=== PATIENT | male | born 1945 | race Caucasian/White ===

== ENCOUNTER → 2017-03-11 | Outpatient (CLI) | payer MEDICARE ==
[2017-03-11 14:14] LABS: CH 29.6; CHCM 32.5; HCT 31.8 % (39.0-53.0); HDW 2.89; HGB 10.5 gm/dL (13.0-17.5); MCH 30.2 pg (25.0-35.0); MCHC 33.1 g/dL (31.0-37.0); MCV 91.3 fL (80.0-100.0); Mean Platelet Volume 6.9; RBC 3.48 m/uL (4.30-5.90); WBC 6.3 k/uL (3.8-10.6)
[2017-03-11 14:15] LABS: Appearance,Urine Clear (Clear); Bilirubin,Urine Negative (Negative); Glucose,Urine (UA) Negative (Negative); Ketones,Urine Negative (Negative); Leukocyte Esterase,Urine Moderate (Negative); Mucus,Urine Rare /hpf; Nitrite,Urine Negative (Negative); Particle Count 2014; Protein,Urine 1+ (Negative); Specific Gravity,Urine 1.005 (1.001-1.035); Squamous Epithelial Cell,Urine <1 /hpf (0-4); UA Billing (MACRO vs. MICRO) MICRO; Urobilinogen,Urine <2.0 mg/dL (<2.0); WBC,Urine 4 /hpf (0-5)
[2017-03-11 14:28] LABS: Calcium 9.6 mg/dL (8.4-10.2); Magnesium 2.1 mg/dL (1.6-2.3); Phosphorous 4.7 mg/dL (2.5-4.5); Potassium 4.4 mmol/L (3.5-5.1); Uric Acid 7.4 mg/dL (3.5-8.5)
[2017-03-11 14:37] LABS: % Iron Saturation 32.9 % (20-50)
[2017-03-11 14:38] LABS: Creatinine,Urine Random 45.8 mg/dL
== END | disposition home or self-care (01) ==
LOC: LABWHC1 13:41
PROVIDERS: ATTEND Nurse Practitioner Family
DX: E79.0 Hyperuricemia without signs of inflammatory arthritis and tophaceous disease (principal); E55.9 Vitamin D deficiency, unspecified; E21.3 Hyperparathyroidism, unspecified; N18.4 Chronic kidney disease, stage 4 (severe); N39.0 Urinary tract infection, site not specified; D50.9 Iron deficiency anemia, unspecified; R80.9 Proteinuria, unspecified
CPT/HCPCS: 36415; 80048; 81001; 82040; 82306; 82570; 82728; 83540; 83550; 83735; 83970; 84100; 84156; 84550; 85027

== ENCOUNTER → 2017-07-08 | Outpatient (CLI) | payer MEDICARE ==
[2017-07-08 13:11] LABS: Anisocytosis Slight; Basophils # (A) 0.1 k/uL (0-0.2); Basophils % (A) 1 %; CH 30.1; CHCM 31.3; Eosinophils # (A) 0.3 k/uL (0-0.7); Eosinophils % (A) 4 %; HCT 33.9 % (39.0-53.0); HDW 2.76; HGB 10.7 gm/dL (13.0-17.5); Hypochromasia Slight; Luc # (Auto) 0.29; Luc % (Auto) 4; Lymphocytes # (A) 1.4 k/uL (1.0-4.8); Lymphocytes % (A) 20 %; MCH 30.6 pg (25.0-35.0); MCHC 31.7 g/dL (31.0-37.0); MCV 96.7 fL (80.0-100.0); Macrocytosis Slight; Monocytes # (A) 0.5 k/uL (0-1.0); Monocytes % (A) 8 %; Neutrophils # (A) 4.4 k/uL (1.3-7.7); Neutrophils % (A) 63 %; RBC 3.51 m/uL (4.30-5.90); RDW 17.2 % (11.5-15.5)
[2017-07-08 14:59] LABS: Calcium 9.4 mg/dL (8.4-10.2); Magnesium 2.1 mg/dL (1.6-2.3); Phosphorus 4.3 mg/dL (2.5-4.5); Potassium 5.1 mmol/L (3.5-5.1)
[2017-07-08 15:01] LABS: Appearance,Urine Clear (Clear); Bilirubin,Urine Negative (Negative); Glucose,Urine (UA) Negative (Negative); Ketones,Urine Negative (Negative); Leukocyte Esterase,Urine Negative (Negative); Nitrite,Urine Negative (Negative); PH, Urine 5.5 (5.0-8.0); Particle Count 800; Protein,Urine 1+ (Negative); Specific Gravity,Urine 1.005 (1.001-1.035); UA Billing (MACRO vs. MICRO) MICRO; Urobilinogen,Urine <2.0 mg/dL (<2.0)
[2017-07-08 19:49] LABS: Iron Saturation 17.07 (15.00-50.00)
== END | disposition home or self-care (01) ==
LOC: LABWHC1 12:09
PROVIDERS: ATTEND Nurse Practitioner Family
DX: N18.4 Chronic kidney disease, stage 4 (severe) (principal); E79.0 Hyperuricemia without signs of inflammatory arthritis and tophaceous disease; R80.9 Proteinuria, unspecified; D50.9 Iron deficiency anemia, unspecified; N39.0 Urinary tract infection, site not specified; E21.3 Hyperparathyroidism, unspecified; E55.9 Vitamin D deficiency, unspecified
CPT/HCPCS: 36415; 80048; 81001; 82040; 82306; 82570; 82728; 83540; 83550; 83735; 83970; 84100; 84156; 84550; 85025

== ENCOUNTER → 2017-11-19 | Outpatient (CLI) | payer MEDICARE ==
[2017-11-19 14:08] LABS: HCT 37.3 % (39.0-53.0); HGB 11.9 gm/dL (13.0-17.5); MCH 30.1 pg (25.0-35.0); Mean Platelet Volume 7.4; Platelet Count 350 k/uL (150-450); RBC 3.96 m/uL (4.30-5.90); WBC 6.4 k/uL (3.8-10.6)
[2017-11-19 14:24] LABS: Albumin 4.2 g/dL (3.5-5.0); Calcium 9.7 mg/dL (8.4-10.2); Magnesium 2.2 mg/dL (1.6-2.3); Phosphorus 4.7 mg/dL (2.5-4.5); Potassium 5.4 mmol/L (3.5-5.1); Uric Acid 7.4 mg/dL (3.5-8.5)
[2017-11-19 14:27] LABS: Appearance,Urine Clear (Clear); Bilirubin,Urine Negative (Negative); Blood,Urine Negative (Negative); Color,Urine Light Yellow; Glucose,Urine (UA) Negative (Negative); Hyaline Casts,Urine 1 /lpf (0-2); Ketones,Urine Negative (Negative); Leukocyte Esterase,Urine Moderate (Negative); Nitrite,Urine Negative (Negative); PH, Urine 5.5 (5.0-8.0); Protein,Urine 2+ (Negative); Specific Gravity,Urine 1.005 (1.001-1.035); Urobilinogen,Urine <2.0 mg/dL (<2.0); WBC,Urine 3 /hpf (0-5)
[2017-11-19 14:40] LABS: Creatinine,Urine Random 46.5 mg/dL
[2017-11-19 18:57] LABS: Parathyroid Hormone Intact 130.5 pg/mL (14.0-72.0)
[2017-11-19 19:47] LABS: Iron Saturation 12.94 (15.00-50.00)
[2017-11-19 19:54] LABS: Vitamin D 25 Hydroxy 28.9 ng/mL (30.0-100.0)
== END | disposition home or self-care (01) ==
LOC: LABWHC1 13:19
PROVIDERS: ATTEND Nurse Practitioner Family
DX: N39.0 Urinary tract infection, site not specified (principal); N25.81 Secondary hyperparathyroidism of renal origin; E55.9 Vitamin D deficiency, unspecified; M10.9 Gout, unspecified; D50.9 Iron deficiency anemia, unspecified; R80.9 Proteinuria, unspecified; N18.4 Chronic kidney disease, stage 4 (severe)
CPT/HCPCS: 36415; 80048; 81001; 82040; 82306; 82570; 82728; 83540; 83550; 83735; 83970; 84100; 84156; 84550; 85027

== ENCOUNTER → 2017-12-13 | Outpatient (CLI) | payer MEDICARE ==
[2017-12-13 11:15] LABS: HGB 10.8 gm/dL (13.0-17.5); MCH 29.6 pg (25.0-35.0); MCHC 32.7 g/dL (31.0-37.0); MCV 90.7 fL (80.0-100.0); Mean Platelet Volume 7.4; Platelet Count 332 k/uL (150-450); RBC 3.64 m/uL (4.30-5.90); RDW 15.2 % (11.5-15.5); WBC 8.6 k/uL (3.8-10.6)
[2017-12-13 11:31] LABS: Appearance,Urine Clear (Clear); Bilirubin,Urine Negative (Negative); Blood,Urine Negative (Negative); Color,Urine Light Yellow; Glucose,Urine (UA) Negative (Negative); Ketones,Urine Negative (Negative); Leukocyte Esterase,Urine Moderate (Negative); Protein,Urine 2+ (Negative); RBC,Urine <1 /hpf (0-5); Specific Gravity,Urine 1.006 (1.001-1.035); Squamous Epithelial Cell,Urine <1 /hpf (0-4); Urobilinogen,Urine <2.0 mg/dL (<2.0); WBC,Urine 3 /hpf (0-5)
[2017-12-13 11:33] LABS: Calcium 9.4 mg/dL (8.4-10.2); Phosphorus 4.4 mg/dL (2.5-4.5); Potassium 5.2 mmol/L (3.5-5.1); Uric Acid 7.1 mg/dL (3.5-8.5)
[2017-12-13 11:53] LABS: Creatinine,Urine Random 56.4 mg/dL
[2017-12-13 17:36] LABS: Parathyroid Hormone Intact 125.7 pg/mL (14.0-72.0)
[2017-12-13 19:06] LABS: Iron Saturation 28.35 (15.00-50.00)
== END | disposition home or self-care (01) ==
LOC: LABWHC1 10:23
PROVIDERS: ATTEND Nurse Practitioner Family
DX: N39.0 Urinary tract infection, site not specified (principal); N18.4 Chronic kidney disease, stage 4 (severe); E55.9 Vitamin D deficiency, unspecified; E61.1 Iron deficiency; R80.9 Proteinuria, unspecified; N25.81 Secondary hyperparathyroidism of renal origin; D50.9 Iron deficiency anemia, unspecified; M10.9 Gout, unspecified
CPT/HCPCS: 36415; 80048; 81001; 82040; 82570; 82728; 83540; 83550; 83735; 83970; 84100; 84156; 84550; 85027

== ENCOUNTER → 2018-03-11 | Outpatient (CLI) | payer MEDICARE ==
[2018-03-11 13:48] LABS: Anisocytosis Slight; HCT 31.6 % (39.0-53.0); HGB 10.2 gm/dL (13.0-17.5); MCH 29.8 pg (25.0-35.0); MCHC 32.2 g/dL (31.0-37.0); MCV 92.5 fL (80.0-100.0); Mean Platelet Volume 6.9; Platelet Count 329 k/uL (150-450); RBC 3.41 m/uL (4.30-5.90); RDW 17.8 % (11.5-15.5); WBC 6.8 k/uL (3.8-10.6)
[2018-03-11 13:50] LABS: Appearance,Urine Clear (Clear); Bilirubin,Urine Negative (Negative); Blood,Urine Negative (Negative); Color,Urine Light Yellow; Glucose,Urine (UA) Negative (Negative); Ketones,Urine Negative (Negative); Leukocyte Esterase,Urine Moderate (Negative); Nitrite,Urine Negative (Negative); PH, Urine 5.5 (5.0-8.0); Protein,Urine 1+ (Negative); RBC,Urine <1 /hpf (0-5); Specific Gravity,Urine 1.005 (1.001-1.035); Squamous Epithelial Cell,Urine <1 /hpf (0-4); Urobilinogen,Urine <2.0 mg/dL (<2.0); WBC,Urine 3 /hpf (0-5)
[2018-03-11 13:52] LABS: Albumin 4.5 g/dL (3.5-5.0); Calcium 9.5 mg/dL (8.4-10.2); Magnesium 2.2 mg/dL (1.6-2.3); Phosphorus 4.1 mg/dL (2.5-4.5); Potassium 4.6 mmol/L (3.5-5.1); Uric Acid 7.7 mg/dL (3.5-8.5)
[2018-03-11 14:05] LABS: Creatinine,Urine Random 27.1 mg/dL
[2018-03-11 21:30] LABS: Parathyroid Hormone Intact 132.8 pg/mL (14.0-72.0)
[2018-03-11 22:29] LABS: Iron Saturation 14.8 (15.00-50.00)
[2018-03-11 22:43] LABS: Vitamin D 25 Hydroxy 50.7 ng/mL (30.0-100.0)
== END | disposition home or self-care (01) ==
LOC: LABWHC1 12:52
PROVIDERS: ATTEND Nurse Practitioner Family
DX: N18.4 Chronic kidney disease, stage 4 (severe) (principal); D50.9 Iron deficiency anemia, unspecified; R80.9 Proteinuria, unspecified; E83.41 Hypermagnesemia; E21.3 Hyperparathyroidism, unspecified; E55.9 Vitamin D deficiency, unspecified; N39.0 Urinary tract infection, site not specified
CPT/HCPCS: 36415; 80048; 81001; 82040; 82306; 82570; 82728; 83540; 83550; 83735; 83970; 84100; 84156; 84550; 85027

== ENCOUNTER → 2018-06-10 | Outpatient (CLI) | payer MEDICARE ==
[2018-06-10 13:06] LABS: Amorphous Sediment,Urine Rare /hpf; Anisocytosis Slight; Appearance,Urine Clear (Clear); Bilirubin,Urine Negative (Negative); Blood,Urine Negative (Negative); Color,Urine Light Yellow; Glucose,Urine (UA) Negative (Negative); HCT 31.3 % (39.0-53.0); HGB 9.7 gm/dL (13.0-17.5); Ketones,Urine Negative (Negative); Leukocyte Esterase,Urine Large (Negative); MCH 28.7 pg (25.0-35.0); MCHC 30.8 g/dL (31.0-37.0); MCV 93.1 fL (80.0-100.0); Mean Platelet Volume 7.5; Nitrite,Urine Negative (Negative); Platelet Count 320 k/uL (150-450); Protein,Urine 1+ (Negative); RBC 3.37 m/uL (4.30-5.90); RDW 17.3 % (11.5-15.5); Specific Gravity,Urine 1.008 (1.001-1.035); Squamous Epithelial Cell,Urine <1 /hpf (0-4); Urobilinogen,Urine <2.0 mg/dL (<2.0); WBC 6.5 k/uL (3.8-10.6); WBC,Urine 7 /hpf (0-5)
[2018-06-10 13:19] LABS: Albumin 3.9 g/dL (3.5-5.0); Calcium 8.9 mg/dL (8.4-10.2); Magnesium 2.3 mg/dL (1.6-2.3); Phosphorus 4.9 mg/dL (2.5-4.5); Potassium 4.1 mmol/L (3.5-5.1); Uric Acid 6.9 mg/dL (3.5-8.5)
[2018-06-10 13:22] LABS: Creatinine,Urine Random 80.2 mg/dL
[2018-06-10 19:46] LABS: Parathyroid Hormone Intact 173.2 pg/mL (14.0-72.0)
[2018-06-10 21:10] LABS: Iron Saturation 16.6 (15.00-50.00)
== END | disposition home or self-care (01) ==
LOC: LABWHC1 12:14
PROVIDERS: ATTEND Nurse Practitioner Family
DX: N18.4 Chronic kidney disease, stage 4 (severe) (principal); N39.0 Urinary tract infection, site not specified; D50.9 Iron deficiency anemia, unspecified; E79.0 Hyperuricemia without signs of inflammatory arthritis and tophaceous disease; R80.9 Proteinuria, unspecified; E21.3 Hyperparathyroidism, unspecified; E55.9 Vitamin D deficiency, unspecified
CPT/HCPCS: 36415; 80048; 81001; 82040; 82570; 82728; 83540; 83550; 83735; 83970; 84100; 84156; 84550; 85027; 87086

== ENCOUNTER → 2018-09-11 | Outpatient (CLI) | payer MEDICARE ==
[2018-09-11 10:29] LABS: Anisocytosis Slight; HCT 26.5 % (39.0-53.0); HGB 8.2 gm/dL (13.0-17.5); Hypochromasia Moderate; MCH 28.3 pg (25.0-35.0); MCHC 30.8 g/dL (31.0-37.0); MCV 91.8 fL (80.0-100.0); Mean Platelet Volume 7.8; Platelet Count 346 k/uL (150-450); RBC 2.88 m/uL (4.30-5.90); WBC 6.7 k/uL (3.8-10.6)
[2018-09-11 10:36] LABS: Appearance,Urine Clear (Clear); Bilirubin,Urine Negative (Negative); Blood,Urine Negative (Negative); Color,Urine Light Yellow; Glucose,Urine (UA) Negative (Negative); Ketones,Urine Negative (Negative); Leukocyte Esterase,Urine Small (Negative); Nitrite,Urine Negative (Negative); Protein,Urine 2+ (Negative); RBC,Urine 1 /hpf (0-5); Specific Gravity,Urine 1.007 (1.001-1.035); Squamous Epithelial Cell,Urine <1 /hpf (0-4); Urobilinogen,Urine <2.0 mg/dL (<2.0); WBC,Urine 3 /hpf (0-5)
[2018-09-11 17:33] LABS: Parathyroid Hormone Intact 103.7 pg/mL (14.0-72.0)
[2018-09-11 18:55] LABS: Iron Saturation 10.99 (15.00-50.00)
[2018-09-11 19:03] LABS: Vitamin D 25 Hydroxy 44.9 ng/mL (30.0-100.0)
[2018-09-11 19:07] LABS: Albumin 4.2 g/dL (3.80-4.90); Anion Gap 9.6 mmol/L (4.00-12.00); Calcium 9.1 mg/dL (8.7-10.3); Carbon Dioxide 20.4 mmol/L (21.6-31.8); Magnesium 2.2 mg/dL (1.5-2.4); Phosphorus 4.5 mg/dL (2.4-5.1); Potassium 5.1 mmol/L (3.5-5.5); Uric Acid 6.5 mg/dL (3.7-8.7)
[2018-09-11 19:40] LABS: Total Protein,Urine Random 146.3 mg/dL (0.0-13.5)
== END | disposition home or self-care (01) ==
LOC: LABWHC1 09:18
PROVIDERS: ATTEND Nurse Practitioner Family
DX: N18.4 Chronic kidney disease, stage 4 (severe) (principal); D50.9 Iron deficiency anemia, unspecified; E79.0 Hyperuricemia without signs of inflammatory arthritis and tophaceous disease; R80.9 Proteinuria, unspecified; E21.3 Hyperparathyroidism, unspecified; E55.9 Vitamin D deficiency, unspecified; N39.0 Urinary tract infection, site not specified
CPT/HCPCS: 36415; 80048; 81001; 82040; 82306; 82570; 82728; 83540; 83550; 83735; 83970; 84100; 84156; 84550; 85027

== ENCOUNTER → 2018-11-13 | Outpatient (CLI) | payer MEDICARE ==
[2018-11-13 13:57] LABS: Anisocytosis Slight; HCT 36.1 % (39.0-53.0); HGB 10.9 gm/dL (13.0-17.5); Hypochromasia Slight; MCHC 30.3 g/dL (31.0-37.0); MCV 92.4 fL (80.0-100.0); Mean Platelet Volume 7.9; Platelet Count 349 k/uL (150-450); RDW 18.3 % (11.5-15.5); WBC 6.4 k/uL (3.8-10.6)
[2018-11-13 14:06] LABS: Appearance,Urine Clear (Clear); Bilirubin,Urine Negative (Negative); Blood,Urine Small (Negative); Color,Urine Light Yellow; Glucose,Urine (UA) Negative (Negative); Ketones,Urine Negative (Negative); Leukocyte Esterase,Urine Moderate (Negative); Mucus,Urine Rare /hpf; Nitrite,Urine Negative (Negative); PH, Urine 5.5 (5.0-8.0); Protein,Urine 2+ (Negative); RBC,Urine 8 /hpf (0-5); Specific Gravity,Urine 1.004 (1.001-1.035); Squamous Epithelial Cell,Urine 1 /hpf (0-4); Urobilinogen,Urine <2.0 mg/dL (<2.0); WBC,Urine 3 /hpf (0-5)
[2018-11-13 19:17] LABS: Iron Saturation 11.94 (15.00-50.00)
[2018-11-13 19:23] LABS: Albumin 4.2 g/dL (3.80-4.90); Albumin/Globulin Ratio 1.5 (1.60-3.17); Anion Gap 10.3 mmol/L (4.00-12.00); Carbon Dioxide 20.7 mmol/L (21.6-31.8); Globulin 2.8 g/dL (1.6-3.3); Magnesium 2.3 mg/dL (1.5-2.4); Phosphorus 3.8 mg/dL (2.4-5.1); Potassium 4.6 mmol/L (3.5-5.5); Total Bilirubin 0.2 mg/dL (0.3-1.2); Uric Acid 6.5 mg/dL (3.7-8.7)
[2018-11-13 20:19] LABS: Parathyroid Hormone Intact 142.7 pg/mL (14.0-72.0)
[2018-11-13 21:01] LABS: Creatinine,Urine Random 35.7 mg/dL
[2018-11-13 21:17] LABS: Total Protein,Urine Random 102.7 mg/dL (0.0-13.5)
== END | disposition home or self-care (01) ==
LOC: LABWHC1 13:18
PROVIDERS: ATTEND Internal Medicine
DX: N18.4 Chronic kidney disease, stage 4 (severe) (principal); D63.1 Anemia in chronic kidney disease; R80.9 Proteinuria, unspecified; E55.9 Vitamin D deficiency, unspecified; M10.9 Gout, unspecified
CPT/HCPCS: 36415; 80053; 81001; 82570; 82728; 83540; 83550; 83735; 83970; 84100; 84156; 84550; 85027

== ENCOUNTER → 2018-12-17 | Outpatient (CLI) | payer MEDICARE ==
[2018-12-17 12:30] LABS: Anisocytosis Slight; Basophils # (A) 0.1 k/uL (0-0.2); Basophils % (A) 1 %; Eosinophils # (A) 0.3 k/uL (0-0.7); Eosinophils % (A) 4 %; HCT 33.9 % (39.0-53.0); HGB 10.3 gm/dL (13.0-17.5); Hypochromasia Slight; Lymphocytes # (A) 1.1 k/uL (1.0-4.8); Lymphocytes % (A) 13 %; MCH 27.4 pg (25.0-35.0); MCHC 30.3 g/dL (31.0-37.0); MCV 90.4 fL (80.0-100.0); Mean Platelet Volume 7.3; Monocytes # (A) 0.7 k/uL (0-1.0); Monocytes % (A) 8 %; Neutrophils # (A) 5.9 k/uL (1.3-7.7); Neutrophils % (A) 72 %; Platelet Count 319 k/uL (150-450); RBC 3.75 m/uL (4.30-5.90); RDW 17.9 % (11.5-15.5); WBC 8.2 k/uL (3.8-10.6)
[2018-12-17 17:49] LABS: Iron Saturation 24.11 (15.00-50.00)
== END | disposition home or self-care (01) ==
LOC: LABWHC1 11:14
PROVIDERS: ATTEND Nurse Practitioner Family
DX: N18.4 Chronic kidney disease, stage 4 (severe) (principal)
CPT/HCPCS: 36415; 82728; 83540; 83550; 85025

== ENCOUNTER → 2019-01-15 | Outpatient (CLI) | payer MEDICARE ==
[2019-01-15 14:39] LABS: Anisocytosis Slight; HCT 28.4 % (39.0-53.0); HGB 8.9 gm/dL (13.0-17.5); MCH 28.3 pg (25.0-35.0); MCHC 31.5 g/dL (31.0-37.0); Mean Platelet Volume 6.8; Platelet Count 306 k/uL (150-450); RBC 3.16 m/uL (4.30-5.90); RDW 18.3 % (11.5-15.5); WBC 7.5 k/uL (3.8-10.6)
[2019-01-15 18:52] LABS: Parathyroid Hormone Intact 110.1 pg/mL (14.0-72.0)
[2019-01-15 20:52] LABS: African American GFR (CKD) 21.3 (60.0-200.0); Albumin 4.3 g/dL (3.80-4.90); Albumin/Globulin Ratio 1.48 (1.60-3.17); Anion Gap 10.3 mmol/L (4.00-12.00); BUN/Creat Ratio 19.06 Ratio (12.00-20.00); Calcium 9.4 mg/dL (8.7-10.3); Carbon Dioxide 22.7 mmol/L (21.6-31.8); Globulin 2.9 g/dL (1.6-3.3); Magnesium 2.3 mg/dL (1.5-2.4); Total Bilirubin 0.3 mg/dL (0.3-1.2); Total Protein 7.2 g/dL (6.2-8.2)
[2019-01-15 20:53] LABS: Phosphorus 3.8 mg/dL (2.4-5.1); Uric Acid 6.7 mg/dL (3.7-8.7)
== END | disposition home or self-care (01) ==
LOC: LABWHC1 13:13
PROVIDERS: ATTEND Internal Medicine
DX: M10.9 Gout, unspecified (principal); D63.1 Anemia in chronic kidney disease; N25.81 Secondary hyperparathyroidism of renal origin; E83.39 Other disorders of phosphorus metabolism; N18.4 Chronic kidney disease, stage 4 (severe)
CPT/HCPCS: 36415; 80053; 82728; 83540; 83550; 83735; 83970; 84100; 84550; 85027

== ENCOUNTER 2019-03-12 11:59 | Inpatient (IN) | payer MEDICARE ==
[2019-03-12] MEDS ORDERED: PANTOPRAZOLE 40 MG/10 ML VIAL IVP ONE (12:31)
--- NOTE | 2019-03-12 12:35 | ED ---
General Adult HPI - General Chief complaint: Recheck/Abnormal Lab/Rx Stated complaint: abn labs Time Seen by Provider: 03/12/19 12:10 Source: patient Mode of arrival: ambulatory Limitations: no limitations - History of Present Illness Initial comments: Dictation was produced using [employer] dictation software. please excuse any grammatical, word or spelling errors. Chief Complaint: 73-year-old male with multiple comorbidities presents with low hemoglobin. History of Present Illness: Patient 73-year-old male he has past medical history of hypertension, chronic kidney disease, atrial fibrillation. He does take Coumadin. He had his INR checked it is PCPs office today found to be 2.6. Patient has been feeling lightheaded over the last 2-3 days. He is seen to be sleeping more. Patient had his blood drawn today for surveillance. He is found have a hemoglobin of 6.7. He was sent here immediately per recommendation by PCP and curbstone setter for low transfusion. Patient states he's been having dark stools but not black. No pain complaints at this time. The ROS documented in this emergency department record has been reviewed and confirmed by me. Those systems with pertinent positive or negative responses have been documented in the HPI. All other systems are other negative and/or noncontributory. PHYSICAL EXAM: General Impression: Alert and oriented x3, not in acute distress HEENT: Normocephalic atraumatic, extra-ocular movements intact, pupils equal and reactive to light bilaterally, mucous membranes moist. Cardiovascular: Heart regular rate and rhythm, S1&S2 audible, no murmurs, rubs or gallops Chest: Lungs clear to auscultation bilaterally, no rhonchi, no wheeze, no rales Abdomen: Bowel sounds present, abdomen soft, non-tender, non-distended, no organomegaly Musculoskeletal: Pulses present and equal in all extremities, no peripheral edema Motor: no focal deficits noted Neurological: CN II-XII grossly intact, no focal motor or sensory deficits noted Skin: Intact with no visualized rashes Psych: Normal affect and mood Rectal exam: Shows black stool around the anus. ED course: 73-year-old male on Coumadin presents with low hemoglobin seen on outpatient labs. Patient does have stool on stool guaiac. Likely source is GI bleed. Vital signs upon arrival are within acceptable limits. Patient hemodynamically stable. Laboratory evaluation obtained. Hemoglobin 6.8. Rest of CBC unremarkable. Coag panel shows INR 2.2. Patient is on Coumadin. Chem panel demonstrates creatinine of 2.06. BUN 17. Stool occult blood is positive. Coumadin to be held at this time. Patient not actively bleeding at this time. Patient given Protonix. Patient will admitted. Transfusion ordered. GI and nephrology on consultation. - Related Data Home Medications Medication Instructions Recorded Confirmed Cholecalciferol [Vitamin D3 (25 5,000 unit PO HS 02/23/15 03/12/19 Mcg = 1000 Iu)] NIFEdipine [NIFEdipine ER] 120 mg PO DAILY 02/23/15 03/12/19 hydrALAZINE HCL [Apresoline] 100 mg PO TID 02/23/15 03/12/19 Carvedilol [Coreg] 6.25 mg PO AC-BID 09/05/15 03/12/19 Aspirin EC [Ecotrin Low Dose] 81 mg PO DAILY 05/31/16 03/12/19 Atorvastatin [Lipitor] 40 mg PO DAILY 05/31/16 03/12/19 Torsemide [Demadex] 10 mg PO DAILY 09/27/16 03/12/19 Allopurinol [Zyloprim] 100 mg PO DAILY 12/20/16 03/12/19 Calcitriol [Rocaltrol] 0.25 mcg PO DAILY 07/17/18 03/12/19 Sodium Bicarbonate Tab 650 mg PO BID 03/12/19 03/12/19 Warfarin Sodium [Coumadin] 2 mg PO SUTH 03/12/19 03/12/19 Warfarin Sodium [Coumadin] 4 mg PO MOTUWEFRSA 03/12/19 03/12/19 Allergies Allergy/AdvReac Type Severity Reaction Status Date / Time No Known Allergies Allergy Verified 03/12/19 12:08 Review of Systems ROS Statement: Those systems with pertinent positive or pertinent negative responses have been documented in the HPI. ROS Other: All systems not noted in ROS Statement are negative. Past Medical History Past Medical History: Blood Disorder, GERD/Reflux, Hypertension, Renal Disease, Vascular Disorder Additional Past Medical History / Comment(s): PVD. ANEMIA. History of Any Multi-Drug Resistant Organisms: None Reported Past Surgical History: Tonsillectomy Additional Past Surgical History / Comment(s): recent angiogram. ILIAC STENTS. Past Anesthesia/Blood Transfusion Reactions: No Reported Reaction Past Psychological History: Depression Smoking Status: Former smoker Past Alcohol Use History: Occasional Past Drug Use History: None Reported - Past Family History Mother Family Medical History: Cancer, Congestive Heart Failure (CHF) Father Family Medical History: Hypertension, Myocardial Infarction ([place]), Vascular Disorder General Exam Limitations: no limitations Course Vital Signs 03/12/19 03/12/19 03/12/19 12:05 12:53 13:00 Temperature 97.8 F Pulse Rate 74 Respiratory 18 Rate Blood Pressure 192/62 194/67 O2 Sat by Pulse 99 95 97 Oximetry Medical Decision Making - Lab Data Result diagrams: 03/12/19 12:51 03/12/19 12:51 Lab Results 03/12/19 03/12/19 03/12/19 Range/Units 12:51 12:51 12:51 WBC 6.8 (3.8-10.6) k/uL RBC 2.27 L (4.30-5.90) m/uL Hgb 6.8 L* (13.0-17.5) gm/dL Hct 21.8 L (39.0-53.0) % MCV 96.0 (80.0-100.0) fL MCH 30.2 (25.0-35.0) pg MCHC 31.4 (31.0-37.0) g/dL RDW 18.0 H (11.5-15.5) % Plt Count 406 (150-450) k/uL Neutrophils % 73 % Lymphocytes % 13 % Monocytes % 7 % Eosinophils % 3 % Basophils % 1 % Neutrophils # 5.0 (1.3-7.7) k/uL Lymphocytes # 0.9 L (1.0-4.8) k/uL Monocytes # 0.5 (0-1.0) k/uL Eosinophils # 0.2 (0-0.7) k/uL Basophils # 0.0 (0-0.2) k/uL Hypochromasia Slight Anisocytosis Slight Macrocytosis Slight PT 21.0 H (9.0-12.0) sec INR 2.2 H (<1.2) Sodium 140 (137-145) mmol/L Potassium 4.9 (3.5-5.1) mmol/L Chloride 106 (98-107) mmol/L Carbon Dioxide 21 L (22-30) mmol/L Anion Gap 13 mmol/L BUN 70 H (9-20) mg/dL Creatinine 3.06 H (0.66-1.25) mg/dL Est GFR (CKD-EPI)AfAm 22 (>60 ml/min/1.73 sqM) Est GFR (CKD-EPI)NonAf 19 (>60 ml/min/1.73 sqM) Glucose 112 H (74-99) mg/dL Calcium 9.6 (8.4-10.2) mg/dL Stool Occult Blood (Negative) 03/12/19 Range/Units 13:08 WBC (3.8-10.6) k/uL RBC (4.30-5.90) m/uL Hgb (13.0-17.5) gm/dL Hct (39.0-53.0) % MCV (80.0-100.0) fL MCH (25.0-35.0) pg MCHC (31.0-37.0) g/dL RDW (11.5-15.5) % Plt Count (150-450) k/uL Neutrophils % % Lymphocytes % % Monocytes % % Eosinophils % % Basophils % % Neutrophils # (1.3-7.7) k/uL Lymphocytes # (1.0-4.8) k/uL Monocytes # (0-1.0) k/uL Eosinophils # (0-0.7) k/uL Basophils # (0-0.2) k/uL Hypochromasia Anisocytosis Macrocytosis PT (9.0-12.0) sec INR (<1.2) Sodium (137-145) mmol/L Potassium (3.5-5.1) mmol/L Chloride (98-107) mmol/L Carbon Dioxide (22-30) mmol/L Anion Gap mmol/L BUN (9-20) mg/dL Creatinine (0.66-1.25) mg/dL Est GFR (CKD-EPI)AfAm (>60 ml/min/1.73 sqM) Est GFR (CKD-EPI)NonAf (>60 ml/min/1.73 sqM) Glucose (74-99) mg/dL Calcium (8.4-10.2) mg/dL Stool Occult Blood Positive (Negative) Disposition Clinical Impression: GI bleed Disposition: ADMITTED IP TO THIS [facility] Condition: Fair Referrals: Fide Faith MD [Primary Care Provider] - 1-2 days Decision Time: 14:04
[2019-03-12 13:24] LABS: INR 2.2 (<1.2)
[2019-03-12 13:25] LABS: Anisocytosis Slight; Basophils % (A) 1 %; Eosinophils # (A) 0.2 k/uL (0-0.7); Eosinophils % (A) 3 %; HCT 21.8 % (39.0-53.0); Hypochromasia Slight; Lymphocytes # (A) 0.9 k/uL (1.0-4.8); Lymphocytes % (A) 13 %; MCH 30.2 pg (25.0-35.0); MCHC 31.4 g/dL (31.0-37.0); Macrocytosis Slight; Mean Platelet Volume 7.4; Monocytes # (A) 0.5 k/uL (0-1.0); Monocytes % (A) 7 %; Neutrophils % (A) 73 %; Platelet Count 406 k/uL (150-450); RBC 2.27 m/uL (4.30-5.90); WBC 6.8 k/uL (3.8-10.6)
[2019-03-12 13:27] LABS: HGB 6.8 gm/dL (13.0-17.5)
[2019-03-12 13:38] LABS: Calcium 9.6 mg/dL (8.4-10.2); Potassium 4.9 mmol/L (3.5-5.1)
[2019-03-12] MEDS ORDERED: NALOXONE 0.4 MG/ML 1 ML VIAL IV PRN (14:04)
[2019-03-12] MEDS ORDERED: ONDANSETRON 4 MG/2 ML VIAL IVP PRN (14:04)
--- NOTE | 2019-03-12 14:45 | P.NPCON ---
History of Present Illness - Reason for Consult chronic renal failure - History of Present Illness Reason for consultation: Chronic kidney disease History of present illness: Patient is a 73-year-old male seen in renal consultation for chronic kidney disease. Patient has chronic kidney disease stage IV secondary to nephrosclerosis with baseline creatinine recently near 3. GFR is currently near baseline. Patient presented to the hospital today to get Aranesp but was noted to have a hemoglobin of 6.8 and was subsequently sent to the ER. Patient states he has noticed dark stools. However he denies any hematochezia. Denies hematemesis. No hematuria or dysuria. He admits to good urine output. Oral intake is good. No vomiting or diarrhea. He feels tired but denies any active chest pain or shortness of breath. He denies use of nonsteroidals. Hemodynamically stable. No active complaints at this time. Vital signs are stable. General: The patient appeared well nourished and normally developed. HEENT: Head exam is unremarkable. Neck is without jugular venous distension. LUNGS: Lungs are clear to auscultation and percussion. Breath sounds decreased. HEART: Rate and Rhythm are regular. First and second heart sounds normal. No murmurs, rubs or gallops. ABDOMEN: Abdominal exam reveals normal bowel sounds. Non-tender and non- distended. No evidence of peritonitis. EXTREMITITES: No clubbing, cyanosis, or edema. Past Medical History Past Medical History: Blood Disorder, GERD/Reflux, Hypertension, Renal Disease, Vascular Disorder Additional Past Medical History / Comment(s): PVD. ANEMIA. History of Any Multi-Drug Resistant Organisms: None Reported Past Surgical History: Tonsillectomy Additional Past Surgical History / Comment(s): recent angiogram. ILIAC STENTS. Past Anesthesia/Blood Transfusion Reactions: No Reported Reaction Past Psychological History: Depression Smoking Status: Former smoker Past Alcohol Use History: Occasional Past Drug Use History: None Reported - Past Family History Mother Family Medical History: Cancer, Congestive Heart Failure (CHF) Father Family Medical History: Hypertension, Myocardial Infarction ([place]), Vascular Disorder Medications and Allergies Home Medications Medication Instructions Recorded Confirmed Type Cholecalciferol [Vitamin D3 (25 5,000 unit PO HS 02/23/15 03/12/19 History Mcg = 1000 Iu)] NIFEdipine [NIFEdipine ER] 120 mg PO DAILY 02/23/15 03/12/19 History hydrALAZINE HCL [Apresoline] 100 mg PO TID 02/23/15 03/12/19 History Carvedilol [Coreg] 6.25 mg PO AC-BID 09/05/15 03/12/19 History Aspirin EC [Ecotrin Low Dose] 81 mg PO DAILY 05/31/16 03/12/19 History Atorvastatin [Lipitor] 40 mg PO DAILY 05/31/16 03/12/19 History Torsemide [Demadex] 10 mg PO DAILY 09/27/16 03/12/19 History Allopurinol [Zyloprim] 100 mg PO DAILY 12/20/16 03/12/19 History Calcitriol [Rocaltrol] 0.25 mcg PO DAILY 07/17/18 03/12/19 History Sodium Bicarbonate Tab 650 mg PO BID 03/12/19 03/12/19 History Warfarin Sodium [Coumadin] 2 mg PO SUTH 03/12/19 03/12/19 History Warfarin Sodium [Coumadin] 4 mg PO MOTUWEFRSA 03/12/19 03/12/19 History Allergies Allergy/AdvReac Type Severity Reaction Status Date / Time No Known Allergies Allergy Verified 03/12/19 12:08 Physical Exam Vitals: Vital Signs Temp Pulse Resp BP Pulse Ox 03/12/19 14:39 97.0 F L 80 16 177/78 95 03/12/19 14:09 75 190/65 95 03/12/19 14:00 204/72 03/12/19 13:30 188/85 91 L 03/12/19 13:00 194/67 97 03/12/19 12:53 95 03/12/19 12:05 97.8 F 74 18 192/62 99 Intake and Output 03/11/19 03/12/19 03/12/19 22:59 06:59 14:59 Other: Weight 90.718 kg Results - Lab Results Most recent lab results Calcium 9.6 mg/dL (8.4-10.2) 03/12/19 12:51 03/12/19 12:51 03/12/19 12:51 Assessment and Plan Plan: Assessment: 1. Chronic kidney disease stage IV secondary to nephrosclerosis with baseline creatinine near 3. GFR near baseline. 2. Anemia. There is component of chronic kidney disease. Rule out GI bleed. GI has been consulted. 3. Hypertension with chronic kidney disease. All antihypertensives have been resumed. 4. Mild metabolic acidosis secondary to chronic kidney disease. Plan: I will decrease the rate of normal saline to 50 mL an hour. Encouraged oral intake. Patient received Aranesp today. He is also scheduled to receive blood transfusion. Add oral sodium bicarbonate. Continue to monitor renal function and urine output. No urgent need for renal replacement therapy at this time. Patient is following with vascular surgery outpatient to get an AV graft in the near future. Thank you for the consultation. I will continue to follow the patient with you during his hospital stay.
--- NOTE | 2019-03-12 15:46 | P.HPIM ---
History of Present Illness H&P Date: 03/12/19 This is a 73-year-old male patient of Dr. Faith. Patient presented to the ER due to abnormal lab values. Patient reports that he has a known past medical history chronic kidney disease with known anemia in which he receives Aranesp per nephrology. During this visit patient was found to have a hemoglobin of 8.8 and was sent to the ER patient reports he has noticed dark stools. Patient is on Coumadin for known A. fib. Patient denies any bloody emesis. Patient also denies any nausea vomiting or diarrhea. Patient denies any abdominal pain. Patient states he does the colaguard but has never had a colonoscopy. denies feeling lightheaded or increased fatigue. Additional medical history includes GERD, hypertension, refill vascular disease and chronic kidney disease stage IV. Patient's INR 2.2. Coumadin on hold. Patient to receive 2 units PRBCs. GI nephrology services have been consulted. Patient's creatinine 3.06 this is slightly higher than baseline per patient. At this time patient is resting comfortably in bed. Patient denies any chest pain or shortness of breath. Madhavi ent denies any urinary burning or frequency. Review of Systems Please refer to HPI otherwise unremarkable Past Medical History Past Medical History: Atrial Fibrillation, Blood Disorder, GERD/Reflux, Hyperlipidemia, Hypertension, Pneumonia, Renal Disease, Vascular Disorder Additional Past Medical History / Comment(s): PAD, CKD stage III, chronic anemia with iron infusions, hyperproteinemia, sebaceous cysts. History of Any Multi-Drug Resistant Organisms: None Reported Past Surgical History: Tonsillectomy Additional Past Surgical History / Comment(s): Peripheral angiograms/ 2 stents R leg and 1 stent L leg, recent sebaceous cystectomy on back. Past Anesthesia/Blood Transfusion Reactions: No Reported Reaction Smoking Status: Former smoker - Past Family History Mother Family Medical History: Cancer, Congestive Heart Failure (CHF) Additional Family Medical History / Comment(s): Mother was a breast cancer survivor. She also had lung cancer. Father Family Medical History: Hypertension, Myocardial Infarction ([place]), Vascular Disorder Additional Family Medical History / Comment(s): Father 2 weeks after a [place] at the age of 81 yrs. He also had vascular disease. Medications and Allergies Home Medications Medication Instructions Recorded Confirmed Type Cholecalciferol [Vitamin D3 (25 5,000 unit PO HS 02/23/15 03/12/19 History Mcg = 1000 Iu)] NIFEdipine [NIFEdipine ER] 120 mg PO DAILY 02/23/15 03/12/19 History hydrALAZINE HCL [Apresoline] 100 mg PO TID 02/23/15 03/12/19 History Carvedilol [Coreg] 6.25 mg PO AC-BID 09/05/15 03/12/19 History Aspirin EC [Ecotrin Low Dose] 81 mg PO DAILY 05/31/16 03/12/19 History Atorvastatin [Lipitor] 40 mg PO DAILY 05/31/16 03/12/19 History Torsemide [Demadex] 10 mg PO DAILY 09/27/16 03/12/19 History Allopurinol [Zyloprim] 100 mg PO DAILY 12/20/16 03/12/19 History Calcitriol [Rocaltrol] 0.25 mcg PO DAILY 07/17/18 03/12/19 History Sodium Bicarbonate Tab 650 mg PO BID 03/12/19 03/12/19 History Warfarin Sodium [Coumadin] 2 mg PO SUTH 03/12/19 03/12/19 History Warfarin Sodium [Coumadin] 4 mg PO MOTUWEFRSA 03/12/19 03/12/19 History Allergies Allergy/AdvReac Type Severity Reaction Status Date / Time No Known Allergies Allergy Verified 03/12/19 12:08 Physical Exam Vitals: Vital Signs Temp Pulse Resp BP Pulse Ox 03/12/19 14:39 97.0 F L 80 16 177/78 95 03/12/19 14:09 75 190/65 95 03/12/19 14:00 204/72 03/12/19 13:30 188/85 91 L 03/12/19 13:00 194/67 97 03/12/19 12:53 95 03/12/19 12:05 97.8 F 74 18 192/62 99 Intake and Output 03/12/19 03/12/19 03/12/19 06:59 14:59 22:59 Other: Weight 90.718 kg Head normocephalic Neck supple Lungs clear to auscultation bilaterally no wheezing or crackles Heart regular rate and rhythm S1-S2, no rub or gallop Abdomen is soft nontender distended positive bowel sounds no hepatosplenomegaly Extremities no edema Neuro alert and orientated to 3 Results CBC & Chem 7: 03/12/19 12:51 03/12/19 12:51 Labs: Abnormal Lab Results - Last 24 Hours (Table) 03/12/19 03/12/19 03/12/19 Range/Units 12:51 12:51 12:51 RBC 2.27 L (4.30-5.90) m/uL Hgb 6.8 L* (13.0-17.5) gm/dL Hct 21.8 L (39.0-53.0) % RDW 18.0 H (11.5-15.5) % Lymphocytes # 0.9 L (1.0-4.8) k/uL PT 21.0 H (9.0-12.0) sec INR 2.2 H (<1.2) Carbon Dioxide 21 L (22-30) mmol/L BUN 70 H (9-20) mg/dL Creatinine 3.06 H (0.66-1.25) mg/dL Glucose 112 H (74-99) mg/dL Crossmatch 03/12/19 Range/Units 13:35 RBC (4.30-5.90) m/uL Hgb (13.0-17.5) gm/dL Hct (39.0-53.0) % RDW (11.5-15.5) % Lymphocytes # (1.0-4.8) k/uL PT (9.0-12.0) sec INR (<1.2) Carbon Dioxide (22-30) mmol/L BUN (9-20) mg/dL Creatinine (0.66-1.25) mg/dL Glucose (74-99) mg/dL Crossmatch See Detail Thrombosis Risk Factor Assmnt - Choose All That Apply Any of the Below Risk Factors Present?: Yes Each Factor Represents 1 point: Obesity (BMI >25) Other Risk Factors: Yes Each Risk Factor Represents 2 Points: Age 61-74 years Other congenital or acquired thrombophilia - If yes, enter type in comment: No Thrombosis Risk Factor Assessment Total Risk Factor Score: 3 Thrombosis Risk Factor Assessment Level: Moderate Risk Assessment and Plan Assessment: 1. Anemia due possible component of chronic kidney disease rule out GI bleed. GI services have been consulted. 1 unit of PRBCs has been ordered. Stool for occult blood ordered 2. Chronic kidney disease stage IV secondary to nephrosclerosis. Nephrology services are following. Creatinine baseline near 3 3. Chronic persistent Atrial fibrillation. Patient is maintained on Coumadin. Coumadin currently on hold due to possible GI bleed and anemia 4. Essential hypertension. Home meds resumed. Hydralazine when necessary has been added. Lasix 20 mg to be given after 1 unit PRBCs 5. History of GERD 6. History of hyperlipidemia 7. History of chronic iron deficiency anemia requiring iron infusions 8. History of anxiety 9. Ex-smoker DVT prophylaxis SCDs. GI prophylaxis Protonix Time with Patient: Greater than 30 (Greater than 60% of the total time spent in counseling and coordination of care. I performed an examination of the patient and discussed their management with the Nurse Practitioner. I have reviewed the Nurse Practitioner's notes and agree with the documented findings and plan of care)
[2019-03-12] MEDS ORDERED: FUROSEMIDE 10 MG/ML 2 ML VIAL IV ONE (16:00)
[2019-03-12] MEDS: CARVEDILOL 6.25 MG TAB PO SCH (16:59)
[2019-03-12] MEDS: hydrALAZINE HCL 50 MG TAB PO SCH ×2 (16:59→21:28)
[2019-03-12] MEDS: SODIUM CHLORIDE 0.9% 1,000 ML IV SCH (19:47)
[2019-03-12] MEDS: SODIUM BICARBONATE TAB 650 MG TAB PO SCH (21:32)
[2019-03-12] MEDS: hydrALAZINE HCL 20 MG/ML 1 ML VIAL IVP PRN (21:32)
[2019-03-12 21:33] LABS: Anisocytosis Slight; Hypochromasia Slight; MCH 29.5 pg (25.0-35.0); MCHC 30.9 g/dL (31.0-37.0); MCV 95.7 fL (80.0-100.0); Macrocytosis Slight; Mean Platelet Volume 6.7; Platelet Count 381 k/uL (150-450); RBC 2.72 m/uL (4.30-5.90); RDW 18.1 % (11.5-15.5); WBC 6.4 k/uL (3.8-10.6)
[2019-03-13] MEDS ORDERED: ISOSORBIDE MONONITRATE ER 30 MG TAB.ER.24H PO STA (00:38)
[2019-03-13] MEDS: hydrALAZINE HCL 20 MG/ML 1 ML VIAL IVP PRN (04:26)
[2019-03-13] MEDS: CARVEDILOL 6.25 MG TAB PO SCH ×2 (06:31→16:20)
[2019-03-13] MEDS: SODIUM CHLORIDE 0.9% 1,000 ML IV SCH (06:32)
[2019-03-13 06:50] LABS: Anisocytosis Slight; Basophils % (A) 1 %; Eosinophils # (A) 0.2 k/uL (0-0.7); Eosinophils % (A) 3 %; HCT 24.8 % (39.0-53.0); HGB 7.8 gm/dL (13.0-17.5); Hypochromasia Slight; Lymphocytes # (A) 0.8 k/uL (1.0-4.8); Lymphocytes % (A) 14 %; MCHC 31.6 g/dL (31.0-37.0); MCV 94.9 fL (80.0-100.0); Macrocytosis Slight; Mean Platelet Volume 7.2; Monocytes # (A) 0.5 k/uL (0-1.0); Monocytes % (A) 9 %; Neutrophils # (A) 4.1 k/uL (1.3-7.7); Neutrophils % (A) 71 %; Platelet Count 364 k/uL (150-450); RBC 2.61 m/uL (4.30-5.90); RDW 18.6 % (11.5-15.5); WBC 5.8 k/uL (3.8-10.6)
[2019-03-13 06:58] LABS: INR 2.4 (<1.2); Prothrombin Time 23.2 sec (9.0-12.0)
[2019-03-13 07:02] LABS: Calcium 9.2 mg/dL (8.4-10.2); Potassium 4.2 mmol/L (3.5-5.1)
--- NOTE | 2019-03-13 09:05 | P.PN ---
Subjective Patient is seen in follow-up for chronic kidney disease. Patient is chronic kidney disease stage IV secondary to nephrosclerosis with baseline creatinine in the range of 3-3.2 recently. Patient presented to the hospital due to anemia. He received a unit of blood yesterday. Hemoglobin 7.8 today. Urine output is good. No vomiting or diarrhea. No active bleeding. Vital signs are stable. General: The patient appeared well nourished and normally developed. HEENT: Head exam is unremarkable. Neck is without jugular venous distension. LUNGS: Lungs are clear to auscultation and percussion. Breath sounds decreased. HEART: Rate and Rhythm are regular. First and second heart sounds normal. No murmurs, rubs or gallops. ABDOMEN: Abdominal exam reveals normal bowel sounds. Non-tender and non- distended. No evidence of peritonitis. EXTREMITITES: No clubbing, cyanosis, or edema. Objective - Vital Signs Vital signs: Vital Signs Temp 98.2 F 03/13/19 08:00 Pulse 74 03/13/19 08:00 Resp 16 03/13/19 08:00 BP 204/91 03/13/19 08:00 Pulse Ox 99 03/13/19 08:00 Intake & Output 03/12/19 03/13/19 03/13/19 18:59 06:59 18:59 Intake Total 0 460 Output Total 1350 650 Balance 0 -890 -650 Weight 90.718 kg 86.5 kg Intake: IV 150 Sodium Chloride 0.9% 1, 150 000 ml @ 50 mls/hr IV . Q20H [facility] Rx#:[id number] Blood Product 0 310 Rc As-1 Unit 0 310 [id number] Output: Urine 1350 650 - Labs CBC & Chem 7: 03/13/19 06:21 03/13/19 06:21 Labs: Abnormal Lab Results - Last 24 Hours (Table) 03/12/19 03/12/19 03/12/19 Range/Units 12:51 12:51 12:51 RBC 2.27 L (4.30-5.90) m/uL Hgb 6.8 L* (13.0-17.5) gm/dL Hct 21.8 L (39.0-53.0) % MCHC (31.0-37.0) g/dL RDW 18.0 H (11.5-15.5) % Lymphocytes # 0.9 L (1.0-4.8) k/uL PT 21.0 H (9.0-12.0) sec INR 2.2 H (<1.2) Chloride (98-107) mmol/L Carbon Dioxide 21 L (22-30) mmol/L BUN 70 H (9-20) mg/dL Creatinine 3.06 H (0.66-1.25) mg/dL Glucose 112 H (74-99) mg/dL Crossmatch 03/12/19 03/12/19 03/13/19 Range/Units 13:35 21:14 06:21 RBC 2.72 L (4.30-5.90) m/uL Hgb 8.0 L (13.0-17.5) gm/dL Hct 26.0 L (39.0-53.0) % MCHC 30.9 L (31.0-37.0) g/dL RDW 18.1 H (11.5-15.5) % Lymphocytes # (1.0-4.8) k/uL PT (9.0-12.0) sec INR (<1.2) Chloride 110 H (98-107) mmol/L Carbon Dioxide (22-30) mmol/L BUN 58 H (9-20) mg/dL Creatinine 3.20 H (0.66-1.25) mg/dL Glucose (74-99) mg/dL Crossmatch See Detail 03/13/19 03/13/19 Range/Units 06:21 06:21 RBC 2.61 L (4.30-5.90) m/uL Hgb 7.8 L (13.0-17.5) gm/dL Hct 24.8 L (39.0-53.0) % MCHC (31.0-37.0) g/dL RDW 18.6 H (11.5-15.5) % Lymphocytes # 0.8 L (1.0-4.8) k/uL PT 23.2 H (9.0-12.0) sec INR 2.4 H (<1.2) Chloride (98-107) mmol/L Carbon Dioxide (22-30) mmol/L BUN (9-20) mg/dL Creatinine (0.66-1.25) mg/dL Glucose (74-99) mg/dL Crossmatch Assessment and Plan Plan: Assessment: 1. Chronic kidney disease stage IV secondary to nephrosclerosis with baseline creatinine near 3-3.2. GFR near baseline. 2. Anemia. There is component of chronic kidney disease. Rule out GI bleed. GI has been consulted. 3. Hypertension with chronic kidney disease. Blood pressures elevated. 4. Mild metabolic acidosis secondary to chronic kidney disease. Better. Maintained on oral sodium bicarbonate. Plan: Hep-Lock IV fluids. Encouraged oral intake. Patient received Aranesp March 12. Continue to monitor renal function and urine output. No urgent for renal replacement therapy at this time. Patient is following with vascular surgery outpatient to get an AV graft in the near future. Maintain current antihypertensives. Resume Demadex 10 mg daily. I will also add low-dose DONAVON inhibitor but will need to monitor renal function closely.
[2019-03-13] MEDS: hydrALAZINE HCL 50 MG TAB PO SCH ×3 (09:34→21:45)
[2019-03-13] MEDS: ISOSORBIDE MONONITRATE ER 30 MG TAB.ER.24H PO SCH ×2 (09:34→21:45)
[2019-03-13] MEDS: SODIUM BICARBONATE TAB 650 MG TAB PO SCH ×2 (09:34→21:45)
[2019-03-13] MEDS: PANTOPRAZOLE 40 MG/10 ML VIAL IV SCH (09:34)
[2019-03-13] MEDS: ATORVASTATIN 40 MG TAB PO SCH (09:34)
[2019-03-13] MEDS: TORSEMIDE 20 MG TAB PO SCH (10:17)
[2019-03-13] MEDS: LISINOPRIL 10 MG TAB PO SCH (10:17)
--- NOTE | 2019-03-13 11:50 | P.PN ---
Subjective Progress Note Date: 03/13/19 This is a 73-year-old male patient of Dr. Faith. Patient presented to the ER due to abnormal lab values. Patient reports that he has a known past medical history chronic kidney disease with known anemia in which he receives Aranesp per nephrology. During this visit patient was found to have a hemoglobin of 8.8 and was sent to the ER patient reports he has noticed dark stools. Patient is on Coumadin for known A. fib. Patient denies any bloody emesis. Patient also denies any nausea vomiting or diarrhea. Patient denies any abdominal pain. Patient states he does the colaguard but has never had a colonoscopy. denies feeling lightheaded or increased fatigue. Additional medical history includes GERD, hypertension, refill vascular disease and chronic kidney disease stage IV. Patient's INR 2.2. Coumadin on hold. Patient to receive 2 units PRBCs. GI nephrology services have been consulted. Patient's creatinine 3.06 this is slightly higher than baseline per patient. At this time patient is resting comfortably in bed. Patient denies any chest pain or shortness of breath. Patient denies any urinary burning or frequency. On 03/13/2019 patient's alert and oriented 3. Patient's at bedside. Patient received 1 unit of PRBCs. Stool for occult blood positive. Hemoglobin elevated at 7.8. patient's blood pressure remains high. Patient reports that he has struggled with blood pressure control in the past. Nephrology has added patient's home dose of Demadex and low dose of DONAVON inhibitor to 8 and blood pressure control. Awaiting GI input. At this time patient denies chest pain or shortness of breath. Patient denies nausea vomiting or diarrhea. Patient denies any urinary burning or frequency. Objective - Vital Signs Vital signs: Vital Signs Temp 98.2 F 03/13/19 08:00 Pulse 74 03/13/19 08:00 Resp 16 03/13/19 08:00 BP 204/91 03/13/19 08:00 Pulse Ox 99 03/13/19 08:00 Intake & Output 03/12/19 03/13/19 03/13/19 18:59 06:59 18:59 Intake Total 0 460 Output Total 1350 650 Balance 0 -890 -650 Weight 90.718 kg 86.5 kg Intake: IV 150 Sodium Chloride 0.9% 1, 150 000 ml @ 50 mls/hr IV . Q20H [facility] Rx#:[id number] Blood Product 0 310 Rc As-1 Unit 0 310 [id number] Output: Urine 1350 650 - Exam Head normocephalic Neck supple Lungs clear to auscultation bilaterally no wheezing or crackles Heart regular rate and rhythm S1-S2, no rub or gallop Abdomen is soft nontender nondistended positive bowel sounds no hepatosplenomegaly Extremities no edema Neuro alert and orientated to 3 - Labs CBC & Chem 7: 03/13/19 06:21 03/13/19 06:21 Labs: Abnormal Lab Results - Last 24 Hours (Table) 03/12/19 03/12/19 03/12/19 Range/Units 12:51 12:51 12:51 RBC 2.27 L (4.30-5.90) m/uL Hgb 6.8 L* (13.0-17.5) gm/dL Hct 21.8 L (39.0-53.0) % MCHC (31.0-37.0) g/dL RDW 18.0 H (11.5-15.5) % Lymphocytes # 0.9 L (1.0-4.8) k/uL PT 21.0 H (9.0-12.0) sec INR 2.2 H (<1.2) Chloride (98-107) mmol/L Carbon Dioxide 21 L (22-30) mmol/L BUN 70 H (9-20) mg/dL Creatinine 3.06 H (0.66-1.25) mg/dL Glucose 112 H (74-99) mg/dL Crossmatch 03/12/19 03/12/19 03/13/19 Range/Units 13:35 21:14 06:21 RBC 2.72 L (4.30-5.90) m/uL Hgb 8.0 L (13.0-17.5) gm/dL Hct 26.0 L (39.0-53.0) % MCHC 30.9 L (31.0-37.0) g/dL RDW 18.1 H (11.5-15.5) % Lymphocytes # (1.0-4.8) k/uL PT (9.0-12.0) sec INR (<1.2) Chloride 110 H (98-107) mmol/L Carbon Dioxide (22-30) mmol/L BUN 58 H (9-20) mg/dL Creatinine 3.20 H (0.66-1.25) mg/dL Glucose (74-99) mg/dL Crossmatch See Detail 03/13/19 03/13/19 Range/Units 06:21 06:21 RBC 2.61 L (4.30-5.90) m/uL Hgb 7.8 L (13.0-17.5) gm/dL Hct 24.8 L (39.0-53.0) % MCHC (31.0-37.0) g/dL RDW 18.6 H (11.5-15.5) % Lymphocytes # 0.8 L (1.0-4.8) k/uL PT 23.2 H (9.0-12.0) sec INR 2.4 H (<1.2) Chloride (98-107) mmol/L Carbon Dioxide (22-30) mmol/L BUN (9-20) mg/dL Creatinine (0.66-1.25) mg/dL Glucose (74-99) mg/dL Crossmatch Assessment and Plan Assessment: 1. Anemia due possible component of chronic kidney disease rule out GI bleed. GI services have been consulted. 1 unit of PRBCs has been ordered. Stool for occult blood positive 2. Chronic kidney disease stage IV secondary to nephrosclerosis. Nephrology services are following. Creatinine baseline near 3 3. Chronic persistent Atrial fibrillation. Patient is maintained on Coumadin. Coumadin currently on hold due to possible GI bleed and anemia 4. Essential hypertension. Home meds resumed. Hydralazine when necessary has been added. Lasix 20 mg to be given after 1 unit PRBCs. Patient's home dose of Reordered per nephrology services. Lisinopril 10 mg daily added per nephrology 5. History of GERD 6. History of hyperlipidemia 7. History of chronic iron deficiency anemia requiring iron infusions 8. History of anxiety 9. Ex-smoker DVT prophylaxis SCDs. GI prophylaxis Protonix I performed an examination of the patient and discussed their management with the Nurse Practitioner. I have reviewed the Nurse Practitioner's notes and agree with the documented findings and plan of care
--- NOTE | 2019-03-13 13:30 | P.CONS ---
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 Patient denies overt bleeding such as hematemesis many keys or melena. No history GI bleeds. Patient had COLOGARD testing 2 years ago to his memory was normal. No history of EGD colonoscopy. Denies hematuria or epistaxis. No abdominal pain and weight loss fever or chills. Admission hemoglobin 6.8. MCV 96. Platelet 406. Mild hypochromia. Received 2 unit of blood current hemoglobin 7.8. Previous iron indices reported normal iron levels as well as TIBC and saturation. Ferritin elevated 200-1200 range. Admission INR 2.2 presently 2.4. BUN 70. Creatinine 3.0. Presently BUN is 58. Creatinine 3.2. FOBT positive. Review of Systems Constitutional: Denies fever, chills, sweats, weight gain, or loss. HEENT: Negative for migraines, blurred vision or loss, earaches, drainage, tinnitus, oral mucosal lesions, dysphagia, or odynophagia. Cardiac: Negative for chest pain, arrhythmias, or palpitation. Respiratory: Negative for shortness of breath, hemoptysis, cough, or sputum production. Gastrointestinal: See HPI for pertinent findings. Genitourinary: Negative for hematuria, urgency, frequency, polyuria, dysuria, or penile discharge. Musculoskeletal: Negative for muscle aches, swelling, arthritis, and arthralgias. Neurologic: Negative for stroke or TIA. Endocrine: Negative for thyroid problems. Skin: Negative for rash or itching. Psychiatric: Negative history for depression and anxiety Past Medical History Past Medical History: Atrial Fibrillation, Blood Disorder, GERD/Reflux, Hyperlipidemia, Hypertension, Pneumonia, Renal Disease, Vascular Disorder Additional Past Medical History / Comment(s): PAD, CKD stage III, chronic anemia with iron infusions, hyperproteinemia, sebaceous cysts. History of Any Multi-Drug Resistant Organisms: None Reported Past Surgical History: Tonsillectomy Additional Past Surgical History / Comment(s): Peripheral angiograms/ 2 stents R leg and 1 stent L leg, recent sebaceous cystectomy on back. Past Anesthesia/Blood Transfusion Reactions: No Reported Reaction Smoking Status: Former smoker - Past Family History Mother Family Medical History: Cancer, Congestive Heart Failure (CHF) Additional Family Medical History / Comment(s): Mother was a breast cancer survivor. She also had lung cancer. Father Family Medical History: Hypertension, Myocardial Infarction (IN), Vascular Di sorder Additional Family Medical History / Comment(s): Father 2 weeks after a IN at the age of 81 yrs. He also had vascular disease. Medications and Allergies Home Medications Medication Instructions Recorded Confirmed Type Cholecalciferol [Vitamin D3 (25 5,000 unit PO HS 02/23/15 03/12/19 History Mcg = 1000 Iu)] NIFEdipine [NIFEdipine ER] 120 mg PO DAILY 02/23/15 03/12/19 History hydrALAZINE HCL [Apresoline] 100 mg PO TID 02/23/15 03/12/19 History Carvedilol [Coreg] 6.25 mg PO AC-BID 09/05/15 03/12/19 History Aspirin EC [Ecotrin Low Dose] 81 mg PO DAILY 05/31/16 03/12/19 History Atorvastatin [Lipitor] 40 mg PO DAILY 05/31/16 03/12/19 History Torsemide [Demadex] 10 mg PO DAILY 09/27/16 03/12/19 History Allopurinol [Zyloprim] 100 mg PO DAILY 12/20/16 03/12/19 History Calcitriol [Rocaltrol] 0.25 mcg PO DAILY 07/17/18 03/12/19 History Sodium Bicarbonate Tab 650 mg PO BID 03/12/19 03/12/19 History Warfarin Sodium [Coumadin] 2 mg PO SUTH 03/12/19 03/12/19 History Warfarin Sodium [Coumadin] 4 mg PO [id number] 03/12/19 03/12/19 History Allergies Allergy/AdvReac Type Severity Reaction Status Date / Time No Known Allergies Allergy Verified 03/12/19 12:08 Physical Exam Vitals: Vital Signs Temp Pulse Pulse Resp BP BP BP 03/13/19 12:00 98.2 F 70 16 176/77 03/13/19 08:00 98.2 F 74 16 224/91 204/91 03/13/19 06:35 183/82 03/13/19 04:00 98.9 F 78 18 200/95 03/13/19 00:00 98.9 F 80 17 230/98 03/12/19 21:30 209/126 03/12/19 20:00 96.7 F L 74 18 215/91 03/12/19 18:00 98.1 F 76 18 206/82 03/12/19 17:10 97.7 F 82 18 205/84 03/12/19 16:05 186/60 03/12/19 16:00 97.6 F 82 18 211/85 03/12/19 14:39 97.0 F L 80 16 177/78 03/12/19 14:09 75 190/65 03/12/19 14:00 204/72 03/12/19 13:30 188/85 Pulse Ox 03/13/19 12:00 98 03/13/19 08:00 99 03/13/19 06:35 03/13/19 04:00 95 03/13/19 00:00 96 03/12/19 21:30 03/12/19 20:00 95 03/12/19 18:00 03/12/19 17:10 96 03/12/19 16:05 03/12/19 16:00 95 03/12/19 14:39 95 03/12/19 14:09 95 03/12/19 14:00 03/12/19 13:30 91 L Intake and Output 03/12/19 03/13/19 03/13/19 22:59 06:59 14:59 Intake Total 460 Output Total 700 650 650 Balance -240 -650 -650 Intake: IV 150 Sodium Chloride 0.9% 1, 150 000 ml @ 50 mls/hr IV . Q20H [facility] Rx#:[id number] Blood Product 310 Rc As-1 Unit 310 [id number] Output: Urine 700 650 650 Other: Weight 86.5 kg General appearance: The patient is alert, oriented, in no acute distress. HET: Head is normocephalic and atraumatic. Pupils are equal and reactive. Oropharynx is clear without lesions. Neck: Supple without lymphadenopathy. Trachea midline. Heart: S1 S2. Regular rate and rhythm. Lungs: No crackles or wheezes are heard. Abdomen: Soft, nontender, nondistended with bowel sounds. No peritoneal signs. No palpable organomegaly or masses. Extremities: Normal skin color and turgor. No cyanosis, rash, ulceration, clubbing, or edema. Radial and pedal pulses are 2/4 bilaterally. Neurological: No focal deficits. Strength and sensation are grossly intact. Results CBC & Chem 7: 03/13/19 06:21 03/13/19 06:21 Labs: Abnormal Lab Results - Last 24 Hours (Table) 03/12/19 03/12/19 03/12/19 Range/Units 12:51 12:51 12:51 RBC 2.27 L (4.30-5.90) m/uL Hgb 6.8 L* (13.0-17.5) gm/dL Hct 21.8 L (39.0-53.0) % MCHC (31.0-37.0) g/dL RDW 18.0 H (11.5-15.5) % Lymphocytes # 0.9 L (1.0-4.8) k/uL PT 21.0 H (9.0-12.0) sec INR 2.2 H (<1.2) Chloride (98-107) mmol/L Carbon Dioxide 21 L (22-30) mmol/L BUN 70 H (9-20) mg/dL Creatinine 3.06 H (0.66-1.25) mg/dL Glucose 112 H (74-99) mg/dL Crossmatch 03/12/19 03/12/19 03/13/19 Range/Units 13:35 21:14 06:21 RBC 2.72 L (4.30-5.90) m/uL Hgb 8.0 L (13.0-17.5) gm/dL Hct 26.0 L (39.0-53.0) % MCHC 30.9 L (31.0-37.0) g/dL RDW 18.1 H (11.5-15.5) % Lymphocytes # (1.0-4.8) k/uL PT (9.0-12.0) sec INR (<1.2) Chloride 110 H (98-107) mmol/L Carbon Dioxide (22-30) mmol/L BUN 58 H (9-20) mg/dL Creatinine 3.20 H (0.66-1.25) mg/dL Glucose (74-99) mg/dL Crossmatch See Detail 03/13/19 03/13/19 Range/Units 06:21 06:21 RBC 2.61 L (4.30-5.90) m/uL Hgb 7.8 L (13.0-17.5) gm/dL Hct 24.8 L (39.0-53.0) % MCHC (31.0-37.0) g/dL RDW 18.6 H (11.5-15.5) % Lymphocytes # 0.8 L (1.0-4.8) k/uL PT 23.2 H (9.0-12.0) sec INR 2.4 H (<1.2) Chloride (98-107) mmol/L Carbon Dioxide (22-30) mmol/L BUN (9-20) mg/dL Creatinine (0.66-1.25) mg/dL Glucose (74-99) mg/dL Crossmatch Assessment and Plan (1) Normocytic hypochromic anemia Narrative/Plan: 73-year-old male admitted with asymptomatic normocytic mild hypochromic anemia component of acute blood loss anemia as well as anemia of chronic disease with underlying stage IV chronic kidney disease, atrial fibrillation maintained on warfarin, with positive FOBT. An occult GI bleed cannot be excluded. Current Visit: Yes Status: Acute Code(s): D50.9 - IRON DEFICIENCY ANEMIA, UNSPECIFIED SNOMED Code(s): 47913303 (2) Guaiac positive stools Current Visit: Yes Status: Acute Code(s): R19.5 - OTHER FECAL ABNORMALITIES SNOMED Code(s): 38622703 (3) Atrial fibrillation Current Visit: Yes Status: Acute Code(s): I48.91 - UNSPECIFIED ATRIAL FIBRILLATION SNOMED Code(s): 66253997 (4) Warfarin-induced coagulopathy Current Visit: Yes Status: Acute Code(s): D68.32 - HEMORRHAGIC DISORD D/T EXTRINSIC CIRCULATING ANTICOAGULANTS; T45.515A - ADVERSE EFFECT OF ANTICOAGULANTS, INITIAL ENCOUNTER SNOMED Code(s): 60776696 Plan: 1. EGD colonoscopy possible small bowel capsule endoscopy recommended for evaluation of anemia and positive guaiac stools. Patient is agreeable we'll proceed once INR is less than 1.6. Hold Coumadin. Vitamin K will be given. Repeat PT/INR in a.m. if improved tentative EGD colonoscopy Saturday. Renal diet today. CBC monitoring. The automotive sales professional has discussed the risks, benefits and alternative therapies for the above-mentioned procedure and for both sedation/analgesia as well as necessary blood product administration, if indicated, as they pertain to this patient. The patient has indicated understanding and acceptance of the risks and procedures discussed. Thank you for this kind referral and the opportunity to participate in the care of your patient. This consultation was discussed with Dr. Jose. The impression and plan of care have been directed as dictated.
[2019-03-13] MEDS ORDERED: PHYTONADIONE ORAL 5 MG/5 ML ORAL.SYRG PO STA (15:30)
[2019-03-14] MEDS: CARVEDILOL 6.25 MG TAB PO SCH ×2 (06:00→17:55)
[2019-03-14 06:49] LABS: Anisocytosis Slight; Basophils % (A) 1 %; Eosinophils # (A) 0.2 k/uL (0-0.7); Eosinophils % (A) 3 %; HCT 22.9 % (39.0-53.0); HGB 7.2 gm/dL (13.0-17.5); Hypochromasia Moderate; Lymphocytes # (A) 1.1 k/uL (1.0-4.8); Lymphocytes % (A) 16 %; MCH 30.4 pg (25.0-35.0); MCHC 31.3 g/dL (31.0-37.0); MCV 96.9 fL (80.0-100.0); Macrocytosis Slight; Mean Platelet Volume 7.1; Monocytes # (A) 0.7 k/uL (0-1.0); Monocytes % (A) 10 %; Neutrophils # (A) 4.5 k/uL (1.3-7.7); Neutrophils % (A) 68 %; Platelet Count 352 k/uL (150-450); RBC 2.37 m/uL (4.30-5.90); RDW 18.2 % (11.5-15.5); WBC 6.6 k/uL (3.8-10.6)
[2019-03-14 06:53] LABS: INR 1.6 (<1.2); Prothrombin Time 15.6 sec (9.0-12.0)
[2019-03-14 07:03] LABS: Calcium 8.4 mg/dL (8.4-10.2); Magnesium 2.2 mg/dL (1.6-2.3)
[2019-03-14] MEDS: LISINOPRIL 10 MG TAB PO SCH (08:31)
[2019-03-14] MEDS: PANTOPRAZOLE 40 MG/10 ML VIAL IV SCH (08:31)
[2019-03-14] MEDS: TORSEMIDE 20 MG TAB PO SCH (08:31)
[2019-03-14] MEDS: ISOSORBIDE MONONITRATE ER 30 MG TAB.ER.24H PO SCH ×2 (08:31→20:55)
[2019-03-14] MEDS: SODIUM BICARBONATE TAB 650 MG TAB PO SCH ×2 (08:31→20:55)
[2019-03-14] MEDS: hydrALAZINE HCL 50 MG TAB PO SCH ×3 (08:32→20:56)
[2019-03-14] MEDS: ATORVASTATIN 40 MG TAB PO SCH (08:32)
--- NOTE | 2019-03-14 10:03 | P.PN ---
Subjective Patient is seen in follow-up for chronic kidney disease. Patient is chronic kidney disease stage IV secondary to nephrosclerosis with baseline creatinine in the range of 3-3.2 recently. Patient presented to the hospital due to anemia. He received a unit of blood this admission. Hemoglobin 7.2 today. Urine output is good. No vomiting or diarrhea. No active bleeding. Creatinine today is up to 3.65. Patient was started on torsemide as well as lisinopril on March 13. Blood pressure is better controlled although labile. Vital signs are stable. General: The patient appeared well nourished and normally developed. HEENT: Head exam is unremarkable. Neck is without jugular venous distension. LUNGS: Lungs are clear to auscultation and percussion. Breath sounds decreased. HEART: Rate and Rhythm are regular. First and second heart sounds normal. No murmurs, rubs or gallops. ABDOMEN: Abdominal exam reveals normal bowel sounds. Non-tender and non- distended. No evidence of peritonitis. EXTREMITITES: No clubbing, cyanosis, or edema. Objective - Vital Signs Vital signs: Vital Signs Temp 98.8 F 03/14/19 04:00 Pulse 62 03/14/19 04:00 Resp 18 03/14/19 04:00 BP 179/72 03/14/19 04:00 Pulse Ox 97 03/14/19 04:00 Intake & Output 03/13/19 03/14/19 03/14/19 18:59 06:59 18:59 Intake Total 230 200 240 Output Total 1500 300 Balance -1270 -100 240 Weight 86.7 kg Intake: Oral 230 200 240 Output: Urine 1500 300 Other: # Voids 2 # Bowel Movements 1 0 - Labs CBC & Chem 7: 03/14/19 06:23 03/14/19 06:23 Labs: Abnormal Lab Results - Last 24 Hours (Table) 03/12/19 03/14/19 03/14/19 Range/Units 13:35 06:23 06:23 RBC 2.37 L (4.30-5.90) m/uL Hgb 7.2 L (13.0-17.5) gm/dL Hct 22.9 L (39.0-53.0) % RDW 18.2 H (11.5-15.5) % PT 15.6 H (9.0-12.0) sec INR 1.6 H (<1.2) Chloride (98-107) mmol/L Carbon Dioxide (22-30) mmol/L BUN (9-20) mg/dL Creatinine (0.66-1.25) mg/dL Crossmatch See Detail 03/14/19 Range/Units 06:23 RBC (4.30-5.90) m/uL Hgb (13.0-17.5) gm/dL Hct (39.0-53.0) % RDW (11.5-15.5) % PT (9.0-12.0) sec INR (<1.2) Chloride 109 H (98-107) mmol/L Carbon Dioxide 20 L (22-30) mmol/L BUN 68 H (9-20) mg/dL Creatinine 3.65 H (0.66-1.25) mg/dL Crossmatch Assessment and Plan Plan: Assessment: 1. Chronic kidney disease stage IV secondary to nephrosclerosis with baseline creatinine near 3-3.2. 2. Anemia. There is component of chronic kidney disease. Rule out GI bleed. GI following. Patient will be having EGD and colonoscopy this admission. 3. Hypertension with chronic kidney disease. Blood pressure better controlled but labile. 4. Metabolic acidosis secondary to chronic kidney disease maintained on oral sodium bicarbonate. 5. Acute kidney injury secondary to ATN secondary to acute blood loss anemia as well as addition of lisinopril and torsemide. Creatinine 3.65 today. Plan: Remains off IV fluids. Encouraged oral intake. Patient received Aranesp March 12. Continue to monitor renal function and urine output. No urgent for renal replacement therapy at this time. Patient is following with vascular surgery outpatient to get an AV graft in the near future. Maintain current antihypertensives. Check renal ultrasound with duplex.
--- NOTE | 2019-03-14 12:43 | P.PN ---
Subjective Progress Note Date: 03/14/19 Principal diagnosis: Normocytic hypochromic anemia, positive stool for occult blood Patient seen lying in bed reporting that he has tolerated his diet. No nausea or vomiting reported. No hematochezia, melena or signs or symptoms of GI bleeding reported. Objective - Vital Signs Vital signs: Vital Signs Temp 98.1 F 03/14/19 08:00 Pulse 62 03/14/19 08:00 Resp 18 03/14/19 08:00 BP 165/68 03/14/19 08:00 Pulse Ox 96 03/14/19 08:00 Intake & Output 03/13/19 03/14/19 03/14/19 18:59 06:59 18:59 Intake Total 230 200 240 Output Total 1500 300 Balance -1270 -100 240 Weight 86.7 kg Intake: Oral 230 200 240 Output: Urine 1500 300 Other: # Voids 2 1 # Bowel Movements 1 0 - Exam On physical examination, patient appears comfortable in no apparent distress. HEAD: Normocephalic, atraumatic. EYES: No scleral icterus. No conjunctival injection. MOUTH: No lesions, tongue midline. NECK: Trachea midline, no gross abnormalities. CHEST: Decreased air entry bilaterally. HEART: Irregularly irregular. ABDOMEN: Soft, obese. Bowel sounds are positive. No organomegaly. No guarding or rigidity. EXTREMITIES: No pedal edema. SKIN: No rashes, no jaundice. NEUROLOGIC: Alert and oriented x3. No focal deficits. - Labs CBC & Chem 7: 03/14/19 06:23 03/14/19 06:23 Labs: Abnormal Lab Results - Last 24 Hours (Table) 03/12/19 03/14/19 03/14/19 Range/Units 13:35 06:23 06:23 RBC 2.37 L (4.30-5.90) m/uL Hgb 7.2 L (13.0-17.5) gm/dL Hct 22.9 L (39.0-53.0) % RDW 18.2 H (11.5-15.5) % PT 15.6 H (9.0-12.0) sec INR 1.6 H (<1.2) Chloride (98-107) mmol/L Carbon Dioxide (22-30) mmol/L BUN (9-20) mg/dL Creatinine (0.66-1.25) mg/dL Crossmatch See Detail 03/14/19 Range/Units 06:23 RBC (4.30-5.90) m/uL Hgb (13.0-17.5) gm/dL Hct (39.0-53.0) % RDW (11.5-15.5) % PT (9.0-12.0) sec INR (<1.2) Chloride 109 H (98-107) mmol/L Carbon Dioxide 20 L (22-30) mmol/L BUN 68 H (9-20) mg/dL Creatinine 3.65 H (0.66-1.25) mg/dL Crossmatch Assessment and Plan (1) Normocytic hypochromic anemia Narrative/Plan: 73-year-old male admitted with asymptomatic normocytic hypochromic anemia. The patient reports a long-standing history of anemia of chronic disease secondary to chronic kidney disease but states hemoglobin has been lower than normal. He also has a known history of atrial fibrillation and is maintained on warfarin. On presentation to the hospital stool testing was positive for occult blood. He denies any signs or symptoms of GI bleeding with no hematochezia, melena, or hematemesis noted. The patient states he is had no prior evaluation with EGD or colonoscopy. Current Visit: Yes Status: Acute Code(s): D50.9 - IRON DEFICIENCY ANEMIA, UNSPECIFIED SNOMED Code(s): 24338685 (2) GI bleed Current Visit: Yes Status: Acute Code(s): K92.2 - GASTROINTESTINAL HEMORRHAGE, UNSPECIFIED SNOMED Code(s): 94954208 (3) Guaiac positive stools Current Visit: Yes Status: Acute Code(s): R19.5 - OTHER FECAL ABNORMALITIES SNOMED Code(s): 62946824 (4) Warfarin-induced coagulopathy Current Visit: Yes Status: Acute Code(s): D68.32 - HEMORRHAGIC DISORD D/T EXTRINSIC CIRCULATING ANTICOAGULANTS; T45.515A - ADVERSE EFFECT OF ANTICOAGULANTS, INITIAL ENCOUNTER SNOMED Code(s): 33936927 Plan: Supportive care Okay for diet, clear liquids tomorrow Continue to monitor hemoglobin and hematocrit and transfuse as needed Continue to monitor for signs or symptoms of GI bleeding Continue to hold Coumadin therapy Continue to monitor CBC, CMP Tentative plan for EGD and colonoscopy on 03/16/2019 Plan for bowel prep tomorrow in anticipation of endoscopy on Saturday Thank you for allowing us to participate in the care of this patient we will continue to follow
--- NOTE | 2019-03-14 15:08 | P.PN ---
Subjective Progress Note Date: 03/14/19 This is a 73-year-old male patient of Dr. Faith. Patient presented to the ER due to abnormal lab values. Patient reports that he has a known past medical history chronic kidney disease with known anemia in which he receives Aranesp per nephrology. During this visit patient was found to have a hemoglobin of 8.8 and was sent to the ER patient reports he has noticed dark stools. Patient is on Coumadin for known A. fib. Patient denies any bloody emesis. Patient also denies any nausea vomiting or diarrhea. Patient denies any abdominal pain. Patient states he does the colaguard but has never had a colonoscopy. denies feeling lightheaded or increased fatigue. Additional medical history includes GERD, hypertension, refill vascular disease and chronic kidney disease stage IV. Patient's INR 2.2. Coumadin on hold. Patient to receive 2 units PRBCs. GI nephrology services have been consulted. Patient's creatinine 3.06 this is slightly higher than baseline per patient. At this time patient is resting comfortably in bed. Patient denies any chest pain or shortness of breath. Patient denies any urinary burning or frequency. On 03/13/2019 patient's alert and oriented 3. Patient's at bedside. Patient received 1 unit of PRBCs. Stool for occult blood positive. Hemoglobin elevated at 7.8. patient's blood pressure remains high. Patient reports that he has struggled with blood pressure control in the past. Nephrology has added patient's home dose of Demadex and low dose of DONAVON inhibitor to 8 and blood pressure control. Awaiting GI input. At this time patient denies chest pain or shortness of breath. Patient denies nausea vomiting or diarrhea. Patient denies any urinary burning or frequency. On 03/14/2019 patient was seen and examined on the medical floor and oriented 3 in no apparent distress hemoglobin is down to 7.2 patient states he had a dark bowel movement yesterday, otherwise no evidence of acute bleeding. Patient denies any fever or chills no headache or dizziness no chest pain no shortness of breath no cough no nausea or vomiting no abdominal pain no diarrhea and no urinary symptoms. Objective - Vital Signs Vital signs: Vital Signs Temp 96.3 F L 03/14/19 12:00 Pulse 56 L 03/14/19 12:00 Resp 18 03/14/19 12:00 BP 139/63 03/14/19 12:00 Pulse Ox 97 03/14/19 12:00 Intake & Output 03/13/19 03/14/19 03/14/19 18:59 06:59 18:59 Intake Total 230 200 600 Output Total 1500 300 Balance -1270 -100 600 Weight 86.7 kg Intake: Oral 230 200 600 Output: Urine 1500 300 Other: # Voids 2 1 # Bowel Movements 1 0 - Exam In general patient is alert and oriented 3 in no apparent distress HEENT head normocephalic and atraumatic Neck is supple no JVD no goiter no lymphadenopathy Chest exam reveals a few scattered rhonchi bilaterally no wheezing Cardiac exam reveals irregular heart sounds no gallops no murmurs Abdomen is soft nontender no organomegaly no palpable masses was normal bowel sounds Extremity exam reveals no edema no cyanosis or clubbing Neurological examination reveals no gross focal deficit - Labs CBC & Chem 7: 03/14/19 06:23 03/14/19 06:23 Labs: Abnormal Lab Results - Last 24 Hours (Table) 03/12/19 03/14/19 03/14/19 Range/Units 13:35 06:23 06:23 RBC 2.37 L (4.30-5.90) m/uL Hgb 7.2 L (13.0-17.5) gm/dL Hct 22.9 L (39.0-53.0) % RDW 18.2 H (11.5-15.5) % PT 15.6 H (9.0-12.0) sec INR 1.6 H (<1.2) Chloride (98-107) mmol/L Carbon Dioxide (22-30) mmol/L BUN (9-20) mg/dL Creatinine (0.66-1.25) mg/dL Crossmatch See Detail 03/14/19 Range/Units 06:23 RBC (4.30-5.90) m/uL Hgb (13.0-17.5) gm/dL Hct (39.0-53.0) % RDW (11.5-15.5) % PT (9.0-12.0) sec INR (<1.2) Chloride 109 H (98-107) mmol/L Carbon Dioxide 20 L (22-30) mmol/L BUN 68 H (9-20) mg/dL Creatinine 3.65 H (0.66-1.25) mg/dL Crossmatch Assessment and Plan Plan: 1. Anemia due possible component of chronic kidney disease rule out GI bleed. GI services have been consulted. 1 unit of PRBCs has been ordered. Stool for occult blood positive 2. Chronic kidney disease stage IV secondary to nephrosclerosis. Nephrology services are following. Creatinine baseline near 3 3. Chronic persistent Atrial fibrillation. Patient is maintained on Coumadin. Coumadin currently on hold due to possible GI bleed and anemia 4. Essential hypertension. Home meds resumed. Hydralazine when necessary has been added. Lasix 20 mg to be given after 1 unit PRBCs. Patient's home dose of Reordered per nephrology services. Lisinopril 10 mg daily added per nephrology 5. History of GERD 6. History of hyperlipidemia 7. History of chronic iron deficiency anemia requiring iron infusions 8. History of anxiety 9. Ex-smoker DVT prophylaxis SCDs. GI prophylaxis Protonix Gastroenterology consultation reviewed plans are for EGD and colonoscopy on Saturday will monitor blood counts closely and transfuse red blood cells if needed
[2019-03-15] MEDS: CARVEDILOL 6.25 MG TAB PO SCH ×2 (06:22→18:14)
[2019-03-15 06:55] LABS: Anisocytosis Slight; Basophils # (A) 0.1 k/uL (0-0.2); Basophils % (A) 1 %; Eosinophils # (A) 0.2 k/uL (0-0.7); Eosinophils % (A) 4 %; HCT 23.1 % (39.0-53.0); HGB 7.3 gm/dL (13.0-17.5); Hypochromasia Moderate; Lymphocytes % (A) 18 %; MCH 30.4 pg (25.0-35.0); MCHC 31.7 g/dL (31.0-37.0); MCV 95.8 fL (80.0-100.0); Macrocytosis Slight; Mean Platelet Volume 7.5; Monocytes # (A) 0.7 k/uL (0-1.0); Monocytes % (A) 12 %; Neutrophils # (A) 3.6 k/uL (1.3-7.7); Neutrophils % (A) 63 %; Platelet Count 332 k/uL (150-450); RBC 2.41 m/uL (4.30-5.90); RDW 17.8 % (11.5-15.5); WBC 5.8 k/uL (3.8-10.6)
[2019-03-15 07:07] LABS: INR 1.1 (<1.2); Prothrombin Time 11.6 sec (9.0-12.0)
[2019-03-15 07:10] LABS: Magnesium 2.1 mg/dL (1.6-2.3); Potassium 4.1 mmol/L (3.5-5.1)
--- NOTE | 2019-03-15 09:28 | US ---
EXAMINATION TYPE: US renal artery duplex complete DATE OF EXAM: 03/15/2019 COMPARISON: arteriogram CLINICAL HISTORY: cuate, htn. prior smoker x 50 years; PVD/ stents US exam is technically limited due to overlying bowel gas MEASUREMENTS: RENAL SIZE: Rt Kidney: 10.2 x 5.7 x 4.9cm Lt Kidney: 10.4 x 6.6 x 5.4cm RESISTANCE INDEX Right: 1.0 mid (abnormal as greater than 0.8) Left: 0.98 lower pole (abnormal as greater than 0.8) RA/AO RATIOe (< 3.5 ) Right: 3.3 Left: 2.6 RA VELOCITY ( < 180 cm/s) Right: 186.7cm/s proximally Left: 146.6 cm/s distally Ectatic wall appearance and intimal wall thickening noted throughout abdominal aorta. Right kidney: inferior pole simple appearing cyst = 3.4 x 3.0 x 2.6cm. Left kidney: inferior cortical cyst = 0.7 x 0.7 x 0.5cm. IMPRESSION: 1. ABNORMALLY ELEVATED RESISTIVE INDEX. I COULD NOT EXCLUDE SOME DEGREE OF RENAL ARTERY STENOSIS. 2. SIMPLE APPEARING CYSTS, BOTH KIDNEYS.
[2019-03-15] MEDS: TORSEMIDE 20 MG TAB PO SCH (10:12)
[2019-03-15] MEDS: hydrALAZINE HCL 50 MG TAB PO SCH ×3 (10:12→22:56)
[2019-03-15] MEDS: SODIUM BICARBONATE TAB 650 MG TAB PO SCH ×3 (10:12→22:56)
[2019-03-15] MEDS: ISOSORBIDE MONONITRATE ER 30 MG TAB.ER.24H PO SCH ×2 (10:12→22:56)
[2019-03-15] MEDS: ATORVASTATIN 40 MG TAB PO SCH (10:12)
[2019-03-15] MEDS: PANTOPRAZOLE 40 MG/10 ML VIAL IV SCH (10:13)
[2019-03-15] MEDS: LISINOPRIL 10 MG TAB PO SCH (10:13)
--- NOTE | 2019-03-15 10:53 | P.PN ---
Subjective Patient is seen in follow-up for chronic kidney disease. Patient is chronic kidney disease stage IV secondary to nephrosclerosis with baseline creatinine in the range of 3-3.2 recently. Patient presented to the hospital due to anemia. He received a unit of blood this admission. Hemoglobin 7.3 today. Urine output is good. No vomiting or diarrhea. No active bleeding. Creatinine today is up to 3.7. Patient was started on torsemide as well as lisinopril on March 13. Blood pressure is better controlled although labile. Vital signs are stable. General: The patient appeared well nourished and normally developed. HEENT: Head exam is unremarkable. Neck is without jugular venous distension. LUNGS: Lungs are clear to auscultation and percussion. Breath sounds decreased. HEART: Rate and Rhythm are regular. First and second heart sounds normal. No murmurs, rubs or gallops. ABDOMEN: Abdominal exam reveals normal bowel sounds. Non-tender and non- distended. No evidence of peritonitis. EXTREMITITES: No clubbing, cyanosis, or edema. Objective - Vital Signs Vital signs: Vital Signs Temp 98.6 F 03/15/19 04:00 Pulse 64 03/15/19 04:00 Resp 18 03/15/19 04:00 BP 150/77 03/15/19 04:00 Pulse Ox 97 03/15/19 04:00 Intake & Output 03/14/19 03/15/19 03/15/19 18:59 06:59 18:59 Intake Total 960 360 Balance 960 360 Weight 87.4 kg Intake: Oral 960 360 Other: # Voids 1 1 - Labs CBC & Chem 7: 03/15/19 06:36 03/15/19 06:36 Labs: Abnormal Lab Results - Last 24 Hours (Table) 03/15/19 03/15/19 Range/Units 06:36 06:36 RBC 2.41 L (4.30-5.90) m/uL Hgb 7.3 L (13.0-17.5) gm/dL Hct 23.1 L (39.0-53.0) % RDW 17.8 H (11.5-15.5) % Chloride 109 H (98-107) mmol/L Carbon Dioxide 18 L (22-30) mmol/L BUN 69 H (9-20) mg/dL Creatinine 3.70 H (0.66-1.25) mg/dL Calcium 8.0 L (8.4-10.2) mg/dL Assessment and Plan Plan: Assessment: 1. Chronic kidney disease stage IV secondary to nephrosclerosis with baseline creatinine near 3-3.2. 2. Anemia. There is component of chronic kidney disease. Rule out GI bleed. GI following. Patient will be having EGD and colonoscopy tomorrow. 3. Hypertension with chronic kidney disease. Blood pressure better controlled but labile. Renal duplex ultrasound revealed normal sized kidneys with high resistive indices. Renal artery stenosis could not be ruled out. At this time, it'll be best to control his blood pressure. 4. Metabolic acidosis secondary to chronic kidney disease maintained on oral sodium bicarbonate. 5. Acute kidney injury secondary to ATN secondary to acute blood loss anemia as well as addition of lisinopril and torsemide. Creatinine 3.7 today. Plan: Remains off IV fluids. Encouraged oral intake. Patient received Aranesp March 12. Continue to monitor renal function and urine output. No urgent for renal replacement therapy at this time. Patient is following with vascular surgery outpatient to get an AV graft in the near future. Maintain current antihypertensives - if GFR further declines, will need to discontinue lisinopril and potentially torsemide.
--- NOTE | 2019-03-15 12:01 | P.PN ---
Subjective Progress Note Date: 03/15/19 This is a 73-year-old male patient of Dr. Faith. Patient presented to the ER due to abnormal lab values. Patient reports that he has a known past medical history chronic kidney disease with known anemia in which he receives Aranesp per nephrology. During this visit patient was found to have a hemoglobin of 8.8 and was sent to the ER patient reports he has noticed dark stools. Patient is on Coumadin for known A. fib. Patient denies any bloody emesis. Patient also denies any nausea vomiting or diarrhea. Patient denies any abdominal pain. Patient states he does the colaguard but has never had a colonoscopy. denies feeling lightheaded or increased fatigue. Additional medical history includes GERD, hypertension, refill vascular disease and chronic kidney disease stage IV. Patient's INR 2.2. Coumadin on hold. Patient to receive 2 units PRBCs. GI nephrology services have been consulted. Patient's creatinine 3.06 this is slightly higher than baseline per patient. At this time patient is resting comfortably in bed. Patient denies any chest pain or shortness of breath. Patient denies any urinary burning or frequency. On 03/13/2019 patient's alert and oriented 3. Patient's at bedside. Patient received 1 unit of PRBCs. Stool for occult blood positive. Hemoglobin elevated at 7.8. patient's blood pressure remains high. Patient reports that he has struggled with blood pressure control in the past. Nephrology has added patient's home dose of Demadex and low dose of DONAVON inhibitor to 8 and blood pressure control. Awaiting GI input. At this time patient denies chest pain or shortness of breath. Patient denies nausea vomiting or diarrhea. Patient denies any urinary burning or frequency. On 03/14/2019 patient was seen and examined on the medical floor and oriented 3 in no apparent distress hemoglobin is down to 7.2 patient states he had a dark bowel movement yesterday, otherwise no evidence of acute bleeding. Patient denies any fever or chills no headache or dizziness no chest pain no shortness of breath no cough no nausea or vomiting no abdominal pain no diarrhea and no urinary symptoms. On 03/15/2019 patient is alert and oriented 3 in no distress he denies any complaints at this time hemoglobin is down to 7.3 BUN is up at 69 and creatinine is up at 3.7. Clinically patient is stable there is no fever or chills no headache or dizziness no chest pain no shortness of breath no cough no nausea or vomiting no abdominal pain no diarrhea and no urinary symptoms Objective - Vital Signs Vital signs: Vital Signs Temp 98.6 F 03/15/19 04:00 Pulse 64 03/15/19 04:00 Resp 18 03/15/19 04:00 BP 150/77 03/15/19 04:00 Pulse Ox 97 03/15/19 04:00 Intake & Output 03/14/19 03/15/19 03/15/19 18:59 06:59 18:59 Intake Total 960 360 Balance 960 360 Weight 87.4 kg Intake: Oral 960 360 Other: # Voids 1 1 - Exam In general patient is alert and oriented 3 in no apparent distress HEENT head normocephalic and atraumatic Neck is supple no JVD no goiter no lymphadenopathy Chest exam reveals a few scattered rhonchi bilaterally no wheezing Cardiac exam reveals irregular heart sounds no gallops no murmurs Abdomen is soft nontender no organomegaly no palpable masses was normal bowel sounds Extremity exam reveals no edema no cyanosis or clubbing Neurological examination reveals no gross focal deficit - Labs CBC & Chem 7: 03/15/19 06:36 03/15/19 06:36 Labs: Abnormal Lab Results - Last 24 Hours (Table) 03/15/19 03/15/19 Range/Units 06:36 06:36 RBC 2.41 L (4.30-5.90) m/uL Hgb 7.3 L (13.0-17.5) gm/dL Hct 23.1 L (39.0-53.0) % RDW 17.8 H (11.5-15.5) % Chloride 109 H (98-107) mmol/L Carbon Dioxide 18 L (22-30) mmol/L BUN 69 H (9-20) mg/dL Creatinine 3.70 H (0.66-1.25) mg/dL Calcium 8.0 L (8.4-10.2) mg/dL Assessment and Plan Plan: 1. Anemia due possible component of chronic kidney disease rule out GI bleed. GI services have been consulted. 1 unit of PRBCs has been ordered. Stool for occult blood positive 2. Chronic kidney disease stage IV secondary to nephrosclerosis. Nephrology services are following. Creatinine baseline near 3 3. Chronic persistent Atrial fibrillation. Patient is maintained on Coumadin. Coumadin currently on hold due to possible GI bleed and anemia 4. Essential hypertension. Home meds resumed. Hydralazine when necessary has been added. Lasix 20 mg to be given after 1 unit PRBCs. Patient's home dose of Reordered per nephrology services. Lisinopril 10 mg daily added per nephrology 5. History of GERD 6. History of hyperlipidemia 7. History of chronic iron deficiency anemia requiring iron infusions 8. History of anxiety 9. Ex-smoker DVT prophylaxis SCDs. GI prophylaxis Protonix Gastroenterology consultation reviewed plans are for EGD and colonoscopy on Saturday will monitor blood counts closely and transfuse red blood cells if needed
[2019-03-15] MEDS ORDERED: PEG 3350-NA SULF,BICARB,CL/KCL 4,000 ML BOTTLE PO ONE (16:00)
[2019-03-15] MEDS ORDERED: BISACODYL 5 MG TABLET.DR PO ONE (17:00)
--- NOTE | 2019-03-15 17:54 | P.PN ---
Subjective Progress Note Date: 03/15/19 Principal diagnosis: Normocytic hypochromic anemia, positive stool for occult blood Patient seen lying in bed, denying any abdominal pain, nausea, vomiting or signs or symptoms of GI bleed. Objective - Vital Signs Vital signs: Vital Signs Temp 97.7 F 03/15/19 16:00 Pulse 62 03/15/19 16:00 Resp 18 03/15/19 16:00 BP 132/60 03/15/19 16:00 Pulse Ox 96 03/15/19 16:00 Intake & Output 03/14/19 03/15/19 03/15/19 18:59 06:59 18:59 Intake Total 960 720 Balance 960 720 Weight 87.4 kg Intake: Oral 960 720 Other: # Voids 1 1 1 - Exam On physical examination, patient appears comfortable in no apparent distress. HEAD: Normocephalic, atraumatic. EYES: No scleral icterus. No conjunctival injection. MOUTH: No lesions, tongue midline. NECK: Trachea midline, no gross abnormalities. CHEST: Decreased air entry bilaterally. HEART: Irregularly irregular. ABDOMEN: Soft, obese. Bowel sounds are positive. No organomegaly. No guarding or rigidity. EXTREMITIES: No pedal edema. SKIN: No rashes, no jaundice. NEUROLOGIC: Alert and oriented x3. No focal deficits. - Labs CBC & Chem 7: 03/15/19 06:36 03/15/19 06:36 Labs: Abnormal Lab Results - Last 24 Hours (Table) 03/15/19 03/15/19 Range/Units 06:36 06:36 RBC 2.41 L (4.30-5.90) m/uL Hgb 7.3 L (13.0-17.5) gm/dL Hct 23.1 L (39.0-53.0) % RDW 17.8 H (11.5-15.5) % Chloride 109 H (98-107) mmol/L Carbon Dioxide 18 L (22-30) mmol/L BUN 69 H (9-20) mg/dL Creatinine 3.70 H (0.66-1.25) mg/dL Calcium 8.0 L (8.4-10.2) mg/dL Assessment and Plan (1) Normocytic hypochromic anemia Narrative/Plan: 73-year-old male admitted with asymptomatic normocytic hypochromic anemia. The patient reports a long-standing history of anemia of chronic disease secondary to chronic kidney disease but states hemoglobin has been lower than normal. He also has a known history of atrial fibrillation and is maintained on warfarin. On presentation to the hospital stool testing was positive for occult blood. He denies any signs or symptoms of GI bleeding with no hematochezia, melena, or hematemesis noted. The patient states he is had no prior evaluation with EGD or colonoscopy. Current Visit: Yes Status: Acute Code(s): D50.9 - IRON DEFICIENCY ANEMIA, UNSPECIFIED SNOMED Code(s): 99901640 (2) GI bleed Current Visit: Yes Status: Acute Code(s): K92.2 - GASTROINTESTINAL HEMORRHAGE, UNSPECIFIED SNOMED Code(s): 80905360 (3) Guaiac positive stools Current Visit: Yes Status: Acute Code(s): R19.5 - OTHER FECAL ABNORMALITIES SNOMED Code(s): 22066937 (4) Warfarin-induced coagulopathy Current Visit: Yes Status: Acute Code(s): D68.32 - HEMORRHAGIC DISORD D/T EXTRINSIC CIRCULATING ANTICOAGULANTS; T45.515A - ADVERSE EFFECT OF ANTICOAGULANTS, INITIAL ENCOUNTER SNOMED Code(s): 08759112 Plan: Supportive care Cclear liquids Continue to monitor hemoglobin and hematocrit and transfuse as needed Continue to monitor for signs or symptoms of GI bleeding Continue to hold Coumadin therapy Continue to monitor CBC, CMP Plan for EGD and colonoscopy on 03/16/2019 with possible capsule endoscopy if no source of bleed is found Bowel prep ordered Thank you for allowing us to participate in the care of this patient we will continue to follow
[2019-03-16] MEDS: CARVEDILOL 6.25 MG TAB PO SCH ×2 (06:31→17:36)
[2019-03-16 07:19] LABS: Anisocytosis Slight; Basophils % (A) 1 %; Eosinophils # (A) 0.2 k/uL (0-0.7); Eosinophils % (A) 4 %; HCT 24.6 % (39.0-53.0); Hypochromasia Slight; Lymphocytes % (A) 19 %; MCH 30.7 pg (25.0-35.0); MCHC 32.4 g/dL (31.0-37.0); Mean Platelet Volume 7.5; Monocytes # (A) 0.6 k/uL (0-1.0); Monocytes % (A) 12 %; Neutrophils # (A) 3.2 k/uL (1.3-7.7); Neutrophils % (A) 61 %; Platelet Count 372 k/uL (150-450); RBC 2.59 m/uL (4.30-5.90); RDW 17.6 % (11.5-15.5); WBC 5.3 k/uL (3.8-10.6)
[2019-03-16 07:36] LABS: Albumin 3.4 g/dL (3.5-5.0); Calcium 8.1 mg/dL (8.4-10.2); Magnesium 2.2 mg/dL (1.6-2.3); Potassium 4.1 mmol/L (3.5-5.1); Total Bilirubin 0.5 mg/dL (0.2-1.3)
[2019-03-16] MEDS: ISOSORBIDE MONONITRATE ER 30 MG TAB.ER.24H PO SCH ×2 (08:01→20:20)
[2019-03-16] MEDS: TORSEMIDE 20 MG TAB PO SCH (08:01)
[2019-03-16] MEDS: ATORVASTATIN 40 MG TAB PO SCH (08:01)
[2019-03-16] MEDS: LISINOPRIL 10 MG TAB PO SCH (08:02)
[2019-03-16] MEDS: hydrALAZINE HCL 50 MG TAB PO SCH ×3 (08:02→20:20)
[2019-03-16] MEDS: SODIUM BICARBONATE TAB 650 MG TAB PO SCH ×3 (08:02→20:20)
[2019-03-16] MEDS: PANTOPRAZOLE 40 MG/10 ML VIAL IV SCH (08:02)
--- NOTE | 2019-03-16 10:28 | P.PN ---
Subjective Progress Note Date: 03/16/19 This is a 73-year-old male patient of Dr. Faith. Patient presented to the ER due to abnormal lab values. Patient reports that he has a known past medical history chronic kidney disease with known anemia in which he receives Aranesp per nephrology. During this visit patient was found to have a hemoglobin of 8.8 and was sent to the ER patient reports he has noticed dark stools. Patient is on Coumadin for known A. fib. Patient denies any bloody emesis. Patient also denies any nausea vomiting or diarrhea. Patient denies any abdominal pain. Patient states he does the colaguard but has never had a colonoscopy. denies feeling lightheaded or increased fatigue. Additional medical history includes GERD, hypertension, refill vascular disease and chronic kidney disease stage IV. Patient's INR 2.2. Coumadin on hold. Patient to receive 2 units PRBCs. GI nephrology services have been consulted. Patient's creatinine 3.06 this is slightly higher than baseline per patient. At this time patient is resting comfortably in bed. Patient denies any chest pain or shortness of breath. Patient denies any urinary burning or frequency. On 03/13/2019 patient's alert and oriented 3. Patient's at bedside. Patient received 1 unit of PRBCs. Stool for occult blood positive. Hemoglobin elevated at 7.8. patient's blood pressure remains high. Patient reports that he has struggled with blood pressure control in the past. Nephrology has added patient's home dose of Demadex and low dose of DONAVON inhibitor to 8 and blood pressure control. Awaiting GI input. At this time patient denies chest pain or shortness of breath. Patient denies nausea vomiting or diarrhea. Patient denies any urinary burning or frequency. On 03/14/2019 patient was seen and examined on the medical floor and oriented 3 in no apparent distress hemoglobin is down to 7.2 patient states he had a dark bowel movement yesterday, otherwise no evidence of acute bleeding. Patient denies any fever or chills no headache or dizziness no chest pain no shortness of breath no cough no nausea or vomiting no abdominal pain no diarrhea and no urinary symptoms. On 03/15/2019 patient is alert and oriented 3 in no distress he denies any complaints at this time hemoglobin is down to 7.3 BUN is up at 69 and creatinine is up at 3.7. Clinically patient is stable there is no fever or chills no headache or dizziness no chest pain no shortness of breath no cough no nausea or vomiting no abdominal pain no diarrhea and no urinary symptoms on 03/16/2019 patient is alert and oriented 3. Patient to undergo EGD and colo noscopy today with GI services possible capsule study. Hemoglobin stable at 8.0. Creatinine 3.74 bun 60. Blood pressure has improved. At this time patient remains asymptomatic. Patient denies nausea vomiting or diarrhea. Patient denies any urinary burning or frequency. Patient denies chest pain or shortness breath Objective - Vital Signs Vital signs: Vital Signs Temp 98 F 03/16/19 04:00 Pulse 89 03/16/19 04:00 Resp 16 03/16/19 04:00 BP 152/77 03/16/19 04:00 Pulse Ox 97 03/16/19 04:00 Intake & Output 03/15/19 03/16/19 03/16/19 18:59 06:59 18:59 Intake Total 720 2940 Output Total 200 Balance 720 2740 Weight 84.2 kg Intake: Oral 720 2940 Output: Urine 200 Other: # Voids 1 2 # Bowel Movements 4 - Exam Head normocephalic Neck supple Lungs clear to auscultation bilaterally no wheezing or crackles Heart regular rate and rhythm S1-S2, no rub or gallop Abdomen is soft nontender nondistended positive bowel sounds no hepatosplenomegaly Extremities no edema Neuro alert and orientated to 3 - Labs CBC & Chem 7: 03/16/19 06:12 03/16/19 06:12 Labs: Abnormal Lab Results - Last 24 Hours (Table) 03/16/19 03/16/19 Range/Units 06:12 06:12 RBC 2.59 L (4.30-5.90) m/uL Hgb 8.0 L (13.0-17.5) gm/dL Hct 24.6 L (39.0-53.0) % RDW 17.6 H (11.5-15.5) % Carbon Dioxide 20 L (22-30) mmol/L BUN 60 H (9-20) mg/dL Creatinine 3.74 H (0.66-1.25) mg/dL Glucose 62 L (74-99) mg/dL Calcium 8.1 L (8.4-10.2) mg/dL Total Protein 6.0 L (6.3-8.2) g/dL Albumin 3.4 L (3.5-5.0) g/dL Assessment and Plan Assessment: 1. Anemia due possible component of chronic kidney disease rule out GI bleed. GI services have been consulted. 1 unit of PRBCs has been ordered. Stool for occult blood positive. Patient to undergo EGD and colonoscopy today 2. Chronic kidney disease stage IV secondary to nephrosclerosis. Nephrology services are following. Creatinine baseline near 3 3. Chronic persistent Atrial fibrillation. Patient is maintained on Coumadin. Coumadin currently on hold due to possible GI bleed and anemia 4. Essential hypertension. Home meds resumed. Hydralazine when necessary has been added. Lasix 20 mg to be given after 1 unit PRBCs. Patient's home dose of Reordered per nephrology services. Lisinopril 10 mg daily added per nephrology 5. History of GERD 6. History of hyperlipidemia 7. History of chronic iron deficiency anemia requiring iron infusions 8. History of anxiety 9. Ex-smoker DVT prophylaxis SCDs. GI prophylaxis Protonix I performed an examination of the patient and discussed their management with the Nurse Practitioner. I have reviewed the Nurse Practitioner's notes and agree with the documented findings and plan of care
[2019-03-16] MEDS ORDERED: MIDAZOLAM 2 MG/2 ML VIAL ONE (12:28)
[2019-03-16] MEDS ORDERED: PROPOFOL 10 MG/ML 20 ML VIAL IV ONE (12:28)
[2019-03-16] MEDS ORDERED: SODIUM CHLORIDE 0.9% 500 ML 500 ML IV ONE ×2 (12:30)
--- NOTE | 2019-03-16 13:38 | P.PCN ---
Date of Procedure: 03/16/19 Description of Procedure: Brief history: 73-year-old male with a history of peripheral vascular disease, atrial fibrillation maintained warfarin, chronic anemia maintained on IV iron Aranesp, chronic kidney disease stage IV secondary to nephrosclerosis baseline creatinine near 3 admitted with abnormal CBC. Patient denies overt bleeding such as hematemesis many keys or melena. No history GI bleeds. Patient had COLOGARD testing 2 years ago to his memory was normal. No history of EGD colonoscopy. Denies hematuria or epistaxis. No abdominal pain and weight loss fever or chills. Admission hemoglobin 6.8. MCV 96. Platelet 406. Mild hypochromia. Received 2 unit of blood current hemoglobin 7.8. Previous iron indices reported normal iron levels as well as TIBC and saturation. Ferritin elevated 200-1200 range. Admission INR 2.2 presently 2.4. BUN 70. Creatinine 3.0. Presently BUN is 58. Creatinine 3.2. FOBT positive. Procedure performed: Esophagogastroduodenoscopy Colonoscopy Estimated blood loss: Minimal. Preoperative diagnosis: Anemia, stool testing positive for occult blood, no prior colonoscopies Anesthesia: [facility] [place] Procedure: After informed consent was obtained from the patient was brought into the endoscopy unit and IV sedation was administered by anesthesia under continuous monitoring. Initially upper endoscopy was done. The Olympus GF 190 video endoscope was inserted inserted into the mouth and esophagus intubated without any difficulty and was gradually advanced into the stomach and duodenum and carefully examined. The bulb and second part of the duodenum appeared normal except for some mild erythema in the duodenal bulb, with biopsies taken. The scope was then withdrawn into the stomach adequately insufflated with air and upon careful examination the antrum and body, cardia and fundus appeared norm al, Except for some mild scattered erythema in the antrum and body suggestive of mild gastritis with biopsies taken. The scope was then withdrawn into the esophagus. The GE junction was located at 38 cm to the incisors. It appeared regular with no erythema erosions or ulcerations. Rest of the esophagus appeared normal. Patient tolerated the procedure well. At this time the patient continued to remain sedation. Initial digital rectal examination was normal. Olympus CF 190 video colonoscope was then inserted into the rectum and gradually advanced to the cecum without any difficulty. Careful examination was performed as the scope was gradually being withdrawn. The prep was excellent. The cecum, ascending colon, transverse colon, descending colon, sigmoid colon and rectum appeared normal. Cold snare polypectomy of a 8 mm sessile cecal polyp. Cold forcep polypectomy of 2 diminutive ascending colon polyp measuring 2 and 3 mm. Cold snare polypectomy of a 7 mm distal ascending colon polyp. Cold forcep polypectomy of 2 diminutive transverse colon polyps measuring 3 and 4 mm. Cold forcep polypectomy of a diminutive sessile 3 mm descending colon polyp. Mild internal hemorrhoids. Retroflexion was performed in the rectum and no lesions were noted. Patient tolerated the procedure well. Impression: 1. Mild gastritis antrum and body, biopsied. Mild duodenitis biopsied. 2. Polypectomy of 7 diminutive polyps in the cecum, ascending colon, transverse colon and descending colon using a combination of cold forceps and cold snare polypectomy (please see notes for details). Mild internal hemorrhoids. Recommendations: Findings of this examination were discussed with the patient as well as His . Await pathology from polypectomies. Anticipate repeat colonoscopy in 3 years for high risk screening. We'll plan to proceed with video capsule endoscopy. Further recommendations pending findings of that exam.
[2019-03-16] MEDS ORDERED: SIMETHICONE 40 MG/0.6 ML DROPS 2,000 MG/30 ML BOTTLE PO ONE ×2 (14:10→14:43)
--- NOTE | 2019-03-16 16:01 | PN ---
PROGRESS NOTE Patient is seen for followup for chronic kidney disease. His renal function is slightly more impaired than admission. However, creatinine is now staying stable at 3.7 mg/dL. The patient does have chronic kidney disease stage 4. He is scheduled for colonoscopy and EGD today. The patient was admitted with anemia. His stool for occult blood was positive. Hemoglobin was 6.8 on in initial admission currently at 8.0 g/dL. Blood pressure has not been significantly low. The patient is maintained on DONAVON inhibitors. PHYSICAL EXAMINATION: This morning, blood pressure was 132/61, heart rate 68 per minute. He is afebrile. Examination of the heart S1, S2. Examination of the lungs, bilateral breath sounds are heard. Abdomen is soft, nontender. Examination lower extremities shows nonsignificant edema. 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 LABS: Show sodium 140, potassium 4.1, BUN 60, serum creatinine 3.74, hemoglobin 8.0 g/dL. ASSESSMENT: 1. Chronic kidney disease and NKF stage IV secondary to nephrosclerosis with baseline creatinine about 3.2-3 mg/dL. 2. Acute kidney injury secondary to severe anemia. Renal function currently stable. He is maintained on DONAVON inhibitors. Blood pressure had been running high. It is now much better controlled. However, if he continues to be lower with systolic less than 120. I will decrease the dose of lisinopril. 3. Anemia with positive stool for occult blood. Scheduled for endoscopy for EGD and colonoscopy today. 4. Metabolic acidosis. Maintained on oral sodium bicarb. 5. Hypertension currently well controlled. There is consideration for possible renal artery stenosis. Currently, blood pressure is very well controlled with DONAVON inhibitors, which I will continue for now. PLAN: Continue with lisinopril. Repeat labs in a.m. If systolic blood pressures remain below 120, decrease lisinopril to 5 mg daily. The patient will need to follow up as outpatient for CKD. MMODL / IJN: [id number] /
[2019-03-17] MEDS: CARVEDILOL 6.25 MG TAB PO SCH ×2 (06:13→17:51)
[2019-03-17 08:07] LABS: Anisocytosis Slight; Basophils % (A) 1 %; Eosinophils # (A) 0.2 k/uL (0-0.7); Eosinophils % (A) 2 %; HCT 24.5 % (39.0-53.0); HGB 7.5 gm/dL (13.0-17.5); Hypochromasia Moderate; Lymphocytes # (A) 0.9 k/uL (1.0-4.8); Lymphocytes % (A) 12 %; MCH 29.8 pg (25.0-35.0); MCHC 30.7 g/dL (31.0-37.0); MCV 97.1 fL (80.0-100.0); Macrocytosis Slight; Mean Platelet Volume 6.7; Monocytes # (A) 0.6 k/uL (0-1.0); Monocytes % (A) 9 %; Neutrophils # (A) 5.3 k/uL (1.3-7.7); Neutrophils % (A) 74 %; Platelet Count 384 k/uL (150-450); RBC 2.53 m/uL (4.30-5.90); RDW 17.2 % (11.5-15.5); WBC 7.2 k/uL (3.8-10.6)
[2019-03-17 08:13] LABS: INR 1.1 (<1.2); Prothrombin Time 11.9 sec (9.0-12.0)
[2019-03-17] MEDS: TORSEMIDE 20 MG TAB PO SCH (08:16)
[2019-03-17] MEDS: LISINOPRIL 10 MG TAB PO SCH (08:17)
[2019-03-17] MEDS: hydrALAZINE HCL 50 MG TAB PO SCH ×3 (08:17→19:58)
[2019-03-17] MEDS: ISOSORBIDE MONONITRATE ER 30 MG TAB.ER.24H PO SCH ×2 (08:17→19:58)
[2019-03-17] MEDS: PANTOPRAZOLE 40 MG/10 ML VIAL IV SCH (08:17)
[2019-03-17] MEDS: SODIUM BICARBONATE TAB 650 MG TAB PO SCH ×3 (08:17→19:58)
[2019-03-17] MEDS: ATORVASTATIN 40 MG TAB PO SCH (08:17)
[2019-03-17 08:30] LABS: Albumin 3.6 g/dL (3.5-5.0); Calcium 8.3 mg/dL (8.4-10.2); Potassium 4.2 mmol/L (3.5-5.1); Total Bilirubin 0.5 mg/dL (0.2-1.3); Total Protein 6.4 g/dL (6.3-8.2)
--- NOTE | 2019-03-17 13:03 | P.PN ---
Subjective Progress Note Date: 03/17/19 Principal diagnosis: Anemia Status post EGD colonoscopy for evaluation of anemia and positive guaiac mild gastritis duodenitis polypectomy 7 mild internal hemorrhoids. Presently without abdominal pain. No active bleeding. Swallow capsule endoscopy completed results are pending. Hemoglobin 7.5. Objective - Vital Signs Vital signs: Vital Signs Temp 97.7 F 03/17/19 08:00 Pulse 70 03/17/19 08:00 Resp 18 03/17/19 08:00 BP 142/64 03/17/19 08:00 Pulse Ox 95 03/17/19 08:00 Intake & Output 03/16/19 03/17/19 03/17/19 18:59 06:59 18:59 Intake Total 500 240 Output Total 250 Balance 500 -250 240 Weight 86.8 kg Intake: IV 500 Oral 240 Output: Urine 250 Other: # Voids 1 1 # Bowel Movements 1 - Exam General appearance: The patient is alert, oriented, in no acute distress. HET: Head is normocephalic and atraumatic. Pupils are equal and reactive. Oropharynx is clear without lesions. Neck: Supple without lymphadenopathy. Trachea midline. Heart: S1 S2. Regular rate and rhythm. Lungs: No crackles or wheezes are heard. Abdomen: Soft, nontender, nondistended with bowel sounds. No peritoneal signs. No palpable organomegaly or masses. Extremities: Normal skin color and turgor. No cyanosis, rash, ulceration, clubbing, or edema. Radial and pedal pulses are 2/4 bilaterally. Neurological: No focal deficits. Strength and sensation are grossly intact. - Labs CBC & Chem 7: 03/17/19 07:11 03/17/19 07:11 Labs: Abnormal Lab Results - Last 24 Hours (Table) 03/12/19 03/17/19 03/17/19 Range/Units 13:35 07:11 07:11 RBC 2.53 L (4.30-5.90) m/uL Hgb 7.5 L (13.0-17.5) gm/dL Hct 24.5 L (39.0-53.0) % MCHC 30.7 L (31.0-37.0) g/dL RDW 17.2 H (11.5-15.5) % Lymphocytes # 0.9 L (1.0-4.8) k/uL Carbon Dioxide 19 L (22-30) mmol/L BUN 64 H (9-20) mg/dL Creatinine 3.94 H (0.66-1.25) mg/dL Calcium 8.3 L (8.4-10.2) mg/dL Crossmatch See Detail Assessment and Plan (1) Normocytic hypochromic anemia Current Visit: Yes Status: Acute Code(s): D50.9 - IRON DEFICIENCY ANEMIA, UNSPECIFIED SNOMED Code(s): 56696159 (2) Guaiac positive stools Current Visit: Yes Status: Acute Code(s): R19.5 - OTHER FECAL ABNORMALITIES SNOMED Code(s): 79847485 (3) Atrial fibrillation Current Visit: Yes Status: Acute Code(s): I48.91 - UNSPECIFIED ATRIAL FIBRILLATION SNOMED Code(s): 25688499 (4) Warfarin-induced coagulopathy Current Visit: Yes Status: Acute Code(s): D68.32 - HEMORRHAGIC DISORD D/T EXTRINSIC CIRCULATING ANTICOAGULANTS; T45.515A - ADVERSE EFFECT OF ANTICOAGULANTS, INITIAL ENCOUNTER SNOMED Code(s): 86469623 Plan: 1. Status post EGD colonoscopy no evidence of active bleeding or bleeding s ources. Small bowel capsule endoscopy completed results are pending presently without active GI bleeding. Suspect anemia of chronic disease. From a GI standpoint okay to resume anticoagulation outpatient CBC monitoring. Discharge per medicine. Patient advised to call the office after discharge to follow-up with capsule results. Assessment and plan a care discussed with Dr. Santos
--- NOTE | 2019-03-17 13:14 | P.PN ---
Subjective Progress Note Date: 03/17/19 This is a 73-year-old male patient of Dr. Faith. Patient presented to the ER due to abnormal lab values. Patient reports that he has a known past medical history chronic kidney disease with known anemia in which he receives Aranesp per nephrology. During this visit patient was found to have a hemoglobin of 8.8 and was sent to the ER patient reports he has noticed dark stools. Patient is on Coumadin for known A. fib. Patient denies any bloody emesis. Patient also denies any nausea vomiting or diarrhea. Patient denies any abdominal pain. Patient states he does the colaguard but has never had a colonoscopy. denies feeling lightheaded or increased fatigue. Additional medical history includes GERD, hypertension, refill vascular disease and chronic kidney disease stage IV. Patient's INR 2.2. Coumadin on hold. Patient to receive 2 units PRBCs. GI nephrology services have been consulted. Patient's creatinine 3.06 this is slightly higher than baseline per patient. At this time patient is resting comfortably in bed. Patient denies any chest pain or shortness of breath. Patient denies any urinary burning or frequency. On 03/13/2019 patient's alert and oriented 3. Patient's at bedside. Patient received 1 unit of PRBCs. Stool for occult blood positive. Hemoglobin elevated at 7.8. patient's blood pressure remains high. Patient reports that he has struggled with blood pressure control in the past. Nephrology has added patient's home dose of Demadex and low dose of DONAVON inhibitor to 8 and blood pressure control. Awaiting GI input. At this time patient denies chest pain or shortness of breath. Patient denies nausea vomiting or diarrhea. Patient denies any urinary burning or frequency. On 03/14/2019 patient was seen and examined on the medical floor and oriented 3 in no apparent distress hemoglobin is down to 7.2 patient states he had a dark bowel movement yesterday, otherwise no evidence of acute bleeding. Patient denies any fever or chills no headache or dizziness no chest pain no shortness of breath no cough no nausea or vomiting no abdominal pain no diarrhea and no urinary symptoms. On 03/15/2019 patient is alert and oriented 3 in no distress he denies any complaints at this time hemoglobin is down to 7.3 BUN is up at 69 and creatinine is up at 3.7. Clinically patient is stable there is no fever or chills no headache or dizziness no chest pain no shortness of breath no cough no nausea or vomiting no abdominal pain no diarrhea and no urinary symptoms on 03/16/2019 patient is alert and oriented 3. Patient to undergo EGD and colo noscopy today with GI services possible capsule study. Hemoglobin stable at 8.0. Creatinine 3.74 bun 60. Blood pressure has improved. At this time patient remains asymptomatic. Patient denies nausea vomiting or diarrhea. Patient denies any urinary burning or frequency. Patient denies chest pain or shortness breath On 03/17/2019 patient's alert and oriented 3. Patient is status post EGD on SP and capsule study. Discussed case with GI services okay to resume anticoagulation. Patient to receive 10 mg Coumadin tonight. Patient's creatinine increasing to 3.94. Normal saline at 50. This time patient remains asymptomatic. Patient denies nausea vomiting or diarrhea. Patient denies any urinary burning or frequency Objective - Vital Signs Vital signs: Vital Signs Temp 97.5 F L 03/17/19 12:00 Pulse 72 03/17/19 12:00 Resp 18 03/17/19 12:00 BP 157/76 03/17/19 12:00 Pulse Ox 95 03/17/19 12:00 Intake & Output 03/16/19 03/17/19 03/17/19 18:59 06:59 18:59 Intake Total 500 240 Output Total 250 Balance 500 -250 240 Weight 86.8 kg Intake: IV 500 Oral 240 Output: Urine 250 Other: # Voids 1 1 1 # Bowel Movements 1 - Exam Head normocephalic Neck supple Lungs clear to auscultation bilaterally no wheezing or crackles Heart regular rate and rhythm S1-S2, no rub or gallop Abdomen is soft nontender nondistended positive bowel sounds no hepatosplenomegaly Extremities no edema Neuro alert and orientated to 3 - Labs CBC & Chem 7: 03/17/19 07:11 03/17/19 07:11 Labs: Abnormal Lab Results - Last 24 Hours (Table) 03/12/19 03/17/19 03/17/19 Range/Units 13:35 07:11 07:11 RBC 2.53 L (4.30-5.90) m/uL Hgb 7.5 L (13.0-17.5) gm/dL Hct 24.5 L (39.0-53.0) % MCHC 30.7 L (31.0-37.0) g/dL RDW 17.2 H (11.5-15.5) % Lymphocytes # 0.9 L (1.0-4.8) k/uL Carbon Dioxide 19 L (22-30) mmol/L BUN 64 H (9-20) mg/dL Creatinine 3.94 H (0.66-1.25) mg/dL Calcium 8.3 L (8.4-10.2) mg/dL Crossmatch See Detail Assessment and Plan Assessment: 1. Anemia due possible component of chronic kidney disease rule out GI bleed. GI services have been consulted. 1 unit of PRBCs has been ordered. Stool for occult blood positive. Status post EGD and colonoscopy showing mild gastritis duodenitis polyp 7 and mild internal hemorrhoids. Awaiting capsule study results. Discussed case with GI services okay to resume Coumadin today. 2. Chronic kidney disease stage IV secondary to nephrosclerosis. Nephrology services are following. Creatinine increasing to 3.94. Normal saline at 50 ordered. 3. Chronic persistent Atrial fibrillation. Patient is maintained on Coumadin. Okay to resume anticoagulation per GI services. Coumadin 10 mg added for tonight we'll continue to monitor PT/INR daily 4. Essential hypertension. Home meds resumed. Hydralazine when necessary has been added. Lasix 20 mg to be given after 1 unit PRBCs. Patient's home dose of Reordered per nephrology services. Lisinopril 10 mg daily added per nephrology 5. History of GERD 6. History of hyperlipidemia 7. History of chronic iron deficiency anemia requiring iron infusions 8. History of anxiety 9. Ex-smoker DVT prophylaxis SCDs. GI prophylaxis Protonix I performed an examination of the patient and discussed their management with the Nurse Practitioner. I have reviewed the Nurse Practitioner's notes and agree with the documented findings and plan of care
--- NOTE | 2019-03-17 14:08 | PN ---
PROGRESS NOTE Patient is seen for followup for chronic kidney disease and mild acute kidney injury. He did have a colonoscopy and EGD yesterday, which did not show any area of active bleeding. Patient did have polyps, which were biopsied. He is currently comfortable and is asking to go home. PHYSICAL EXAMINATION: Blood pressure is 142/64, heart rate 70 per minute. He is afebrile. Examination of the heart, S1, S2. Examination of the lungs, bilateral breath sounds are heard. Abdomen is soft, nontender. Examination of the lower extremities shows edema, trace left lower extremity, 1+ right lower extremity. There is varicose veins noted in the right lower extremity as well. 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 LABS: Shows sodium 140, potassium 4.2, BUN 64, serum creatinine 3.9, hemoglobin 7.5 g/dL. ASSESSMENT: 1. Acute kidney injury associated with severe anemia on admission. Renal function is fairly stable. However, serum creatinine has edged up slightly, since patient has been maintained on lisinopril. The dose will be decreased to 5 mg per day. I will continue with the diuretics as patient does have edema. He is advised to continue to avoid use of any nephrotoxic medications. He should follow up in the office for his scheduled appointment in about 2 weeks' time. 2. Anemia with no active bleeding noted, status post EGD, colonoscopy, results of which are currently pending. Patient also had capsule endoscopy, the results of which are pending. No active bleeding noted. He will be maintained on Aranesp as outpatient. 3. Metabolic acidosis secondary to renal failure, currently on sodium bicarb. 4. Hypertension with the possibility of underlying renal artery stenosis, maintained on DONAVON inhibitors, which we will continue for now unless the renal function continues to decline progressively. 5. Chronic kidney disease stage IV secondary to nephrosclerosis. PLAN: Decrease lisinopril to 5 mg daily. Okay to discharge patient. Follow up as outpatient. Continue with Aranesp as outpatient for anemia of chronic disease and follow up with Dr. Peralta. If he needs to have an , we will plan for the procedure around the time when patient needs to start dialysis. MMODL / IJN: [id number] /
[2019-03-17] MEDS: SODIUM CHLORIDE 0.9% 1,000 ML IV SCH (14:52)
[2019-03-17] MEDS ORDERED: WARFARIN 10 MG TAB PO ONE (18:00)
[2019-03-17 20:35] LABS: Glucose,Whole Blood 131 mg/dL (75-99)
[2019-03-18 03:56] VITALS: RESP 16
[2019-03-18] MEDS: CARVEDILOL 6.25 MG TAB PO SCH (06:29)
[2019-03-18 06:30] LABS: Anisocytosis Slight; Basophils % (A) 0 %; Eosinophils # (A) 0.2 k/uL (0-0.7); Eosinophils % (A) 2 %; HCT 24.3 % (39.0-53.0); HGB 7.6 gm/dL (13.0-17.5); Hypochromasia Slight; Lymphocytes % (A) 14 %; MCH 29.8 pg (25.0-35.0); MCHC 31.1 g/dL (31.0-37.0); Mean Platelet Volume 7.2; Monocytes # (A) 0.7 k/uL (0-1.0); Monocytes % (A) 10 %; Neutrophils # (A) 4.8 k/uL (1.3-7.7); Neutrophils % (A) 69 %; Platelet Count 369 k/uL (150-450); RBC 2.54 m/uL (4.30-5.90); WBC 6.9 k/uL (3.8-10.6)
[2019-03-18 06:44] LABS: INR 1.3 (<1.2); Prothrombin Time 13.7 sec (9.0-12.0)
[2019-03-18 06:59] LABS: Albumin 3.5 g/dL (3.5-5.0); Calcium 8.3 mg/dL (8.4-10.2); Potassium 3.8 mmol/L (3.5-5.1); Total Bilirubin 0.4 mg/dL (0.2-1.3); Total Protein 6.4 g/dL (6.3-8.2)
[2019-03-18] MEDS ORDERED: LISINOPRIL 5 MG TAB PO SCH (09:00)
[2019-03-18] MEDS: PANTOPRAZOLE 40 MG/10 ML VIAL IV SCH (09:19)
[2019-03-18] MEDS: hydrALAZINE HCL 50 MG TAB PO SCH (09:20)
[2019-03-18] MEDS: ATORVASTATIN 40 MG TAB PO SCH (09:21)
[2019-03-18] MEDS: TORSEMIDE 20 MG TAB PO SCH (09:21)
[2019-03-18] MEDS: SODIUM BICARBONATE TAB 650 MG TAB PO SCH (09:21)
[2019-03-18] MEDS: ISOSORBIDE MONONITRATE ER 30 MG TAB.ER.24H PO SCH (09:21)
[2019-03-18] MEDS: SODIUM CHLORIDE 0.9% 1,000 ML IV SCH (11:13)
--- NOTE | 2019-03-18 11:51 | P.DS ---
Providers Date of admission: 03/12/19 14:04 Expected date of discharge: 03/18/19 Attending physician: Marisel Coyne Consults: 03/12/19 12:41 Consult Physician Routine Consulting Provider: Leonel Aragon Consult Reason/Comments: anemia, ckd Do you want consulting provider notified?: Yes Primary care physician: Fide Faith [facility] Course: Discharge Diagnosis 1. Anemia due possible component of chronic kidney disease rule out GI bleed. GI services have been consulted. 1 unit of PRBCs has been ordered. Stool for occult blood positive. Status post EGD and colonoscopy showing mild gastritis duodenitis polyp 7 and mild internal hemorrhoids. Awaiting capsule study results. Discussed case with GI services okay to resume Coumadin today. Okay for discharge from GI standpoint. Capsule study results pending. Hemoglobin improving 7.6 2. Chronic kidney disease stage IV secondary to nephrosclerosis. Nephrology services are following. Creatinine increasing to 3.94. Normal saline at 50 ordered. Creatinine is improving at 3.67 and bun 59. Patient has been cleared for discharge from nephrology standpoint 3. Chronic persistent Atrial fibrillation. Patient is maintained on Coumadin. Okay to resume anticoagulation per GI services. Coumadin 10 mg added for tonight we'll continue to monitor PT/INR daily. Patient INR 1.3. We'll give Coumadin 7.5 prior to discharge. Patient to resume home Coumadin dose. Repeat PT/INR ordered for 2 days. Patient to follow-up with her PCP for further management 4. Essential hypertension. Home meds resumed. Hydralazine when necessary has been added. Lasix 20 mg to be given after 1 unit PRBCs. Patient's home dose of Reordered per nephrology services. Lisinopril 10 mg daily added per nephrology 5. History of GERD 6. History of hyperlipidemia 7. History of chronic iron deficiency anemia requiring iron infusions 8. History of anxiety 9. Ex-smoker Hospital course This is a 73-year-old male patient of Dr. Faith. Patient presented to the ER due to abnormal lab values. Patient reports that he has a known past medical history chronic kidney disease with known anemia in which he receives Aranesp per nephrology. During this visit patient was found to have a hemoglobin of 8.8 and was sent to the ER patient reports he has noticed dark stools. Patient is on Coumadin for known A. fib. Patient denies any bloody emesis. Patient also denies any nausea vomiting or diarrhea. Patient denies any abdominal pain. Patient states he does the colaguard but has never had a colonoscopy. denies feeling lightheaded or increased fatigue. Additional medical history includes GERD, hypertension, refill vascular disease and chronic kidney disease stage IV. Patient's INR 2.2. Coumadin on hold. Patient to receive 2 units PRBCs. GI nephrology services have been consulted. Patient's creatinine 3.06 this is slightly higher than baseline per patient. At this time patient is resting comfortably in bed. Patient denies any chest pain or shortness of breath. Patient denies any urinary burning or frequency. On 03/13/2019 patient's alert and oriented 3. Patient's at bedside. Patient received 1 unit of PRBCs. Stool for occult blood positive. Hemoglobin elevated at 7.8. patient's blood pressure remains high. Patient reports that he has struggled with blood pressure control in the past. Nephrology has added patient's home dose of Demadex and low dose of DONAVON inhibitor to 8 and blood pressure control. Awaiting GI input. At this time patient denies chest pain or shortness of breath. Patient denies nausea vomiting or diarrhea. Patient denies any urinary burning or frequency. On 03/14/2019 patient was seen and examined on the medical floor and oriented 3 in no apparent distress hemoglobin is down to 7.2 patient states he had a dark bowel movement yesterday, otherwise no evidence of acute bleeding. Patient denies any fever or chills no headache or dizziness no chest pain no shortness of breath no cough no nausea or vomiting no abdominal pain no diarrhea and no urinary symptoms. On 03/15/2019 patient is alert and oriented 3 in no distress he denies any complaints at this time hemoglobin is down to 7.3 BUN is up at 69 and creatinine is up at 3.7. Clinically patient is stable there is no fever or chills no headache or dizziness no chest pain no shortness of breath no cough no nausea or vomiting no abdominal pain no diarrhea and no urinary symptoms on 03/16/2019 patient is alert and oriented 3. Patient to undergo EGD and colonoscopy today with GI services possible capsule study. Hemoglobin stable at 8.0. Creatinine 3.74 bun 60. Blood pressure has improved. At this time patient remains asymptomatic. Patient denies nausea vomiting or diarrhea. Patient denies any urinary burning or frequency. Patient denies chest pain or shortness breath On 03/17/2019 patient's alert and oriented 3. Patient is status post EGD on SP and capsule study. Discussed case with GI services okay to resume anticoagulation. Patient to receive 10 mg Coumadin tonight. Patient's creatinine increasing to 3.94. Normal saline at 50. This time patient remains asymptomatic. Patient denies nausea vomiting or diarrhea. Patient denies any urinary burning or frequency On 03/18/2019 patient's alert and oriented 3. Patient is very anxious to get home. creatinine has improved. Patient will follow-up outpatient with nephrology services for further management. Hemoglobin 7.6. Blood pressure has improved. Patient's PT/INR 1.3 after 10 mg Coumadin yesterday. Patient received 7.5 prior to discharge resume home Coumadin dose. Repeat CBC, CMP and PT/INR ordered for 2 days. Patient to follow-up with PCP in consulting providers for further management of care. At this time patient denies nausea vomiting or diarrhea. Patient denies any chest pain or shortness breath. Patient denies any urinary burning or frequency I performed an examination of the patient and discussed their management with the Nurse Practitioner. I have reviewed the Nurse Practitioner's notes and agree with the documented findings and plan of care Patient Condition at Discharge: Stable Plan - Discharge Summary Discharge Rx Participant: No New Discharge Prescriptions: New Carvedilol [Coreg*] 12.5 mg PO AC-BID 30 Days #60 tab Isosorbide Mononitrate ER [Imdur] 30 mg PO BID 30 Days #60 tab.er.24h Lisinopril [Zestril] 5 mg PO DAILY 30 Days #30 tab Continue hydrALAZINE HCL [Apresoline] 100 mg PO TID Cholecalciferol [Vitamin D3 (25 Mcg = 1000 Iu)] 5,000 unit PO HS NIFEdipine [NIFEdipine ER] 120 mg PO DAILY Carvedilol [Coreg] 6.25 mg PO AC-BID Aspirin EC [Ecotrin Low Dose] 81 mg PO DAILY Atorvastatin [Lipitor] 40 mg PO DAILY Torsemide [Demadex] 10 mg PO DAILY Allopurinol [Zyloprim] 100 mg PO DAILY Calcitriol [Rocaltrol] 0.25 mcg PO DAILY Warfarin Sodium [Coumadin] 2 mg PO SUTH Sodium Bicarbonate Tab 650 mg PO BID Warfarin Sodium [Coumadin] 4 mg PO MOTUWEFRSA Discharge Medication List Cholecalciferol [Vitamin D3 (25 Mcg = 1000 Iu)] 5,000 unit PO HS 02/23/15 [History] NIFEdipine [NIFEdipine ER] 120 mg PO DAILY 02/23/15 [History] hydrALAZINE HCL [Apresoline] 100 mg PO TID 02/23/15 [History] Carvedilol [Coreg] 6.25 mg PO AC-BID 09/05/15 [History] Aspirin EC [Ecotrin Low Dose] 81 mg PO DAILY 05/31/16 [History] Atorvastatin [Lipitor] 40 mg PO DAILY 05/31/16 [History] Torsemide [Demadex] 10 mg PO DAILY 09/27/16 [History] Allopurinol [Zyloprim] 100 mg PO DAILY 12/20/16 [History] Calcitriol [Rocaltrol] 0.25 mcg PO DAILY 07/17/18 [History] Sodium Bicarbonate Tab 650 mg PO BID 03/12/19 [History] Warfarin Sodium [Coumadin] 2 mg PO SUTH 03/12/19 [History] Warfarin Sodium [Coumadin] 4 mg PO MOTUWEFRSA 03/12/19 [History] Carvedilol [Coreg*] 12.5 mg PO AC-BID 30 Days #60 tab 03/18/19 [Rx] Isosorbide Mononitrate ER [Imdur] 30 mg PO BID 30 Days #60 tab.er.24h 03/18/19 [Rx] Lisinopril [Zestril] 5 mg PO DAILY 30 Days #30 tab 03/18/19 [Rx] Follow up Appointment(s)/Referral(s): Fide Faith MD [Primary Care Provider] - 1-2 days Leonel Aragon DO [STAFF PHYSICIAN] - 1 Week Reno Santos MD [STAFF PHYSICIAN] - 1 Week Ambulatory/Diagnostic Orders: Complete Blood Count w/diff [LAB.AMB] Time Frame: 2 Days, Location: None Selected Comprehensive Metabolic Panel [LAB.AMB] Time Frame: 2 Days, Location: None Selected Prothrombin Time INR [LAB.AMB] Time Frame: 2 Days, Location: None Selected Patient Instructions/Handouts: Chronic Kidney Disease (DC), Iron Rich Diet (DC) Activity/Diet/Wound Care/Special Instructions: Patient instructed to notify GI office after discharge to inquire about capsule results. . Discharge Disposition: HOME SELF-CARE
[2019-03-18 14:44] VITALS: BP 162/75; PULSE 68; TEMP 98
[2019-03-18] MEDS ORDERED: CARVEDILOL 12.5 MG TAB PO SCH (17:30)
[2019-03-18] MEDS ORDERED: WARFARIN 7.5 MG TAB PO ONE (18:00)
[2019-03-18] MEDS ORDERED: SODIUM BICARBONATE TAB 650 MG TAB PO SCH (21:00)
== END 2019-03-18 13:02 | disposition home or self-care (01) | DRG 682 ==
LOC: EC 11:59 → 3SCARD 14:04
PROVIDERS: ADMIT Internal Medicine; ATTEND Internal Medicine
PROC: 30233N1 Transfusion of Nonautologous Red Blood Cells into Peripheral Vein, Percutaneous Approach (ICD-10-PCS; 2019-03-12)
PROC: 0DBL8ZX Excision of Transverse Colon, Via Natural or Artificial Opening Endoscopic, Diagnostic (ICD-10-PCS; 2019-03-16)
PROC: 0DBM8ZX Excision of Descending Colon, Via Natural or Artificial Opening Endoscopic, Diagnostic (ICD-10-PCS; 2019-03-16)
PROC: 0DBH8ZX Excision of Cecum, Via Natural or Artificial Opening Endoscopic, Diagnostic (ICD-10-PCS; 2019-03-16)
PROC: 0DJ07ZZ Inspection of Upper Intestinal Tract, Via Natural or Artificial Opening (ICD-10-PCS; 2019-03-16)
PROC: 0DB98ZX Excision of Duodenum, Via Natural or Artificial Opening Endoscopic, Diagnostic (ICD-10-PCS; principal; 2019-03-16 07:30)
PROC: 0DB78ZX Excision of Stomach, Pylorus, Via Natural or Artificial Opening Endoscopic, Diagnostic (ICD-10-PCS; 2019-03-16 07:30)
PROC: 0DBK8ZX Excision of Ascending Colon, Via Natural or Artificial Opening Endoscopic, Diagnostic (ICD-10-PCS; 2019-03-16 07:30)
DX: I12.9 Hypertensive chronic kidney disease with stage 1 through stage 4 chronic kidney disease, or unspecified chronic kidney disease (principal); N17.0 Acute kidney failure with tubular necrosis; N18.4 Chronic kidney disease, stage 4 (severe); D68.32 Hemorrhagic disorder due to extrinsic circulating anticoagulants; E87.2 Acidosis; I48.1 Persistent atrial fibrillation; I48.2 Chronic atrial fibrillation; I70.1 Atherosclerosis of renal artery; D63.1 Anemia in chronic kidney disease; D50.0 Iron deficiency anemia secondary to blood loss (chronic); D50.9 Iron deficiency anemia, unspecified; K29.70 Gastritis, unspecified, without bleeding; T45.515A Adverse effect of anticoagulants, initial encounter; K29.80 Duodenitis without bleeding; D12.0 Benign neoplasm of cecum; D12.2 Benign neoplasm of ascending colon; D12.3 Benign neoplasm of transverse colon; D12.4 Benign neoplasm of descending colon; K21.9 Gastro-esophageal reflux disease without esophagitis; I83.91 Asymptomatic varicose veins of right lower extremity; E78.5 Hyperlipidemia, unspecified; T46.4X5A Adverse effect of angiotensin-converting-enzyme inhibitors, initial encounter; T50.1X5A Adverse effect of loop [high-ceiling] diuretics, initial encounter; K64.8 Other hemorrhoids; R19.5 Other fecal abnormalities; Z79.82 Long term (current) use of aspirin; Z79.01 Long term (current) use of anticoagulants; Z79.899 Other long term (current) drug therapy; Z98.890 Other specified postprocedural states; Z95.828 Presence of other vascular implants and grafts; Z87.891 Personal history of nicotine dependence; Z87.01 Personal history of pneumonia (recurrent); Z86.59 Personal history of other mental and behavioral disorders; Z82.49 Family history of ischemic heart disease and other diseases of the circulatory system; Z80.1 Family history of malignant neoplasm of trachea, bronchus and lung; Z80.3 Family history of malignant neoplasm of breast
CPT/HCPCS: 36415; 43239; 45380; 45385; 80048; 80053; 82272; 83735; 85025; 85027; 85610; 86850; 86900; 86901; 86920; 88305; 91110; 93975; 96374; 99285

== ENCOUNTER → 2019-05-18 | Outpatient (CLI) | payer MEDICARE ==
[2019-05-18 11:01] LABS: Anisocytosis Slight; HCT 33.7 % (39.0-53.0); HGB 10.6 gm/dL (13.0-17.5); Hypochromasia Moderate; MCH 29.7 pg (25.0-35.0); MCHC 31.3 g/dL (31.0-37.0); MCV 94.9 fL (80.0-100.0); Mean Platelet Volume 7.9; Platelet Count 371 k/uL (150-450); RBC 3.56 m/uL (4.30-5.90); RDW 17.4 % (11.5-15.5); WBC 6.6 k/uL (3.8-10.6)
[2019-05-18 12:59] LABS: Appearance,Urine Clear (Clear); Bacteria,Urine Rare /hpf; Bilirubin,Urine Negative (Negative); Blood,Urine Trace (Negative); Color,Urine Light Yellow; Glucose,Urine (UA) Negative (Negative); Ketones,Urine Negative (Negative); Leukocyte Esterase,Urine Trace (Negative); Mucus,Urine Rare /hpf; Nitrite,Urine Negative (Negative); PH, Urine 5.5 (5.0-8.0); Protein,Urine 1+ (Negative); RBC,Urine 3 /hpf (0-5); Specific Gravity,Urine 1.013 (1.001-1.035); Urobilinogen,Urine <2.0 mg/dL (<2.0); WBC,Urine 2 /hpf (0-5)
[2019-05-18 17:23] LABS: African American GFR (CKD) 21.9 (60.0-200.0); Albumin 4.3 g/dL (3.80-4.90); Albumin/Globulin Ratio 1.59 (1.60-3.17); Anion Gap 9.5 mmol/L (4.00-12.00); BUN/Creat Ratio 26.45 Ratio (12.00-20.00); Calcium 9.6 mg/dL (8.7-10.3); Carbon Dioxide 21.5 mmol/L (21.6-31.8); Globulin 2.7 g/dL (1.6-3.3); Non-African American GFR(CKD) 18.9 (60.0-200.0); Phosphorus 3.8 mg/dL (2.4-5.1); Potassium 5.2 mmol/L (3.5-5.5); Total Bilirubin 0.2 mg/dL (0.3-1.2); Uric Acid 7.3 mg/dL (3.7-8.7)
[2019-05-18 18:15] LABS: Ferritin 279.7 ng/mL (22.0-322.0)
[2019-05-18 19:01] LABS: Iron Saturation 12.88 (15.00-50.00)
== END | disposition home or self-care (01) ==
LOC: LABWHC1 09:44
PROVIDERS: ATTEND Nurse Practitioner Family
DX: N18.4 Chronic kidney disease, stage 4 (severe) (principal); D63.1 Anemia in chronic kidney disease; N39.0 Urinary tract infection, site not specified; N25.81 Secondary hyperparathyroidism of renal origin; E55.9 Vitamin D deficiency, unspecified; M10.9 Gout, unspecified
CPT/HCPCS: 36415; 80053; 81001; 82728; 83540; 83550; 83735; 83970; 84100; 84550; 85027

== ENCOUNTER → 2019-07-28 | Outpatient (CLI) | payer MEDICARE ==
[2019-07-28 10:36] LABS: Anisocytosis Slight; HCT 31.3 % (39.0-53.0); HGB 9.6 gm/dL (13.0-17.5); Hypochromasia Marked; MCH 28.9 pg (25.0-35.0); MCHC 30.8 g/dL (31.0-37.0); Mean Platelet Volume 6.2; Platelet Count 396 k/uL (150-450); RBC 3.33 m/uL (4.30-5.90); WBC 7.2 k/uL (3.8-10.6)
[2019-07-28 11:08] LABS: Appearance,Urine Clear (Clear); Bilirubin,Urine Negative (Negative); Blood,Urine Negative (Negative); Color,Urine Light Yellow; Glucose,Urine (UA) Negative (Negative); Ketones,Urine Negative (Negative); Leukocyte Esterase,Urine Large (Negative); Nitrite,Urine Negative (Negative); PH, Urine 5.5 (5.0-8.0); Protein,Urine 1+ (Negative); Specific Gravity,Urine 1.009 (1.001-1.035); Urobilinogen,Urine <2.0 mg/dL (<2.0); WBC,Urine 10 /hpf (0-5)
[2019-07-28 12:27] LABS: ALT 17 U/L (21-72); AST 27 U/L (17-59); African American GFR (CKD) 22 (>60 ml/min/1.73 sqM); Albumin 3.7 g/dL (3.5-5.0); Albumin/Globulin Ratio 1.1; Alkaline Phosphatase 76 U/L (38-126); Anion Gap 10 mmol/L; Blood Urea Nitrogen 61 mg/dL (9-20); Calcium 9.3 mg/dL (8.4-10.2); Carbon Dioxide 19 mmol/L (22-30); Chloride 112 mmol/L (98-107); Globulin 3.4 g/dL; Glucose 110 mg/dL (74-99); Magnesium 2.2 mg/dL (1.6-2.3); Phosphorus 4.2 mg/dL (2.5-4.5); Potassium 5.9 mmol/L (3.5-5.1); Sodium 141 mmol/L (137-145); Total Bilirubin 0.3 mg/dL (0.2-1.3); Total Protein 7.1 g/dL (6.3-8.2); Uric Acid 6.1 mg/dL (3.5-8.5)
[2019-07-28 19:16] LABS: Ferritin 121.6 ng/mL (22.0-322.0)
[2019-07-28 19:39] LABS: % Iron Saturation 9.54 (15.00-50.00); Iron 25 ug/dL (65-175); Total Iron Binding Capacity 262 ug/dL (228-460)
== END ==
LOC: LABWHC1 09:55
PROVIDERS: ATTEND Nurse Practitioner Family
DX: N39.0 Urinary tract infection, site not specified (principal); N18.4 Chronic kidney disease, stage 4 (severe); D63.1 Anemia in chronic kidney disease; N25.81 Secondary hyperparathyroidism of renal origin; E55.9 Vitamin D deficiency, unspecified; M10.9 Gout, unspecified
CPT/HCPCS: 36415; 80053; 81001; 82728; 83540; 83550; 83735; 83970; 84100; 84550; 85027; 87086

== ENCOUNTER → 2019-11-30 | Outpatient (CLI) | payer MEDICARE ==
[2019-11-30 13:16] LABS: Anisocytosis Slight; HGB 10.5 gm/dL (13.0-17.5); MCH 28.5 pg (25.0-35.0); MCHC 31.7 g/dL (31.0-37.0); Mean Platelet Volume 7.5; Platelet Count 287 k/uL (150-450); RBC 3.66 m/uL (4.30-5.90); RDW 17.7 % (11.5-15.5); WBC 8.4 k/uL (3.8-10.6)
[2019-11-30 13:20] LABS: Appearance,Urine Clear (Clear); Bacteria,Urine Rare /hpf; Bilirubin,Urine Negative (Negative); Blood,Urine Trace (Negative); Color,Urine Light Yellow; Glucose,Urine (UA) Negative (Negative); Ketones,Urine Negative (Negative); Leukocyte Esterase,Urine Moderate (Negative); Nitrite,Urine Negative (Negative); PH, Urine 5.5 (5.0-8.0); Protein,Urine 2+ (Negative); RBC,Urine 4 /hpf (0-5); Urobilinogen,Urine <2.0 mg/dL (<2.0); WBC,Urine 9 /hpf (0-5)
[2019-11-30 18:43] LABS: % Iron Saturation 37.5 (15.00-50.00); African American GFR (CKD) 20.3 (60.0-200.0); Albumin 4.2 g/dL (3.80-4.90); Albumin/Globulin Ratio 1.62 (1.60-3.17); Anion Gap 7.6 mmol/L (4.00-12.00); BUN/Creat Ratio 16.97 Ratio (12.00-20.00); Calcium 8.8 mg/dL (8.7-10.3); Carbon Dioxide 21.4 mmol/L (21.6-31.8); Globulin 2.6 g/dL (1.6-3.3); Magnesium 2.2 mg/dL (1.5-2.4); Non-African American GFR(CKD) 17.6 (60.0-200.0); Phosphorus 3.4 mg/dL (2.4-5.1); Potassium 5.3 mmol/L (3.5-5.5); Total Bilirubin 0.3 mg/dL (0.3-1.2); Total Protein 6.8 g/dL (6.2-8.2); Uric Acid 6.2 mg/dL (3.7-8.7)
[2019-11-30 20:54] LABS: Hemoglobin A1C 6.1 % (4.0-6.0)
== END | disposition home or self-care (01) ==
LOC: LABWHC1 11:50
PROVIDERS: ATTEND Internal Medicine
DX: I12.9 Hypertensive chronic kidney disease with stage 1 through stage 4 chronic kidney disease, or unspecified chronic kidney disease (principal); E78.00 Pure hypercholesterolemia, unspecified; N18.3 Chronic kidney disease, stage 3 (moderate); D63.1 Anemia in chronic kidney disease; N39.0 Urinary tract infection, site not specified; R80.9 Proteinuria, unspecified; N25.81 Secondary hyperparathyroidism of renal origin; E55.9 Vitamin D deficiency, unspecified; M10.9 Gout, unspecified; N18.4 Chronic kidney disease, stage 4 (severe); Z12.5 Encounter for screening for malignant neoplasm of prostate; R73.01 Impaired fasting glucose; R97.20 Elevated prostate specific antigen [PSA]
CPT/HCPCS: 36415; 80053; 81001; 82043; 82306; 82570; 83036; 83540; 83550; 83735; 83970; 84100; 84153; 84550; 85027

== ENCOUNTER → 2019-12-01 | Outpatient (CLI) | payer MEDICARE ==
[2019-12-01 18:55] LABS: Chol/HDL Ratio 4.02; LDL Cholesterol,Calculated 100.2 mg/dL (0.0-131.0); VLDL Calculation 23.8 mg/dL (5.00-40.00)
== END | disposition home or self-care (01) ==
LOC: LABWHC1 11:54
PROVIDERS: ATTEND Family Medicine
DX: Z12.5 Encounter for screening for malignant neoplasm of prostate (principal); I12.9 Hypertensive chronic kidney disease with stage 1 through stage 4 chronic kidney disease, or unspecified chronic kidney disease; N18.3 Chronic kidney disease, stage 3 (moderate); E78.00 Pure hypercholesterolemia, unspecified
CPT/HCPCS: 36415; 80061

== ENCOUNTER → 2020-03-01 | Outpatient (CLI) | payer MEDICARE ==
[2020-03-01 11:58] LABS: Anisocytosis Slight; Basophils # (A) 0.1 k/uL (0-0.2); Basophils % (A) 1 %; Eosinophils # (A) 0.3 k/uL (0-0.7); Eosinophils % (A) 4 %; HCT 28.4 % (39.0-53.0); HGB 8.9 gm/dL (13.0-17.5); Hypochromasia Slight; Lymphocytes # (A) 0.7 k/uL (1.0-4.8); Lymphocytes % (A) 10 %; MCH 29.3 pg (25.0-35.0); MCHC 31.2 g/dL (31.0-37.0); MCV 93.9 fL (80.0-100.0); Mean Platelet Volume 7.7; Monocytes # (A) 0.5 k/uL (0-1.0); Monocytes % (A) 8 %; Neutrophils # (A) 4.9 k/uL (1.3-7.7); Neutrophils % (A) 75 %; Platelet Count 342 k/uL (150-450); RBC 3.03 m/uL (4.30-5.90); RDW 17.7 % (11.5-15.5); WBC 6.6 k/uL (3.8-10.6)
[2020-03-01 11:59] LABS: Amorphous Sediment,Urine Rare /hpf; Appearance,Urine Clear (Clear); Bacteria,Urine Rare /hpf; Bilirubin,Urine Negative (Negative); Blood,Urine Negative (Negative); Color,Urine Yellow; Glucose,Urine (UA) Negative (Negative); Ketones,Urine Negative (Negative); Leukocyte Esterase,Urine Moderate (Negative); Mucus,Urine Rare /hpf; Nitrite,Urine Negative (Negative); PH, Urine 5.5 (5.0-8.0); Protein,Urine 3+ (Negative); RBC,Urine 3 /hpf (0-5); Specific Gravity,Urine 1.012 (1.001-1.035); Squamous Epithelial Cell,Urine 1 /hpf (0-4); Urobilinogen,Urine <2.0 mg/dL (<2.0); WBC,Urine 11 /hpf (0-5)
[2020-03-01 15:28] LABS: Urine Creatinine 104.6 mg/dL
[2020-03-01 16:37] LABS: % Iron Saturation 11.93 (15.00-50.00); African American GFR (CKD) 18.3 (60.0-200.0); Albumin 3.9 g/dL (3.80-4.90); Albumin/Globulin Ratio 1.34 (1.60-3.17); Anion Gap 11.8 mmol/L (4.00-12.00); BUN/Creat Ratio 19.72 Ratio (12.00-20.00); Calcium 9.8 mg/dL (8.7-10.3); Carbon Dioxide 20.2 mmol/L (21.6-31.8); Globulin 2.9 g/dL (1.6-3.3); Magnesium 2.2 mg/dL (1.5-2.4); Non-African American GFR(CKD) 15.8 (60.0-200.0); Potassium 5.7 mmol/L (3.5-5.5); Total Bilirubin 0.2 mg/dL (0.3-1.2); Total Protein 6.8 g/dL (6.2-8.2); Uric Acid 6.7 mg/dL (3.7-8.7)
== END | disposition home or self-care (01) ==
LOC: LABWHC1 10:40
PROVIDERS: ATTEND Internal Medicine
DX: N39.0 Urinary tract infection, site not specified (principal); N18.4 Chronic kidney disease, stage 4 (severe); D63.1 Anemia in chronic kidney disease; R80.9 Proteinuria, unspecified; N25.81 Secondary hyperparathyroidism of renal origin; M10.9 Gout, unspecified
CPT/HCPCS: 36415; 80053; 81001; 82043; 82570; 82728; 83540; 83550; 83735; 83970; 84100; 84550; 85025; 87086

== ENCOUNTER → 2020-05-03 | Outpatient (CLI) | payer MEDICARE ==
[2020-05-03 12:36] LABS: Anisocytosis Slight; HCT 26.6 % (39.0-53.0); HGB 8.4 gm/dL (13.0-17.5); Hypochromasia Slight; MCH 30.3 pg (25.0-35.0); MCHC 31.6 g/dL (31.0-37.0); MCV 95.8 fL (80.0-100.0); Macrocytosis Slight; Mean Platelet Volume 8.1; Platelet Count 330 k/uL (150-450); RBC 2.78 m/uL (4.30-5.90); RDW 17.9 % (11.5-15.5); WBC 7.5 k/uL (3.8-10.6)
[2020-05-03 13:17] LABS: Appearance,Urine Clear (Clear); Bacteria,Urine Rare /hpf; Bilirubin,Urine Negative (Negative); Blood,Urine Negative (Negative); Color,Urine Yellow; Glucose,Urine (UA) Negative (Negative); Ketones,Urine Negative (Negative); Leukocyte Esterase,Urine Large (Negative); Mucus,Urine Rare /hpf; Nitrite,Urine Negative (Negative); Protein,Urine 2+ (Negative); Specific Gravity,Urine 1.011 (1.001-1.035); Squamous Epithelial Cell,Urine <1 /hpf (0-4); Urobilinogen,Urine <2.0 mg/dL (<2.0); WBC,Urine 16 /hpf (0-5)
[2020-05-03 21:27] LABS: Urine Creatinine 102.5 mg/dL
[2020-05-03 22:25] LABS: % Iron Saturation 11.86 (15.00-50.00); African American GFR (CKD) 15.5 (60.0-200.0); Albumin 3.9 g/dL (3.80-4.90); Albumin/Globulin Ratio 1.39 (1.60-3.17); Anion Gap 10.3 mmol/L (4.00-12.00); BUN/Creat Ratio 16.1 Ratio (12.00-20.00); Calcium 9.9 mg/dL (8.7-10.3); Carbon Dioxide 22.7 mmol/L (21.6-31.8); Globulin 2.8 g/dL (1.6-3.3); Magnesium 2.1 mg/dL (1.5-2.4); Non-African American GFR(CKD) 13.4 (60.0-200.0); Phosphorus 3.9 mg/dL (2.4-5.1); Potassium 4.5 mmol/L (3.5-5.5); Total Bilirubin 0.2 mg/dL (0.3-1.2); Total Protein 6.7 g/dL (6.2-8.2)
[2020-05-03 23:13] LABS: Ferritin 602.1 ng/mL (22.0-322.0); Uric Acid 6.5 mg/dL (3.7-8.7)
== END | disposition home or self-care (01) ==
LOC: LABWHC1 11:39
PROVIDERS: ATTEND Nurse Practitioner Family
DX: N18.4 Chronic kidney disease, stage 4 (severe) (principal); D63.1 Anemia in chronic kidney disease; N39.0 Urinary tract infection, site not specified; R80.9 Proteinuria, unspecified; N25.81 Secondary hyperparathyroidism of renal origin; E55.9 Vitamin D deficiency, unspecified; M10.9 Gout, unspecified
CPT/HCPCS: 36415; 80053; 81001; 82043; 82570; 82728; 83540; 83550; 83735; 83970; 84100; 84550; 85027; 87086

== ENCOUNTER → 2020-05-09 | Outpatient (CLI) | payer MEDICARE ==
[2020-05-09 20:25] LABS: Albumin/Globulin Ratio 1.33 (1.60-3.17); Anion Gap 11.2 mmol/L (4.00-12.00); BUN/Creat Ratio 14.75 Ratio (12.00-20.00); Calcium 10.7 mg/dL (8.7-10.3); Carbon Dioxide 22.8 mmol/L (21.6-31.8); Non-African American GFR(CKD) 13.8 (60.0-200.0); Total Bilirubin 0.3 mg/dL (0.2-1.2)
== END | disposition home or self-care (01) ==
LOC: LABWHC1 13:28
PROVIDERS: ATTEND Nurse Practitioner Family
DX: N18.4 Chronic kidney disease, stage 4 (severe) (principal)
CPT/HCPCS: 36415; 80053

== ENCOUNTER → 2020-06-06 | Outpatient (CLI) | payer MEDICARE ==
[2020-06-06 14:16] LABS: Anisocytosis Slight; Basophils # (A) 0.1 k/uL (0-0.2); Basophils % (A) 1 %; Eosinophils # (A) 0.3 k/uL (0-0.7); Eosinophils % (A) 4 %; HCT 28.2 % (39.0-53.0); HGB 8.5 gm/dL (13.0-17.5); Hypochromasia Marked; Lymphocytes # (A) 0.8 k/uL (1.0-4.8); Lymphocytes % (A) 11 %; MCHC 30.2 g/dL (31.0-37.0); MCV 96.3 fL (80.0-100.0); Macrocytosis Slight; Mean Platelet Volume 7.2; Monocytes # (A) 0.6 k/uL (0-1.0); Monocytes % (A) 8 %; Neutrophils % (A) 73 %; Platelet Count 349 k/uL (150-450); RBC 2.93 m/uL (4.30-5.90); RDW 18.4 % (11.5-15.5); WBC 6.9 k/uL (3.8-10.6)
[2020-06-06 14:30] LABS: ALT 19 U/L (4-49); AST 24 U/L (17-59); African American GFR (CKD) 20 (>60 ml/min/1.73 sqM); Albumin 3.7 g/dL (3.5-5.0); Albumin/Globulin Ratio 1.2; Alkaline Phosphatase 94 U/L (38-126); Anion Gap 7 mmol/L; Blood Urea Nitrogen 50 mg/dL (9-20); Calcium 9.3 mg/dL (8.4-10.2); Carbon Dioxide 20 mmol/L (22-30); Chloride 113 mmol/L (98-107); Globulin 3.1 g/dL; Glucose 95 mg/dL (74-99); Magnesium 2.3 mg/dL (1.6-2.3); Non-African American GFR(CKD) 17 (>60 ml/min/1.73 sqM); Phosphorus 4.6 mg/dL (2.5-4.5); Potassium 5.2 mmol/L (3.5-5.1); Sodium 140 mmol/L (137-145); Total Bilirubin 0.4 mg/dL (0.2-1.3); Total Protein 6.8 g/dL (6.3-8.2)
[2020-06-06 20:21] LABS: % Iron Saturation 12.15 (15.00-50.00); Ferritin 361.4 ng/mL (22.0-322.0); Iron 30 ug/dL (65-175); Total Iron Binding Capacity 247 ug/dL (228-460)
== END | disposition home or self-care (01) ==
LOC: LABWHC1 12:40
PROVIDERS: ATTEND Nurse Practitioner Family
DX: N18.4 Chronic kidney disease, stage 4 (severe) (principal); D63.1 Anemia in chronic kidney disease; N39.0 Urinary tract infection, site not specified; N25.81 Secondary hyperparathyroidism of renal origin; E55.9 Vitamin D deficiency, unspecified; M10.9 Gout, unspecified
CPT/HCPCS: 36415; 80053; 82728; 83540; 83550; 83735; 83970; 84100; 84550; 85025

== ENCOUNTER → 2020-08-08 | Outpatient (CLI) | payer MEDICARE ==
[2020-08-08 15:11] LABS: Anisocytosis Slight; HCT 29.8 % (39.0-53.0); HGB 8.5 gm/dL (13.0-17.5); Hypochromasia Marked; MCHC 28.7 g/dL (31.0-37.0); MCV 97.8 fL (80.0-100.0); Macrocytosis Slight; Mean Platelet Volume 7.4; Platelet Count 329 k/uL (150-450); RBC 3.04 m/uL (4.30-5.90); WBC 5.5 k/uL (3.8-10.6)
[2020-08-08 16:15] LABS: Amorphous Sediment,Urine Rare /hpf; Appearance,Urine Cloudy (Clear); Bacteria,Urine Rare /hpf; Bilirubin,Urine Negative (Negative); Blood,Urine Negative (Negative); Color,Urine Light Yellow; Glucose,Urine (UA) Negative (Negative); Hyaline Casts,Urine 4 /lpf (0-2); Ketones,Urine Negative (Negative); Leukocyte Esterase,Urine Small (Negative); Mucus,Urine Rare /hpf; Nitrite,Urine Negative (Negative); PH, Urine 5.5 (5.0-8.0); Protein,Urine 2+ (Negative); RBC,Urine 3 /hpf (0-5); Specific Gravity,Urine 1.013 (1.001-1.035); Squamous Epithelial Cell,Urine 1 /hpf (0-4); Urobilinogen,Urine <2.0 mg/dL (<2.0); WBC,Urine 12 /hpf (0-5)
[2020-08-08 19:58] LABS: Ferritin 255.5 ng/mL (22.0-322.0)
[2020-08-08 20:06] LABS: % Iron Saturation 6.98 (15.00-50.00); African American GFR (CKD) 18.2 (60.0-200.0); Albumin 3.9 g/dL (3.80-4.90); Albumin/Globulin Ratio 1.34 (1.60-3.17); Anion Gap 9.8 mmol/L (4.00-12.00); BUN/Creat Ratio 17.78 Ratio (12.00-20.00); Calcium 9.2 mg/dL (8.7-10.3); Carbon Dioxide 21.2 mmol/L (21.6-31.8); Globulin 2.9 g/dL (1.6-3.3); Magnesium 2.3 mg/dL (1.5-2.4); Non-African American GFR(CKD) 15.7 (60.0-200.0); Phosphorus 5.3 mg/dL (2.4-5.1); Potassium 5.4 mmol/L (3.5-5.5); Total Bilirubin 0.2 mg/dL (0.2-1.2); Total Protein 6.8 g/dL (6.2-8.2); Uric Acid 6.4 mg/dL (3.7-8.7)
[2020-08-09 05:19] LABS: Urine Creatinine 108.8 mg/dL
== END | disposition home or self-care (01) ==
LOC: LABWHC1 12:51
PROVIDERS: ATTEND Internal Medicine
DX: D64.9 Anemia, unspecified (principal); N18.4 Chronic kidney disease, stage 4 (severe); E87.5 Hyperkalemia; N39.0 Urinary tract infection, site not specified; N25.81 Secondary hyperparathyroidism of renal origin; E55.9 Vitamin D deficiency, unspecified; M10.9 Gout, unspecified
CPT/HCPCS: 36415; 80053; 81001; 82043; 82570; 82728; 83540; 83550; 83735; 83970; 84100; 84550; 85027

== ENCOUNTER → 2020-08-24 | Outpatient (CLI) | payer MEDICARE ==
[~2020-08-24] MED LIST: SODIUM CHLORIDE 0.9% 500 ML 500 ML in EMPTY BAG 1 BAG IV PRN
[2020-08-24 07:56] VITALS: RESP 16
[2020-08-24 07:57] LABS: Anisocytosis Slight; Basophils # (A) 0.1 k/uL (0-0.2); Basophils % (A) 1 %; Eosinophils # (A) 0.3 k/uL (0-0.7); Eosinophils % (A) 4 %; HCT 23.4 % (39.0-53.0); HGB 7.3 gm/dL (13.0-17.5); Hypochromasia Marked; Lymphocytes # (A) 0.6 k/uL (1.0-4.8); Lymphocytes % (A) 11 %; MCH 29.1 pg (25.0-35.0); MCHC 31.3 g/dL (31.0-37.0); Mean Platelet Volume 7.3; Monocytes # (A) 0.5 k/uL (0-1.0); Monocytes % (A) 8 %; Neutrophils # (A) 4.5 k/uL (1.3-7.7); Neutrophils % (A) 74 %; Platelet Count 329 k/uL (150-450); RBC 2.51 m/uL (4.30-5.90); RDW 18.4 % (11.5-15.5); WBC 6.1 k/uL (3.8-10.6)
[2020-08-24 11:19] VITALS: BP 156/60; PULSE 84; TEMP 97.6
== END | disposition home or self-care (01) ==
LOC: PROCWHC3 07:18
PROVIDERS: ATTEND Family Medicine
DX: R42 Dizziness and giddiness (principal); D64.9 Anemia, unspecified; R79.9 Abnormal finding of blood chemistry, unspecified
CPT/HCPCS: 86900; 86901; 85025; 86850; 86920; 36430; 36415; P9016

== ENCOUNTER 2020-08-30 12:17 | Inpatient (IN) | payer MEDICARE ==
[2020-08-30] MEDS ORDERED: PANTOPRAZOLE 40 MG/10 ML VIAL IVP STA ×2 (12:46→14:07)
--- NOTE | 2020-08-30 12:52 | ED ---
Recheck HPI - General Chief Complaint: Recheck/Abnormal Lab/Rx Stated Complaint: Recheck Labs Time Seen by Provider: 08/30/20 12:40 Source: patient Mode of arrival: wheelchair Limitations: no limitations - History of Present Illness Initial Comments: 75-year-old male presenting today for chief complaint of low hemoglobin. Patient states the past 2 weeks has been struggling with low hemoglobins. He states he does have end-stage renal disease he states he currently is not undergoing dialysis but is heading that way. Patient states that is why they b bryaneve he is having the anemia. Patient states that he does take Coumadin for his atrial fibrillation. He states his last INR was 2.5 but he does need his INR checked this week. Patient denies any black stools he states there are's - Related Data Home Medications Medication Instructions Recorded Confirmed Aspirin EC [Ecotrin Low Dose] 81 mg PO DAILY 05/31/16 08/30/20 Atorvastatin [Lipitor] 40 mg PO DAILY 05/31/16 08/30/20 allopurinoL [Zyloprim] 100 mg PO DAILY 12/20/16 08/30/20 Warfarin [Coumadin] 2 mg PO SUTUTHSA 05/26/19 08/30/20 hydrALAZINE HCL [Apresoline] 50 mg PO TID 08/25/19 08/30/20 Sodium Bicarbonate Tab 650 mg PO DAILY 03/15/20 08/30/20 Torsemide [Demadex] 5 mg PO Q48H 06/14/20 08/30/20 Sevelamer Carbonate 800 mg PO DAILY 08/16/20 08/30/20 NIFEdipine [Procardia XL] 90 mg PO DAILY 08/30/20 08/30/20 Warfarin [Coumadin] 3 mg PO MOWEFR 08/30/20 08/30/20 Previous Rx's Medication Instructions Recorded Isosorbide Mononitrate ER [Imdur] 30 mg PO BID 30 Days #60 tab.er.24h 03/18/19 carvediloL [Coreg*] 12.5 mg PO AC-BID 30 Days #60 tab 03/18/19 Allergies Allergy/AdvReac Type Severity Reaction Status Date / Time No Known Allergies Allergy Verified 08/30/20 13:37 Review of Systems ROS Statement: Those systems with pertinent positive or pertinent negative responses have been documented in the HPI. ROS Other: All systems not noted in ROS Statement are negative. Past Medical History Past Medical History: Blood Disorder, GERD/Reflux, Hypertension, Renal Disease, Vascular Disorder Additional Past Medical History / Comment(s): PVD. ANEMIA. History of Any Multi-Drug Resistant Organisms: None Reported Past Surgical History: Tonsillectomy Additional Past Surgical History / Comment(s): recent angiogram. ILIAC STENTS. Past Anesthesia/Blood Transfusion Reactions: No Reported Reaction Past Psychological History: Depression Smoking Status: Former smoker Past Alcohol Use History: Occasional Past Drug Use History: None Reported - Past Family History Mother Family Medical History: Cancer, Congestive Heart Failure (CHF) Additional Family Medical History / Comment(s): Mother was a breast cancer survivor. She also had lung cancer. Father Family Medical History: Hypertension, Myocardial Infarction ([place]), Vascular Disorder Additional Family Medical History / Comment(s): Father 2 weeks after a [place] at the age of 81 yrs. He also had vascular disease. General Exam - General Exam Comments Initial Comments: General: The patient is awake and alert, in no distress Eye: Pupils are equal, round and reactive to light, extra-ocular movements are intact. No nystagmus. There is normal conjunctiva bilaterally. No signs of icterus. Ears, nose, mouth and throat: There are moist mucous membranes and no oral lesions. Neck: The neck is supple, there is no tenderness or JVD. Cardiovascular: There is a regular rate and rhythm. No murmur, rub or gallop is appreciated. Respiratory: Lungs are clear to auscultation, respirations are non-labored, breath sounds are equal. No wheezes, stridor, rales, or rhonchi. Gastrointestinal: [Soft, non-distended, non-tender abdomen without masses or organomegaly noted. There is no rebound or guarding present. : brown stool on digits, no black tarry stool, no bright red blood Musculoskeletal: Normal ROM, no tenderness. Strength 5/5. Sensation intact. Radial pulses equal bilaterally 2+. Neurological: A&O x 3. CN II-XII intact grossly, There are no obvious motor or sensory deficits. Coordination appears grossly intact. Speech is normal. Skin: Skin is warm and dry and no rashes or lesions are noted. Psychiatric: Cooperative, appropriate mood & affect, normal judgment. Limitations: no limitations Course Vital Signs 08/30/20 08/30/20 12:32 12:48 Temperature 97.0 F L Pulse Rate 66 Respiratory 18 29 H Rate Blood Pressure 172/75 O2 Sat by Pulse 94 L Oximetry Medical Decision Making - Medical Decision Making 75yo male presenting for low hgb. Patient is supratherapeutic INR there is no clinica; evidence of GI bleed there is no dark tarry stools or bright red blood however patient does have occult positive. Patient is given Protonix he will be given 2.[address] Kilgore and be admitted for GI, hematology consultation. Transfusion and trending of CBC. - Lab Data Result diagrams: 08/30/20 12:45 08/30/20 12:45 Lab Results 08/30/20 08/30/20 08/30/20 Range/Units 12:45 12:45 12:45 WBC 6.5 (3.8-10.6) k/uL RBC 2.14 L (4.30-5.90) m/uL Hgb 6.2 L* (13.0-17.5) gm/dL Hct 19.3 L* (39.0-53.0) % MCV 90.3 (80.0-100.0) fL MCH 29.0 (25.0-35.0) pg MCHC 32.2 (31.0-37.0) g/dL RDW 18.6 H (11.5-15.5) % Plt Count 326 (150-450) k/uL MPV 7.5 Neutrophils % 78 % Lymphocytes % 10 % Monocytes % 6 % Eosinophils % 3 % Basophils % 1 % Neutrophils # 5.1 (1.3-7.7) k/uL Lymphocytes # 0.6 L (1.0-4.8) k/uL Monocytes # 0.4 (0-1.0) k/uL Eosinophils # 0.2 (0-0.7) k/uL Basophils # 0.1 (0-0.2) k/uL Hypochromasia Moderate Anisocytosis Slight PT 58.4 H (9.0-12.0) sec INR 5.8 H* (<1.2) APTT 45.0 H (22.0-30.0) sec Sodium 140 (137-145) mmol/L Potassium 5.4 H (3.5-5.1) mmol/L Chloride 113 H (98-107) mmol/L Carbon Dioxide 17 L (22-30) mmol/L Anion Gap 10 mmol/L BUN 89 H (9-20) mg/dL Creatinine 3.67 H (0.66-1.25) mg/dL Est GFR (CKD-EPI)AfAm 18 (>60 ml/min/1.73 sqM) Est GFR (CKD-EPI)NonAf 15 (>60 ml/min/1.73 sqM) Glucose 114 H (74-99) mg/dL Calcium 9.2 (8.4-10.2) mg/dL Total Bilirubin 0.4 (0.2-1.3) mg/dL AST 21 (17-59) U/L ALT 15 (4-49) U/L Alkaline Phosphatase 75 (38-126) U/L Total Protein 6.7 (6.3-8.2) g/dL Albumin 3.5 (3.5-5.0) g/dL Stool Occult Blood (Negative) Coronavirus (PCR) (Not Detectd) 08/30/20 08/30/20 Range/Units 12:45 12:49 WBC (3.8-10.6) k/uL RBC (4.30-5.90) m/uL Hgb (13.0-17.5) gm/dL Hct (39.0-53.0) % MCV (80.0-100.0) fL MCH (25.0-35.0) pg MCHC (31.0-37.0) g/dL RDW (11.5-15.5) % Plt Count (150-450) k/uL MPV Neutrophils % % Lymphocytes % % Monocytes % % Eosinophils % % Basophils % % Neutrophils # (1.3-7.7) k/uL Lymphocytes # (1.0-4.8) k/uL Monocytes # (0-1.0) k/uL Eosinophils # (0-0.7) k/uL Basophils # (0-0.2) k/uL Hypochromasia Anisocytosis PT (9.0-12.0) sec INR (<1.2) APTT (22.0-30.0) sec Sodium (137-145) mmol/L Potassium (3.5-5.1) mmol/L Chloride (98-107) mmol/L Carbon Dioxide (22-30) mmol/L Anion Gap mmol/L BUN (9-20) mg/dL Creatinine (0.66-1.25) mg/dL Est GFR (CKD-EPI)AfAm (>60 ml/min/1.73 sqM) Est GFR (CKD-EPI)NonAf (>60 ml/min/1.73 sqM) Glucose (74-99) mg/dL Calcium (8.4-10.2) mg/dL Total Bilirubin (0.2-1.3) mg/dL AST (17-59) U/L ALT (4-49) U/L Alkaline Phosphatase (38-126) U/L Total Protein (6.3-8.2) g/dL Albumin (3.5-5.0) g/dL Stool Occult Blood Positive (Negative) Coronavirus (PCR) Not Detected (Not Detectd) Disposition Clinical Impression: Anemia, Chronic kidney disease, Supratherapeutic INR, Low hemoglobin Disposition: ADMITTED IP TO THIS [facility] Condition: Serious Is patient prescribed a controlled substance at d/c from ED?: No Referrals: Fide Faith MD [Primary Care Provider] - 1-2 days Time of Disposition: 14:29 Decision to Admit Reason: Admit from EC Decision Date: 08/30/20 Decision Time: 14:29
[2020-08-30 14:01] LABS: Anisocytosis Slight; Basophils # (A) 0.1 k/uL (0-0.2); Basophils % (A) 1 %; Eosinophils # (A) 0.2 k/uL (0-0.7); Eosinophils % (A) 3 %; HCT 19.3 % (39.0-53.0); HGB 6.2 gm/dL (13.0-17.5); Hypochromasia Moderate; Lymphocytes # (A) 0.6 k/uL (1.0-4.8); Lymphocytes % (A) 10 %; MCHC 32.2 g/dL (31.0-37.0); MCV 90.3 fL (80.0-100.0); Mean Platelet Volume 7.5; Monocytes # (A) 0.4 k/uL (0-1.0); Monocytes % (A) 6 %; Neutrophils # (A) 5.1 k/uL (1.3-7.7); Neutrophils % (A) 78 %; Platelet Count 326 k/uL (150-450); RBC 2.14 m/uL (4.30-5.90); RDW 18.6 % (11.5-15.5); WBC 6.5 k/uL (3.8-10.6)
[2020-08-30 14:11] LABS: Albumin 3.5 g/dL (3.5-5.0); Calcium 9.2 mg/dL (8.4-10.2); Potassium 5.4 mmol/L (3.5-5.1); Total Bilirubin 0.4 mg/dL (0.2-1.3); Total Protein 6.7 g/dL (6.3-8.2)
[2020-08-30 14:16] LABS: Prothrombin Time 58.4 sec (9.0-12.0)
[2020-08-30 14:21] LABS: INR 5.8 (<1.2)
[2020-08-30] MEDS ORDERED: NALOXONE 0.4 MG/ML 1 ML VIAL IV PRN (14:24)
[2020-08-30] MEDS ORDERED: PHYTONADIONE 2.5 MG in SODIUM CHLORIDE 0.9% 50 ML IVPB STA (14:26)
[2020-08-30] MEDS ORDERED: SODIUM CHLORIDE 0.9% 1,000 ML IV SCH (14:30)
[2020-08-30] MEDS: ISOSORBIDE MONONITRATE ER 30 MG TAB.ER.24H PO SCH (18:54)
[2020-08-30] MEDS: hydrALAZINE HCL 50 MG TAB PO SCH ×2 (18:54→21:33)
[2020-08-30] MEDS: carvediloL 12.5 MG TAB PO SCH (18:54)
[2020-08-30] MEDS: allopurinoL 100 MG TAB PO SCH (18:54)
[2020-08-30] MEDS ORDERED: BUMETANIDE 0.25 MG/ML 4 ML VIAL IVP STA (19:37)
--- NOTE | 2020-08-30 19:37 | P.HPIM ---
History of Present Illness H&P Date: 08/30/20 Chief Complaint: anemia Mainor Fierro is a 75-year-old patient of Dr. Faith who presented to [facility] emergency room with a chief complaint of anemia, he was evaluated in the emergency room, his vital examination on presentation revealed a temperature of 97.0 pulse 66 respiration 18 blood pressure 172/75 pulse ox 94% on room air , he had significant anemia with hemoglobin down to 6.2 he has a known history of chronic kidney disease stage IV, he also has a known history of atrial fibrillation maintained on Coumadin, his INR was elevated on presentation at 5.8, patient was given vitamin K in the emergency room . stools Hemoccult was positive, kidney function revealed a BUN of 89 and creatinine of 3.67 . 1 unit of red blood cell transfusion was ordered, patient was admitted to telemetry floor for further evaluation. On arrival to the floor patient was having significant elevation in his blood pressure, he was complaining of shortness of breath, he was also complaining of bilateral lower extremity edema, he denies having any significant gastrointestinal bleeding. Past Medical History Past Medical History: Blood Disorder, GERD/Reflux, Hypertension, Renal Disease, Vascular Disorder Additional Past Medical History / Comment(s): PVD. ANEMIA. History of Any Multi-Drug Resistant Organisms: None Reported Past Surgical History: Tonsillectomy Additional Past Surgical History / Comment(s): recent angiogram. ILIAC STENTS. Past Anesthesia/Blood Transfusion Reactions: No Reported Reaction Past Psychological History: Depression Smoking Status: Former smoker Past Alcohol Use History: Occasional Past Drug Use History: None Reported - Past Family History Mother Family Medical History: Cancer, Congestive Heart Failure (CHF) Additional Family Medical History / Comment(s): Mother was a breast cancer survivor. She also had lung cancer. Father Family Medical History: Hypertension, Myocardial Infarction ([place]), Vascular Disorder Additional Family Medical History / Comment(s): Father 2 weeks after a [place] at the age of 81 yrs. He also had vascular disease. Medications and Allergies Home Medications Medication Instructions Recorded Confirmed Type Aspirin EC [Ecotrin Low Dose] 81 mg PO DAILY 05/31/16 08/30/20 History Atorvastatin [Lipitor] 40 mg PO DAILY 05/31/16 08/30/20 History allopurinoL [Zyloprim] 100 mg PO DAILY 12/20/16 08/30/20 History Isosorbide Mononitrate ER [Imdur] 30 mg PO BID 30 Days #60 tab.er.24h 03/18/19 08/30/20 Rx carvediloL [Coreg*] 12.5 mg PO AC-BID 30 Days #60 tab 03/18/19 08/30/20 Rx Warfarin [Coumadin] 2 mg PO SUTUTHSA 05/26/19 08/30/20 History hydrALAZINE HCL [Apresoline] 50 mg PO TID 08/25/19 08/30/20 History Sodium Bicarbonate Tab 650 mg PO DAILY 03/15/20 08/30/20 History Torsemide [Demadex] 5 mg PO Q48H 06/14/20 08/30/20 History Sevelamer Carbonate 800 mg PO DAILY 08/16/20 08/30/20 History NIFEdipine [Procardia XL] 90 mg PO DAILY 08/30/20 08/30/20 History Warfarin [Coumadin] 3 mg PO MOWEFR 08/30/20 08/30/20 History Allergies Allergy/AdvReac Type Severity Reaction Status Date / Time No Known Allergies Allergy Verified 08/30/20 13:37 Physical Exam Vitals: Vital Signs Temp Pulse Pulse Resp BP BP Pulse Ox 08/30/20 16:53 97.8 F 71 20 178/80 94 L 08/30/20 16:23 68 18 195/81 96 08/30/20 16:13 97.4 F L 68 22 197/87 94 L 08/30/20 16:00 97.4 F L 68 22 197/89 94 L 08/30/20 15:30 172/68 08/30/20 15:15 66 18 184/68 95 08/30/20 15:00 65 18 178/67 97 08/30/20 14:45 65 18 180/83 96 08/30/20 14:30 69 18 181/72 95 08/30/20 14:15 70 18 174/71 95 08/30/20 14:04 68 18 174/71 96 08/30/20 12:48 29 H 08/30/20 12:32 97.0 F L 66 18 172/75 94 L Intake and Output 08/30/20 08/30/20 08/30/20 06:59 14:59 22:59 Intake Total 0 Balance 0 Intake: Blood Product 0 Rc As-1 Unit 0 [id number] Other: Weight 94.801 kg 94.801 kg In general patient is alert and oriented 3 in no apparent distress HEENT head normocephalic and atraumatic Neck is supple no JVD no goiter no lymphadenopathy Chest exam reveals a few scattered crackles bilaterally no wheezing Cardiac exam reveals regular heart sounds no gallops no murmurs Abdomen is soft nontender no organomegaly was normal bowel sounds Extremity exam reveals 2+ edema no cyanosis or clubbing Neurological examination reveals no gross focal deficits Results CBC & Chem 7: 08/30/20 12:45 08/30/20 12:45 Labs: Abnormal Lab Results - Last 24 Hours (Table) 08/30/20 08/30/20 08/30/20 Range/Units 12:45 12:45 12:45 RBC 2.14 L (4.30-5.90) m/uL Hgb 6.2 L* (13.0-17.5) gm/dL Hct 19.3 L* (39.0-53.0) % RDW 18.6 H (11.5-15.5) % Lymphocytes # 0.6 L (1.0-4.8) k/uL PT 58.4 H (9.0-12.0) sec INR 5.8 H* (<1.2) APTT 45.0 H (22.0-30.0) sec Potassium 5.4 H (3.5-5.1) mmol/L Chloride 113 H (98-107) mmol/L Carbon Dioxide 17 L (22-30) mmol/L BUN 89 H (9-20) mg/dL Creatinine 3.67 H (0.66-1.25) mg/dL Glucose 114 H (74-99) mg/dL Crossmatch 08/30/20 Range/Units 14:36 RBC (4.30-5.90) m/uL Hgb (13.0-17.5) gm/dL Hct (39.0-53.0) % RDW (11.5-15.5) % Lymphocytes # (1.0-4.8) k/uL PT (9.0-12.0) sec INR (<1.2) APTT (22.0-30.0) sec Potassium (3.5-5.1) mmol/L Chloride (98-107) mmol/L Carbon Dioxide (22-30) mmol/L BUN (9-20) mg/dL Creatinine (0.66-1.25) mg/dL Glucose (74-99) mg/dL Crossmatch See Detail Thrombosis Risk Factor Assmnt - Choose All That Apply Each Risk Factor Represents 2 Points: Age 61-74 years Thrombosis Risk Factor Assessment Total Risk Factor Score: 2 Thrombosis Risk Factor Assessment Level: Low Risk Assessment and Plan Plan: 1. Severe anemia, hemoglobin 6.0, 1 unit of red blood cell transfusion was ordered, gastroenterology consultation was requested for evaluation of anemia 2. Heme positive stools possible gastrointestinal bleeding will monitor closely 3. Coagulopathy INR is elevated patient received vitamin K in the emergency room will recheck INR closely 4. Underlying history of atrial fibrillation maintained on Coumadin 5. Underlying history of chronic kidney disease stage IV possibly contributing to anemia, Will consult nephrology for possible Procrit injections 6. Underlying history of hypertension there is evidence of hypertensive emergen cy on presentation home medications were reordered, will add IV Demadex and IV hydralazine when necessary Will follow during this admission for medical management Please see orders Consultation for gastroenterology and nephrology requested
--- NOTE | 2020-08-30 19:41 | XR ---
EXAMINATION TYPE: XR chest 1V portable DATE OF EXAM: 08/30/2020 COMPARISON: 02/14/2015 HISTORY: Short of breath TECHNIQUE: FINDINGS: Heart is enlarged. There is some infiltrate and atelectasis at the lung bases. There is mil d pulmonary congestion. There are chest leads. IMPRESSION: Cardiomegaly with some evidence for mild heart failure that is a change compared to old e xam. There is probably small right pleural effusion..
[2020-08-30 20:11] LABS: Anisocytosis Slight; Basophils % (A) 1 %; Eosinophils # (A) 0.2 k/uL (0-0.7); Eosinophils % (A) 3 %; HCT 22.3 % (39.0-53.0); Hypochromasia Moderate; Lymphocytes # (A) 0.7 k/uL (1.0-4.8); Lymphocytes % (A) 11 %; MCH 27.9 pg (25.0-35.0); MCHC 30.9 g/dL (31.0-37.0); MCV 90.3 fL (80.0-100.0); Mean Platelet Volume 7.1; Monocytes # (A) 0.5 k/uL (0-1.0); Monocytes % (A) 8 %; Neutrophils # (A) 4.9 k/uL (1.3-7.7); Neutrophils % (A) 76 %; Platelet Count 314 k/uL (150-450); Poikilocytosis Slight; RBC 2.47 m/uL (4.30-5.90); RDW 18.4 % (11.5-15.5); WBC 6.4 k/uL (3.8-10.6)
[2020-08-30 20:13] LABS: HGB 6.9 gm/dL (13.0-17.5)
[2020-08-30] MEDS: hydrALAZINE HCL 20 MG/ML 1 ML VIAL IVP PRN (23:08)
[2020-08-31] MEDS: carvediloL 12.5 MG TAB PO SCH ×2 (07:03→16:48)
[2020-08-31] MEDS: SEVELAMER 800 MG TAB PO SCH (07:03)
[2020-08-31] MEDS: hydrALAZINE HCL 50 MG TAB PO SCH ×3 (08:37→21:46)
[2020-08-31] MEDS: ATORVASTATIN 40 MG TAB PO SCH (08:37)
[2020-08-31] MEDS: NIFEdipine XL 90 MG TAB.ER.24 PO SCH (08:37)
[2020-08-31] MEDS: allopurinoL 100 MG TAB PO SCH (08:37)
[2020-08-31] MEDS: SODIUM BICARBONATE TAB 650 MG TAB PO SCH (08:37)
[2020-08-31] MEDS: ISOSORBIDE MONONITRATE ER 30 MG TAB.ER.24H PO SCH ×2 (08:37→21:46)
[2020-08-31 09:29] LABS: Anisocytosis Slight; Basophils % (A) 1 %; Eosinophils # (A) 0.2 k/uL (0-0.7); Eosinophils % (A) 3 %; HCT 20.6 % (39.0-53.0); Hypochromasia Moderate; Lymphocytes # (A) 0.6 k/uL (1.0-4.8); Lymphocytes % (A) 10 %; MCH 28.3 pg (25.0-35.0); MCHC 31.3 g/dL (31.0-37.0); MCV 90.6 fL (80.0-100.0); Mean Platelet Volume 7.4; Monocytes # (A) 0.3 k/uL (0-1.0); Monocytes % (A) 6 %; Neutrophils # (A) 4.3 k/uL (1.3-7.7); Neutrophils % (A) 79 %; Platelet Count 288 k/uL (150-450); Poikilocytosis Slight; RBC 2.27 m/uL (4.30-5.90); RDW 18.4 % (11.5-15.5); WBC 5.5 k/uL (3.8-10.6)
[2020-08-31 09:38] LABS: HGB 6.4 gm/dL (13.0-17.5)
[2020-08-31 09:45] LABS: INR 1.6 (<1.2)
[2020-08-31 09:46] LABS: Albumin 3.2 g/dL (3.5-5.0); Calcium 9.1 mg/dL (8.4-10.2); Potassium 4.7 mmol/L (3.5-5.1); Prothrombin Time 16.1 sec (9.0-12.0); Total Bilirubin 0.3 mg/dL (0.2-1.3); Total Protein 6.1 g/dL (6.3-8.2)
--- NOTE | 2020-08-31 14:36 | P.NPCON ---
History of Present Illness - Reason for Consult acute renal failure, chronic renal failure - History of Present Illness Reason for consultation: Acute kidney injury on chronic kidney disease History of present illness: Patient is a 75-year-old male seen in renal consultation for acute kidney injury on chronic kidney disease. Patient has chronic kidney disease stage IV with baseline creatinine in the range of 3-3.5. Creatinine was 3.67 on admission and is 4.05 today. Patient presented to the hospital due to low hemoglobin. He is also on Coumadin for A. fib and his INR was noted to be elevated at 5.8. He did receive vitamin K and INR this morning is down to 1.6. Hemoglobin was 6.4 this morning and is currently receiving second unit of blood transfusion. Patient states that his stool is dark but not black. He denies any red blood in the stool. No hematuria or hemoptysis. No signs of active bleeding. He does get Epogen very week. He denies any chest pain or shortness of breath right now. Has been voiding. Blood pressure stable this morning. No fever or chills. No cough. No dizziness or syncopal episodes. He is currently having lunch. Vital signs are stable. General: The patient appeared well nourished and normally developed. HEENT: Head exam is unremarkable. Neck is without jugular venous distension. LUNGS: Breath sounds decreased. HEART: Rate and Rhythm are regular. ABDOMEN: Soft, nontender. EXTREMITITES: Trace edema. Past Medical History Past Medical History: Blood Disorder, GERD/Reflux, Hypertension, Renal Disease, Vascular Disorder Additional Past Medical History / Comment(s): PVD. ANEMIA. History of Any Multi-Drug Resistant Organisms: None Reported Past Surgical History: Tonsillectomy Additional Past Surgical History / Comment(s): recent angiogram. ILIAC STENTS. Past Anesthesia/Blood Transfusion Reactions: No Reported Reaction Past Psychological History: Depression Smoking Status: Former smoker Past Alcohol Use History: Occasional Past Drug Use History: None Reported - Past Family History Mother Family Medical History: Cancer, Congestive Heart Failure (CHF) Additional Family Medical History / Comment(s): Mother was a breast cancer survivor. She also had lung cancer. Father Family Medical History: Hypertension, Myocardial Infarction ([place]), Vascular Disorder Additional Family Medical History / Comment(s): Father 2 weeks after a NC at the age of 81 yrs. He also had vascular disease. Medications and Allergies Home Medications Medication Instructions Recorded Confirmed Type Aspirin EC [Ecotrin Low Dose] 81 mg PO DAILY 05/31/16 08/30/20 History Atorvastatin [Lipitor] 40 mg PO DAILY 05/31/16 08/30/20 History allopurinoL [Zyloprim] 100 mg PO DAILY 12/20/16 08/30/20 History Isosorbide Mononitrate ER [Imdur] 30 mg PO BID 30 Days #60 tab.er.24h 03/18/19 08/30/20 Rx carvediloL [Coreg*] 12.5 mg PO AC-BID 30 Days #60 tab 03/18/19 08/30/20 Rx Warfarin [Coumadin] 2 mg PO SUTUTHSA 05/26/19 08/30/20 History hydrALAZINE HCL [Apresoline] 50 mg PO TID 08/25/19 08/30/20 History Sodium Bicarbonate Tab 650 mg PO DAILY 03/15/20 08/30/20 History Torsemide [Demadex] 5 mg PO Q48H 06/14/20 08/30/20 History Sevelamer Carbonate 800 mg PO DAILY 08/16/20 08/30/20 History NIFEdipine [Procardia XL] 90 mg PO DAILY 08/30/20 08/30/20 History Warfarin [Coumadin] 3 mg PO MOWEFR 08/30/20 08/30/20 History Allergies Allergy/AdvReac Type Severity Reaction Status Date / Time No Known Allergies Allergy Verified 08/30/20 13:37 Physical Exam Vitals: Vital Signs Temp Pulse Pulse Resp BP BP Pulse Ox 08/31/20 13:17 97.7 F 87 16 149/72 08/31/20 13:10 97 08/31/20 13:07 97.8 F 88 16 161/70 94 L 08/31/20 12:00 98.7 F 77 16 168/66 94 L 08/31/20 08:36 97.6 F 84 20 139/64 97 08/31/20 08:11 95 08/31/20 04:00 98.6 F 99 20 144/66 95 08/31/20 00:00 97.7 F 64 18 195/84 94 L 08/30/20 20:00 97.5 F L 66 18 198/87 96 08/30/20 18:50 97.5 F L 72 18 233/98 94 L 08/30/20 16:53 97.8 F 71 20 178/80 94 L 08/30/20 16:23 68 18 195/81 96 08/30/20 16:13 97.4 F L 68 22 197/87 94 L 08/30/20 16:00 97.4 F L 68 22 197/89 94 L 08/30/20 15:30 172/68 08/30/20 15:15 66 18 184/68 95 08/30/20 15:00 65 18 178/67 97 08/30/20 14:45 65 18 180/83 96 08/30/20 14:30 69 18 181/72 95 Intake and Output 08/30/20 08/31/20 08/31/20 22:59 06:59 14:59 Intake Total 310 330 Balance 310 330 Intake: IV 30 Invasive Line 2 10 Invasive Line 3 20 Oral 300 Blood Product 310 0 Rc As-1 Unit 310 [id number] Rc Pheresis As-3 Unit 0 [id number] Other: # Voids 2 Weight 94.801 kg 94 kg Results - Lab Results Most recent lab results Calcium 9.1 mg/dL (8.4-10.2) 08/31/20 08:35 08/31/20 08:35 08/31/20 08:35 Assessment and Plan Plan: Assessment: 1. Acute kidney injury secondary to ATN secondary to acute blood loss anemia. Creatinine 4.05 today. 2. 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 3. Acute blood loss anemia status post blood transfusion. 4. Coagulopathy status post vitamin K. 5. Hypertension with chronic kidney disease. Stable. 6. Metabolic acidosis secondary to chronic kidney disease. Better. Maintained on oral bicarbonate. 7. Chronic kidney disease mineral bone disease maintained on Renvela. Plan: Currently receiving blood transfusion. Add Aranesp. Avoid nephrotoxins. No urgent need for renal replacement therapy at this time. Patient will follow-up with vascular surgery outpatient for AV graft placement which will be ready to be used in about 2 weeks after surgery. Avoid nephrotoxins. Continue to monitor renal function and urine output. Thank you for the consultation. I will continue to follow the patient with you during his hospital stay.
--- NOTE | 2020-08-31 16:17 | P.CONS ---
History of Present Illness - Reason for Consult Consult date: 08/31/20 Anemia Requesting physician: Marisel Coyne - Chief Complaint Anemia - History of Present Illness 75-year-old male with multiple medical comorbidities including chronic kidney disease, anemia, and atrial fibrillation on Coumadin therapy who presented to the hospital due to worsening anemia found in the outpatient setting. The patient has been seen in the past with extensive endoscopic evaluation for his anemia. He underwent evaluation in March 2019 with EGD showing gastritis and duodenitis, colonoscopy significant for polypectomy and hemorrhoids and video capsule endoscopy with no evidence of bleeding or pathology to explain anemia with incomplete passage through the small bowel. He reports that he has been following with the nephrology service with plans for initiation of hemodialysis in the future. He does receive epo injections in the outpatient setting and has required transfusions in the past. He continues to deny any signs or symptoms of GI bleeding with no hematemesis, coffee-ground emesis, hematochezia or melena. No abdominal pain reported. Stool testing was positive for blood. Hemoglobin has remained stable during his admission at 6.2, then 6.9, then 6.4. INR was elevated on presentation. Review of Systems REVIEW OF SYSTEMS: CONSTITUTIONAL: Denies any fevers, chills, weight change or fatigue. CARDIOVASCULAR: Denies any chest pain, palpitations high or low blood pressures RESPIRATORY: Denies any shortness of breath, hemoptysis or cough. GENITOURINARY: No dysuria or hematuria, known chronic kidney disease with plans for hemodialysis in the future. MUSCULOSKELETAL: No weakness reported. SKIN: Denies any new rashes or lesions, jaundice or pallor. PSYCHIATRIC: Denies any depression or anxiety. NEUROLOGY: Denies headache, denies any new focal deficits. EARS/NOSE/THROAT: No recent hearing change, congestion, nasal discharge or sore throat. EYES: No pain in eyes, discharge or change in vision. GASTROINTESTINAL: As per HPI. Past Medical History Past Medical History: Blood Disorder, GERD/Reflux, Hypertension, Renal Disease, Vascular Disorder Additional Past Medical History / Comment(s): PVD. ANEMIA. History of Any Multi-Drug Resistant Organisms: None Reported Past Surgical History: Tonsillectomy Additional Past Surgical History / Comment(s): recent angiogram. ILIAC STENTS. Past Anesthesia/Blood Transfusion Reactions: No Reported Reaction Past Psychological History: Depression Smoking Status: Former smoker Past Alcohol Use History: Occasional Past Drug Use History: None Reported - Past Family History Mother Family Medical History: Cancer, Congestive Heart Failure (CHF) Additional Family Medical History / Comment(s): Mother was a breast cancer survivor. She also had lung cancer. Father Family Medical History: Hypertension, Myocardial Infarction ([place]), Vascular Disorder Additional Family Medical History / Comment(s): Father 2 weeks after a [place] at the age of 81 yrs. He also had vascular disease. Medications and Allergies Home Medications Medication Instructions Recorded Confirmed Type Aspirin EC [Ecotrin Low Dose] 81 mg PO DAILY 05/31/16 08/30/20 History Atorvastatin [Lipitor] 40 mg PO DAILY 05/31/16 08/30/20 History allopurinoL [Zyloprim] 100 mg PO DAILY 12/20/16 08/30/20 History Isosorbide Mononitrate ER [Imdur] 30 mg PO BID 30 Days #60 tab.er.24h 03/18/19 08/30/20 Rx carvediloL [Coreg*] 12.5 mg PO AC-BID 30 Days #60 tab 03/18/19 08/30/20 Rx Warfarin [Coumadin] 2 mg PO SUTUTHSA 05/26/19 08/30/20 History hydrALAZINE HCL [Apresoline] 50 mg PO TID 08/25/19 08/30/20 History Sodium Bicarbonate Tab 650 mg PO DAILY 03/15/20 08/30/20 History Torsemide [Demadex] 5 mg PO Q48H 06/14/20 08/30/20 History Sevelamer Carbonate 800 mg PO DAILY 08/16/20 08/30/20 History NIFEdipine [Procardia XL] 90 mg PO DAILY 08/30/20 08/30/20 History Warfarin [Coumadin] 3 mg PO MOWEFR 08/30/20 08/30/20 History Allergies Allergy/AdvReac Type Severity Reaction Status Date / Time No Known Allergies Allergy Verified 08/30/20 13:37 Physical Exam Vitals: Vital Signs Temp Pulse Pulse Resp BP BP Pulse Ox 08/31/20 08:36 97.6 F 84 20 139/64 97 08/31/20 08:11 95 08/31/20 04:00 98.6 F 99 20 144/66 95 08/31/20 00:00 97.7 F 64 18 195/84 94 L 08/30/20 20:00 97.5 F L 66 18 198/87 96 08/30/20 18:50 97.5 F L 72 18 233/98 94 L 08/30/20 16:53 97.8 F 71 20 178/80 94 L 08/30/20 16:23 68 18 195/81 96 08/30/20 16:13 97.4 F L 68 22 197/87 94 L 08/30/20 16:00 97.4 F L 68 22 197/89 94 L 08/30/20 15:30 172/68 08/30/20 15:15 66 18 184/68 95 08/30/20 15:00 65 18 178/67 97 08/30/20 14:45 65 18 180/83 96 08/30/20 14:30 69 18 181/72 95 08/30/20 14:15 70 18 174/71 95 08/30/20 14:04 68 18 174/71 96 08/30/20 12:48 29 H 08/30/20 12:32 97.0 F L 66 18 172/75 94 L Intake and Output 08/30/20 08/31/20 08/31/20 22:59 06:59 14:59 Intake Total 310 300 Balance 310 300 Intake: Oral 300 Blood Product 310 Rc As-1 Unit 310 [id number] Other: # Voids 2 Weight 94.801 kg 94 kg On physical examination, patient appears comfortable in no apparent distress. HEAD: Normocephalic, atraumatic. EYES: No scleral icterus. No conjunctival injection. MOUTH: No lesions, tongue midline. NECK: Trachea midline, no gross abnormalities. CHEST: Clear to auscultation with no wheezing or rhonchi appreciated. HEART: Irregularly irregular. ABDOMEN: Soft, obese. Bowel sounds are positive. No organomegaly. No guarding or rigidity. EXTREMITIES: No pedal edema. SKIN: No rashes, no jaundice. NEUROLOGIC: Alert and oriented x3. No focal deficits. Results CBC & Chem 7: 08/31/20 08:35 08/31/20 08:35 Labs: Abnormal Lab Results - Last 24 Hours (Table) 08/30/20 08/30/20 08/30/20 Range/Units 12:45 12:45 12:45 RBC 2.14 L (4.30-5.90) m/uL Hgb 6.2 L* (13.0-17.5) gm/dL Hct 19.3 L* (39.0-53.0) % MCHC (31.0-37.0) g/dL RDW 18.6 H (11.5-15.5) % Lymphocytes # 0.6 L (1.0-4.8) k/uL PT 58.4 H (9.0-12.0) sec INR 5.8 H* (<1.2) APTT 45.0 H (22.0-30.0) sec Potassium 5.4 H (3.5-5.1) mmol/L Chloride 113 H (98-107) mmol/L Carbon Dioxide 17 L (22-30) mmol/L BUN 89 H (9-20) mg/dL Creatinine 3.67 H (0.66-1.25) mg/dL Glucose 114 H (74-99) mg/dL Total Protein (6.3-8.2) g/dL Albumin (3.5-5.0) g/dL Crossmatch 08/30/20 08/30/20 08/31/20 Range/Units 14:36 19:50 08:35 RBC 2.47 L 2.27 L (4.30-5.90) m/uL Hgb 6.9 L* 6.4 L* (13.0-17.5) gm/dL Hct 22.3 L 20.6 L (39.0-53.0) % MCHC 30.9 L (31.0-37.0) g/dL RDW 18.4 H 18.4 H (11.5-15.5) % Lymphocytes # 0.7 L 0.6 L (1.0-4.8) k/uL PT (9.0-12.0) sec INR (<1.2) APTT (22.0-30.0) sec Potassium (3.5-5.1) mmol/L Chloride (98-107) mmol/L Carbon Dioxide (22-30) mmol/L BUN (9-20) mg/dL Creatinine (0.66-1.25) mg/dL Glucose (74-99) mg/dL Total Protein (6.3-8.2) g/dL Albumin (3.5-5.0) g/dL Crossmatch See Detail 08/31/20 08/31/20 Range/Units 08:35 08:35 RBC (4.30-5.90) m/uL Hgb (13.0-17.5) gm/dL Hct (39.0-53.0) % MCHC (31.0-37.0) g/dL RDW (11.5-15.5) % Lymphocytes # (1.0-4.8) k/uL PT 16.1 H (9.0-12.0) sec INR 1.6 H (<1.2) APTT (22.0-30.0) sec Potassium (3.5-5.1) mmol/L Chloride 112 H (98-107) mmol/L Carbon Dioxide 21 L (22-30) mmol/L BUN 82 H (9-20) mg/dL Creatinine 4.05 H (0.66-1.25) mg/dL Glucose 158 H (74-99) mg/dL Total Protein 6.1 L (6.3-8.2) g/dL Albumin 3.2 L (3.5-5.0) g/dL Crossmatch Chest x-ray: report reviewed Assessment and Plan (1) Normocytic hypochromic anemia Narrative/Plan: 75-year-old male with multiple medical comorbidities including chronic kidney disease, atrial fibrillation on Coumadin therapy and a known history of anemia who presented to the hospital for evaluation of anemia. Prior evaluation in March 2019 with EGD showing gastritis and duodenitis, colonoscopy significant for polypectomy and hemorrhoids and video capsule endoscopy all which were negative for any evidence of bleeding or pathology to explain anemia. Stool testing was positive for occult blood but the patient denies any signs or symptoms of GI bleeding. Suspect anemia secondary to chronic disease and underlying chronic kidney disease. Current Visit: No Status: Acute Code(s): D50.9 - IRON DEFICIENCY ANEMIA, UNSPECIFIED SNOMED Code(s): 80404880 (2) Supratherapeutic INR Current Visit: Yes Status: Acute Code(s): R79.1 - ABNORMAL COAGULATION PROFILE SNOMED Code(s): 243757580 (3) Guaiac positive stools Current Visit: No Status: Acute Code(s): R19.5 - OTHER FECAL ABNORMALITIES SNOMED Code(s): 61550318 Plan: Supportive care Okay for diet as tolerated Continue to monitor hemoglobin and hematocrit and transfuse as needed No plans for endoscopic evaluation at this time, previous workup with EGD, colonoscopy and video capsule negative for bleeding in 03/2019 Appreciate recommendations from the nephrology service Thank you for allowing us to participate in the care of the patient
--- NOTE | 2020-08-31 16:30 | P.PN ---
Subjective Progress Note Date: 08/31/20 Mainor Fierro is a 75-year-old patient of Dr. Faith who presented to [facility] emergency room with a chief complaint of anemia, he was evaluated in the emergency room, his vital examination on presentation revealed a temperature of 97.0 pulse 66 respiration 18 blood pressure 172/75 pulse ox 94% on room air , he had significant anemia with hemoglobin down to 6.2 he has a known history of chronic kidney disease stage IV, he also has a known history of atrial fibrillation maintained on Coumadin, his INR was elevated on presentation at 5.8, patient was given vitamin K in the emergency room . stools Hemoccult was positive, kidney function revealed a BUN of 89 and creatinine of 3.67 . 1 unit of red blood cell transfusion was ordered, patient was admitted to telemetry floor for further evaluation. On arrival to the floor patient was having significant elevation in his blood pressure, he was complaining of shortness of breath, he was also complaining of bilateral lower extremity edema, he denies having any significant gastrointestinal bleeding. On 08/31/2020 patient was seen and examined on the medical floor he is alert and oriented 3 in no apparent distress there is no fever or chills no headache or dizziness no chest pain no shortness of breath no cough no nausea or vomiting no abdominal pain no diarrhea no burning with urination no frequency or urgency and no hematuria, hemoglobin is down again to 6.4 patient will receive 1 more unit of red blood cell transfusion INR is down to 1.6 awaiting recommendation from gastroenterology Objective - Vital Signs Vital signs: Vital Signs Temp 97.8 F 08/31/20 13:47 Pulse 89 08/31/20 13:47 Resp 16 08/31/20 13:47 BP 148/72 08/31/20 13:47 Pulse Ox 96 08/31/20 13:47 Intake & Output 08/30/20 08/31/20 08/31/20 18:59 06:59 18:59 Intake Total 310 640 Balance 310 640 Weight 94.801 kg 94 kg Intake: IV 30 Invasive Line 2 10 Invasive Line 3 20 Oral 300 Blood Product 310 310 Rc As-1 Unit 310 [id number] Rc Pheresis As-3 Unit 310 [id number] Other: # Voids 2 - Exam In general patient is alert and oriented 3 in no apparent distress HEENT head normocephalic and atraumatic Neck is supple no JVD no goiter no lymphadenopathy Chest exam reveals a few scattered crackles bilaterally no wheezing Cardiac exam reveals regular heart sounds no gallops no murmurs Abdomen is soft nontender no organomegaly was normal bowel sounds Extremity exam reveals 2+ edema no cyanosis or clubbing Neurological examination reveals no gross focal deficits - Labs CBC & Chem 7: 08/31/20 08:35 08/31/20 08:35 Labs: Abnormal Lab Results - Last 24 Hours (Table) 08/30/20 08/30/20 08/31/20 Range/Units 14:36 19:50 08:35 RBC 2.47 L 2.27 L (4.30-5.90) m/uL Hgb 6.9 L* 6.4 L* (13.0-17.5) gm/dL Hct 22.3 L 20.6 L (39.0-53.0) % MCHC 30.9 L (31.0-37.0) g/dL RDW 18.4 H 18.4 H (11.5-15.5) % Lymphocytes # 0.7 L 0.6 L (1.0-4.8) k/uL PT (9.0-12.0) sec INR (<1.2) Chloride (98-107) mmol/L Carbon Dioxide (22-30) mmol/L BUN (9-20) mg/dL Creatinine (0.66-1.25) mg/dL Glucose (74-99) mg/dL Total Protein (6.3-8.2) g/dL Albumin (3.5-5.0) g/dL Crossmatch See Detail 08/31/20 08/31/20 Range/Units 08:35 08:35 RBC (4.30-5.90) m/uL Hgb (13.0-17.5) gm/dL Hct (39.0-53.0) % MCHC (31.0-37.0) g/dL RDW (11.5-15.5) % Lymphocytes # (1.0-4.8) k/uL PT 16.1 H (9.0-12.0) sec INR 1.6 H (<1.2) Chloride 112 H (98-107) mmol/L Carbon Dioxide 21 L (22-30) mmol/L BUN 82 H (9-20) mg/dL Creatinine 4.05 H (0.66-1.25) mg/dL Glucose 158 H (74-99) mg/dL Total Protein 6.1 L (6.3-8.2) g/dL Albumin 3.2 L (3.5-5.0) g/dL Crossmatch Assessment and Plan Plan: 1. Severe anemia, hemoglobin 6.0, 1 unit of red blood cell transfusion was ordered, gastroenterology consultation was requested for evaluation of anemia 2. Heme positive stools possible gastrointestinal bleeding will monitor closely 3. Coagulopathy INR is elevated patient received vitamin K in the emergency room will recheck INR closely 4. Underlying history of atrial fibrillation maintained on Coumadin 5. Underlying history of chronic kidney disease stage IV possibly contributing to anemia, Will consult nephrology for possible Procrit injections 6. Underlying history of hypertension there is evidence of hypertensive emergency on presentation home medications were reordered, will add IV Demadex and IV hydralazine when necessary Will follow during this admission for medical management Please see orders Consultation for gastroenterology and nephrology requested
[2020-08-31 17:45] LABS: Anisocytosis Slight; HCT 23.8 % (39.0-53.0); Hypochromasia Moderate; MCHC 33.4 g/dL (31.0-37.0); MCV 89.8 fL (80.0-100.0); Mean Platelet Volume 7.7; Platelet Count 303 k/uL (150-450); Poikilocytosis Slight; RBC 2.65 m/uL (4.30-5.90); WBC 5.9 k/uL (3.8-10.6)
[2020-08-31 18:06] LABS: HGB 7.9 gm/dL (13.0-17.5)
--- NOTE | 2020-08-31 20:05 | P.CONS ---
History of Present Illness - Reason for Consult Consult date: 08/31/20 Anemia, multifactorial - History of Present Illness The patient is a 75-year-old white male with multiple medical problems. These include chronic kidney disease with progression, as well as a long-standing history of anemia. The patient was previously evaluated by our service, Dr. Childers, in 2016. This was due to elevated light chains and elevated ratio. Hemoglobin was low at that time, in the 9-10 range. Workup for other causes of anemia was negative, and the light chain and normally was not felt to be signif icant. He was therefore determined to have anemia of chronic kidney disease. Further hematology follow-up was not recommended as he was already following up with nephrology for iron as well as GUS supplementation. He has been on the same chronically. He states that he receives Aranesp. He also receives IV iron with Feraheme as needed. The patient was admitted this time with drop in hemoglobin down to 5.8. Stool for occult blood was positive. The patient is on chronic anticoagulation with Coumadin. On presentation his INR was 5.8. This was reversed and the patient received 2 units of PRBC. Consult was placed a further evaluation and recommendations Patient's labs were reviewed and going back to 2016. He has had gradual worsening of anemia with prior history of intermittent drops. In February 2019 hemoglobin had dropped into the 6 range at which time the patient had an EGD and colonoscopy which did not reveal any significant findings. This year hemoglobin has been in the 7-8 range. Of note is the dysfunction has been worsening during this time and dialysis is being considered. The patient himself has not noted any obvious bleeding. Review of Systems Constitutional: Reports fatigue Eyes: denies blurred vision, denies pain Ears: deny: decreased hearing, ear discharge, earache, tinnitus Ears, nose, mouth and throat: Denies headache, Denies sore throat Cardiovascular: Reports claudication (Known peripheral vascular disease, es pecially in lower extremities), Reports decreased exercise tolerance, Reports dyspnea on exertion Respiratory: Denies cough Gastrointestinal: Reports constipation Genitourinary: Reports as per HPI Musculoskeletal: Reports muscle weakness Integumentary: Reports unusual bruising Neurological: Reports weakness Psychiatric: Denies anxiety, Denies depression Endocrine: Reports fatigue Past Medical History Past Medical History: Blood Disorder, GERD/Reflux, Hypertension, Renal Disease, Vascular Disorder Additional Past Medical History / Comment(s): PVD. ANEMIA. History of Any Multi-Drug Resistant Organisms: None Reported Past Surgical History: Tonsillectomy Additional Past Surgical History / Comment(s): recent angiogram. ILIAC STENTS. Past Anesthesia/Blood Transfusion Reactions: No Reported Reaction Past Psychological History: Depression Smoking Status: Former smoker Past Alcohol Use History: Occasional Past Drug Use History: None Reported - Past Family History Mother Family Medical History: Cancer, Congestive Heart Failure (CHF) Additional Family Medical History / Comment(s): Mother was a breast cancer survivor. She also had lung cancer. Father Family Medical History: Hypertension, Myocardial Infarction (AL), Vascular Disorder Additional Family Medical History / Comment(s): Father 2 weeks after a AL at the age of 81 yrs. He also had vascular disease. Medications and Allergies Home Medications Medication Instructions Recorded Confirmed Type Aspirin EC [Ecotrin Low Dose] 81 mg PO DAILY 05/31/16 08/30/20 History Atorvastatin [Lipitor] 40 mg PO DAILY 05/31/16 08/30/20 History allopurinoL [Zyloprim] 100 mg PO DAILY 12/20/16 08/30/20 History Isosorbide Mononitrate ER [Imdur] 30 mg PO BID 30 Days #60 tab.er.24h 03/18/19 08/30/20 Rx carvediloL [Coreg*] 12.5 mg PO AC-BID 30 Days #60 tab 03/18/19 08/30/20 Rx Warfarin [Coumadin] 2 mg PO SUTUTHSA 05/26/19 08/30/20 History hydrALAZINE HCL [Apresoline] 50 mg PO TID 08/25/19 08/30/20 History Sodium Bicarbonate Tab 650 mg PO DAILY 03/15/20 08/30/20 History Torsemide [Demadex] 5 mg PO Q48H 06/14/20 08/30/20 History Sevelamer Carbonate 800 mg PO DAILY 08/16/20 08/30/20 History NIFEdipine [Procardia XL] 90 mg PO DAILY 08/30/20 08/30/20 History Warfarin [Coumadin] 3 mg PO MOWEFR 08/30/20 08/30/20 History Allergies Allergy/AdvReac Type Severity Reaction Status Date / Time No Known Allergies Allergy Verified 08/30/20 13:37 Physical Exam Vitals: Vital Signs Temp Pulse Pulse Resp BP BP Pulse Ox 08/31/20 15:30 98.1 F 72 16 140/71 94 L 08/31/20 15:00 98.1 F 72 16 140/71 94 L 08/31/20 13:47 97.8 F 89 16 148/72 96 08/31/20 13:17 97.7 F 87 16 149/72 08/31/20 13:10 97 08/31/20 13:07 97.8 F 88 16 161/70 94 L 08/31/20 12:00 98.7 F 77 16 168/66 94 L 08/31/20 08:36 97.6 F 84 20 139/64 97 08/31/20 08:11 95 08/31/20 04:00 98.6 F 99 20 144/66 95 08/31/20 00:00 97.7 F 64 18 195/84 94 L 08/30/20 20:00 97.5 F L 66 18 198/87 96 Intake and Output 08/31/20 08/31/20 08/31/20 06:59 14:59 22:59 Intake Total 630 930 Output Total 1000 Balance 630 -70 Intake: IV 30 20 Invasive Line 2 10 Invasive Line 3 20 20 Oral 600 600 Blood Product 0 310 Rc Pheresis As-3 Unit 0 310 [id number] Output: Urine 1000 Other: # Voids 2 # Bowel Movements 0 Weight 94 kg - Constitutional General appearance: no acute distress - EENT Eyes: EOMI, PERRLA ENT: hearing grossly normal, normal oropharynx - Neck Neck: no lymphadenopathy Thyroid: bilateral: normal size - Respiratory Respiratory: bilateral: CTA - Cardiovascular Rhythm: regular Heart sounds: normal: S1, S2 - Gastrointestinal General gastrointestinal: normal bowel sounds, soft - Integumentary Scattered bruising on upper extremities, most prominent right upper arm at site of IV - Neurologic Neurologic: CNII-XII intact - Musculoskeletal Musculoskeletal: generalized weakness, strength equal bilaterally - Psychiatric Psychiatric: A&O x's 3, appropriate affect Results CBC & Chem 7: 08/31/20 17:17 08/31/20 08:35 Labs: Abnormal Lab Results - Last 24 Hours (Table) 08/30/20 08/30/20 08/31/20 Range/Units 14:36 19:50 08:35 RBC 2.47 L 2.27 L (4.30-5.90) m/uL Hgb 6.9 L* 6.4 L* (13.0-17.5) gm/dL Hct 22.3 L 20.6 L (39.0-53.0) % MCHC 30.9 L (31.0-37.0) g/dL RDW 18.4 H 18.4 H (11.5-15.5) % Lymphocytes # 0.7 L 0.6 L (1.0-4.8) k/uL PT (9.0-12.0) sec INR (<1.2) Chloride (98-107) mmol/L Carbon Dioxide (22-30) mmol/L BUN (9-20) mg/dL Creatinine (0.66-1.25) mg/dL Glucose (74-99) mg/dL Total Protein (6.3-8.2) g/dL Albumin (3.5-5.0) g/dL Crossmatch See Detail 08/31/20 08/31/20 08/31/20 Range/Units 08:35 08:35 17:17 RBC 2.65 L (4.30-5.90) m/uL Hgb 7.9 L D (13.0-17.5) gm/dL Hct 23.8 L (39.0-53.0) % MCHC (31.0-37.0) g/dL RDW 18.0 H (11.5-15.5) % Lymphocytes # (1.0-4.8) k/uL PT 16.1 H (9.0-12.0) sec INR 1.6 H (<1.2) Chloride 112 H (98-107) mmol/L Carbon Dioxide 21 L (22-30) mmol/L BUN 82 H (9-20) mg/dL Creatinine 4.05 H (0.66-1.25) mg/dL Glucose 158 H (74-99) mg/dL Total Protein 6.1 L (6.3-8.2) g/dL Albumin 3.2 L (3.5-5.0) g/dL Crossmatch Comments: EGD and colonoscopy operative report reviewed. Pathology report reviewed Chest x-ray: report reviewed Assessment and Plan (1) Anemia Narrative/Plan: The patient's anemia is multifactorial. The major component is anemia of chronic kidney disease. Hemoglobin at baseline has been slowly worsening this year, in concordance with worsening of renal function. As noted, the patient is being planned for hemodialysis. - He is being appropriately treated for the same with GUS per nephrology. Continue same. Increase in dose can be considered. Once hemodialysis is started, response to GUS can improve - The patient also, likely, as a component of iron deficiency anemia due to chronic blood loss from the GI tract. Previously upper and lower endoscopy was negative. However microscopic blood loss from small bowel AVMs is more common in patients with advanced chronic kidney disease. There may also be chronic gastritis and enteritis, as well as decreased iron absorption. This can be exacerbated by ongoing anticoagulation, as in this patient's case. His current presentation was in association with supratherapeutic INR, which likely cause the acute drop in blood counts. This is supported by the drop in patients ferritin 2-55 this admission, which was still be in the normal range, it is less than the level of 600+ 4 months ago. - The patient is on treatment for this aspect also with intermittent IV iron. Continue same as needed. As GI workup in 2019 was negative, and that is reasonable etiologic explanation for the patient's current drop, repeat GI workup at this time is not required in my opinion. - I will check labs to rule out other causes of anemia, including to check for any progression of his prior borderline light chain anomaly. - Continue to monitor and transfuse as needed to keep hemoglobin greater than 7 Current Visit: Yes Status: Acute Code(s): D64.9 - ANEMIA, UNSPECIFIED SNOMED Code(s): 460465040 (2) Supratherapeutic INR Narrative/Plan: That has been reversed with INR 1.7. Anticoagulation can be resumed once hemoglobin is noted to be stable over 24- 48 hrs. Recommend close monitoring and tight control of INR as an outpatient Current Visit: Yes Status: Acute Code(s): R79.1 - ABNORMAL COAGULATION PROFILE SNOMED Code(s): 826717394 (3) Monoclonal gammopathies Narrative/Plan: The patient had light chain elevation with elevated K/L ratio. However this was felt to be overall nonspecific in a patient with known chronic kidney disease. Studies will be repeated to check for progression, as noted above. Current Visit: Yes Status: Acute Code(s): D47.2 - MONOCLONAL GAMMOPATHY SNOMED Code(s): 794371122 Plan: Defer to the admitting service and other consultants for management of his multiple other medical problems
[2020-09-01] MEDS: SEVELAMER 800 MG TAB PO SCH (06:49)
[2020-09-01] MEDS: carvediloL 12.5 MG TAB PO SCH ×2 (06:49→16:49)
[2020-09-01 08:35] LABS: Anisocytosis Slight; Basophils % (A) 1 %; Eosinophils # (A) 0.2 k/uL (0-0.7); Eosinophils % (A) 4 %; HCT 23.4 % (39.0-53.0); HGB 7.2 gm/dL (13.0-17.5); Hypochromasia Moderate; Lymphocytes # (A) 0.8 k/uL (1.0-4.8); Lymphocytes % (A) 14 %; MCH 28.1 pg (25.0-35.0); MCHC 30.9 g/dL (31.0-37.0); MCV 90.8 fL (80.0-100.0); Mean Platelet Volume 8.8; Monocytes # (A) 0.3 k/uL (0-1.0); Monocytes % (A) 6 %; Neutrophils # (A) 4.3 k/uL (1.3-7.7); Neutrophils % (A) 75 %; Platelet Count 270 k/uL (150-450); Poikilocytosis Slight; RBC 2.58 m/uL (4.30-5.90); RDW 18.3 % (11.5-15.5); WBC 5.8 k/uL (3.8-10.6)
[2020-09-01 08:54] LABS: INR 1.4 (<1.2); Prothrombin Time 13.6 sec (9.0-12.0)
[2020-09-01] MEDS ORDERED: FUROSEMIDE 10 MG TAB PO SCH (09:00)
[2020-09-01] MEDS: SODIUM BICARBONATE TAB 650 MG TAB PO SCH (09:03)
[2020-09-01] MEDS: hydrALAZINE HCL 50 MG TAB PO SCH ×3 (09:03→20:46)
[2020-09-01] MEDS: ATORVASTATIN 40 MG TAB PO SCH (09:04)
[2020-09-01] MEDS: NIFEdipine XL 90 MG TAB.ER.24 PO SCH (09:04)
[2020-09-01] MEDS: allopurinoL 100 MG TAB PO SCH (09:04)
[2020-09-01] MEDS: ISOSORBIDE MONONITRATE ER 30 MG TAB.ER.24H PO SCH ×2 (09:04→20:46)
[2020-09-01 09:19] LABS: Albumin 3.3 g/dL (3.5-5.0); Calcium 8.9 mg/dL (8.4-10.2); Potassium 4.6 mmol/L (3.5-5.1); Total Bilirubin 0.4 mg/dL (0.2-1.3); Total Protein 6.2 g/dL (6.3-8.2)
--- NOTE | 2020-09-01 11:50 | P.PN ---
Subjective Progress Note Date: 09/01/20 Acute kidney injury. Low hemoglobin. No obvious bleeding. Objective - Vital Signs Vital signs: Vital Signs Temp 97.9 F 09/01/20 07:55 Pulse 64 09/01/20 07:55 Resp 18 09/01/20 07:55 BP 173/74 09/01/20 07:55 Pulse Ox 94 L 09/01/20 07:55 Intake & Output 08/31/20 09/01/20 09/01/20 18:59 06:59 18:59 Intake Total 960 640 320 Output Total 800 660 Balance 160 -20 320 Weight 93 kg Intake: IV 50 40 20 Invasive Line 2 10 Invasive Line 3 40 40 20 Oral 600 600 300 Blood Product 310 Rc Pheresis As-3 Unit 310 [id number] Output: Urine 800 660 Other: # Voids 2 # Bowel Movements 0 - Exam No acute distress S1-S2 heard Diminished breath sounds Edema - Labs CBC & Chem 7: 09/01/20 08:10 09/01/20 08:10 Labs: Abnormal Lab Results - Last 24 Hours (Table) 08/30/20 08/31/20 09/01/20 Range/Units 14:36 17:17 08:10 RBC 2.65 L 2.58 L (4.30-5.90) m/uL Hgb 7.9 L D 7.2 L (13.0-17.5) gm/dL Hct 23.8 L 23.4 L (39.0-53.0) % MCHC 30.9 L (31.0-37.0) g/dL RDW 18.0 H 18.3 H (11.5-15.5) % Lymphocytes # 0.8 L (1.0-4.8) k/uL PT (9.0-12.0) sec INR (<1.2) Chloride (98-107) mmol/L Carbon Dioxide (22-30) mmol/L BUN (9-20) mg/dL Creatinine (0.66-1.25) mg/dL Glucose (74-99) mg/dL Total Protein (6.3-8.2) g/dL Albumin (3.5-5.0) g/dL Crossmatch See Detail 09/01/20 09/01/20 Range/Units 08:10 08:10 RBC (4.30-5.90) m/uL Hgb (13.0-17.5) gm/dL Hct (39.0-53.0) % MCHC (31.0-37.0) g/dL RDW (11.5-15.5) % Lymphocytes # (1.0-4.8) k/uL PT 13.6 H (9.0-12.0) sec INR 1.4 H (<1.2) Chloride 112 H (98-107) mmol/L Carbon Dioxide 19 L (22-30) mmol/L BUN 79 H (9-20) mg/dL Creatinine 4.03 H (0.66-1.25) mg/dL Glucose 156 H (74-99) mg/dL Total Protein 6.2 L (6.3-8.2) g/dL Albumin 3.3 L (3.5-5.0) g/dL Crossmatch Assessment and Plan Assessment: #1 acute kidney injury secondary to ischemic ATN from low hemoglobin. 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 #3 history of GI bleed #4 coagulopathy from warfarin status post vitamin K #5 anemia multifactorial #6 metabolic acidosis secondary to chronic kidney disease #7 hypertension with chronic kidney disease Plan: #1 renal function stable. #2 check iron profile, on GUS get status post PRBC #3 avoid nephrotoxic agents and hypotensive episodes. No acute indication for BENEFITS ASSISTANT at this time.
--- NOTE | 2020-09-01 12:10 | P.PN ---
Subjective Progress Note Date: 09/01/20 Mainor Fierro is a 75-year-old patient of Dr. Faith who presented to [facility] emergency room with a chief complaint of anemia, he was evaluated in the emergency room, his vital examination on presentation revealed a temperature of 97.0 pulse 66 respiration 18 blood pressure 172/75 pulse ox 94% on room air , he had significant anemia with hemoglobin down to 6.2 he has a known history of chronic kidney disease stage IV, he also has a known history of atrial fibrillation maintained on Coumadin, his INR was elevated on presentation at 5.8, patient was given vitamin K in the emergency room . stools Hemoccult was positive, kidney function revealed a BUN of 89 and creatinine of 3.67 . 1 unit of red blood cell transfusion was ordered, patient was admitted to telemetry floor for further evaluation. On arrival to the floor patient was having significant elevation in his blood pressure, he was complaining of shortness of breath, he was also complaining of bilateral lower extremity edema, he denies having any significant gastrointestinal bleeding. On 08/31/2020 patient was seen and examined on the medical floor he is alert and oriented 3 in no apparent distress there is no fever or chills no headache or dizziness no chest pain no shortness of breath no cough no nausea or vomiting no abdominal pain no diarrhea no burning with urination no frequency or urgency and no hematuria, hemoglobin is down again to 6.4 patient will receive 1 more unit of red blood cell transfusion INR is down to 1.6 awaiting recommendation from gastroenterology On 09/01/2020 patient was seen and examined on the medical floor, input from gastroenterology and nephrology reviewed, patient is alert and oriented 3 in no apparent distress he is complaining of constipation otherwise he denies any complaints there is no fever or chills no headache or dizziness no chest pain no shortness of breath no cough no nausea or vomiting no abdominal pain no diarrhea no blood in the stools no burning with urination no frequency or urgency and no hematuria hemoglobin is still low at 7.2 INR 1.4 BUN is 79 and creatinine 4.03 Objective - Vital Signs Vital signs: Vital Signs Temp 97.9 F 09/01/20 07:55 Pulse 64 09/01/20 07:55 Resp 18 09/01/20 07:55 BP 173/74 09/01/20 07:55 Pulse Ox 94 L 09/01/20 07:55 Intake & Output 08/31/20 09/01/20 09/01/20 18:59 06:59 18:59 Intake Total 960 640 320 Output Total 800 660 Balance 160 -20 320 Weight 93 kg Intake: IV 50 40 20 Invasive Line 2 10 Invasive Line 3 40 40 20 Oral 600 600 300 Blood Product 310 Rc Pheresis As-3 Unit 310 [id number] Output: Urine 800 660 Other: # Voids 2 # Bowel Movements 0 - Exam In general patient is alert and oriented 3 in no apparent distress HEENT head normocephalic and atraumatic Neck is supple no JVD no goiter no lymphadenopathy Chest exam reveals a few scattered crackles bilaterally no wheezing Cardiac exam reveals regular heart sounds no gallops no murmurs Abdomen is soft nontender no organomegaly was normal bowel sounds Extremity exam reveals 2+ edema no cyanosis or clubbing Neurological examination reveals no gross focal deficits - Labs CBC & Chem 7: 09/01/20 08:10 09/01/20 08:10 Labs: Abnormal Lab Results - Last 24 Hours (Table) 08/30/20 08/31/20 09/01/20 Range/Units 14:36 17:17 08:10 RBC 2.65 L 2.58 L (4.30-5.90) m/uL Hgb 7.9 L D 7.2 L (13.0-17.5) gm/dL Hct 23.8 L 23.4 L (39.0-53.0) % MCHC 30.9 L (31.0-37.0) g/dL RDW 18.0 H 18.3 H (11.5-15.5) % Lymphocytes # 0.8 L (1.0-4.8) k/uL PT (9.0-12.0) sec INR (<1.2) Chloride (98-107) mmol/L Carbon Dioxide (22-30) mmol/L BUN (9-20) mg/dL Creatinine (0.66-1.25) mg/dL Glucose (74-99) mg/dL Total Protein (6.3-8.2) g/dL Albumin (3.5-5.0) g/dL Crossmatch See Detail 09/01/20 09/01/20 Range/Units 08:10 08:10 RBC (4.30-5.90) m/uL Hgb (13.0-17.5) gm/dL Hct (39.0-53.0) % MCHC (31.0-37.0) g/dL RDW (11.5-15.5) % Lymphocytes # (1.0-4.8) k/uL PT 13.6 H (9.0-12.0) sec INR 1.4 H (<1.2) Chloride 112 H (98-107) mmol/L Carbon Dioxide 19 L (22-30) mmol/L BUN 79 H (9-20) mg/dL Creatinine 4.03 H (0.66-1.25) mg/dL Glucose 156 H (74-99) mg/dL Total Protein 6.2 L (6.3-8.2) g/dL Albumin 3.3 L (3.5-5.0) g/dL Crossmatch Assessment and Plan Plan: 1. Severe anemia, hemoglobin 6.0, 1 unit of red blood cell transfusion was ordered, gastroenterology consultation was requested for evaluation of anemia 2. Heme positive stools possible gastrointestinal bleeding will monitor closely 3. Coagulopathy INR is elevated patient received vitamin K in the emergency room will recheck INR closely 4. Underlying history of atrial fibrillation maintained on Coumadin 5. Underlying history of chronic kidney disease stage IV possibly contributing to anemia, Will consult nephrology for possible Procrit injections 6. Underlying history of hypertension there is evidence of hypertensive emergency on presentation home medications were reordered, will add IV Demadex and IV hydralazine when necessary Will follow during this admission for medical management Please see orders Consultation for gastroenterology and nephrology requested
[2020-09-02] MEDS: hydrALAZINE HCL 20 MG/ML 1 ML VIAL IVP PRN ×2 (03:43→19:55)
[2020-09-02] MEDS: SEVELAMER 800 MG TAB PO SCH (06:34)
[2020-09-02] MEDS: carvediloL 12.5 MG TAB PO SCH ×2 (06:34→18:12)
[2020-09-02] MEDS: SODIUM BICARBONATE TAB 650 MG TAB PO SCH (10:00)
[2020-09-02] MEDS: NIFEdipine XL 90 MG TAB.ER.24 PO SCH (10:00)
[2020-09-02] MEDS: allopurinoL 100 MG TAB PO SCH (10:00)
[2020-09-02] MEDS: ATORVASTATIN 40 MG TAB PO SCH (10:00)
[2020-09-02] MEDS: ISOSORBIDE MONONITRATE ER 30 MG TAB.ER.24H PO SCH ×2 (10:00→19:55)
[2020-09-02] MEDS: hydrALAZINE HCL 50 MG TAB PO SCH ×3 (10:00→22:31)
[2020-09-02 10:04] LABS: Anisocytosis Slight; Basophils % (A) 0 %; Eosinophils # (A) 0.2 k/uL (0-0.7); Eosinophils % (A) 3 %; HCT 22.9 % (39.0-53.0); HGB 7.3 gm/dL (13.0-17.5); Hypochromasia Moderate; Lymphocytes # (A) 0.7 k/uL (1.0-4.8); Lymphocytes % (A) 12 %; MCH 29.1 pg (25.0-35.0); MCHC 32.1 g/dL (31.0-37.0); MCV 90.6 fL (80.0-100.0); Mean Platelet Volume 8.1; Monocytes # (A) 0.6 k/uL (0-1.0); Monocytes % (A) 11 %; Neutrophils # (A) 4.5 k/uL (1.3-7.7); Neutrophils % (A) 73 %; Platelet Count 281 k/uL (150-450); Poikilocytosis Slight; RBC 2.52 m/uL (4.30-5.90); RDW 18.2 % (11.5-15.5); WBC 6.1 k/uL (3.8-10.6)
[2020-09-02 10:17] LABS: Albumin 3.3 g/dL (3.5-5.0); Calcium 8.7 mg/dL (8.4-10.2); Potassium 4.8 mmol/L (3.5-5.1); Total Bilirubin 0.4 mg/dL (0.2-1.3); Total Protein 6.2 g/dL (6.3-8.2)
--- NOTE | 2020-09-02 15:34 | CDI ---
Documentation Clarification Form Date: 09/02/2020 03:15:17 PM From: Brittney Jewell RN, CCDS Admit Date: 08/30/2020 02:25:00 PM Patient Name: Mainor Fierro Visit Number: [id number] Discharge Date: ATTENTION: The Clinical Documentation Specialists (CDI) and [facility] Coding Staff appreciate your assistance in clarifying documentation. Please respond to the clarification below the line at the bottom and electronically sign. The CDI & [facility] Coding staff will review the response and follow-up if needed. Please note: Queries are made part of the Legal Health Record. If you have any questions, please contact the author of this message via ITS. Dr. Marisel Coyne Atrial Fibrillation is documented in the past medical with ongoing treatment with Coumadin. Please render your opinion for the type of atrial fibrillation if known. History/Risk Factors: Hypertension, Chronic kidney disease, Atrial Fibrillation, Hypertension, Anemia Clinical Indicators: 75-year-old male who present to ED on 08/30 with chief complaint of low hemoglobin. Patient states that he does take Coumadin for his atrial fibrillation. He denies any black stools. Fecal occult blood on admission is positive. 08/30 Vital signs on admission: 197/89 68 16 94 % RA 08/30 labs: HGB 6.2, HCT 19.3, PT 58.4, PTT 4.5, INR 5.8 Treatment: Monitor CBC, PT/INR Daily Hold Coumadin In your professional opinion, can you please clarify the type of Atrial Fibrillation, if known? Chronic/Permanent Paroxysmal Persistent Other, please specify Unable to determine (Last Revision: January 2018) chronic persistent atrial fibrillation MTDD
--- NOTE | 2020-09-02 16:38 | P.PN ---
Subjective Progress Note Date: 09/02/20 Acute kidney injury. Low hemoglobin. No obvious bleeding. Objective - Vital Signs Vital signs: Vital Signs Temp 97.9 F 09/02/20 08:00 Pulse 65 09/02/20 08:00 Resp 18 09/02/20 08:00 BP 167/76 09/02/20 08:00 Pulse Ox 94 L 09/02/20 08:00 Intake & Output 09/01/20 09/02/20 09/02/20 18:59 06:59 18:59 Intake Total 766 450 480 Output Total 600 Balance 166 450 480 Weight 93.3 kg Intake: IV 30 Invasive Line 3 30 Oral 736 450 480 Output: Urine 600 Other: Voiding Method Toilet # Voids 2 2 # Bowel Movements 0 - Exam No acute distress S1-S2 heard Diminished breath sounds Edema - Labs CBC & Chem 7: 09/02/20 09:31 09/02/20 09:31 Labs: Abnormal Lab Results - Last 24 Hours (Table) 09/01/20 09/02/20 09/02/20 Range/Units 08:10 09:31 09:31 RBC 2.52 L (4.30-5.90) m/uL Hgb 7.3 L (13.0-17.5) gm/dL Hct 22.9 L (39.0-53.0) % RDW 18.2 H (11.5-15.5) % Lymphocytes # 0.7 L (1.0-4.8) k/uL Chloride 109 H (98-107) mmol/L BUN 77 H (9-20) mg/dL Creatinine 4.04 H (0.66-1.25) mg/dL Glucose 110 H (74-99) mg/dL Total Protein 6.2 L (6.3-8.2) g/dL Albumin 3.3 L (3.5-5.0) g/dL Free [place] LC, Quant 28.60 H (0.33-1.94) mg/dL Free [place] LC, Quant 9.31 H (0.57-2.63) mg/dL Assessment and Plan Assessment: #1 acute kidney injury secondary to ischemic ATN from low hemoglobin. 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 #3 history of GI bleed #4 coagulopathy from warfarin status post vitamin K #5 anemia multifactorial #6 metabolic acidosis secondary to chronic kidney disease #7 hypertension with chronic kidney disease Plan: #1 renal function stable. #2 change Lasix to by mouth torsemide. #3 avoid nephrotoxic agents and hypotensive episodes. No acute indication for ASSISTANCE SPECIALIST at this time.
[2020-09-02] MEDS: TORSEMIDE 20 MG TAB PO SCH (18:20)
--- NOTE | 2020-09-03 00:53 | P.PN ---
Subjective Progress Note Date: 09/02/20 Principal diagnosis: Renal Failure Objective - Vital Signs Vital signs: Vital Signs Temp 97.9 F 09/02/20 08:00 Pulse 65 09/02/20 08:00 Resp 18 09/02/20 08:00 BP 167/76 09/02/20 08:00 Pulse Ox 94 L 09/02/20 08:00 Intake & Output 09/01/20 09/02/20 09/02/20 18:59 06:59 18:59 Intake Total 766 450 240 Output Total 600 Balance 166 450 240 Weight 93.3 kg Intake: IV 30 Invasive Line 3 30 Oral 736 450 240 Output: Urine 600 Other: Voiding Method Toilet # Voids 2 0 # Bowel Movements 0 - Exam - Constitutional General appearance: no acute distress - EENT Eyes: EOMI, PERRLA ENT: hearing grossly normal, normal oropharynx - Neck Neck: no lymphadenopathy Thyroid: bilateral: normal size - Respiratory Respiratory: bilateral: CTA - Cardiovascular Rhythm: regular Heart sounds: normal: S1, S2 - Gastrointestinal General gastrointestinal: normal bowel sounds, soft - Integumentary Scattered bruising on upper extremities, most prominent right upper arm at site of IV - Neurologic Neurologic: CNII-XII intact - Musculoskeletal Musculoskeletal: generalized weakness, strength equal bilaterally - Psychiatric Psychiatric: A&O x's 3, appropriate affect - Labs CBC & Chem 7: 09/02/20 09:31 09/02/20 09:31 Labs: Abnormal Lab Results - Last 24 Hours (Table) 09/01/20 09/02/20 09/02/20 Range/Units 08:10 09:31 09:31 RBC 2.52 L (4.30-5.90) m/uL Hgb 7.3 L (13.0-17.5) gm/dL Hct 22.9 L (39.0-53.0) % RDW 18.2 H (11.5-15.5) % Lymphocytes # 0.7 L (1.0-4.8) k/uL Chloride 109 H (98-107) mmol/L BUN 77 H (9-20) mg/dL Creatinine 4.04 H (0.66-1.25) mg/dL Glucose 110 H (74-99) mg/dL Total Protein 6.2 L (6.3-8.2) g/dL Albumin 3.3 L (3.5-5.0) g/dL Free [place] LC, Quant 28.60 H (0.33-1.94) mg/dL Free [place] LC, Quant 9.31 H (0.57-2.63) mg/dL Assessment and Plan Plan: Comments: EGD and colonoscopy operative report reviewed. 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 If persists or worsens could consider repeat evaluation although at this time could continue monitoring and supportive care increase. - Daily CBC monitoring - B12 500, check mma Monoclonal Gammopathies: - Note light chain elevation, will attempt 24 hour urine evaluation although overall non-specific with known chronic kidney disease and decreased overall urine output. - Plan to repeat and assess for progression of this within 3 months. Supratherapeutic INR - Anticoagulation can be resumed once hemoglobin is noted to be stable over 24- 48 hrs. - Recommend close monitoring and tight control of INR as an outpatient
[2020-09-03 08:39] LABS: Anisocytosis Slight; Basophils % (A) 1 %; Eosinophils # (A) 0.2 k/uL (0-0.7); Eosinophils % (A) 4 %; HCT 23.7 % (39.0-53.0); HGB 7.3 gm/dL (13.0-17.5); Hypochromasia Moderate; Lymphocytes # (A) 0.7 k/uL (1.0-4.8); Lymphocytes % (A) 12 %; MCH 28.4 pg (25.0-35.0); MCHC 30.7 g/dL (31.0-37.0); MCV 92.3 fL (80.0-100.0); Mean Platelet Volume 7.6; Monocytes # (A) 0.5 k/uL (0-1.0); Monocytes % (A) 8 %; Neutrophils # (A) 4.4 k/uL (1.3-7.7); Neutrophils % (A) 74 %; Platelet Count 328 k/uL (150-450); Poikilocytosis Slight; RBC 2.56 m/uL (4.30-5.90); RDW 18.5 % (11.5-15.5); WBC 5.9 k/uL (3.8-10.6)
[2020-09-03 08:42] LABS: Albumin 3.2 g/dL (3.5-5.0); Calcium 8.6 mg/dL (8.4-10.2); Magnesium 2.3 mg/dL (1.6-2.3); Phosphorus 4.7 mg/dL (2.5-4.5); Potassium 5.2 mmol/L (3.5-5.1); Total Bilirubin 0.4 mg/dL (0.2-1.3); Total Protein 6.1 g/dL (6.3-8.2)
[2020-09-03] MEDS: carvediloL 12.5 MG TAB PO SCH ×2 (09:01→17:35)
[2020-09-03] MEDS: TORSEMIDE 20 MG TAB PO SCH (09:01)
[2020-09-03] MEDS: hydrALAZINE HCL 50 MG TAB PO SCH ×3 (09:01→20:35)
[2020-09-03] MEDS: ATORVASTATIN 40 MG TAB PO SCH (09:01)
[2020-09-03] MEDS: ISOSORBIDE MONONITRATE ER 30 MG TAB.ER.24H PO SCH ×2 (09:13→20:35)
[2020-09-03] MEDS: NIFEdipine XL 90 MG TAB.ER.24 PO SCH (09:13)
[2020-09-03] MEDS: SODIUM BICARBONATE TAB 650 MG TAB PO SCH (09:13)
[2020-09-03] MEDS: SEVELAMER 800 MG TAB PO SCH (09:13)
[2020-09-03] MEDS: allopurinoL 100 MG TAB PO SCH (09:13)
--- NOTE | 2020-09-03 15:25 | P.PN ---
Subjective Progress Note Date: 09/02/20 Mainor Fierro is a 75-year-old patient of Dr. Faith who presented to [facility] emergency room with a chief complaint of anemia, he was evaluated in the emergency room, his vital examination on presentation revealed a temperature of 97.0 pulse 66 respiration 18 blood pressure 172/75 pulse ox 94% on room air , he had significant anemia with hemoglobin down to 6.2 he has a known history of chronic kidney disease stage IV, he also has a known history of atrial fibrillation maintained on Coumadin, his INR was elevated on presentation at 5.8, patient was given vitamin K in the emergency room . stools Hemoccult was positive, kidney function revealed a BUN of 89 and creatinine of 3.67 . 1 unit of red blood cell transfusion was ordered, patient was admitted to telemetry floor for further evaluation. On arrival to the floor patient was having significant elevation in his blood pressure, he was complaining of shortness of breath, he was also complaining of bilateral lower extremity edema, he denies having any significant gastrointestinal bleeding. On 08/31/2020 patient was seen and examined on the medical floor he is alert and oriented 3 in no apparent distress there is no fever or chills no headache or dizziness no chest pain no shortness of breath no cough no nausea or vomiting no abdominal pain no diarrhea no burning with urination no frequency or urgency and no hematuria, hemoglobin is down again to 6.4 patient will receive 1 more unit of red blood cell transfusion INR is down to 1.6 awaiting recommendation from gastroenterology On 09/01/2020 patient was seen and examined on the medical floor, input from gastroenterology and nephrology reviewed, patient is alert and oriented 3 in no apparent distress he is complaining of constipation otherwise he denies any complaints there is no fever or chills no headache or dizziness no chest pain no shortness of breath no cough no nausea or vomiting no abdominal pain no diarrhea no blood in the stools no burning with urination no frequency or urgency and no hematuria hemoglobin is still low at 7.2 INR 1.4 BUN is 79 and creatinine 4.03 On 09/02/2020 patient was seen and examined on the medical floor he is alert and oriented 3 in no apparent distress he is complaining of generalized weakness otherwise he denies any complaints there is no fever or chills no headache or dizziness no chest pain no shortness of breath no cough no nausea or vomiting no abdominal pain no diarrhea and no urinary symptoms. Objective - Vital Signs Vital signs: Vital Signs Temp 97.9 F 09/02/20 08:00 Pulse 65 09/02/20 08:00 Resp 18 09/02/20 08:00 BP 167/76 09/02/20 08:00 Pulse Ox 94 L 09/02/20 08:00 Intake & Output 09/01/20 09/02/20 09/02/20 18:59 06:59 18:59 Intake Total 766 450 240 Output Total 600 Balance 166 450 240 Weight 93.3 kg Intake: IV 30 Invasive Line 3 30 Oral 736 450 240 Output: Urine 600 Other: Voiding Method Toilet # Voids 2 0 # Bowel Movements 0 - Exam In general patient is alert and oriented 3 in no apparent distress HEENT head normocephalic and atraumatic Neck is supple no JVD no goiter no lymphadenopathy Chest exam reveals a few scattered crackles bilaterally no wheezing Cardiac exam reveals regular heart sounds no gallops no murmurs Abdomen is soft nontender no organomegaly was normal bowel sounds Extremity exam reveals 2+ edema no cyanosis or clubbing Neurological examination reveals no gross focal deficits - Labs CBC & Chem 7: 09/03/20 07:23 09/03/20 07:23 Labs: Abnormal Lab Results - Last 24 Hours (Table) 09/01/20 09/02/20 09/02/20 Range/Units 08:10 09:31 09:31 RBC 2.52 L (4.30-5.90) m/uL Hgb 7.3 L (13.0-17.5) gm/dL Hct 22.9 L (39.0-53.0) % RDW 18.2 H (11.5-15.5) % Lymphocytes # 0.7 L (1.0-4.8) k/uL Chloride 109 H (98-107) mmol/L BUN 77 H (9-20) mg/dL Creatinine 4.04 H (0.66-1.25) mg/dL Glucose 110 H (74-99) mg/dL Total Protein 6.2 L (6.3-8.2) g/dL Albumin 3.3 L (3.5-5.0) g/dL Free [place] LC, Quant 28.60 H (0.33-1.94) mg/dL Free Lambda LC, Quant 9.31 H (0.57-2.63) mg/dL Assessment and Plan Plan: 1. Severe anemia, hemoglobin 6.0, 1 unit of red blood cell transfusion was ordered, gastroenterology consultation was requested for evaluation of anemia 2. Heme positive stools possible gastrointestinal bleeding will monitor closely 3. Coagulopathy INR is elevated patient received vitamin K in the emergency room will recheck INR closely 4. Underlying history of atrial fibrillation maintained on Coumadin 5. Underlying history of chronic kidney disease stage IV possibly contributing to anemia, Will consult nephrology for possible Procrit injections 6. Underlying history of hypertension there is evidence of hypertensive emergency on presentation home medications were reordered, will add IV Demadex and IV hydralazine when necessary Will follow during this admission for medical management Please see orders Consultation for gastroenterology and nephrology requested
--- NOTE | 2020-09-03 16:08 | P.PN ---
Subjective Progress Note Date: 09/03/20 Acute kidney injury. Low hemoglobin. No obvious bleeding. Objective - Vital Signs Vital signs: Vital Signs Temp 97.8 F 09/03/20 15:14 Pulse 64 09/03/20 15:14 Resp 16 09/03/20 15:14 BP 150/67 09/03/20 15:14 Pulse Ox 92 L 09/03/20 15:14 Intake & Output 09/02/20 09/03/20 09/03/20 18:59 06:59 18:59 Intake Total 720 450 236 Output Total 600 Balance 720 450 -364 Weight 95.5 kg Intake: Oral 720 450 236 Output: Urine 600 Other: Voiding Method Toilet Toilet # Voids 0 1 # Bowel Movements 0 1 - Exam No acute distress S1-S2 heard Diminished breath sounds Edema - Labs CBC & Chem 7: 09/03/20 07:23 09/03/20 07:23 Labs: Abnormal Lab Results - Last 24 Hours (Table) 09/03/20 09/03/20 Range/Units 07:23 07:23 RBC 2.56 L (4.30-5.90) m/uL Hgb 7.3 L (13.0-17.5) gm/dL Hct 23.7 L (39.0-53.0) % MCHC 30.7 L (31.0-37.0) g/dL RDW 18.5 H (11.5-15.5) % Lymphocytes # 0.7 L (1.0-4.8) k/uL Potassium 5.2 H (3.5-5.1) mmol/L Chloride 111 H (98-107) mmol/L Carbon Dioxide 21 L (22-30) mmol/L BUN 77 H (9-20) mg/dL Creatinine 4.20 H (0.66-1.25) mg/dL Phosphorus 4.7 H (2.5-4.5) mg/dL Total Protein 6.1 L (6.3-8.2) g/dL Albumin 3.2 L (3.5-5.0) g/dL Assessment and Plan Assessment: #1 acute kidney injury secondary to ischemic ATN from low hemoglobin. 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 #3 history of GI bleed #4 coagulopathy from warfarin status post vitamin K #5 anemia multifactorial #6 metabolic acidosis secondary to chronic kidney disease #7 hypertension with chronic kidney disease Plan: #1 renal function stable. #2 continue torsemide 20 mg by mouth daily #3 avoid nephrotoxic agents and hypotensive episodes. 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 #4 stable from nephrology for discharge to be followed up in the office in 1-2 weeks.
[2020-09-04] MEDS: carvediloL 12.5 MG TAB PO SCH ×2 (07:16→16:52)
[2020-09-04] MEDS: ISOSORBIDE MONONITRATE ER 30 MG TAB.ER.24H PO SCH ×2 (07:17→20:17)
[2020-09-04] MEDS: SEVELAMER 800 MG TAB PO SCH (07:17)
[2020-09-04] MEDS: TORSEMIDE 20 MG TAB PO SCH (07:17)
[2020-09-04] MEDS: allopurinoL 100 MG TAB PO SCH (07:17)
[2020-09-04] MEDS: ATORVASTATIN 40 MG TAB PO SCH (07:17)
[2020-09-04] MEDS: SODIUM BICARBONATE TAB 650 MG TAB PO SCH (07:18)
[2020-09-04] MEDS: NIFEdipine XL 90 MG TAB.ER.24 PO SCH (07:18)
[2020-09-04] MEDS: hydrALAZINE HCL 50 MG TAB PO SCH ×3 (07:18→20:17)
[2020-09-04 09:37] LABS: Anisocytosis Slight; Basophils % (A) 1 %; Eosinophils # (A) 0.2 k/uL (0-0.7); Eosinophils % (A) 4 %; HCT 22.4 % (39.0-53.0); Hypochromasia Moderate; Lymphocytes # (A) 0.7 k/uL (1.0-4.8); Lymphocytes % (A) 11 %; MCH 27.8 pg (25.0-35.0); MCHC 30.5 g/dL (31.0-37.0); MCV 91.1 fL (80.0-100.0); Mean Platelet Volume 8.6; Monocytes # (A) 0.5 k/uL (0-1.0); Monocytes % (A) 7 %; Neutrophils # (A) 4.8 k/uL (1.3-7.7); Neutrophils % (A) 76 %; Platelet Count 313 k/uL (150-450); Poikilocytosis Slight; RBC 2.45 m/uL (4.30-5.90); RDW 18.6 % (11.5-15.5); WBC 6.4 k/uL (3.8-10.6)
[2020-09-04 09:40] LABS: HGB 6.8 gm/dL (13.0-17.5)
--- NOTE | 2020-09-04 10:38 | P.PN ---
Subjective Progress Note Date: 09/04/20 Mainor Fierro is a 75-year-old patient of Dr. Faith who presented to [facility] emergency room with a chief complaint of anemia, he was evaluated in the emergency room, his vital examination on presentation revealed a temperature of 97.0 pulse 66 respiration 18 blood pressure 172/75 pulse ox 94% on room air , he had significant anemia with hemoglobin down to 6.2 he has a known history of chronic kidney disease stage IV, he also has a known history of atrial fibrillation maintained on Coumadin, his INR was elevated on presentation at 5.8, patient was given vitamin K in the emergency room . stools Hemoccult was positive, kidney function revealed a BUN of 89 and creatinine of 3.67 . 1 unit of red blood cell transfusion was ordered, patient was admitted to telemetry floor for further evaluation. On arrival to the floor patient was having significant elevation in his blood pressure, he was complaining of shortness of breath, he was also complaining of bilateral lower extremity edema, he denies having any significant gastrointestinal bleeding. On 08/31/2020 patient was seen and examined on the medical floor he is alert and oriented 3 in no apparent distress there is no fever or chills no headache or dizziness no chest pain no shortness of breath no cough no nausea or vomiting no abdominal pain no diarrhea no burning with urination no frequency or urgency and no hematuria, hemoglobin is down again to 6.4 patient will receive 1 more unit of red blood cell transfusion INR is down to 1.6 awaiting recommendation from gastroenterology On 09/01/2020 patient was seen and examined on the medical floor, input from gastroenterology and nephrology reviewed, patient is alert and oriented 3 in no apparent distress he is complaining of constipation otherwise he denies any complaints there is no fever or chills no headache or dizziness no chest pain no shortness of breath no cough no nausea or vomiting no abdominal pain no diarrhea no blood in the stools no burning with urination no frequency or urgency and no hematuria hemoglobin is still low at 7.2 INR 1.4 BUN is 79 and creatinine 4.03 On 09/02/2020 patient was seen and examined on the medical floor he is alert and oriented 3 in no apparent distress he is complaining of generalized weakness otherwise he denies any complaints there is no fever or chills no headache or dizziness no chest pain no shortness of breath no cough no nausea or vomiting no abdominal pain no diarrhea and no urinary symptoms. On 09/04/2020 and oriented 3. Hemoglobin coming back at 6.8 this AM. Will transfuse 1 unit of PRBCs and reconsult oncology, GI and nephrology services to reevaluate patient. Patient denies any acute complaints. Patient denies any signs of bleeding. Patient denies nausea vomiting or diarrhea. Patient denies chest pain or shortness breath. Objective - Vital Signs Vital signs: Vital Signs Temp 98.2 F 09/04/20 08:00 Pulse 67 09/04/20 08:00 Resp 16 09/04/20 08:00 BP 163/61 09/04/20 08:00 Pulse Ox 92 L 09/04/20 08:00 Intake & Output 09/03/20 09/04/20 09/04/20 18:59 06:59 18:59 Intake Total 236 236 Output Total 600 Balance -364 236 Weight 96.5 kg Intake: Oral 236 236 Output: Urine 600 Other: Voiding Method Toilet Toilet # Voids 1 2 # Bowel Movements 1 - Exam In general patient is alert and oriented 3 in no apparent distress HEENT head normocephalic and atraumatic Neck is supple no JVD no goiter no lymphadenopathy Chest exam reveals a few scattered crackles bilaterally no wheezing Cardiac exam reveals regular heart sounds no gallops no murmurs Abdomen is soft nontender no organomegaly was normal bowel sounds Extremity exam reveals 2+ edema no cyanosis or clubbing Neurological examination reveals no gross focal deficits - Labs CBC & Chem 7: 09/04/20 08:59 09/03/20 07:23 Labs: Abnormal Lab Results - Last 24 Hours (Table) 09/04/20 Range/Units 08:59 RBC 2.45 L (4.30-5.90) m/uL Hgb 6.8 L* (13.0-17.5) gm/dL Hct 22.4 L (39.0-53.0) % MCHC 30.5 L (31.0-37.0) g/dL RDW 18.6 H (11.5-15.5) % Lymphocytes # 0.7 L (1.0-4.8) k/uL Assessment and Plan Plan: 1. Severe anemia, 09/04/2020 hemoglobin 6.8. 1 unit of PRBCs has been ordered for total of 3 units this admission 2. Heme positive stools possible gastrointestinal bleeding will monitor closely 3. Coagulopathy INR is elevated patient received vitamin K in the emergency room will recheck INR closely 4. Underlying history of atrial fibrillation maintained on Coumadin 5. Underlying history of chronic kidney disease stage IV possibly contributing to anemia, Will consult nephrology for possible Procrit injections 6. Underlying history of hypertension there is evidence of hypertensive emergency on presentation home medications were reordered, will add IV Demadex and IV hydralazine when necessary Coumadin currently on hold due to anemia GI, oncology and nephrology services have been reconsulted Repeat labs ordered transfuse 1 unit of PRBCs
[2020-09-04 12:58] LABS: African American GFR (CKD) 15.5 (60.0-200.0); Albumin 3.4 g/dL (3.80-4.90); Albumin/Globulin Ratio 1.55 (1.60-3.17); Anion Gap 10.7 mmol/L (4.00-12.00); BUN/Creat Ratio 20.49 Ratio (12.00-20.00); Calcium 8.4 mg/dL (8.7-10.3); Carbon Dioxide 22.3 mmol/L (21.6-31.8); Globulin 2.2 g/dL (1.6-3.3); Non-African American GFR(CKD) 13.4 (60.0-200.0); Potassium 4.6 mmol/L (3.5-5.5); Total Bilirubin 0.2 mg/dL (0.2-1.2); Total Protein 5.6 g/dL (6.2-8.2)
--- NOTE | 2020-09-04 16:10 | P.PN ---
Subjective Progress Note Date: 09/04/20 Acute kidney injury. Hemoglobin dropped status post 1 unit of PRBC today Objective - Vital Signs Vital signs: Vital Signs Temp 97.7 F 09/04/20 15:06 Pulse 61 09/04/20 15:06 Resp 18 09/04/20 15:06 BP 162/78 09/04/20 15:06 Pulse Ox 97 09/04/20 15:06 Intake & Output 09/03/20 09/04/20 09/04/20 18:59 06:59 18:59 Intake Total 236 236 510 Output Total 600 Balance -364 236 510 Weight 96.5 kg Intake: Oral 236 236 200 Blood Product 310 Rc Pheresis 2 As3 Unit 310 [id number] Output: Urine 600 Other: Voiding Method Toilet Toilet Toilet # Voids 1 2 # Bowel Movements 1 - Exam No acute distress S1-S2 heard Diminished breath sounds Edema - Labs CBC & Chem 7: 09/04/20 08:59 09/04/20 08:59 Labs: Abnormal Lab Results - Last 24 Hours (Table) 09/04/20 09/04/20 09/04/20 Range/Units 08:59 08:59 10:20 RBC 2.45 L (4.30-5.90) m/uL Hgb 6.8 L* (13.0-17.5) gm/dL Hct 22.4 L (39.0-53.0) % MCHC 30.5 L (31.0-37.0) g/dL RDW 18.6 H (11.5-15.5) % Lymphocytes # 0.7 L (1.0-4.8) k/uL BUN 84.0 H (9.0-27.0) mg/dL Creatinine 4.1 H (0.6-1.5) mg/dL Est GFR (CKD-EPI)AfAm 15.5 L (60.0-200.0) Est GFR (CKD-EPI)NonAf 13.4 L (60.0-200.0) BUN/Creatinine Ratio 20.49 H (12.00-20.00) Ratio Glucose 149 H (70-110) mg/dL Calcium 8.4 L (8.7-10.3) mg/dL Total Protein 5.6 L (6.2-8.2) g/dL Albumin 3.40 L (3.80-4.90) g/dL Albumin/Globulin Ratio 1.55 L (1.60-3.17) g/dL Crossmatch See Detail Assessment and Plan Assessment: #1 acute kidney injury secondary to ischemic ATN from low hemoglobin. 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 #3 history of GI bleed #4 coagulopathy from warfarin status post vitamin K #5 anemia multifactorial #6 metabolic acidosis secondary to chronic kidney disease #7 hypertension with chronic kidney disease Plan: #1 renal function stable. #2 continue torsemide 20 mg by mouth daily #3 avoid nephrotoxic agents and hypotensive episodes. No acute indication for SUPER[employer]OR [employer]SE [employer]ING at this time. #4 stable from nephrology for discharge to be followed up in the office in 1-2 weeks.
--- NOTE | 2020-09-04 23:17 | P.PN ---
Subjective Progress Note Date: 09/04/20 Principal diagnosis: Renal Failure no acute complaints. Hemoglobin 6.8 - Transfusion today one unit PRBC Continue on hydrea Objective - Vital Signs Vital signs: Vital Signs Temp 98.0 F 09/04/20 19:20 Pulse 65 09/04/20 19:20 Resp 14 09/04/20 19:20 BP 147/63 09/04/20 19:20 Pulse Ox 94 L 09/04/20 19:20 Intake & Output 09/04/20 09/04/20 09/05/20 06:59 18:59 06:59 Intake Total 236 510 Balance 236 510 Weight 96.5 kg Intake: Oral 236 200 Blood Product 310 Rc Pheresis 2 As3 Unit 310 [id number] Other: Voiding Method Toilet Toilet # Voids 2 - Exam - Constitutional General appearance: no acute distress - EENT Eyes: EOMI, PERRLA ENT: hearing grossly normal, normal oropharynx - Neck Neck: no lymphadenopathy Thyroid: bilateral: normal size - Respiratory Respiratory: bilateral: CTA - Cardiovascular Rhythm: regular Heart sounds: normal: S1, S2 - Gastrointestinal General gastrointestinal: normal bowel sounds, soft - Integumentary Scattered bruising on upper extremities, most prominent right upper arm at site of IV - Neurologic Neurologic: CNII-XII intact - Musculoskeletal Musculoskeletal: generalized weakness, strength equal bilaterally - Psychiatric Psychiatric: A&O x's 3, appropriate affect - Labs CBC & Chem 7: 09/04/20 08:59 09/04/20 08:59 Labs: Abnormal Lab Results - Last 24 Hours (Table) 09/04/20 09/04/20 09/04/20 Range/Units 08:59 08:59 10:20 RBC 2.45 L (4.30-5.90) m/uL Hgb 6.8 L* (13.0-17.5) gm/dL Hct 22.4 L (39.0-53.0) % MCHC 30.5 L (31.0-37.0) g/dL RDW 18.6 H (11.5-15.5) % Lymphocytes # 0.7 L (1.0-4.8) k/uL BUN 84.0 H (9.0-27.0) mg/dL Creatinine 4.1 H (0.6-1.5) mg/dL Est GFR (CKD-EPI)AfAm 15.5 L (60.0-200.0) Est GFR (CKD-EPI)NonAf 13.4 L (60.0-200.0) BUN/Creatinine Ratio 20.49 H (12.00-20.00) Ratio Glucose 149 H (70-110) mg/dL Calcium 8.4 L (8.7-10.3) mg/dL Total Protein 5.6 L (6.2-8.2) g/dL Albumin 3.40 L (3.80-4.90) g/dL Albumin/Globulin Ratio 1.55 L (1.60-3.17) g/dL Crossmatch See Detail Assessment and Plan Plan: Comments: EGD and colonoscopy operative report reviewed. 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 If persists or worsens could consider repeat evaluation although at this time could continue monitoring and supportive care increase. - Daily CBC monitoring - B12 500, check mma Monoclonal Gammopathies: - Note light chain elevation, will attempt 24 hour urine evaluation although overall non-specific with known chronic kidney disease and decreased overall urine output. - Plan to repeat and assess for progression of this within 3 months. Supratherapeutic INR - Anticoagulation can be resumed once hemoglobin is noted to be stable over 24- 48 hrs. - Recommend close monitoring and tight control of INR as an outpatient Transfuse one unit PRBC today
[2020-09-05] MEDS: carvediloL 12.5 MG TAB PO SCH ×2 (08:11→16:28)
[2020-09-05] MEDS: SEVELAMER 800 MG TAB PO SCH (08:11)
[2020-09-05] MEDS: ATORVASTATIN 40 MG TAB PO SCH (08:11)
[2020-09-05] MEDS: hydrALAZINE HCL 50 MG TAB PO SCH ×3 (08:11→21:52)
[2020-09-05] MEDS: ISOSORBIDE MONONITRATE ER 30 MG TAB.ER.24H PO SCH ×2 (08:11→20:55)
[2020-09-05] MEDS: NIFEdipine XL 90 MG TAB.ER.24 PO SCH (08:12)
[2020-09-05] MEDS: TORSEMIDE 20 MG TAB PO SCH (08:12)
[2020-09-05] MEDS: allopurinoL 100 MG TAB PO SCH (08:12)
[2020-09-05] MEDS: SODIUM BICARBONATE TAB 650 MG TAB PO SCH (08:12)
[2020-09-05 08:32] LABS: Anisocytosis Slight; Basophils # (A) 0.1 k/uL (0-0.2); Basophils % (A) 1 %; Eosinophils # (A) 0.2 k/uL (0-0.7); Eosinophils % (A) 3 %; HCT 26.4 % (39.0-53.0); Hypochromasia Moderate; Lymphocytes # (A) 0.6 k/uL (1.0-4.8); Lymphocytes % (A) 8 %; MCH 28.9 pg (25.0-35.0); MCHC 31.3 g/dL (31.0-37.0); MCV 92.2 fL (80.0-100.0); Mean Platelet Volume 7.3; Monocytes # (A) 0.6 k/uL (0-1.0); Monocytes % (A) 8 %; Platelet Count 329 k/uL (150-450); Poikilocytosis Slight; RBC 2.86 m/uL (4.30-5.90); WBC 7.6 k/uL (3.8-10.6)
[2020-09-05 08:43] LABS: HGB 8.3 gm/dL (13.0-17.5)
[2020-09-05 11:09] LABS: African American GFR (CKD) 14.7 (60.0-200.0); Albumin 3.5 g/dL (3.80-4.90); Albumin/Globulin Ratio 1.59 (1.60-3.17); Anion Gap 7.3 mmol/L (4.00-12.00); BUN/Creat Ratio 19.3 Ratio (12.00-20.00); Calcium 8.4 mg/dL (8.7-10.3); Carbon Dioxide 22.7 mmol/L (21.6-31.8); Globulin 2.2 g/dL (1.6-3.3); Non-African American GFR(CKD) 12.7 (60.0-200.0); Potassium 4.8 mmol/L (3.5-5.5); Total Bilirubin 0.3 mg/dL (0.3-1.2); Total Protein 5.7 g/dL (6.2-8.2)
--- NOTE | 2020-09-05 11:18 | P.PN ---
Subjective Patient seen in follow-up for acute kidney injury on chronic kidney disease. Patient has chronic kidney disease stage IV/5. Hemoglobin 8.3 this morning. He did receive blood transfusions this admission. States he had black colored bowel movement this morning. No chest pain or shortness breath. Has been voiding. Hemodynamically stable. Vital signs are stable. General: The patient appeared well nourished and normally developed. HEENT: Head exam is unremarkable. Neck is without jugular venous distension. LUNGS: Breath sounds decreased. HEART: Rate and Rhythm are regular. ABDOMEN: Soft, nontender. EXTREMITITES: No edema. Objective - Vital Signs Vital signs: Vital Signs Temp 98.1 F 09/05/20 07:44 Pulse 71 09/05/20 07:44 Resp 18 09/05/20 07:44 BP 158/60 09/05/20 07:44 Pulse Ox 96 09/05/20 07:44 Intake & Output 09/04/20 09/05/20 09/05/20 18:59 06:59 18:59 Intake Total 510 Balance 510 Intake: Oral 200 Blood Product 310 Rc Pheresis 2 As3 Unit 310 [id number] Other: Voiding Method Toilet # Voids 1 # Bowel Movements 1 - Labs CBC & Chem 7: 09/05/20 06:53 09/05/20 06:53 Labs: Abnormal Lab Results - Last 24 Hours (Table) 09/04/20 09/04/20 09/05/20 Range/Units 08:59 10:20 06:53 RBC 2.86 L (4.30-5.90) m/uL Hgb 8.3 L D (13.0-17.5) gm/dL Hct 26.4 L (39.0-53.0) % RDW 18.0 H (11.5-15.5) % Lymphocytes # 0.6 L (1.0-4.8) k/uL BUN 84.0 H (9.0-27.0) mg/dL Creatinine 4.1 H (0.6-1.5) mg/dL Est GFR (CKD-EPI)AfAm 15.5 L (60.0-200.0) Est GFR (CKD-EPI)NonAf 13.4 L (60.0-200.0) BUN/Creatinine Ratio 20.49 H (12.00-20.00) Ratio Glucose 149 H (70-110) mg/dL Calcium 8.4 L (8.7-10.3) mg/dL Total Protein 5.6 L (6.2-8.2) g/dL Albumin 3.40 L (3.80-4.90) g/dL Albumin/Globulin Ratio 1.55 L (1.60-3.17) g/dL Crossmatch See Detail 09/05/20 Range/Units 06:53 RBC (4.30-5.90) m/uL Hgb (13.0-17.5) gm/dL Hct (39.0-53.0) % RDW (11.5-15.5) % Lymphocytes # (1.0-4.8) k/uL BUN 83.0 H (9.0-27.0) mg/dL Creatinine 4.3 H (0.6-1.5) mg/dL Est GFR (CKD-EPI)AfAm 14.7 L (60.0-200.0) Est GFR (CKD-EPI)NonAf 12.7 L (60.0-200.0) BUN/Creatinine Ratio (12.00-20.00) Ratio Glucose (70-110) mg/dL Calcium 8.4 L (8.7-10.3) mg/dL Total Protein 5.7 L (6.2-8.2) g/dL Albumin 3.50 L (3.80-4.90) g/dL Albumin/Globulin Ratio 1.59 L (1.60-3.17) g/dL Crossmatch Assessment and Plan Plan: Assessment: 1. Acute kidney injury secondary to ATN secondary to acute blood loss anemia. Creatinine 4.3 today. 2. 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 3. Acute blood loss anemia status post blood transfusion. Maintained on A ranesp. 4. Coagulopathy status post vitamin K. 5. Hypertension with chronic kidney disease. Stable. 6. Metabolic acidosis secondary to chronic kidney disease. Maintained on oral bicarbonate. 7. Chronic kidney disease mineral bone disease maintained on Renvela. Plan: Monitor hemoglobin closely. GI reconsulted. Hold Demadex tomorrow. Avoid nephrotoxins. No urgent need for renal replacement therapy at this time. Patient will follow-up with vascular surgery outpatient for AV graft placement w hich will be ready to be used in about 2 weeks after surgery. Avoid nephrotoxins. Continue to monitor renal function and urine output.
[2020-09-05 13:00] LABS: Albumin 3.08 g/dL (3.80-4.90); Gamma Globulin 1.06 g/dL (0.70-1.50)
--- NOTE | 2020-09-05 15:48 | P.PN ---
Subjective Progress Note Date: 09/05/20 Principal diagnosis: Anemia, GI bleed A 75-year-old male with multiple medical comorbidities including chronic kidney disease, anemia, and atrial fibrillation on Coumadin therapy who had presented to the hospital due to worsening anemia found in the outpatient setting. At the time of admission the patient denied any rectal bleeding, melena, hematemesis, abdominal pain, nausea, or vomiting. The patient has been followed by hematology and nephrology. Type of admission the patient's INR was elevated and patient was treated with vitamin K. Hemoglobin at admission was 6.2. He denies seeing any bright red bleeding per rectum. He had an extensive endoscopic evaluation for anemia in the past, he underwent an EGD and colonoscopy in March 2019 which revealed gastritis and duodenitis, the colonoscopy was significant for polypectomy and hemorrhoids, this was followed by a video capsule endoscopy which showed no evidence of active bleeding or pathology to explain the anemia. Today the patient reports having a large dark tarry loose bowel movement. He still continues to deny any abdominal pain, nausea, or vomiting. He is status post 3 units of PRBC. Today's hemoglobin is stable at 8.3. Objective - Vital Signs Vital signs: Vital Signs Temp 98.4 F 09/05/20 14:00 Pulse 60 09/05/20 14:00 Resp 17 09/05/20 14:00 BP 136/71 09/05/20 14:00 Pulse Ox 97 09/05/20 14:00 Intake & Output 09/04/20 09/05/20 09/05/20 18:59 06:59 18:59 Intake Total 510 Balance 510 Intake: Oral 200 Blood Product 310 Rc Pheresis 2 As3 Unit 310 [id number] Other: Voiding Method Toilet # Voids 1 # Bowel Movements 1 - Exam General appearance: The patient is alert, oriented, in no acute distress. HET: Head is normocephalic and atraumatic. Conjunctiva pink. Sclera anicteric. Neck: Supple without lymphadenopathy. Abdomen: Soft, nontender, nondistended with bowel sounds. No guarding or rigidity. Extremities: Normal skin color and turgor. No pedal edema Neurological: No focal deficits. Alert and oriented 3. - Labs CBC & Chem 7: 09/05/20 06:53 09/05/20 06:53 Labs: Abnormal Lab Results - Last 24 Hours (Table) 09/01/20 09/01/20 09/04/20 Range/Units 08:10 08:10 13:00 RBC (4.30-5.90) m/uL Hgb (13.0-17.5) gm/dL Hct (39.0-53.0) % RDW (11.5-15.5) % Lymphocytes # (1.0-4.8) k/uL BUN (9.0-27.0) mg/dL Creatinine (0.6-1.5) mg/dL Est GFR (CKD-EPI)AfAm (60.0-200.0) Est GFR (CKD-EPI)NonAf (60.0-200.0) Calcium (8.7-10.3) mg/dL Total Protein (6.2-8.2) g/dL Albumin (3.80-4.90) g/dL Albumin (PEP) 3.08 L (3.80-4.90) g/dL Albumin/Globulin Ratio (1.60-3.17) g/dL Akyvl-6-Ssuaitezw 0.61 H (0.10-0.40) g/dL RBC Folate 1,530 H (280 - 791) ng/mL U Free [place] Ch 15.000 H (0.140-2.420) mg/dL 09/05/20 09/05/20 Range/Units 06:53 06:53 RBC 2.86 L (4.30-5.90) m/uL Hgb 8.3 L D (13.0-17.5) gm/dL Hct 26.4 L (39.0-53.0) % RDW 18.0 H (11.5-15.5) % Lymphocytes # 0.6 L (1.0-4.8) k/uL BUN 83.0 H (9.0-27.0) mg/dL Creatinine 4.3 H (0.6-1.5) mg/dL Est GFR (CKD-EPI)AfAm 14.7 L (60.0-200.0) Est GFR (CKD-EPI)NonAf 12.7 L (60.0-200.0) Calcium 8.4 L (8.7-10.3) mg/dL Total Protein 5.7 L (6.2-8.2) g/dL Albumin 3.50 L (3.80-4.90) g/dL Albumin (PEP) (3.80-4.90) g/dL Albumin/Globulin Ratio 1.59 L (1.60-3.17) g/dL Pydmd-5-Hpfolqrat (0.10-0.40) g/dL RBC Folate (280 - 791) ng/mL U Free [place] Ch (0.140-2.420) mg/dL Assessment and Plan (1) Normocytic hypochromic anemia Narrative/Plan: This is a [age]-year-old male with multiple medical comorbidities including chronic kidney disease, atrial fibrillation on Coumadin therapy and a known history of anemia who presented to the hospital for evaluation of anemia. Prior evaluation March 2019 with EGD showing gastritis and duodenitis, colonoscopy significant for polypectomy and hemorrhoids followed by video capsule endoscopy which were negative for any evidence of bleeding or pathology to explain anemia. Stool testing was positive for occult blood but the patient initially denied any signs or symptoms of GI bleeding. Anemia likely secondary to chronic disease and underlying chronic kidney disease. Current Visit: No Status: Acute Code(s): D50.9 - IRON DEFICIENCY ANEMIA, UNSPECIFIED SNOMED Code(s): 26689689 (2) GI bleed Narrative/Plan: Patient with new onset of symptoms including a large loose black tarry bowel movement this morning. Patient will be nothing by mouth after midnight and agreeable to an upper endoscopy tomorrow. Current Visit: No Status: Acute Code(s): K92.2 - GASTROINTESTINAL HEMORRHA GE, UNSPECIFIED SNOMED Code(s): 23834938 (3) Supratherapeutic INR Current Visit: Yes Status: Acute Code(s): R79.1 - ABNORMAL COAGULATION PROFILE SNOMED Code(s): 634102415 Plan: Supportive care Continue hold Coumadin Diet as tolerated, nothing by mouth after midnight Patient scheduled for EGD tomorrow Continue to monitor hemoglobin and hematocrit transfuse as needed Continue to follow recommendations from hematology and nephrology We will continue to follow closely . Dr. Suad Merritt I agree with the dictator's note, documented as a scribe by Carlitos Fontana.
[2020-09-05 18:08] LABS: Anisocytosis Slight; Basophils # (A) 0.1 k/uL (0-0.2); Basophils % (A) 1 %; Eosinophils # (A) 0.2 k/uL (0-0.7); Eosinophils % (A) 3 %; HCT 25.4 % (39.0-53.0); HGB 8.3 gm/dL (13.0-17.5); Hypochromasia Moderate; Lymphocytes # (A) 0.6 k/uL (1.0-4.8); Lymphocytes % (A) 10 %; MCH 29.7 pg (25.0-35.0); MCHC 32.5 g/dL (31.0-37.0); MCV 91.2 fL (80.0-100.0); Mean Platelet Volume 7.4; Monocytes # (A) 0.4 k/uL (0-1.0); Monocytes % (A) 8 %; Neutrophils # (A) 4.4 k/uL (1.3-7.7); Neutrophils % (A) 76 %; Platelet Count 317 k/uL (150-450); Poikilocytosis Slight; RBC 2.78 m/uL (4.30-5.90); RDW 17.8 % (11.5-15.5); WBC 5.8 k/uL (3.8-10.6)
--- NOTE | 2020-09-05 19:43 | P.PN ---
Subjective Progress Note Date: 09/05/20 Mainor Fierro is a 75-year-old patient of Dr. Faith who presented to [facility] emergency room with a chief complaint of anemia, he was evaluated in the emergency room, his vital examination on presentation revealed a temperature of 97.0 pulse 66 respiration 18 blood pressure 172/75 pulse ox 94% on room air , he had significant anemia with hemoglobin down to 6.2 he has a known history of chronic kidney disease stage IV, he also has a known history of atrial fibrillation maintained on Coumadin, his INR was elevated on presentation at 5.8, patient was given vitamin K in the emergency room . stools Hemoccult was positive, kidney function revealed a BUN of 89 and creatinine of 3.67 . 1 unit of red blood cell transfusion was ordered, patient was admitted to telemetry floor for further evaluation. On arrival to the floor patient was having significant elevation in his blood pressure, he was complaining of shortness of breath, he was also complaining of bilateral lower extremity edema, he denies having any significant gastrointestinal bleeding. On 08/31/2020 patient was seen and examined on the medical floor he is alert and oriented 3 in no apparent distress there is no fever or chills no headache or dizziness no chest pain no shortness of breath no cough no nausea or vomiting no abdominal pain no diarrhea no burning with urination no frequency or urgency and no hematuria, hemoglobin is down again to 6.4 patient will receive 1 more unit of red blood cell transfusion INR is down to 1.6 awaiting recommendation from gastroenterology On 09/01/2020 patient was seen and examined on the medical floor, input from gastroenterology and nephrology reviewed, patient is alert and oriented 3 in no apparent distress he is complaining of constipation otherwise he denies any complaints there is no fever or chills no headache or dizziness no chest pain no shortness of breath no cough no nausea or vomiting no abdominal pain no diarrhea no blood in the stools no burning with urination no frequency or urgency and no hematuria hemoglobin is still low at 7.2 INR 1.4 BUN is 79 and creatinine 4.03 On 09/02/2020 patient was seen and examined on the medical floor he is alert and oriented 3 in no apparent distress he is complaining of generalized weakness otherwise he denies any complaints there is no fever or chills no headache or dizziness no chest pain no shortness of breath no cough no nausea or vomiting no abdominal pain no diarrhea and no urinary symptoms. On 09/04/2020 and oriented 3. Hemoglobin coming back at 6.8 this AM. Will transfuse 1 unit of PRBCs and reconsult oncology, GI and nephrology services to reevaluate patient. Patient denies any acute complaints. Patient denies any signs of bleeding. Patient denies nausea vomiting or diarrhea. Patient denies chest pain or shortness breath. On 09/05/2020 and oriented 3. Hemoglobin is 8.2 GI and nephrology services to reevaluate patient. Patient denies any acute complaints. Patient denies any signs of bleeding. Patient denies nausea vomiting or diarrhea. Patient denies chest pain or shortness breath. patient evaluated by GI he is scheduled for EGD in am tomorrow Objective - Vital Signs Vital signs: Vital Signs Temp 98.4 F 09/05/20 14:00 Pulse 60 09/05/20 14:00 Resp 17 09/05/20 14:00 BP 136/71 09/05/20 14:00 Pulse Ox 97 09/05/20 14:00 Intake & Output 09/04/20 09/05/20 09/05/20 18:59 06:59 18:59 Intake Total 510 Balance 510 Intake: Oral 200 Blood Product 310 Rc Pheresis 2 As3 Unit 310 [id number] Other: Voiding Method Toilet # Voids 1 # Bowel Movements 1 - Exam In general patient is alert and oriented 3 in no apparent distress HEENT head normocephalic and atraumatic Neck is supple no JVD no goiter no lymphadenopathy Chest exam reveals a few scattered crackles bilaterally no wheezing Cardiac exam reveals regular heart sounds no gallops no murmurs Abdomen is soft nontender no organomegaly was normal bowel sounds Extremity exam reveals 2+ edema no cyanosis or clubbing Neurological examination reveals no gross focal deficits - Labs CBC & Chem 7: 09/05/20 17:34 09/05/20 06:53 Labs: Abnormal Lab Results - Last 24 Hours (Table) 09/01/20 09/01/20 09/04/20 Range/Units 08:10 08:10 13:00 RBC (4.30-5.90) m/uL Hgb (13.0-17.5) gm/dL Hct (39.0-53.0) % RDW (11.5-15.5) % Lymphocytes # (1.0-4.8) k/uL BUN (9.0-27.0) mg/dL Creatinine (0.6-1.5) mg/dL Est GFR (CKD-EPI)AfAm (60.0-200.0) Est GFR (CKD-EPI)NonAf (60.0-200.0) Calcium (8.7-10.3) mg/dL Total Protein (6.2-8.2) g/dL Albumin (3.80-4.90) g/dL Albumin (PEP) 3.08 L (3.80-4.90) g/dL Albumin/Globulin Ratio (1.60-3.17) g/dL Lerfg-0-Vceffjegh 0.61 H (0.10-0.40) g/dL RBC Folate 1,530 H (280 - 791) ng/mL U Free [place] Ch 15.000 H (0.140-2.420) mg/dL 09/05/20 09/05/20 Range/Units 06:53 06:53 RBC 2.86 L (4.30-5.90) m/uL Hgb 8.3 L D (13.0-17.5) gm/dL Hct 26.4 L (39.0-53.0) % RDW 18.0 H (11.5-15.5) % Lymphocytes # 0.6 L (1.0-4.8) k/uL BUN 83.0 H (9.0-27.0) mg/dL Creatinine 4.3 H (0.6-1.5) mg/dL Est GFR (CKD-EPI)AfAm 14.7 L (60.0-200.0) Est GFR (CKD-EPI)NonAf 12.7 L (60.0-200.0) Calcium 8.4 L (8.7-10.3) mg/dL Total Protein 5.7 L (6.2-8.2) g/dL Albumin 3.50 L (3.80-4.90) g/dL Albumin (PEP) (3.80-4.90) g/dL Albumin/Globulin Ratio 1.59 L (1.60-3.17) g/dL Bkjuz-5-Ozzqueuyu (0.10-0.40) g/dL RBC Folate (280 - 791) ng/mL U [place] Ch (0.140-2.420) mg/dL Assessment and Plan Plan: 1. Severe anemia, 09/04/2020 hemoglobin 6.8. 1 unit of PRBCs has been ordered for total of 3 units this admission 2. Heme positive stools possible gastrointestinal bleeding will monitor closely 3. Coagulopathy INR is elevated patient received vitamin K in the emergency room will recheck INR closely 4. Underlying history of atrial fibrillation maintained on Coumadin 5. Underlying history of chronic kidney disease stage IV possibly contributing to anemia, Will consult nephrology for possible Procrit injections 6. Underlying history of hypertension there is evidence of hypertensive emergency on presentation home medications were reordered, will add IV Demadex and IV hydralazine when necessary Coumadin currently on hold due to anemia GI, oncology and nephrology services have been reconsulted Repeat labs ordered transfuse 1 unit of PRBCs
[2020-09-06 06:32] LABS: Anisocytosis Slight; Basophils # (A) 0.1 k/uL (0-0.2); Basophils % (A) 1 %; Eosinophils # (A) 0.2 k/uL (0-0.7); Eosinophils % (A) 4 %; HCT 25.6 % (39.0-53.0); HGB 8.3 gm/dL (13.0-17.5); Hypochromasia Moderate; Lymphocytes # (A) 0.7 k/uL (1.0-4.8); Lymphocytes % (A) 12 %; MCH 29.8 pg (25.0-35.0); MCHC 32.3 g/dL (31.0-37.0); MCV 92.3 fL (80.0-100.0); Mean Platelet Volume 7.8; Monocytes # (A) 0.5 k/uL (0-1.0); Monocytes % (A) 9 %; Neutrophils % (A) 72 %; Platelet Count 299 k/uL (150-450); RBC 2.77 m/uL (4.30-5.90); RDW 17.6 % (11.5-15.5); WBC 5.5 k/uL (3.8-10.6)
[2020-09-06 07:37] LABS: Methylmalonic Acid 0.55 umol/L (<0.40)
[2020-09-06] MEDS: ATORVASTATIN 40 MG TAB PO SCH (08:23)
[2020-09-06] MEDS: NIFEdipine XL 90 MG TAB.ER.24 PO SCH (08:23)
[2020-09-06] MEDS: allopurinoL 100 MG TAB PO SCH (08:23)
[2020-09-06] MEDS: hydrALAZINE HCL 50 MG TAB PO SCH ×3 (08:23→21:11)
[2020-09-06] MEDS: SODIUM BICARBONATE TAB 650 MG TAB PO SCH (08:23)
[2020-09-06] MEDS: ISOSORBIDE MONONITRATE ER 30 MG TAB.ER.24H PO SCH ×2 (08:23→21:11)
[2020-09-06] MEDS: SEVELAMER 800 MG TAB PO SCH (08:23)
[2020-09-06] MEDS: carvediloL 12.5 MG TAB PO SCH ×2 (08:26→16:32)
[2020-09-06 10:09] LABS: African American GFR (CKD) 13.5 (60.0-200.0); Albumin 3.6 g/dL (3.80-4.90); Albumin/Globulin Ratio 1.57 (1.60-3.17); Anion Gap 8.9 mmol/L (4.00-12.00); BUN/Creat Ratio 19.35 Ratio (12.00-20.00); Calcium 8.4 mg/dL (8.7-10.3); Carbon Dioxide 23.1 mmol/L (21.6-31.8); Globulin 2.3 g/dL (1.6-3.3); Non-African American GFR(CKD) 11.7 (60.0-200.0); Potassium 4.8 mmol/L (3.5-5.5); Total Bilirubin 0.3 mg/dL (0.3-1.2); Total Protein 5.9 g/dL (6.2-8.2)
--- NOTE | 2020-09-06 10:45 | P.PN ---
Subjective Patient seen in follow-up for acute kidney injury on chronic kidney disease. Patient has chronic kidney disease stage IV/5. Hemoglobin stable. He did receive blood transfusions this admission. Scheduled for EGD today. No melena since yesterday. No chest pain or shortness breath. Has been voiding. Hemodynamically stable. Vital signs are stable. General: The patient appeared well nourished and normally developed. HEENT: Head exam is unremarkable. Neck is without jugular venous distension. LUNGS: Breath sounds decreased. HEART: Rate and Rhythm are regular. ABDOMEN: Soft, nontender. EXTREMITITES: No edema. Objective - Vital Signs Vital signs: Vital Signs Temp 98.1 F 09/06/20 07:03 Pulse 60 09/06/20 07:03 Resp 17 09/06/20 07:03 BP 157/68 09/06/20 07:03 Pulse Ox 97 09/06/20 01:49 Intake & Output 09/05/20 09/06/20 09/06/20 18:59 06:59 18:59 Weight 91 kg Other: Voiding Method Toilet # Voids 3 3 # Bowel Movements 1 1 - Labs CBC & Chem 7: 09/06/20 06:13 09/06/20 06:13 Labs: Abnormal Lab Results - Last 24 Hours (Table) 09/01/20 09/01/20 09/04/20 Range/Units 08:10 08:10 13:00 RBC (4.30-5.90) m/uL Hgb (13.0-17.5) gm/dL Hct (39.0-53.0) % RDW (11.5-15.5) % Lymphocytes # (1.0-4.8) k/uL Chloride (96-109) mmol/L BUN (9.0-27.0) mg/dL Creatinine (0.6-1.5) mg/dL Est GFR (CKD-EPI)AfAm (60.0-200.0) Est GFR (CKD-EPI)NonAf (60.0-200.0) Calcium (8.7-10.3) mg/dL Total Protein (6.2-8.2) g/dL Albumin (3.80-4.90) g/dL Albumin (PEP) 3.08 L (3.80-4.90) g/dL Albumin/Globulin Ratio (1.60-3.17) g/dL Lkzyg-0-Hhpcagpul 0.61 H (0.10-0.40) g/dL Methylmalonic Acid 0.55 H (<0.40) umol/L RBC Folate 1,530 H (280 - 791) ng/mL U Free [place] Light Ch 15.000 H (0.140-2.420) mg/dL 09/05/20 09/05/20 09/06/20 Range/Units 06:53 17:34 06:13 RBC 2.78 L 2.77 L (4.30-5.90) m/uL Hgb 8.3 L 8.3 L (13.0-17.5) gm/dL Hct 25.4 L 25.6 L (39.0-53.0) % RDW 17.8 H 17.6 H (11.5-15.5) % Lymphocytes # 0.6 L 0.7 L (1.0-4.8) k/uL Chloride (96-109) mmol/L BUN 83.0 H (9.0-27.0) mg/dL Creatinine 4.3 H (0.6-1.5) mg/dL Est GFR (CKD-EPI)AfAm 14.7 L (60.0-200.0) Est GFR (CKD-EPI)NonAf 12.7 L (60.0-200.0) Calcium 8.4 L (8.7-10.3) mg/dL Total Protein 5.7 L (6.2-8.2) g/dL Albumin 3.50 L (3.80-4.90) g/dL Albumin (PEP) (3.80-4.90) g/dL Albumin/Globulin Ratio 1.59 L (1.60-3.17) g/dL Jccvn-7-Nbdspesev (0.10-0.40) g/dL Methylmalonic Acid (<0.40) umol/L RBC Folate (280 - 791) ng/mL U Free [place] Light Ch (0.140-2.420) mg/dL 09/06/20 Range/Units 06:13 RBC (4.30-5.90) m/uL Hgb (13.0-17.5) gm/dL Hct (39.0-53.0) % RDW (11.5-15.5) % Lymphocytes # (1.0-4.8) k/uL Chloride 110 H (96-109) mmol/L BUN 89.0 H (9.0-27.0) mg/dL Creatinine 4.6 H (0.6-1.5) mg/dL Est GFR (CKD-EPI)AfAm 13.5 L (60.0-200.0) Est GFR (CKD-EPI)NonAf 11.7 L (60.0-200.0) Calcium 8.4 L (8.7-10.3) mg/dL Total Protein 5.9 L (6.2-8.2) g/dL Albumin 3.60 L (3.80-4.90) g/dL Albumin (PEP) (3.80-4.90) g/dL Albumin/Globulin Ratio 1.57 L (1.60-3.17) g/dL Oqygx-6-Oqwixhnsw (0.10-0.40) g/dL Methylmalonic Acid (<0.40) umol/L RBC Folate (280 - 791) ng/mL U Free [place] Ch (0.140-2.420) mg/dL Assessment and Plan Plan: Assessment: 1. Acute kidney injury secondary to ATN secondary to acute blood loss anemia. Creatinine 4.6 today. 2. 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 3. Acute blood loss anemia status post blood transfusion. Maintained on Aranesp. Scheduled for EGD today. 4. Coagulopathy status post vitamin K. 5. Hypertension with chronic kidney disease. Stable. 6. Metabolic acidosis secondary to chronic kidney disease. Maintained on oral bicarbonate. 7. Chronic kidney disease mineral bone disease maintained on Renvela. Plan: Hold Demadex today. Avoid nephrotoxins. No urgent need for renal replacement therapy at this time. Patient will follow-up with vascular surgery outpatient for AV graft placement which will be ready to be used in about 2 weeks after surgery. Avoid nephrotoxins. Continue to monitor renal function and urine output.
[2020-09-06] MEDS ORDERED: DARBEPOETIN ALFA 60 MCG/0.3 ML SYRINGE SQ SCH (12:00)
[2020-09-06 14:03] VITALS: BMI 31.4
[2020-09-06] MEDS ORDERED: LIDOCAINE 1% INJ 10MG/ML (20 ML MDV) ONE (14:36)
[2020-09-06] MEDS ORDERED: PROPOFOL 10 MG/ML 20 ML VIAL IV ONE (14:36)
[2020-09-06] MEDS ORDERED: SODIUM CHLORIDE 0.9% 500 ML 500 ML IV ONE (14:48)
--- NOTE | 2020-09-06 15:00 | P.PCN ---
Date of Procedure: 09/06/20 Procedure(s) Performed: BRIEF HISTORY: Patient is a 75-year-old, pleasant, white male scheduled for an upper endoscopy as a part of evaluation of black tarry stools and anemia.. PROCEDURE PERFORMED: Esophagogastroduodenoscopy with cautery and Endo Clip placement PREOPERATIVE DIAGNOSIS: Melena and anemia. IV sedation per anesthesia. PROCEDURE: After informed consent was obtained, the patient was brought into the endoscopy unit. IV sedation was administered by Anesthesia under continuous monitoring. Initially the Olympus GIF-140 video endoscope was inserted into the mouth. Esophagus intubated without any difficulty. It was gradually advanced into the stomach and duodenum and carefully examined. The bulb and the second part of the duodenum had moderate to severe duodenitis but no active bleeding.. The scope at this time was withdrawn to the stomach, adequately insufflated with air, and upon careful examination, mucosa of the antrum appeared normal., In the body the stomach there were multiple scattered angiectasia noted with oozing status post cautery with gold probe and one of them was actively oozing and Endo Clip was placed with good hemostasis. The cardia and the fundus appeared normal. The scope was then withdrawn into the esophagus. The GE junction was located at 39 cm from the incisors. The esophagus appeared normal. There were no erosions or ulcerations seen and the patient tolerated the procedure well. IMPRESSION: 1. 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 2. Moderate to severe duodenitis RECOMMENDATIONS: The findings of this examination were discussed with the patient . Diet will be advanced as tolerated. Continue Protonix 40 mg twice daily. Monitor CBC on a daily basis.
[2020-09-06] MEDS ORDERED: FUROSEMIDE 10 MG/ML 2 ML VIAL IV STA (17:40)
--- NOTE | 2020-09-06 18:02 | P.PN ---
Subjective Progress Note Date: 09/06/20 Mainor Fierro is a 75-year-old patient of Dr. Faith who presented to [facility] emergency room with a chief complaint of anemia, he was evaluated in the emergency room, his vital examination on presentation revealed a temperature of 97.0 pulse 66 respiration 18 blood pressure 172/75 pulse ox 94% on room air , he had significant anemia with hemoglobin down to 6.2 he has a known history of chronic kidney disease stage IV, he also has a known history of atrial fibrillation maintained on Coumadin, his INR was elevated on presentation at 5.8, patient was given vitamin K in the emergency room . stools Hemoccult was positive, kidney function revealed a BUN of 89 and creatinine of 3.67 . 1 unit of red blood cell transfusion was ordered, patient was admitted to telemetry floor for further evaluation. On arrival to the floor patient was having significant elevation in his blood pressure, he was complaining of shortness of breath, he was also complaining of bilateral lower extremity edema, he denies having any significant gastrointestinal bleeding. On 08/31/2020 patient was seen and examined on the medical floor he is alert and oriented 3 in no apparent distress there is no fever or chills no headache or dizziness no chest pain no shortness of breath no cough no nausea or vomiting no abdominal pain no diarrhea no burning with urination no frequency or urgency and no hematuria, hemoglobin is down again to 6.4 patient will receive 1 more unit of red blood cell transfusion INR is down to 1.6 awaiting recommendation from gastroenterology On 09/01/2020 patient was seen and examined on the medical floor, input from gastroenterology and nephrology reviewed, patient is alert and oriented 3 in no apparent distress he is complaining of constipation otherwise he denies any complaints there is no fever or chills no headache or dizziness no chest pain no shortness of breath no cough no nausea or vomiting no abdominal pain no diarrhea no blood in the stools no burning with urination no frequency or urgency and no hematuria hemoglobin is still low at 7.2 INR 1.4 BUN is 79 and creatinine 4.03 On 09/02/2020 patient was seen and examined on the medical floor he is alert and oriented 3 in no apparent distress he is complaining of generalized weakness otherwise he denies any complaints there is no fever or chills no headache or dizziness no chest pain no shortness of breath no cough no nausea or vomiting no abdominal pain no diarrhea and no urinary symptoms. On 09/04/2020 and oriented 3. Hemoglobin coming back at 6.8 this AM. Will transfuse 1 unit of PRBCs and reconsult oncology, GI and nephrology services to reevaluate patient. Patient denies any acute complaints. Patient denies any signs of bleeding. Patient denies nausea vomiting or diarrhea. Patient denies chest pain or shortness breath. On 09/05/2020 and oriented 3. Hemoglobin is 8.2 GI and nephrology services to reevaluate patient. Patient denies any acute complaints. Patient denies any signs of bleeding. Patient denies nausea vomiting or diarrhea. Patient denies chest pain or shortness breath. patient evaluated by GI he is scheduled for EGD in am tomorrow On 09/06/2020 patient was seen and examined on the medical floor he is alert and oriented 3 in no apparent distress he is scheduled for EGD today hemoglobin is stable at 8.3 there is no fever or chills no headache or dizziness no chest pain no shortness of breath no cough no nausea or vomiting no abdominal pain no di arrhea no burning with urination no frequency or urgency and no hematuria Objective - Vital Signs Vital signs: Vital Signs Temp 97.5 F L 09/06/20 15:18 Pulse 65 09/06/20 16:50 Resp 16 09/06/20 15:18 BP 155/61 09/06/20 16:50 Pulse Ox 96 09/06/20 15:18 Intake & Output 09/05/20 09/06/20 09/06/20 18:59 06:59 18:59 Intake Total 150 Balance 150 Weight 91 kg 91 kg Intake: IV 150 Other: Voiding Method Toilet # Voids 3 3 # Bowel Movements 1 1 - Exam In general patient is alert and oriented 3 in no apparent distress HEENT head normocephalic and atraumatic Neck is supple no JVD no goiter no lymphadenopathy Chest exam reveals a few scattered crackles bilaterally no wheezing Cardiac exam reveals regular heart sounds no gallops no murmurs Abdomen is soft nontender no organomegaly was normal bowel sounds Extremity exam reveals 2+ edema no cyanosis or clubbing Neurological examination reveals no gross focal deficits - Labs CBC & Chem 7: 09/06/20 06:13 09/06/20 06:13 Labs: Abnormal Lab Results - Last 24 Hours (Table) 09/01/20 09/05/20 09/06/20 Range/Units 08:10 17:34 06:13 RBC 2.78 L 2.77 L (4.30-5.90) m/uL Hgb 8.3 L 8.3 L (13.0-17.5) gm/dL Hct 25.4 L 25.6 L (39.0-53.0) % RDW 17.8 H 17.6 H (11.5-15.5) % Lymphocytes # 0.6 L 0.7 L (1.0-4.8) k/uL Chloride (96-109) mmol/L BUN (9.0-27.0) mg/dL Creatinine (0.6-1.5) mg/dL Est GFR (CKD-EPI)AfAm (60.0-200.0) Est GFR (CKD-EPI)NonAf (60.0-200.0) Calcium (8.7-10.3) mg/dL Total Protein (6.2-8.2) g/dL Albumin (3.80-4.90) g/dL Albumin/Globulin Ratio (1.60-3.17) g/dL Methylmalonic Acid 0.55 H (<0.40) umol/L 09/06/20 Range/Units 06:13 RBC (4.30-5.90) m/uL Hgb (13.0-17.5) gm/dL Hct (39.0-53.0) % RDW (11.5-15.5) % Lymphocytes # (1.0-4.8) k/uL Chloride 110 H (96-109) mmol/L BUN 89.0 H (9.0-27.0) mg/dL Creatinine 4.6 H (0.6-1.5) mg/dL Est GFR (CKD-EPI)AfAm 13.5 L (60.0-200.0) Est GFR (CKD-EPI)NonAf 11.7 L (60.0-200.0) Calcium 8.4 L (8.7-10.3) mg/dL Total Protein 5.9 L (6.2-8.2) g/dL Albumin 3.60 L (3.80-4.90) g/dL Albumin/Globulin Ratio 1.57 L (1.60-3.17) g/dL Methylmalonic Acid (<0.40) umol/L Assessment and Plan Plan: 1. Severe anemia, 09/04/2020 hemoglobin 6.8. 1 unit of PRBCs has been ordered for total of 3 units this admission 2. Heme positive stools possible gastrointestinal bleeding will monitor closely 3. Coagulopathy INR is elevated patient received vitamin K in the emergency room will recheck INR closely 4. Underlying history of atrial fibrillation maintained on Coumadin 5. Underlying history of chronic kidney disease stage IV possibly contributing to anemia, Will consult nephrology for possible Procrit injections 6. Underlying history of hypertension there is evidence of hypertensive emergency on presentation home medications were reordered, will add IV Demadex and IV hydralazine when necessary Coumadin currently on hold due to anemia GI, oncology and nephrology services have been reconsulted Repeat labs ordered transfuse 1 unit of PRBCs
--- NOTE | 2020-09-06 18:34 | XR ---
EXAMINATION TYPE: XR chest 2V DATE OF EXAM: 09/06/2020 COMPARISON: 08/30/2020 HISTORY: Hypoxemia TECHNIQUE: FINDINGS: Heart is enlarged. There is mild pulmonary interstitial edema.. There is mild pulmonary con gestion. There is slight blunting of the costophrenic angles. IMPRESSION: There is evidence for mild congestive heart failure with small pleural effusions. No mclean ge.
[2020-09-07] MEDS ORDERED: FUROSEMIDE 10 MG/ML 2 ML VIAL IV ONE (01:00)
[2020-09-07 07:36] LABS: Anisocytosis Slight; Basophils # (A) 0.1 k/uL (0-0.2); Basophils % (A) 1 %; Eosinophils # (A) 0.2 k/uL (0-0.7); Eosinophils % (A) 4 %; HCT 24.7 % (39.0-53.0); HGB 7.9 gm/dL (13.0-17.5); Hypochromasia Moderate; Lymphocytes # (A) 0.6 k/uL (1.0-4.8); Lymphocytes % (A) 10 %; MCH 29.6 pg (25.0-35.0); MCHC 31.9 g/dL (31.0-37.0); MCV 92.9 fL (80.0-100.0); Mean Platelet Volume 7.5; Monocytes # (A) 0.5 k/uL (0-1.0); Monocytes % (A) 10 %; Neutrophils # (A) 4.1 k/uL (1.3-7.7); Neutrophils % (A) 73 %; Platelet Count 292 k/uL (150-450); RBC 2.66 m/uL (4.30-5.90); RDW 17.5 % (11.5-15.5); WBC 5.6 k/uL (3.8-10.6)
[2020-09-07] MEDS: carvediloL 12.5 MG TAB PO SCH ×2 (07:54→17:42)
[2020-09-07] MEDS: SEVELAMER 800 MG TAB PO SCH (07:54)
[2020-09-07] MEDS: allopurinoL 100 MG TAB PO SCH (07:54)
[2020-09-07] MEDS: ATORVASTATIN 40 MG TAB PO SCH (07:54)
[2020-09-07] MEDS: ISOSORBIDE MONONITRATE ER 30 MG TAB.ER.24H PO SCH ×2 (07:55→20:57)
[2020-09-07] MEDS: SODIUM BICARBONATE TAB 650 MG TAB PO SCH (07:55)
[2020-09-07] MEDS: NIFEdipine XL 90 MG TAB.ER.24 PO SCH (07:55)
[2020-09-07] MEDS: hydrALAZINE HCL 50 MG TAB PO SCH ×3 (07:55→21:01)
[2020-09-07 11:08] LABS: African American GFR (CKD) 14.7 (60.0-200.0); Albumin 3.5 g/dL (3.80-4.90); Albumin/Globulin Ratio 1.52 (1.60-3.17); Anion Gap 10.8 mmol/L (4.00-12.00); BUN/Creat Ratio 20.47 Ratio (12.00-20.00); Calcium 8.6 mg/dL (8.7-10.3); Carbon Dioxide 23.2 mmol/L (21.6-31.8); Globulin 2.3 g/dL (1.6-3.3); Magnesium 2.3 mg/dL (1.5-2.4); Non-African American GFR(CKD) 12.7 (60.0-200.0); Total Bilirubin 0.2 mg/dL (0.2-1.2); Total Protein 5.8 g/dL (6.2-8.2)
--- NOTE | 2020-09-07 12:04 | P.PN ---
Subjective Patient seen in follow-up for acute kidney injury on chronic kidney disease. Patient has chronic kidney disease stage IV/5. Hemoglobin 7.9 this morning. He did receive blood transfusions this admission. No bowel movement since yesterday. No chest pain or shortness of breath. Vital signs are stable. General: The patient appeared well nourished and normally developed. HEENT: Head exam is unremarkable. Neck is without jugular venous distension. LUNGS: Breath sounds decreased. HEART: Rate and Rhythm are regular. ABDOMEN: Soft, nontender. EXTREMITITES: No edema. Objective - Vital Signs Vital signs: Vital Signs Temp 98.2 F 09/07/20 07:47 Pulse 60 09/07/20 07:47 Resp 18 09/07/20 07:47 BP 145/64 09/07/20 07:47 Pulse Ox 97 09/07/20 07:47 Intake & Output 09/06/20 09/07/20 09/07/20 18:59 06:59 18:59 Intake Total 150 360 200 Output Total 825 Balance 150 -465 200 Weight 91 kg 89.5 kg Intake: IV 150 Oral 360 200 Output: Urine 825 Other: Voiding Method Toilet Toilet # Voids 1 - Labs CBC & Chem 7: 09/07/20 06:44 09/07/20 06:44 Labs: Abnormal Lab Results - Last 24 Hours (Table) 09/07/20 09/07/20 Range/Units 06:44 06:44 RBC 2.66 L (4.30-5.90) m/uL Hgb 7.9 L (13.0-17.5) gm/dL Hct 24.7 L (39.0-53.0) % RDW 17.5 H (11.5-15.5) % Lymphocytes # 0.6 L (1.0-4.8) k/uL BUN 88.0 H (9.0-27.0) mg/dL Creatinine 4.3 H (0.6-1.5) mg/dL Est GFR (CKD-EPI)AfAm 14.7 L (60.0-200.0) Est GFR (CKD-EPI)NonAf 12.7 L (60.0-200.0) BUN/Creatinine Ratio 20.47 H (12.00-20.00) Ratio Calcium 8.6 L (8.7-10.3) mg/dL Total Protein 5.8 L (6.2-8.2) g/dL Albumin 3.50 L (3.80-4.90) g/dL Albumin/Globulin Ratio 1.52 L (1.60-3.17) g/dL Assessment and Plan Plan: Assessment: 1. Acute kidney injury secondary to ATN secondary to acute blood loss anemia. Creatinine 4.3 today. 2. 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 3. Acute blood loss anemia status post blood transfusion. Maintained on Aranesp. Status post EGD on September 06 which revealed multiple scattered angiectasia is with oozing status post cautery and Endo Clip placement. Also no shan to have moderate to severe duodenitis. 4. Coagulopathy status post vitamin K. 5. Hypertension with chronic kidney disease. Stable. 6. Metabolic acidosis secondary to chronic kidney disease. Maintained on oral bicarbonate. 7. Chronic kidney disease mineral bone disease maintained on Renvela. Plan: Resume Demadex. Avoid nephrotoxins. No urgent need for renal replacement therapy at this time. Patient will follow-up with vascular surgery outpatient for AV graft placement which will be ready to be used in about 2 weeks after surgery. Avoid nephrotoxins. Continue to monitor renal function and urine output.
[2020-09-07] MEDS: SODIUM FERRIC GLUCONAT-SUCROSE 125 MG in SODIUM CHLORIDE 0.9% 100 ML IVPB SCH (12:22)
--- NOTE | 2020-09-07 14:50 | P.PN ---
Subjective Progress Note Date: 09/07/20 Principal diagnosis: Anemia, GI bleed A 75-year-old male with multiple medical comorbidities including chronic kidney disease, anemia, and atrial fibrillation on Coumadin therapy who had presented to the hospital due to worsening anemia found in the outpatient setting. At the time of admission the patient denied any rectal bleeding, melena, hematemesis, abdominal pain, nausea, or vomiting. The patient has been followed by hematology and nephrology. Type of admission the patient's INR was elevated and patient was treated with vitamin K. Hemoglobin at admission was 6.2. He is status post 3 units of packed red blood cell transfusion. Yesterday he underwent an upper endoscopy failed multiple scattered angiomas ectasia in the gastric body with oozing status post cautery and Endo Clip placement. He also had moderate to severe duodenitis. Today he reports he has not had a bowel movement, and no rectal bleeding. He is tolerating his regular diet. He denies abdominal pain, nausea, or vomiting. Objective - Vital Signs Vital signs: Vital Signs Temp 98.1 F 09/07/20 14:31 Pulse 53 L 09/07/20 14:31 Resp 16 09/07/20 14:31 BP 129/82 09/07/20 14:31 Pulse Ox 98 09/07/20 14:31 Intake & Output 09/06/20 09/07/20 09/07/20 18:59 06:59 18:59 Intake Total 150 360 200 Output Total 825 Balance 150 -465 200 Weight 91 kg 89.5 kg Intake: IV 150 Oral 360 200 Output: Urine 825 Other: Voiding Method Toilet Toilet # Voids 1 - Exam General appearance: The patient is alert, oriented, in no acute distress. HET: Head is normocephalic and atraumatic. Conjunctiva pink. Sclera anicteric. Neck: Supple without lymphadenopathy. Abdomen: Soft, nontender, nondistended with bowel sounds. No guarding or rigidity. Extremities: Normal skin color and turgor. No pedal edema Neurological: No focal deficits. Alert and oriented 3. - Labs CBC & Chem 7: 09/07/20 06:44 09/07/20 06:44 Labs: Abnormal Lab Results - Last 24 Hours (Table) 09/07/20 09/07/20 Range/Units 06:44 06:44 RBC 2.66 L (4.30-5.90) m/uL Hgb 7.9 L (13.0-17.5) gm/dL Hct 24.7 L (39.0-53.0) % RDW 17.5 H (11.5-15.5) % Lymphocytes # 0.6 L (1.0-4.8) k/uL BUN 88.0 H (9.0-27.0) mg/dL Creatinine 4.3 H (0.6-1.5) mg/dL Est GFR (CKD-EPI)AfAm 14.7 L (60.0-200.0) Est GFR (CKD-EPI)NonAf 12.7 L (60.0-200.0) BUN/Creatinine Ratio 20.47 H (12.00-20.00) Ratio Calcium 8.6 L (8.7-10.3) mg/dL Total Protein 5.8 L (6.2-8.2) g/dL Albumin 3.50 L (3.80-4.90) g/dL Albumin/Globulin Ratio 1.52 L (1.60-3.17) g/dL Assessment and Plan (1) Normocytic hypochromic anemia Narrative/Plan: This is a [age]-year-old male with multiple medical comorbidities including chronic kidney disease, atrial fibrillation on Coumadin therapy and a known history of anemia who presented to the hospital for evaluation of anemia. Prior evaluation March 2019 with EGD showing gastritis and duodenitis, colonoscopy significant for polypectomy and hemorrhoids followed by video capsule endoscopy which were negative for any evidence of bleeding or pathology to explain anemia. Stool testing was positive for occult blood but the patient initially denied any signs or symptoms of GI bleeding. Anemia likely secondary to chronic disease and underlying chronic kidney disease. Current Visit: No Status: Acute Code(s): D50.9 - IRON DEFICIENCY ANEMIA, UNSPECIFIED SNOMED Code(s): 28695172 (2) GI bleed Narrative/Plan: Patient with new onset of symptoms including a large loose black tarry bowel movement this morning. Patient underwent upper endoscopy which revealed m ultiple scattered and she'll ectasia in the gastric body with oozing status post cautery and Endo Clip placement. There was moderate to severe duodenitis. Current Visit: No Status: Acute Code(s): K92.2 - GASTROINTESTINAL HEMORRHAGE, UNSPECIFIED SNOMED Code(s): 90254767 (3) Supratherapeutic INR Current Visit: Yes Status: Acute Code(s): R79.1 - ABNORMAL COAGULATION PROFILE SNOMED Code(s): 705927302 Plan: Supportive care Continue to hold Coumadin Continue Protonix 40 mg twice daily Diet as tolerated Patient is status post EGD Continue to monitor hemoglobin and hematocrit transfuse as needed Continue to follow recommendations from hematology and nephrology We will continue to follow closely . Dr. Suad Merritt I agree with the dictator's note, documented as a scribe by Carlitos Fontana.
--- NOTE | 2020-09-07 17:55 | P.PN ---
Subjective Progress Note Date: 09/07/20 Principal diagnosis: Renal Failure Status Post EGD with evidence of AVMs and GI blood loss, Parental Iron Ordered. Objective - Vital Signs Vital signs: Vital Signs Temp 98.2 F 09/07/20 07:47 Pulse 60 09/07/20 07:47 Resp 18 09/07/20 07:47 BP 145/64 09/07/20 07:47 Pulse Ox 97 09/07/20 07:47 Intake & Output 09/06/20 09/07/20 09/07/20 18:59 06:59 18:59 Intake Total 150 360 200 Output Total 825 Balance 150 -465 200 Weight 91 kg 89.5 kg Intake: IV 150 Oral 360 200 Output: Urine 825 Other: Voiding Method Toilet Toilet # Voids 1 - Exam - Constitutional General appearance: no acute distress - EENT Eyes: EOMI, PERRLA ENT: hearing grossly normal, normal oropharynx - Neck Neck: no lymphadenopathy Thyroid: bilateral: normal size - Respiratory Respiratory: bilateral: CTA - Cardiovascular Rhythm: regular Heart sounds: normal: S1, S2 - Gastrointestinal General gastrointestinal: normal bowel sounds, soft - Integumentary Scattered bruising on upper extremities, most prominent right upper arm at site of IV - Neurologic Neurologic: CNII-XII intact - Musculoskeletal Musculoskeletal: generalized weakness, strength equal bilaterally - Psychiatric Psychiatric: A&O x's 3, appropriate affect - Labs CBC & Chem 7: 09/07/20 06:44 09/07/20 06:44 Labs: Abnormal Lab Results - Last 24 Hours (Table) 09/07/20 09/07/20 Range/Units 06:44 06:44 RBC 2.66 L (4.30-5.90) m/uL Hgb 7.9 L (13.0-17.5) gm/dL Hct 24.7 L (39.0-53.0) % RDW 17.5 H (11.5-15.5) % Lymphocytes # 0.6 L (1.0-4.8) k/uL BUN 88.0 H (9.0-27.0) mg/dL Creatinine 4.3 H (0.6-1.5) mg/dL Est GFR (CKD-EPI)AfAm 14.7 L (60.0-200.0) Est GFR (CKD-EPI)NonAf 12.7 L (60.0-200.0) BUN/Creatinine Ratio 20.47 H (12.00-20.00) Ratio Calcium 8.6 L (8.7-10.3) mg/dL Total Protein 5.8 L (6.2-8.2) g/dL Albumin 3.50 L (3.80-4.90) g/dL Albumin/Globulin Ratio 1.52 L (1.60-3.17) g/dL Assessment and Plan Plan: Comments: EGD and colonoscopy operative report reviewed. 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 Discussed plan with patient and will re-initiate Iron while inpatient He will continue to follow-up for selene ivy after discharge
--- NOTE | 2020-09-07 18:44 | P.PN ---
Subjective Progress Note Date: 09/07/20 Mainor Fierro is a 75-year-old patient of Dr. Faith who presented to [facility] emergency room with a chief complaint of anemia, he was evaluated in the emergency room, his vital examination on presentation revealed a temperature of 97.0 pulse 66 respiration 18 blood pressure 172/75 pulse ox 94% on room air , he had significant anemia with hemoglobin down to 6.2 he has a known history of chronic kidney disease stage IV, he also has a known history of atrial fibrillation maintained on Coumadin, his INR was elevated on presentation at 5.8, patient was given vitamin K in the emergency room . stools Hemoccult was positive, kidney function revealed a BUN of 89 and creatinine of 3.67 . 1 unit of red blood cell transfusion was ordered, patient was admitted to telemetry floor for further evaluation. On arrival to the floor patient was having significant elevation in his blood pressure, he was complaining of shortness of breath, he was also complaining of bilateral lower extremity edema, he denies having any significant gastrointestinal bleeding. On 08/31/2020 patient was seen and examined on the medical floor he is alert and oriented 3 in no apparent distress there is no fever or chills no headache or dizziness no chest pain no shortness of breath no cough no nausea or vomiting no abdominal pain no diarrhea no burning with urination no frequency or urgency and no hematuria, hemoglobin is down again to 6.4 patient will receive 1 more unit of red blood cell transfusion INR is down to 1.6 awaiting recommendation from gastroenterology On 09/01/2020 patient was seen and examined on the medical floor, input from gastroenterology and nephrology reviewed, patient is alert and oriented 3 in no apparent distress he is complaining of constipation otherwise he denies any complaints there is no fever or chills no headache or dizziness no chest pain no shortness of breath no cough no nausea or vomiting no abdominal pain no diarrhea no blood in the stools no burning with urination no frequency or urgency and no hematuria hemoglobin is still low at 7.2 INR 1.4 BUN is 79 and creatinine 4.03 On 09/02/2020 patient was seen and examined on the medical floor he is alert and oriented 3 in no apparent distress he is complaining of generalized weakness otherwise he denies any complaints there is no fever or chills no headache or dizziness no chest pain no shortness of breath no cough no nausea or vomiting no abdominal pain no diarrhea and no urinary symptoms. On 09/04/2020 and oriented 3. Hemoglobin coming back at 6.8 this AM. Will transfuse 1 unit of PRBCs and reconsult oncology, GI and nephrology services to reevaluate patient. Patient denies any acute complaints. Patient denies any signs of bleeding. Patient denies nausea vomiting or diarrhea. Patient denies chest pain or shortness breath. On 09/05/2020 and oriented 3. Hemoglobin is 8.2 GI and nephrology services to reevaluate patient. Patient denies any acute complaints. Patient denies any signs of bleeding. Patient denies nausea vomiting or diarrhea. Patient denies chest pain or shortness breath. patient evaluated by GI he is scheduled for EGD in am tomorrow On 09/06/2020 patient was seen and examined on the medical floor he is alert and oriented 3 in no apparent distress he is scheduled for EGD today hemoglobin is stable at 8.3 there is no fever or chills no headache or dizziness no chest pain no shortness of breath no cough no nausea or vomiting no abdominal pain no di arrhea no burning with urination no frequency or urgency and no hematuria On 09/07/2020 patient was seen and examined on the medical floor he is alert and oriented 3 in no apparent distress hemoglobin is down to 7.9 today patient is complaining of generalized weakness otherwise he denies any complaints there is no fever or chills no headache or dizziness no chest pain no shortness of breath no cough no nausea or vomiting no abdominal pain no diarrhea and no urinary symptoms Objective - Vital Signs Vital signs: Vital Signs Temp 97.7 F 09/07/20 16:11 Pulse 58 L 09/07/20 17:26 Resp 18 09/07/20 16:11 BP 140/65 09/07/20 17:26 Pulse Ox 97 09/07/20 16:11 Intake & Output 09/06/20 09/07/20 09/07/20 18:59 06:59 18:59 Intake Total 150 360 200 Output Total 825 Balance 150 -465 200 Weight 91 kg 89.5 kg Intake: IV 150 Oral 360 200 Output: Urine 825 Other: Voiding Method Toilet Toilet # Voids 1 1 - Exam In general patient is alert and oriented 3 in no apparent distress HEENT head normocephalic and atraumatic Neck is supple no JVD no goiter no lymphadenopathy Chest exam reveals a few scattered crackles bilaterally no wheezing Cardiac exam reveals regular heart sounds no gallops no murmurs Abdomen is soft nontender no organomegaly was normal bowel sounds Extremity exam reveals 2+ edema no cyanosis or clubbing Neurological examination reveals no gross focal deficits - Labs CBC & Chem 7: 09/07/20 06:44 09/07/20 06:44 Labs: Abnormal Lab Results - Last 24 Hours (Table) 09/07/20 09/07/20 Range/Units 06:44 06:44 RBC 2.66 L (4.30-5.90) m/uL Hgb 7.9 L (13.0-17.5) gm/dL Hct 24.7 L (39.0-53.0) % RDW 17.5 H (11.5-15.5) % Lymphocytes # 0.6 L (1.0-4.8) k/uL BUN 88.0 H (9.0-27.0) mg/dL Creatinine 4.3 H (0.6-1.5) mg/dL Est GFR (CKD-EPI)AfAm 14.7 L (60.0-200.0) Est GFR (CKD-EPI)NonAf 12.7 L (60.0-200.0) BUN/Creatinine Ratio 20.47 H (12.00-20.00) Ratio Calcium 8.6 L (8.7-10.3) mg/dL Total Protein 5.8 L (6.2-8.2) g/dL Albumin 3.50 L (3.80-4.90) g/dL Albumin/Globulin Ratio 1.52 L (1.60-3.17) g/dL Assessment and Plan Plan: 1. Severe anemia, 09/04/2020 hemoglobin 6.8. 1 unit of PRBCs has been ordered for total of 3 units this admission 2. Heme positive stools possible gastrointestinal bleeding will monitor closely 3. Coagulopathy INR is elevated patient received vitamin K in the emergency room will recheck INR closely 4. Underlying history of atrial fibrillation maintained on Coumadin 5. Underlying history of chronic kidney disease stage IV possibly contributing to anemia, Will consult nephrology for possible Procrit injections 6. Underlying history of hypertension there is evidence of hypertensive emergency on presentation home medications were reordered, will add IV Demadex and IV hydralazine when necessary Coumadin currently on hold due to anemia GI, oncology and nephrology services have been reconsulted Repeat labs ordered transfuse 1 unit of PRBCs
[2020-09-08] MEDS: SEVELAMER 800 MG TAB PO SCH (07:33)
[2020-09-08] MEDS: carvediloL 12.5 MG TAB PO SCH ×2 (07:33→16:40)
[2020-09-08] MEDS: ATORVASTATIN 40 MG TAB PO SCH (07:33)
[2020-09-08] MEDS: allopurinoL 100 MG TAB PO SCH (07:33)
[2020-09-08] MEDS: NIFEdipine XL 90 MG TAB.ER.24 PO SCH (07:34)
[2020-09-08] MEDS: ISOSORBIDE MONONITRATE ER 30 MG TAB.ER.24H PO SCH ×2 (07:34→21:30)
[2020-09-08] MEDS: SODIUM BICARBONATE TAB 650 MG TAB PO SCH (07:34)
[2020-09-08] MEDS: hydrALAZINE HCL 50 MG TAB PO SCH ×3 (07:34→21:31)
[2020-09-08] MEDS: SODIUM FERRIC GLUCONAT-SUCROSE 125 MG in SODIUM CHLORIDE 0.9% 100 ML IVPB SCH (08:54)
[2020-09-08 09:56] LABS: % Iron Saturation 40.25 (15.00-50.00); African American GFR (CKD) 13.9 (60.0-200.0); Albumin 3.4 g/dL (3.80-4.90); Albumin/Globulin Ratio 1.55 (1.60-3.17); Anion Gap 10.9 mmol/L (4.00-12.00); BUN/Creat Ratio 20.89 Ratio (12.00-20.00); Calcium 8.3 mg/dL (8.7-10.3); Carbon Dioxide 21.1 mmol/L (21.6-31.8); Globulin 2.2 g/dL (1.6-3.3); Potassium 4.9 mmol/L (3.5-5.5); Total Bilirubin 0.2 mg/dL (0.3-1.2); Total Protein 5.6 g/dL (6.2-8.2)
[2020-09-08] MEDS ORDERED: TORSEMIDE 20 MG TAB PO SCH (12:00)
--- NOTE | 2020-09-08 15:13 | P.PN ---
Subjective Patient seen in follow-up for acute kidney injury on chronic kidney disease. Patient has chronic kidney disease stage IV/5. Hemoglobin 7.9 as of yesterday. He did receive blood transfusions this admission. Denies melena or hematochezia. Vital signs are stable. General: The patient appeared well nourished and normally developed. HEENT: Head exam is unremarkable. Neck is without jugular venous distension. LUNGS: Breath sounds decreased. HEART: Rate and Rhythm are regular. ABDOMEN: Soft, nontender. EXTREMITITES: No edema. Objective - Vital Signs Vital signs: Vital Signs Temp 97.9 F 09/08/20 11:48 Pulse 84 09/08/20 11:48 Resp 17 09/08/20 11:48 BP 144/55 09/08/20 11:48 Pulse Ox 97 09/08/20 11:48 Intake & Output 09/07/20 09/08/20 09/08/20 18:59 06:59 18:59 Intake Total 200 Balance 200 Weight 89.5 kg 91 kg Intake: Oral 200 Other: Voiding Method Toilet Toilet # Voids 1 0 # Bowel Movements 1 - Labs CBC & Chem 7: 09/07/20 06:44 09/08/20 06:04 Labs: Abnormal Lab Results - Last 24 Hours (Table) 09/08/20 Range/Units 06:04 Carbon Dioxide 21.1 L (21.6-31.8) mmol/L BUN 94.0 H (9.0-27.0) mg/dL Creatinine 4.5 H (0.6-1.5) mg/dL Est GFR (CKD-EPI)AfAm 13.9 L (60.0-200.0) Est GFR (CKD-EPI)NonAf 12.0 L (60.0-200.0) BUN/Creatinine Ratio 20.89 H (12.00-20.00) Ratio Calcium 8.3 L (8.7-10.3) mg/dL Total Bilirubin 0.2 L (0.3-1.2) mg/dL Total Protein 5.6 L (6.2-8.2) g/dL Albumin 3.40 L (3.80-4.90) g/dL Albumin/Globulin Ratio 1.55 L (1.60-3.17) g/dL Assessment and Plan Plan: Assessment: 1. Acute kidney injury secondary to ATN secondary to acute blood loss anemia. Creatinine 4.5 today. 2. 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 3. Acute blood loss anemia status post blood transfusion. Maintained on Aranesp. Status post EGD on September 06 which revealed multiple scattered angiectasia is with oozing status post cautery and Endo Clip placement. Also noted to have moderate to severe duodenitis. 4. Coagulopathy status post vitamin K. 5. Hypertension with chronic kidney disease. Stable. 6. Metabolic acidosis secondary to chronic kidney disease. Maintained on oral bicarbonate. 7. Chronic kidney disease mineral bone disease maintained on Renvela. Plan: Avoid nephrotoxins. No urgent need for renal replacement therapy at this time. Patient will follow-up with vascular surgery outpatient for AV graft placement which will be ready to be used in about 2 weeks after surgery. Continue to monitor renal function and urine output. Anticipate discharge soon. Follow up outpatient in 1-2 weeks
--- NOTE | 2020-09-08 15:55 | P.PN ---
Subjective Progress Note Date: 09/08/20 Principal diagnosis: Anemia, GI bleed A 75-year-old male with multiple medical comorbidities including chronic kidney disease, anemia, and atrial fibrillation on Coumadin therapy who had presented to the hospital due to worsening anemia found in the outpatient setting. At the time of admission the patient denied any rectal bleeding, melena, hematemesis, abdominal pain, nausea, or vomiting. The patient has been followed by hematology and nephrology. Type of admission the patient's INR was elevated and patient was treated with vitamin K. Hemoglobin at admission was 6.2. He is status post 3 units of packed red blood cell transfusion. He underwent an upper endoscopy with things that included multiple scattered angiectasia in the gastric body with oozing status post cautery and Endo Clip placement. He also had moderate to severe duodenitis. Today he reports he a normal brown bowel movement with no signs of blood or rectal bleeding. He is tolerating his regular diet. He denies abdominal pain, nausea, or vomiting. Objective - Vital Signs Vital signs: Vital Signs Temp 97.9 F 09/08/20 07:52 Pulse 97 09/08/20 08:15 Resp 18 09/08/20 08:15 BP 147/58 09/08/20 07:52 Pulse Ox 95 09/08/20 02:50 Intake & Output 09/07/20 09/08/20 09/08/20 18:59 06:59 18:59 Intake Total 200 Balance 200 Weight 89.5 kg 91 kg Intake: Oral 200 Other: Voiding Method Toilet Toilet # Voids 1 0 - Exam General appearance: The patient is alert, oriented, in no acute distress. HET: Head is normocephalic and atraumatic. Conjunctiva pink. Sclera anicteric. Neck: Supple without lymphadenopathy. Abdomen: Soft, nontender, nondistended with bowel sounds. No guarding or rigidity. Extremities: Normal skin color and turgor. No pedal edema Neurological: No focal deficits. Alert and oriented 3. - Labs CBC & Chem 7: 09/07/20 06:44 09/08/20 06:04 Labs: Abnormal Lab Results - Last 24 Hours (Table) 09/08/20 Range/Units 06:04 Carbon Dioxide 21.1 L (21.6-31.8) mmol/L BUN 94.0 H (9.0-27.0) mg/dL Creatinine 4.5 H (0.6-1.5) mg/dL Est GFR (CKD-EPI)AfAm 13.9 L (60.0-200.0) Est GFR (CKD-EPI)NonAf 12.0 L (60.0-200.0) BUN/Creatinine Ratio 20.89 H (12.00-20.00) Ratio Calcium 8.3 L (8.7-10.3) mg/dL Total Bilirubin 0.2 L (0.3-1.2) mg/dL Total Protein 5.6 L (6.2-8.2) g/dL Albumin 3.40 L (3.80-4.90) g/dL Albumin/Globulin Ratio 1.55 L (1.60-3.17) g/dL Assessment and Plan (1) Normocytic hypochromic anemia Narrative/Plan: This is a [age]-year-old male with multiple medical comorbidities including chronic kidney disease, atrial fibrillation on Coumadin therapy and a known history of anemia who presented to the hospital for evaluation of anemia. Prior evaluation March 2019 with EGD showing gastritis and duodenitis, colonoscopy significant for polypectomy and hemorrhoids followed by video capsule endoscopy which were negative for any evidence of bleeding or pathology to explain anemia. Stool testing was positive for occult blood but the patient initially denied any signs or symptoms of GI bleeding. Anemia likely secondary to chronic disease and underlying chronic kidney disease. Current Visit: No Status: Acute Code(s): D50.9 - IRON DEFICIENCY ANEMIA, UNSPECIFIED SNOMED Code(s): 72409719 (2) GI bleed Narrative/Plan: Patient with new onset of symptoms including a large loose black tarry bowel movement this morning. Patient underwent upper endoscopy which revealed multiple scattered and she'll ectasia in the gastric body with oozing status post cautery and Endo Clip placement. There was moderate to severe duodenitis. The patient had a bowel movement today he noted was brown, with no rectal bleeding or melena. Current Visit: No Status: Acute Code(s): K92.2 - GASTROINTESTINAL HEMORRHAGE, UNSPECIFIED SNOMED Code(s): 21662234 (3) Supratherapeutic INR Current Visit: Yes Status: Acute Code(s): R79.1 - ABNORMAL COAGULATION PROFILE SNOMED Code(s): 022555062 Plan: Supportive care May restart anticoagulation therapy Continue Protonix 40 mg twice daily Diet as tolerated Patient is status post EGD Continue to monitor hemoglobin and hematocrit transfuse as needed Continue to follow recommendations from hematology and nephrology We will continue to follow closely . Dr. Suad Merritt I agree with the dictator's note, documented as a scribe by Carlitos Fontana.
[2020-09-08 16:59] LABS: Anisocytosis Slight; Basophils # (A) 0.1 k/uL (0-0.2); Basophils % (A) 2 %; Eosinophils # (A) 0.2 k/uL (0-0.7); Eosinophils % (A) 4 %; HCT 25.2 % (39.0-53.0); HGB 7.7 gm/dL (13.0-17.5); Hypochromasia Marked; Lymphocytes # (A) 0.6 k/uL (1.0-4.8); Lymphocytes % (A) 12 %; MCH 28.9 pg (25.0-35.0); MCHC 30.5 g/dL (31.0-37.0); MCV 94.9 fL (80.0-100.0); Mean Platelet Volume 9.4; Monocytes # (A) 0.6 k/uL (0-1.0); Monocytes % (A) 10 %; Neutrophils # (A) 3.9 k/uL (1.3-7.7); Neutrophils % (A) 71 %; Platelet Count 264 k/uL (150-450); RBC 2.66 m/uL (4.30-5.90); RDW 17.4 % (11.5-15.5); WBC 5.5 k/uL (3.8-10.6)
--- NOTE | 2020-09-08 18:43 | P.PN ---
Subjective Progress Note Date: 09/08/20 Mainor Fierro is a 75-year-old patient of Dr. Faith who presented to [facility] emergency room with a chief complaint of anemia, he was evaluated in the emergency room, his vital examination on presentation revealed a temperature of 97.0 pulse 66 respiration 18 blood pressure 172/75 pulse ox 94% on room air , he had significant anemia with hemoglobin down to 6.2 he has a known history of chronic kidney disease stage IV, he also has a known history of atrial fibrillation maintained on Coumadin, his INR was elevated on presentation at 5.8, patient was given vitamin K in the emergency room . stools Hemoccult was positive, kidney function revealed a BUN of 89 and creatinine of 3.67 . 1 unit of red blood cell transfusion was ordered, patient was admitted to telemetry floor for further evaluation. On arrival to the floor patient was having significant elevation in his blood pressure, he was complaining of shortness of breath, he was also complaining of bilateral lower extremity edema, he denies having any significant gastrointestinal bleeding. On 08/31/2020 patient was seen and examined on the medical floor he is alert and oriented 3 in no apparent distress there is no fever or chills no headache or dizziness no chest pain no shortness of breath no cough no nausea or vomiting no abdominal pain no diarrhea no burning with urination no frequency or urgency and no hematuria, hemoglobin is down again to 6.4 patient will receive 1 more unit of red blood cell transfusion INR is down to 1.6 awaiting recommendation from gastroenterology On 09/01/2020 patient was seen and examined on the medical floor, input from gastroenterology and nephrology reviewed, patient is alert and oriented 3 in no apparent distress he is complaining of constipation otherwise he denies any complaints there is no fever or chills no headache or dizziness no chest pain no shortness of breath no cough no nausea or vomiting no abdominal pain no diarrhea no blood in the stools no burning with urination no frequency or urgency and no hematuria hemoglobin is still low at 7.2 INR 1.4 BUN is 79 and creatinine 4.03 On 09/02/2020 patient was seen and examined on the medical floor he is alert and oriented 3 in no apparent distress he is complaining of generalized weakness otherwise he denies any complaints there is no fever or chills no headache or dizziness no chest pain no shortness of breath no cough no nausea or vomiting no abdominal pain no diarrhea and no urinary symptoms. On 09/04/2020 and oriented 3. Hemoglobin coming back at 6.8 this AM. Will transfuse 1 unit of PRBCs and reconsult oncology, GI and nephrology services to reevaluate patient. Patient denies any acute complaints. Patient denies any signs of bleeding. Patient denies nausea vomiting or diarrhea. Patient denies chest pain or shortness breath. On 09/05/2020 and oriented 3. Hemoglobin is 8.2 GI and nephrology services to reevaluate patient. Patient denies any acute complaints. Patient denies any signs of bleeding. Patient denies nausea vomiting or diarrhea. Patient denies chest pain or shortness breath. patient evaluated by GI he is scheduled for EGD in am tomorrow On 09/06/2020 patient was seen and examined on the medical floor he is alert and oriented 3 in no apparent distress he is scheduled for EGD today hemoglobin is stable at 8.3 there is no fever or chills no headache or dizziness no chest pain no shortness of breath no cough no nausea or vomiting no abdominal pain no di arrhea no burning with urination no frequency or urgency and no hematuria On 09/07/2020 patient was seen and examined on the medical floor he is alert and oriented 3 in no apparent distress hemoglobin is down to 7.9 today patient is complaining of generalized weakness otherwise he denies any complaints there is no fever or chills no headache or dizziness no chest pain no shortness of breath no cough no nausea or vomiting no abdominal pain no diarrhea and no urinary symptoms On 09/08/2020 patient was seen and examined on the medical floor he is alert and oriented 3 in no apparent distress there is no fever or chills no headache or dizziness no chest pain no shortness of breath no cough no nausea or vomiting no abdominal pain no diarrhea no blood in in the stools no burning with urination no frequency or urgency and no hematuria Objective - Vital Signs Vital signs: Vital Signs Temp 97.9 F 09/08/20 11:48 Pulse 84 09/08/20 11:48 Resp 17 09/08/20 11:48 BP 144/55 09/08/20 11:48 Pulse Ox 97 09/08/20 11:48 Intake & Output 09/07/20 09/08/20 09/08/20 18:59 06:59 18:59 Intake Total 200 Balance 200 Weight 89.5 kg 91 kg Intake: Oral 200 Other: Voiding Method Toilet Toilet # Voids 1 0 # Bowel Movements 1 - Exam In general patient is alert and oriented 3 in no apparent distress HEENT head normocephalic and atraumatic Neck is supple no JVD no goiter no lymphadenopathy Chest exam reveals a few scattered crackles bilaterally no wheezing Cardiac exam reveals regular heart sounds no gallops no murmurs Abdomen is soft nontender no organomegaly was normal bowel sounds Extremity exam reveals 2+ edema no cyanosis or clubbing Neurological examination reveals no gross focal deficits - Labs CBC & Chem 7: 09/08/20 06:02 09/08/20 06:04 Labs: Abnormal Lab Results - Last 24 Hours (Table) 09/08/20 09/08/20 Range/Units 06:02 06:04 RBC 2.66 L (4.30-5.90) m/uL Hgb 7.7 L (13.0-17.5) gm/dL Hct 25.2 L (39.0-53.0) % MCHC 30.5 L (31.0-37.0) g/dL RDW 17.4 H (11.5-15.5) % Lymphocytes # 0.6 L (1.0-4.8) k/uL Carbon Dioxide 21.1 L (21.6-31.8) mmol/L BUN 94.0 H (9.0-27.0) mg/dL Creatinine 4.5 H (0.6-1.5) mg/dL Est GFR (CKD-EPI)AfAm 13.9 L (60.0-200.0) Est GFR (CKD-EPI)NonAf 12.0 L (60.0-200.0) BUN/Creatinine Ratio 20.89 H (12.00-20.00) Ratio Calcium 8.3 L (8.7-10.3) mg/dL Total Bilirubin 0.2 L (0.3-1.2) mg/dL Total Protein 5.6 L (6.2-8.2) g/dL Albumin 3.40 L (3.80-4.90) g/dL Albumin/Globulin Ratio 1.55 L (1.60-3.17) g/dL Assessment and Plan Plan: 1. Severe anemia, hemoglobin today again down to 7.7 will continue to monitor 2. Heme positive stools possible gastrointestinal bleeding will monitor closely 3. Coagulopathy INR is elevated patient received vitamin K in the emergency trevor m currently patient is off Coumadin 4. Underlying history of atrial fibrillation maintained on Coumadin 5. Underlying history of chronic kidney disease stage IV possibly contributing to anemia, Will consult nephrology for possible Procrit injections 6. Underlying history of hypertension there is evidence of hypertensive emergency on presentation home medications were reordered, will add IV Demadex and IV hydralazine when necessary Coumadin currently on hold due to anemia GI, oncology and nephrology services have been reconsulted Repeat labs ordered transfuse 1 unit of PRBCs
[2020-09-09 06:58] LABS: Anisocytosis Slight; Basophils % (A) 1 %; Eosinophils # (A) 0.2 k/uL (0-0.7); Eosinophils % (A) 3 %; HCT 26.1 % (39.0-53.0); Hypochromasia Marked; Lymphocytes # (A) 0.7 k/uL (1.0-4.8); Lymphocytes % (A) 12 %; MCH 28.4 pg (25.0-35.0); MCHC 30.7 g/dL (31.0-37.0); MCV 92.6 fL (80.0-100.0); Monocytes # (A) 0.6 k/uL (0-1.0); Monocytes % (A) 9 %; Neutrophils # (A) 4.3 k/uL (1.3-7.7); Neutrophils % (A) 73 %; Platelet Count 298 k/uL (150-450); RBC 2.82 m/uL (4.30-5.90); RDW 17.3 % (11.5-15.5); WBC 5.9 k/uL (3.8-10.6)
[2020-09-09] MEDS: carvediloL 12.5 MG TAB PO SCH (08:12)
[2020-09-09] MEDS: SODIUM BICARBONATE TAB 650 MG TAB PO SCH (08:13)
[2020-09-09] MEDS: NIFEdipine XL 90 MG TAB.ER.24 PO SCH (08:13)
[2020-09-09] MEDS: allopurinoL 100 MG TAB PO SCH (08:13)
[2020-09-09] MEDS: ISOSORBIDE MONONITRATE ER 30 MG TAB.ER.24H PO SCH (08:14)
[2020-09-09] MEDS: SEVELAMER 800 MG TAB PO SCH (08:14)
[2020-09-09] MEDS: hydrALAZINE HCL 50 MG TAB PO SCH (08:14)
[2020-09-09] MEDS: ATORVASTATIN 40 MG TAB PO SCH (08:14)
[2020-09-09 09:33] LABS: African American GFR (CKD) 15.1 (60.0-200.0); Albumin 3.6 g/dL (3.80-4.90); Albumin/Globulin Ratio 1.57 (1.60-3.17); Anion Gap 10.7 mmol/L (4.00-12.00); BUN/Creat Ratio 21.43 Ratio (12.00-20.00); Calcium 8.5 mg/dL (8.7-10.3); Carbon Dioxide 22.3 mmol/L (21.6-31.8); Globulin 2.3 g/dL (1.6-3.3); Potassium 4.8 mmol/L (3.5-5.5); Total Bilirubin 0.2 mg/dL (0.2-1.2); Total Protein 5.9 g/dL (6.2-8.2)
[2020-09-09] MEDS ORDERED: polyethylene glycoL 3350 17 GM POWD.PACK PO SCH (10:00)
[2020-09-09] MEDS: SODIUM FERRIC GLUCONAT-SUCROSE 125 MG in SODIUM CHLORIDE 0.9% 100 ML IVPB SCH (10:05)
[2020-09-09 10:25] VITALS: BP 137/58; RESP 17; TEMP 98
[2020-09-09] MEDS ORDERED: SODIUM FERRIC GLUCONAT-SUCROSE 125 MG in SODIUM CHLORIDE 0.9% 100 ML IVPB ONE (10:27)
--- NOTE | 2020-09-09 12:41 | P.PN ---
Subjective Progress Note Date: 09/09/20 Principal diagnosis: Anemia, GI bleed A 75-year-old male with multiple medical comorbidities including chronic kidney disease, anemia, and atrial fibrillation on Coumadin therapy who had presented to the hospital due to worsening anemia found in the outpatient setting. At the time of admission the patient denied any rectal bleeding, melena, hematemesis, abdominal pain, nausea, or vomiting. The patient has been followed by hematology and nephrology. Type of admission the patient's INR was elevated and patient was treated with vitamin K. Hemoglobin at admission was 6.2. He is status post 3 units of packed red blood cell transfusion. He underwent an upper endoscopy with things that included multiple scattered angiectasia in the gastric body with oozing status post cautery and Endo Clip placement. He also had moderate to severe duodenitis. He had a bowel movement yesterday that he reported as brown. No further bowel movements today. He denies any rectal bleeding. He states he feels slightly distended. He states he has a history of constipation. He is tolerating his regular diet. He denies abdominal pain, nausea, or vomiting. Today's hemoglobin is 8.0. His Coumadin remains on hold. Objective - Vital Signs Vital signs: Vital Signs Temp 98.0 F 09/09/20 10:24 Pulse 64 09/09/20 10:24 Resp 17 09/09/20 10:24 BP 137/58 09/09/20 10:24 Pulse Ox 97 09/09/20 10:24 Intake & Output 09/08/20 09/09/20 09/09/20 18:59 06:59 18:59 Weight 91 kg Other: Voiding Method Toilet Toilet Toilet # Voids 1 # Bowel Movements 1 - Exam General appearance: The patient is alert, oriented, in no acute distress. HET: Head is normocephalic and atraumatic. Conjunctiva pink. Sclera anicteric. Neck: Supple without lymphadenopathy. Abdomen: Soft, nontender, nondistended with bowel sounds. No guarding or rigidity. Extremities: Normal skin color and turgor. No pedal edema Neurological: No focal deficits. Alert and oriented 3. - Labs CBC & Chem 7: 09/09/20 06:42 09/09/20 06:42 Labs: Abnormal Lab Results - Last 24 Hours (Table) 09/08/20 09/09/20 09/09/20 Range/Units 06:02 06:42 06:42 RBC 2.66 L 2.82 L (4.30-5.90) m/uL Hgb 7.7 L 8.0 L (13.0-17.5) gm/dL Hct 25.2 L 26.1 L (39.0-53.0) % MCHC 30.5 L 30.7 L (31.0-37.0) g/dL RDW 17.4 H 17.3 H (11.5-15.5) % Lymphocytes # 0.6 L 0.7 L (1.0-4.8) k/uL BUN 90.0 H (9.0-27.0) mg/dL Creatinine 4.2 H (0.6-1.5) mg/dL Est GFR (CKD-EPI)AfAm 15.1 L (60.0-200.0) Est GFR (CKD-EPI)NonAf 13.0 L (60.0-200.0) BUN/Creatinine Ratio 21.43 H (12.00-20.00) Ratio Calcium 8.5 L (8.7-10.3) mg/dL AST 12 L (14-35) U/L Total Protein 5.9 L (6.2-8.2) g/dL Albumin 3.60 L (3.80-4.90) g/dL Albumin/Globulin Ratio 1.57 L (1.60-3.17) g/dL Assessment and Plan (1) Normocytic hypochromic anemia Narrative/Plan: This is a [age]-year-old male with multiple medical comorbidities including chronic kidney disease, atrial fibrillation on Coumadin therapy and a known history of anemia who presented to the hospital for evaluation of anemia. Prior evaluation March 2019 with EGD showing gastritis and duodenitis, colonoscopy significant for polypectomy and hemorrhoids followed by video capsule endoscopy which were negative for any evidence of bleeding or pathology to explain anemia. Stool testing was positive for occult blood but the patient initially denied any signs or symptoms of GI bleeding. Anemia likely secondary to chronic disease and underlying chronic kidney disease. Current Visit: No Status: Acute Code(s): D50.9 - IRON DEFICIENCY ANEMIA, UNSPECIFIED SNOMED Code(s): 70044003 (2) GI bleed Narrative/Plan: Patient with new onset of symptoms including a large loose black tarry bowel movement this morning. Patient underwent upper endoscopy which revealed multiple scattered and she'll ectasia in the gastric body with oozing status post cautery and Endo Clip placement. There was moderate to severe duodenitis. The patient had no further rectal bleeding or melena. Current Visit: No Status: Acute Code(s): K92.2 - GASTROINTESTINAL HEMORRHAGE, UNSPECIFIED SNOMED Code(s): 68919034 (3) Supratherapeutic INR Current Visit: Yes Status: Acute Code(s): R79.1 - ABNORMAL COAGULATION PROFILE SNOMED Code(s): 180994542 Plan: Supportive care May restart anticoagulation therapy Continue Protonix 40 mg twice daily Diet as tolerated Patient is status post EGD Continue to monitor hemoglobin and hematocrit transfuse as needed Continue to follow recommendations from hematology and nephrology We will continue to follow closely . Dr. Suad Merritt I agree with the dictator's note, documented as a scribe by Carlitos Fontana.
--- NOTE | 2020-09-09 13:05 | P.PN ---
Subjective Patient seen in follow-up for acute kidney injury on chronic kidney disease. Patient has chronic kidney disease stage IV/5. Hemoglobin stable at 8 today. He did receive blood transfusions this admission. Denies melena or hematochezia. Vital signs are stable. General: The patient appeared well nourished and normally developed. HEENT: Head exam is unremarkable. Neck is without jugular venous distension. LUNGS: Breath sounds decreased. HEART: Rate and Rhythm are regular. ABDOMEN: Soft, nontender. EXTREMITITES: No edema. Objective - Vital Signs Vital signs: Vital Signs Temp 98.0 F 09/09/20 10:24 Pulse 64 09/09/20 10:24 Resp 17 09/09/20 10:24 BP 137/58 09/09/20 10:24 Pulse Ox 97 09/09/20 10:24 Intake & Output 09/08/20 09/09/20 09/09/20 18:59 06:59 18:59 Weight 91 kg Other: Voiding Method Toilet Toilet Toilet # Voids 1 # Bowel Movements 1 - Labs CBC & Chem 7: 09/09/20 06:42 09/09/20 06:42 Labs: Abnormal Lab Results - Last 24 Hours (Table) 09/08/20 09/09/20 09/09/20 Range/Units 06:02 06:42 06:42 RBC 2.66 L 2.82 L (4.30-5.90) m/uL Hgb 7.7 L 8.0 L (13.0-17.5) gm/dL Hct 25.2 L 26.1 L (39.0-53.0) % MCHC 30.5 L 30.7 L (31.0-37.0) g/dL RDW 17.4 H 17.3 H (11.5-15.5) % Lymphocytes # 0.6 L 0.7 L (1.0-4.8) k/uL BUN 90.0 H (9.0-27.0) mg/dL Creatinine 4.2 H (0.6-1.5) mg/dL Est GFR (CKD-EPI)AfAm 15.1 L (60.0-200.0) Est GFR (CKD-EPI)NonAf 13.0 L (60.0-200.0) BUN/Creatinine Ratio 21.43 H (12.00-20.00) Ratio Calcium 8.5 L (8.7-10.3) mg/dL AST 12 L (14-35) U/L Total Protein 5.9 L (6.2-8.2) g/dL Albumin 3.60 L (3.80-4.90) g/dL Albumin/Globulin Ratio 1.57 L (1.60-3.17) g/dL Assessment and Plan Plan: Assessment: 1. Acute kidney injury secondary to ATN secondary to acute blood loss anemia. Creatinine stable at 4.2 today. 2. 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 3. Acute blood loss anemia status post blood transfusion. Maintained on Aranesp. Status post EGD on September 06 which revealed multiple scattered angiectasia is with oozing status post cautery and Endo Clip placement. Also noted to have moderate to severe duodenitis. 4. Coagulopathy status post vitamin K. 5. Hypertension with chronic kidney disease. Stable. 6. Metabolic acidosis secondary to chronic kidney disease. Maintained on oral bicarbonate. 7. Chronic kidney disease mineral bone disease maintained on Renvela. 8. Monoclonal myopathy. Following with oncology. Plan: Avoid nephrotoxins. No urgent need for renal replacement therapy at this time. Patient will follow-up with vascular surgery outpatient for AV graft placement w hich will be ready to be used in about 2 weeks after surgery. Continue to monitor renal function and urine output. Anticipate discharge soon. Follow up outpatient in 1-2 weeks
--- NOTE | 2020-09-09 13:53 | P.DS ---
Providers Date of admission: 08/30/20 14:25 Expected date of discharge: 09/09/20 Attending physician: Marisel Coyne Consults: 08/30/20 14:24 Consult Physician Routine Consulting Provider: Alex Bill Consult Reason/Comments: anemia, CKD Do you want consulting provider notified?: Yes 08/30/20 18:51 Consult Physician Routine Consulting Provider: Courtney Motta Consult Reason/Comments: CKD stageIV Do you want consulting provider notified?: Yes 09/04/20 10:10 Consult Physician Routine Consulting Provider: Leonel Aragon Consult Reason/Comments: hemoglobin 6.8 Do you want consulting provider notified?: Already Contacted 09/04/20 10:12 Consult Physician Routine Consulting Provider: Fifi Anderson Consult Reason/Comments: hemoglobin Do you want consulting provider notified?: Already Contacted 09/04/20 10:34 Consult Physician Routine Consulting Provider: Reno Santos Consult Reason/Comments: anemia Do you want consulting provider notified?: Yes Primary care physician: Fide Faith Hospital Course: Diagnosis on discharge: 1. Severe anemia, patient underwent EGD during this admission and had evidence of multiple scattered angiectasia with losing with cautery and Endo Clip placement 2. Acute blood loss anemia requiring multiple red blood cell transfusions 3. Coagulopathy INR is elevated patient received vitamin K in the emergency room currently patient is off Coumadin, at the time of discharge patient was resumed on Coumadin at the lower dose of 2 mg daily he should have his INR followed closely. 4. Underlying history of atrial fibrillation maintained on Coumadin 5. Underlying history of chronic kidney disease stage IV possibly contributing to anemia, Will consult nephrology for possible Procrit injections 6. Underlying history of hypertension there is evidence of hypertensive emergency on presentation home medications were reordered, will add IV Demadex and IV hydralazine when necessary Hospital course: Mainor Fierro is a 75-year-old patient of Dr. Faith who presented to [facility] emergency room with a chief complaint of anemia, he was evaluated in the emergency room, his vital examination on presentation revealed a temperature of 97.0 pulse 66 respiration 18 blood pressure 172/75 pulse ox 94% on room air , he had significant anemia with hemoglobin down to 6.2 he has a known history of chronic kidney disease stage IV, he also has a known history of atrial fibrillation maintained on Coumadin, his INR was elevated on presentation at 5.8, patient was given vitamin K in the emergency room . stools Hemoccult was positive, kidney function revealed a BUN of 89 and creatinine of 3.67 . 1 unit of red blood cell transfusion was ordered, patient was admitted to telemetry floor for further evaluation. On arrival to the floor patient was having significant elevation in his blood pressure, he was complaining of shortness of breath, he was also complaining of bilateral lower extremity edema, he denies having any significant gastrointestinal bleeding. On 08/31/2020 patient was seen and examined on the medical floor he is alert and oriented 3 in no apparent distress there is no fever or chills no headache or dizziness no chest pain no shortness of breath no cough no nausea or vomiting no abdominal pain no diarrhea no burning with urination no frequency or urgency and no hematuria, hemoglobin is down again to 6.4 patient will receive 1 more unit of red blood cell transfusion INR is down to 1.6 awaiting recommendation from gastroenterology On 09/01/2020 patient was seen and examined on the medical floor, input from gastroenterology and nephrology reviewed, patient is alert and oriented 3 in no apparent distress he is complaining of constipation otherwise he denies any complaints there is no fever or chills no headache or dizziness no chest pain no shortness of breath no cough no nausea or vomiting no abdominal pain no diarrhea no blood in the stools no burning with urination no frequency or urgency and no hematuria hemoglobin is still low at 7.2 INR 1.4 BUN is 79 and creatinine 4.03 On 09/02/2020 patient was seen and examined on the medical floor he is alert and oriented 3 in no apparent distress he is complaining of generalized weakness otherwise he denies any complaints there is no fever or chills no headache or dizziness no chest pain no shortness of breath no cough no nausea or vomiting no abdominal pain no diarrhea and no urinary symptoms. On 09/04/2020 and oriented 3. Hemoglobin coming back at 6.8 this AM. Will transfuse 1 unit of PRBCs and reconsult oncology, GI and nephrology services to reevaluate patient. Patient denies any acute complaints. Patient denies any signs of bleeding. Patient denies nausea vomiting or diarrhea. Patient denies chest pain or shortness breath. On 09/05/2020 and oriented 3. Hemoglobin is 8.2 GI and nephrology services to reevaluate patient. Patient denies any acute complaints. Patient denies any signs of bleeding. Patient denies nausea vomiting or diarrhea. Patient denies chest pain or shortness breath. patient evaluated by GI he is scheduled for EGD in am tomorrow On 09/06/2020 patient was seen and examined on the medical floor he is alert and oriented 3 in no apparent distress he is scheduled for EGD today hemoglobin is stable at 8.3 there is no fever or chills no headache or dizziness no chest pain no shortness of breath no cough no nausea or vomiting no abdominal pain no diarrhea no burning with urination no frequency or urgency and no hematuria On 09/07/2020 patient was seen and examined on the medical floor he is alert and oriented 3 in no apparent distress hemoglobin is down to 7.9 today patient is complaining of generalized weakness otherwise he denies any complaints there is no fever or chills no headache or dizziness no chest pain no shortness of breath no cough no nausea or vomiting no abdominal pain no diarrhea and no urinary symptoms On 09/08/2020 patient was seen and examined on the medical floor he is alert and oriented 3 in no apparent distress there is no fever or chills no headache or dizziness no chest pain no shortness of breath no cough no nausea or vomiting no abdominal pain no diarrhea no blood in in the stools no burning with urination no frequency or urgency and no hematuria On 09/09/2020 patient was seen and examined on the medical floor he is alert and oriented 3 in no apparent distress no new episodes of diarrhea or melanotic stool hemoglobin is stable at 8 patient wants to go home he was given a dose of IV iron and today he will be discharged home he was told to return to the hospital if having episodes of melanotic stool or shortness of breath or bloody stool or dizziness patient was resumed on Coumadin 2 mg daily which is a lower dose and his home dose prior to admission he should have his PT/INR followed closely. Patient has CK D stage IV he needs to follow-up with nephrology patient understands discharge instructions he will be discharged home today. Patient Condition at Discharge: Serious Plan - Discharge Summary Discharge Rx Participant: No New Discharge Prescriptions: New Darbepoetin Brendan [Aranesp] 60 mcg SQ Q7D syringe Warfarin [Coumadin] 2 mg PO DAILY 30 Days #30 tab Continue Atorvastatin [Lipitor] 40 mg PO DAILY allopurinoL [Zyloprim] 100 mg PO DAILY carvediloL [Coreg*] 12.5 mg PO AC-BID 30 Days #60 tab Isosorbide Mononitrate ER [Imdur] 30 mg PO BID 30 Days #60 tab.er.24h hydrALAZINE HCL [Apresoline] 50 mg PO TID Sodium Bicarbonate Tab 650 mg PO DAILY Torsemide [Demadex] 5 mg PO Q48H Sevelamer Carbonate 800 mg PO DAILY NIFEdipine [Procardia XL] 90 mg PO DAILY Discontinued Aspirin EC [Ecotrin Low Dose] 81 mg PO DAILY Warfarin [Coumadin] 2 mg PO SUTUTHSA Warfarin [Coumadin] 3 mg PO MOWEFR Discharge Medication List Atorvastatin [Lipitor] 40 mg PO DAILY 05/31/16 [History] allopurinoL [Zyloprim] 100 mg PO DAILY 12/20/16 [History] Isosorbide Mononitrate ER [Imdur] 30 mg PO BID 30 Days #60 tab.er.24h 03/18/19 [Rx] carvediloL [Coreg*] 12.5 mg PO AC-BID 30 Days #60 tab 03/18/19 [Rx] hydrALAZINE HCL [Apresoline] 50 mg PO TID 08/25/19 [History] Sodium Bicarbonate Tab 650 mg PO DAILY 03/15/20 [History] Torsemide [Demadex] 5 mg PO Q48H 06/14/20 [History] Sevelamer Carbonate 800 mg PO DAILY 08/16/20 [History] NIFEdipine [Procardia XL] 90 mg PO DAILY 08/30/20 [History] Darbepoetin Brendan [Aranesp] 60 mcg SQ Q7D syringe 09/09/20 [Rx] Warfarin [Coumadin] 2 mg PO DAILY 30 Days #30 tab 09/09/20 [Rx] Follow up Appointment(s)/Referral(s): Fide Faith MD [Primary Care Provider] - 09/15/20 1:00 pm Faina Merritt MD [STAFF PHYSICIAN] - 09/19/20 4:30 pm Leonel Aragon DO [STAFF PHYSICIAN] - 09/15/20 12:20 pm (Will be a phone appt. ) Patient Instructions/Handouts: Chronic Kidney Disease (DC), Anemia (DC), Upper Endoscopy (DC) Activity/Diet/Wound Care/Special Instructions: hold demadex follow up with Vascular surgery for fistula placement activity as tolerated heart healthy diet
[2020-09-09 14:47] VITALS: PULSE 66
--- NOTE | 2020-09-09 16:19 | P.PN ---
Subjective Progress Note Date: 09/09/20 Principal diagnosis: Renal Failure Hemoglobin is stable and improving on Iron, will plan to follow-up in office for continued Parental iron Objective - Vital Signs Vital signs: Vital Signs Temp 98.0 F 09/09/20 10:24 Pulse 66 09/09/20 14:46 Resp 17 09/09/20 10:24 BP 137/58 09/09/20 10:24 Pulse Ox 89 L 09/09/20 14:46 Intake & Output 09/08/20 09/09/20 09/09/20 18:59 06:59 18:59 Weight 91 kg Other: Voiding Method Toilet Toilet Toilet # Voids 1 # Bowel Movements 1 - Exam - Constitutional General appearance: no acute distress - EENT Eyes: EOMI, PERRLA ENT: hearing grossly normal, normal oropharynx - Neck Neck: no lymphadenopathy Thyroid: bilateral: normal size - Respiratory Respiratory: bilateral: CTA - Cardiovascular Rhythm: regular Heart sounds: normal: S1, S2 - Gastrointestinal General gastrointestinal: normal bowel sounds, soft - Integumentary Scattered bruising on upper extremities, most prominent right upper arm at site of IV - Neurologic Neurologic: CNII-XII intact - Musculoskeletal Musculoskeletal: generalized weakness, strength equal bilaterally - Psychiatric Psychiatric: A&O x's 3, appropriate affect - Labs CBC & Chem 7: 09/09/20 06:42 09/09/20 06:42 Labs: Abnormal Lab Results - Last 24 Hours (Table) 09/08/20 09/09/20 09/09/20 Range/Units 06:02 06:42 06:42 RBC 2.66 L 2.82 L (4.30-5.90) m/uL Hgb 7.7 L 8.0 L (13.0-17.5) gm/dL Hct 25.2 L 26.1 L (39.0-53.0) % MCHC 30.5 L 30.7 L (31.0-37.0) g/dL RDW 17.4 H 17.3 H (11.5-15.5) % Lymphocytes # 0.6 L 0.7 L (1.0-4.8) k/uL BUN 90.0 H (9.0-27.0) mg/dL Creatinine 4.2 H (0.6-1.5) mg/dL Est GFR (CKD-EPI)AfAm 15.1 L (60.0-200.0) Est GFR (CKD-EPI)NonAf 13.0 L (60.0-200.0) BUN/Creatinine Ratio 21.43 H (12.00-20.00) Ratio Calcium 8.5 L (8.7-10.3) mg/dL AST 12 L (14-35) U/L Total Protein 5.9 L (6.2-8.2) g/dL Albumin 3.60 L (3.80-4.90) g/dL Albumin/Globulin Ratio 1.57 L (1.60-3.17) g/dL Assessment and Plan Plan: Comments: EGD and colonoscopy operative report reviewed. 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 Discussed plan with patient and will re-initiate Iron while inpatient He will continue to follow-up for selene ivy after discharge See Dr. Bill in 3 weeks to recheck Iron studies
== END 2020-09-09 15:01 | disposition home or self-care (01) | DRG 377 ==
LOC: EC 12:17 → 3SCARD 14:25 → 5NMEDONC 09-02 21:18
PROVIDERS: ADMIT Internal Medicine; ATTEND Internal Medicine
PROC: 30233N1 Transfusion of Nonautologous Red Blood Cells into Peripheral Vein, Percutaneous Approach (ICD-10-PCS; 2020-08-30)
PROC: 0W3P8ZZ Control Bleeding in Gastrointestinal Tract, Via Natural or Artificial Opening Endoscopic (ICD-10-PCS; principal; 2020-09-06 14:10)
PROC: 0DB68ZX Excision of Stomach, Via Natural or Artificial Opening Endoscopic, Diagnostic (ICD-10-PCS; principal; 2020-09-06 14:10)
PROC: 05HD33Z Insertion of Infusion Device into Right Cephalic Vein, Percutaneous Approach (ICD-10-PCS; 2020-09-07)
DX: K31.811 Angiodysplasia of stomach and duodenum with bleeding (principal); N17.0 Acute kidney failure with tubular necrosis; D68.9 Coagulation defect, unspecified; E87.2 Acidosis; I48.19 Other persistent atrial fibrillation; D62 Acute posthemorrhagic anemia; N18.4 Chronic kidney disease, stage 4 (severe); I16.1 Hypertensive emergency; I73.9 Peripheral vascular disease, unspecified; D63.1 Anemia in chronic kidney disease; E83.9 Disorder of mineral metabolism, unspecified; Z20.828 Contact with and (suspected) exposure to other viral communicable diseases; I12.9 Hypertensive chronic kidney disease with stage 1 through stage 4 chronic kidney disease, or unspecified chronic kidney disease; K29.80 Duodenitis without bleeding; D47.2 Monoclonal gammopathy; K21.9 Gastro-esophageal reflux disease without esophagitis; K59.00 Constipation, unspecified; Z79.82 Long term (current) use of aspirin; Z79.01 Long term (current) use of anticoagulants; Z79.899 Other long term (current) drug therapy; Z87.891 Personal history of nicotine dependence; Z86.59 Personal history of other mental and behavioral disorders; Z90.89 Acquired absence of other organs; Z95.828 Presence of other vascular implants and grafts; Z86.010 Personal history of colon polyps; Z98.890 Other specified postprocedural states; Z82.49 Family history of ischemic heart disease and other diseases of the circulatory system; Z80.1 Family history of malignant neoplasm of trachea, bronchus and lung; Z80.3 Family history of malignant neoplasm of breast
CPT/HCPCS: 36410; 36415; 43239; 43255; 43270; 71045; 71046; 76937; 80053; 82272; 82607; 82747; 82784; 83540; 83550; 83735; 83883; 83921; 84100; 84165; 84166; 84484; 85025; 85027; 85610; 85730; 86334; 86850; 86900; 86901; 86920; 87635; 88305; 94760; 96365; 96372; 96375; 99285

== ENCOUNTER → 2020-09-26 | Outpatient (CLI) | payer MEDICARE ==
[2020-09-26 19:55] LABS: Albumin/Globulin Ratio 1.48 (1.60-3.17); Anion Gap 8.6 mmol/L (4.00-12.00); BUN/Creat Ratio 14.5 Ratio (12.00-20.00); Calcium 9.3 mg/dL (8.7-10.3); Carbon Dioxide 26.4 mmol/L (21.6-31.8); Globulin 2.7 g/dL (1.6-3.3); Non-African American GFR(CKD) 13.8 (60.0-200.0); Potassium 4.9 mmol/L (3.5-5.5); Total Bilirubin 0.2 mg/dL (0.2-1.2); Total Protein 6.7 g/dL (6.2-8.2)
== END | disposition home or self-care (01) ==
LOC: LABWHC1 11:09
PROVIDERS: ATTEND Internal Medicine
DX: N18.4 Chronic kidney disease, stage 4 (severe) (principal)
CPT/HCPCS: 36415; 80053

== ENCOUNTER → 2020-10-10 | Outpatient (CLI) | payer MEDICARE ==
[2020-10-10 12:56] LABS: Anisocytosis Slight; Basophils # (A) 0.1 k/uL (0-0.2); Basophils % (A) 1 %; Eosinophils # (A) 0.1 k/uL (0-0.7); Eosinophils % (A) 2 %; HCT 31.2 % (39.0-53.0); Hypochromasia Marked; Lymphocytes # (A) 0.5 k/uL (1.0-4.8); Lymphocytes % (A) 10 %; MCH 29.6 pg (25.0-35.0); MCHC 31.9 g/dL (31.0-37.0); MCV 92.7 fL (80.0-100.0); Mean Platelet Volume 7.7; Monocytes # (A) 0.4 k/uL (0-1.0); Monocytes % (A) 7 %; Neutrophils # (A) 4.3 k/uL (1.3-7.7); Neutrophils % (A) 78 %; Platelet Count 323 k/uL (150-450); RBC 3.37 m/uL (4.30-5.90); RDW 18.5 % (11.5-15.5); WBC 5.5 k/uL (3.8-10.6)
[2020-10-10 13:33] LABS: Appearance,Urine Clear (Clear); Bilirubin,Urine Negative (Negative); Blood,Urine Negative (Negative); Color,Urine Yellow; Glucose,Urine (UA) Negative (Negative); Hyaline Casts,Urine 1 /lpf (0-2); Ketones,Urine Negative (Negative); Leukocyte Esterase,Urine Moderate (Negative); Mucus,Urine Rare /hpf; Nitrite,Urine Negative (Negative); Protein,Urine 2+ (Negative); RBC,Urine 2 /hpf (0-5); Specific Gravity,Urine 1.012 (1.001-1.035); Squamous Epithelial Cell,Urine <1 /hpf (0-4); Urobilinogen,Urine <2.0 mg/dL (<2.0); WBC,Urine 22 /hpf (0-5)
[2020-10-10 20:09] LABS: % Iron Saturation 23.61 (15.00-50.00); African American GFR (CKD) 15.1 (60.0-200.0); Albumin 4.1 g/dL (3.80-4.90); Albumin/Globulin Ratio 1.46 (1.60-3.17); Anion Gap 9.2 mmol/L (4.00-12.00); Calcium 9.3 mg/dL (8.7-10.3); Carbon Dioxide 25.8 mmol/L (21.6-31.8); Ferritin 897.9 ng/mL (22.0-322.0); Globulin 2.8 g/dL (1.6-3.3); Magnesium 1.8 mg/dL (1.5-2.4); Phosphorus 4.6 mg/dL (2.4-5.1); Potassium 4.6 mmol/L (3.5-5.5); Total Bilirubin 0.3 mg/dL (0.2-1.2); Total Protein 6.9 g/dL (6.2-8.2); Uric Acid 6.6 mg/dL (3.7-8.7)
[2020-10-10 21:45] LABS: Urine Creatinine 130.7 mg/dL
== END | disposition home or self-care (01) ==
LOC: LABWHC1 11:28
PROVIDERS: ATTEND Nurse Practitioner Family
DX: N18.4 Chronic kidney disease, stage 4 (severe) (principal); N39.0 Urinary tract infection, site not specified; N25.81 Secondary hyperparathyroidism of renal origin; E55.9 Vitamin D deficiency, unspecified; M10.9 Gout, unspecified; R80.9 Proteinuria, unspecified
CPT/HCPCS: 36415; 80053; 81001; 82043; 82306; 82570; 82728; 83540; 83550; 83735; 83970; 84100; 84550; 85025

== ENCOUNTER → 2020-11-09 | Outpatient (CLI) | payer MEDICARE ==
[2020-11-09 11:54] LABS: Anisocytosis Slight; HCT 34.2 % (39.0-53.0); HGB 10.2 gm/dL (13.0-17.5); Hypochromasia Marked; MCHC 29.9 g/dL (31.0-37.0); MCV 93.7 fL (80.0-100.0); Mean Platelet Volume 7.2; Platelet Count 279 k/uL (150-450); RBC 3.65 m/uL (4.30-5.90); RDW 18.7 % (11.5-15.5); WBC 5.4 k/uL (3.8-10.6)
[2020-11-09 14:17] LABS: Appearance,Urine Clear (Clear); Bilirubin,Urine Negative (Negative); Blood,Urine Negative (Negative); Color,Urine Light Yellow; Glucose,Urine (UA) Negative (Negative); Hyaline Casts,Urine 7 /lpf (0-2); Ketones,Urine Negative (Negative); Leukocyte Esterase,Urine Large (Negative); Mucus,Urine Rare /hpf; Nitrite,Urine Negative (Negative); Protein,Urine 2+ (Negative); RBC,Urine 4 /hpf (0-5); Specific Gravity,Urine 1.009 (1.001-1.035); Squamous Epithelial Cell,Urine 1 /hpf (0-4); Urobilinogen,Urine <2.0 mg/dL (<2.0); WBC,Urine 40 /hpf (0-5)
[2020-11-10 00:02] LABS: Ferritin 423.6 ng/mL (22.0-322.0)
[2020-11-10 00:03] LABS: % Iron Saturation 11.89 (15.00-50.00); Albumin 4.2 g/dL (3.80-4.90); Albumin/Globulin Ratio 1.68 (1.60-3.17); BUN/Creat Ratio 16.32 Ratio (12.00-20.00); Calcium 9.3 mg/dL (8.7-10.3); Globulin 2.5 g/dL (1.6-3.3); Magnesium 2.1 mg/dL (1.5-2.4); Non-African American GFR(CKD) 14.7 (60.0-200.0); Phosphorus 4.5 mg/dL (2.4-5.1); Potassium 5.1 mmol/L (3.5-5.5); Total Bilirubin 0.4 mg/dL (0.2-1.2); Total Protein 6.7 g/dL (6.2-8.2)
== END | disposition home or self-care (01) ==
LOC: LABWHC1 10:53
PROVIDERS: ATTEND Nurse Practitioner Family
DX: N18.4 Chronic kidney disease, stage 4 (severe) (principal); D63.1 Anemia in chronic kidney disease; N39.0 Urinary tract infection, site not specified; N25.81 Secondary hyperparathyroidism of renal origin; E55.9 Vitamin D deficiency, unspecified
CPT/HCPCS: 36415; 80053; 81001; 82306; 82728; 83540; 83550; 83735; 83970; 84100; 84550; 85027

== ENCOUNTER → 2024-01-14 | Day surgery (SDC) | payer MEDICARE ==
[2024-01-14 11:50] VITALS: TEMP 97.9
[2024-01-14 12:22] LABS: Prothrombin Time 11.4 sec (10.0-12.5)
--- NOTE | 2024-01-14 13:05 | P.PCN ---
Date of Procedure: 01/14/24 Preoperative Diagnosis: Left pleural effusion Postoperative Diagnosis: Left pleural effusion Procedure(s) Performed: Left thoracentesis Anesthesia: local Surgeon: Montse Kennedy Estimated Blood Loss (ml): 0 Pathology: other Condition: stable Disposition: same day Operative Findings: A time out was performed and the chest x-ray was reviewed, the appropriate side was confirmed and marked. My hands were washed immediately prior to the procedure. I wore a surgical cap, mask with protective eyewear, sterile gown and sterile gloves throughout the procedure. The patient was prepped and draped in a sterile manner using chlorhexidine scrub after the appropriate level was percussed and confirmed by ultrasound. 1% lidocaine was used to anesthesize the skin, subcutaneous tissue, superior aspect of the rib periosteum and parietal pleura. A finder needle was then introduced over the superior aspect of the rib to locate the pleural fluid; 2colored fluid was aspirated at a depth of approximately 2 cm. A 10-blade scalpel was used to jose the skin at the insertion site. The [id number]-e-Phtzklug needle was then introduced through the skin incision into the pleural space using negative aspiration pressure and the red colometric indicator to confirm appropriate positioning of the needle. The thoracentesis catheter was then threaded without difficulty. 600 ml of turbid colored fluid was removed without difficulty. The catheter was then removed. No immediate complications were noted during the procedure. A post-procedure chest x-ray is pending at the time of this note. The fluid will be sent for studies. Estimated blood loss is 0cc
--- NOTE | 2024-01-14 13:07 | XR ---
EXAMINATION TYPE: XR chest 1V portable DATE OF EXAM: 01/14/2024 COMPARISON: 09/06/2020 INDICATION: Post thoracentesis TECHNIQUE: Single frontal view of the chest is obtained. FINDINGS: The heart size is enlarged. The pulmonary vasculature is somewhat prominent. There is a moderate left pleural effusion. No pneumothorax is evident. IMPRESSION: 1. Moderate left pleural effusion. 2. No pneumothorax postthoracentesis. 3. Cardiomegaly
[2024-01-14 13:09] VITALS: BP 132/65; PULSE 70; RESP 16
[2024-01-15 05:13] LABS: Glucose, BF Source Pleural Fluid; Glucose, Body Fluid 95 mg/dL; LDH, Body Fluid Source Pleural Fluid; T. Protein, Body Fluid Source Pleural Fluid; Total Protein, Body Fluid >3600 mg/dL
[2024-01-15 05:15] LABS: Appearance,BF Clear (Clear)
== END ==
LOC: PROCWHC3 11:13
PROVIDERS: ATTEND Internal Medicine Critical Care Medicine
DX: J90 Pleural effusion, not elsewhere classified (principal); I12.9 Hypertensive chronic kidney disease with stage 1 through stage 4 chronic kidney disease, or unspecified chronic kidney disease; N18.6 End stage renal disease; I48.91 Unspecified atrial fibrillation; D64.9 Anemia, unspecified; J44.9 Chronic obstructive pulmonary disease, unspecified; E78.5 Hyperlipidemia, unspecified; J96.11 Chronic respiratory failure with hypoxia; I73.9 Peripheral vascular disease, unspecified; Z87.891 Personal history of nicotine dependence
CPT/HCPCS: 32554; 36415; 71045; 82945; 83615; 84157; 85610; 87070; 87075; 87116; 87205; 87206; 88108; 88305; 89050

== ENCOUNTER → 2024-01-14 | Outpatient (CLI) | payer MEDICARE ==
--- NOTE | 2024-01-14 19:02 | US ---
EXAMINATION TYPE: US chest DATE OF EXAM: 01/14/2024 COMPARISON: NONE CLINICAL INDICATION: Male, 78 years old with history of J90 PLEURAL EFFUSION; TECHNIQUE: Targeted ultrasound of the posterior lower Left EXAM MEASUREMENTS: Right Pleural Effusion pocket size: 0 cm Right skin surface to fluid distance: 0 cm Left Pleural Effusion pocket size: 5.8 cm Left skin surface to fluid distance: 3.1 cm Left side marked for possible thoracentesis outside the dept. Pulmonologists are able to review the images in the patient?s EMR. IMPRESSIONS: Small left pleural effusion.
== END | disposition home or self-care (01) ==
LOC: RADUSWWP 10:30
PROVIDERS: ATTEND Internal Medicine Critical Care Medicine
DX: J90 Pleural effusion, not elsewhere classified (principal)
CPT/HCPCS: 76604

== ENCOUNTER → 2024-01-21 | Outpatient (CLI) | payer MEDICARE ==
[2024-01-21 11:24] LABS: African American GFR (CKD) 17 (>60 ml/min/1.73 sqM); Blood Urea Nitrogen 42 mg/dL (9-20); Non-African American GFR(CKD) 15 (>60 ml/min/1.73 sqM)
--- NOTE | 2024-01-23 22:47 | CT ---
EXAMINATION TYPE: CT chest wo con DATE OF EXAM: 01/21/2024 COMPARISON: HISTORY: Pleural effusion, no contrast due to poor labs, could not raise arms. CT DLP: 499.6 mGycm, Automated exposure control for dose reduction was used. CONTRAST: Performed injected with mL of . TECHNIQUE: Axial images were obtained at 5 mm thick sections. Reconstructed images are reviewed on [employer] computer in the coronal plane. FINDINGS: Portion of the thyroid visualized is normal. Patchy infiltrates are within the mid and lower lung marroquin. Small left pleural effusion is present. In the lateral right lower lung field 0.7 cm density could be related to infiltrate. Underlying nodul e is not excluded. No enlarged mediastinal or hilar adenopathy is evident. The heart size is enlarged. There is a large pericardial effusion. The ascending aorta diameter at th e level of the main pulmonary artery is 3.3 cm. The main pulmonary artery diameter at the bifurcatio n is 3.[address] sections are obtained through the upper abdomen. Small gallstones may be present. IMPRESSION: 1. Left lower lobe infiltrate. Correlate for atelectasis or pneumonia. Some minimal infiltrate may be in the lateral right lung base. This should be followed to clearing. An underlying nodule on the rig ht is not excluded. 2. Large pericardial effusion. 3. Small left pleural effusion 4. Cholelithiasis
== END | disposition home or self-care (01) ==
LOC: RADCTMAIN 10:29
PROVIDERS: ATTEND Internal Medicine Critical Care Medicine
DX: J90 Pleural effusion, not elsewhere classified (principal); I31.39 Other pericardial effusion (noninflammatory); K80.20 Calculus of gallbladder without cholecystitis without obstruction
CPT/HCPCS: 71250; 82565; 84520

== ENCOUNTER 2024-03-12 15:28 | Inpatient (IN) | payer MEDICARE ==
[2024-03-12] MEDS: SODIUM CHLORIDE 0.9% 1,000 ML IV SCH (16:00)
[2024-03-12 16:26] LABS: INR 1.1 (<1.2); Prothrombin Time 12.1 sec (10.0-12.5)
[2024-03-12 16:30] LABS: African American GFR (CKD) 15 (>60 ml/min/1.73 sqM); Anion Gap 9 mmol/L; Blood Urea Nitrogen 42 mg/dL (9-20); Carbon Dioxide 28 mmol/L (22-30); Chloride 96 mmol/L (98-107); Glucose 94 mg/dL (74-99); Non-African American GFR(CKD) 13 (>60 ml/min/1.73 sqM); Potassium 3.9 mmol/L (3.5-5.1); Sodium 133 mmol/L (137-145)
[2024-03-12 16:45] LABS: Basophils % (A) 0 %; Eosinophils # (A) 0.2 k/uL (0-0.7); Eosinophils % (A) 3 %; HCT 33.5 % (39.0-53.0); HGB 10.6 gm/dL (13.0-17.5); Hypochromasia Slight; Lymphocytes # (A) 0.6 k/uL (1.0-4.8); Lymphocytes % (A) 10 %; MCH 33.5 pg (25.0-35.0); MCHC 31.7 g/dL (31.0-37.0); MCV 105.5 fL (80.0-100.0); Macrocytosis Moderate; Mean Platelet Volume 8.2; Monocytes # (A) 0.4 k/uL (0-1.0); Monocytes % (A) 6 %; Neutrophils # (A) 4.7 k/uL (1.3-7.7); Neutrophils % (A) 79 %; Platelet Count 216 k/uL (150-450); RBC 3.17 m/uL (4.30-5.90); RDW 14.4 % (11.5-15.5); WBC 5.9 k/uL (3.8-10.6)
[2024-03-12] MEDS ORDERED: LIDOCAINE 1% INJ 10MG/ML (20 ML MDV) ONE ×2 (17:58→18:31)
[2024-03-12] MEDS ORDERED: MIDAZOLAM 2 MG/2 ML VIAL ONE (18:03)
[2024-03-12] MEDS ORDERED: fentaNYL (PF) 50 MCG/ML 2 ML AMP ONE (18:03)
[2024-03-12] MEDS ORDERED: PROPOFOL 10 MG/ML 20 ML VIAL IV ONE (18:03)
[2024-03-12] MEDS: LIDOCAINE 1% INJ 10MG/ML (20 ML MDV) SQ ONE (18:28)
[2024-03-12] MEDS ORDERED: ACETAMINOPHEN TAB 325 MG TAB PO PRN (19:34)
--- NOTE | 2024-03-12 19:47 | P.PCN ---
Preoperative Diagnosis: Diagnosis Large pericardial effusion History of large pleural effusion status postthoracentesis Chronic renal failure on dialysis Results Successful drainage of the pericardial fluid greater than 700 cc of serous fluid with a sanguinous tinge Intracardiac echo preprocedure demonstrated a very large pericardial effusion predominantly posterior to the right atrium and the left ventricle and along the apex of the RV Postprocedure greater than 95% resolution of the pericardial fluid Drain in situ within the pericardial space for the next 12 hours Fluid sent for chemistry as well as cultures Details Patient was brought to the EP lab in a fasting state. Written informed consent was obtained prior to the procedure. An 8 Kiswahili sheath was placed placed in the right femoral vein. IV antibiotics were administered A venous sheath was placed in the right femoral vein and intracardiac echo was placed Intracardiac echo revealed normal LV and RV size and function with a large pericardial fluid around the right atrium and the left ventricle and partially around the right ventricle Under local anesthesia subxiphoid approach was used to access the pericardial space. The position of the wire was confirmed in the [place] position, within the pericardial space The tract was dilated and a pigtail catheter was then placed Greater than 700 cc of serous fluid with a sanguinous tinge was drawn When we were almost done fluoroscopy revealed air around the right atrium and the pigtail catheter was positioned on the right lateral side within the pocket of air and the air was withdrawn and aspirated completely and confirmed on fluoroscopy There is no hemodynamic compromise at any point Subsequently the drain was left in situ and sealed to the skin with a stay fix Plan Hold warfarin Continue cardiac medications Hold midodrine Consult nephrology for dialysis tomorrow Consult pulmonary critical care Dr. Jordan. Message sent Removal of drain tomorrow IV antibiotics until then
[2024-03-12 19:56] LABS: Glucose,Whole Blood 96 mg/dL (70-110)
[2024-03-12] MEDS: POTASSIUM CHLORIDE ER 10 MEQ TAB.ER.PRT PO SCH (22:15)
[2024-03-12] MEDS: FOLIC ACID-VIT B COMPLEX-VIT C 1 CAP PO SCH (22:15)
--- NOTE | 2024-03-12 23:17 | XR ---
EXAM: XR chest 1V portable CLINICAL INDICATION:Male, 78 years old with history of Lead placement check; [facility] COMPARISON: 02/11/2024 TECHNIQUE: Chest single view. FINDINGS: Right chest tunneled dialysis catheter with tip over the mid to inferior right atrium. There is a new left chest pigtail catheter which terminates just left of the spine over the mid to lo wer chest, possibly pleural or even pericardial depending on clinical correlation. Cardiomediastinal silhouette is grossly similar, cardiac silhouette is enlarged which may be from car diomegaly and/or PC effusion. Similar left sided opacities in the mid to lower lung zones with obscuration of the costophrenic angl e, likely a moderate sized pleural effusion with adjacent atelectasis. A large bore left chest tube i s not identified. No visualized pneumothorax. Slightly increased interstitial and patchy alveolar opacities suggested over the aerated lungs bilate rally. No acute osseous pathology is seen. Diffuse degenerative changes. IMPRESSION: 1. Enlarged cardiac silhouette with moderate left pleural effusion, similar to prior. 2. New pigtail catheter on the left, projects just to the left of the spine in the mid to lower ches t. 3. Slightly increased interstitial and alveolar opacities bilaterally, likely edema with superimpose d infectious process not excluded.
[2024-03-13 04:33] LABS: HCT 32.2 % (39.0-53.0); HGB 10.1 gm/dL (13.0-17.5); Hypochromasia Moderate; MCH 33.7 pg (25.0-35.0); MCHC 31.3 g/dL (31.0-37.0); MCV 107.6 fL (80.0-100.0); Macrocytosis Moderate; Mean Platelet Volume 7.9; Platelet Count 226 k/uL (150-450); RBC 2.99 m/uL (4.30-5.90); RDW 14.1 % (11.5-15.5); WBC 9.8 k/uL (3.8-10.6)
[2024-03-13 04:44] LABS: African American GFR (CKD) 15 (>60 ml/min/1.73 sqM); Anion Gap 9 mmol/L; Blood Urea Nitrogen 48 mg/dL (9-20); Calcium 8.8 mg/dL (8.4-10.2); Carbon Dioxide 27 mmol/L (22-30); Chloride 98 mmol/L (98-107); Glucose 96 mg/dL (74-99); Non-African American GFR(CKD) 13 (>60 ml/min/1.73 sqM); Sodium 134 mmol/L (137-145)
[2024-03-13] MEDS: carvediloL 12.5 MG TAB PO SCH (06:51)
[2024-03-13] MEDS: SEVELAMER 800 MG TAB PO SCH (06:51)
[2024-03-13] MEDS: ATORVASTATIN 40 MG TAB PO SCH (09:09)
[2024-03-13] MEDS: allopurinoL 100 MG TAB PO SCH (09:09)
--- NOTE | 2024-03-13 10:25 | P.NPCON ---
History of Present Illness - Reason for Consult end stage renal disease - History of Present Illness Reason for consultation: End-stage renal disease History of present illness: Patient is a 78-year-old male seen in renal consultation for end-stage renal disease. He is maintained on home hemodialysis. Patient was noted to have a large pericardial effusion and underwent pericardiocentesis March 12, 2024. Patient does home hemodialysis 4 times a week and last treatment was on Saturday. Patient is on home oxygen and is currently on 2 L nasal cannula. Hemodynamically stable. Denies history of diabetes. No history of coronary artery disease. He does have peripheral arterial disease with iliac stents. No fever or chills. No nausea vomiting or diarrhea. No chest pain or shortness of breath. Vital signs are stable. General: No acute distress. HEENT: Head exam is unremarkable. On nasal cannula. LUNGS: No audible rhonchi or wheezes. HEART: Rate and Rhythm are regular. ABDOMEN: Nontender. EXTREMITITES: 1+ edema. Past Medical History Past Medical History: Blood Disorder, GERD/Reflux, Hyperlipidemia, Hypertension, Renal Disease, Skin Disorder, Vascular Disorder Additional Past Medical History / Comment(s): PVD. hemodialysis 4 days a week,. ANEMIA.pleurel effusion. see dr Mena's H & P History of Any Multi-Drug Resistant Organisms: None Reported Past Surgical History: Tonsillectomy Additional Past Surgical History / Comment(s): recent angiogram.thorancentesis angio plasties. ILIAC STENTS.x4. LEFT UPPEr arm shunt non fucntioning now. has hemodyalsis line rt upper chest Past Anesthesia/Blood Transfusion Reactions: No Reported Reaction Past Psychological History: Depression Additional Psychological History / Comment(s): Pt resides with his spouse. He is wheelchair bound Smoking Status: Former smoker Past Alcohol Use History: Occasional Additional Past Alcohol Use History / Comment(s): Pt started smoking in 1965 and quit in 2014. Past Drug Use History: None Reported - Past Family History Mother Family Medical History: Cancer, Congestive Heart Failure (CHF) Additional Family Medical History / Comment(s): Mother was a breast cancer survivor. She also had lung cancer. Father Family Medical History: Hypertension, Myocardial Infarction ([place]), Vascular Disorder Additional Family Medical History / Comment(s): Father 2 weeks after a [place] at the age of 81 yrs. He also had vascular disease. Medications and Allergies Home Medications Medication Instructions Recorded Confirmed Type Atorvastatin [Lipitor] 40 mg PO DAILY 05/31/16 03/12/24 History allopurinoL [Zyloprim] 100 mg PO DAILY 12/20/16 03/12/24 History carvediloL [Coreg*] 12.5 mg PO AC-BID 30 Days #60 tab 03/18/19 03/12/24 Rx Torsemide [Demadex] 5 mg PO Q48H 06/14/20 03/12/24 History Sevelamer Carbonate 800 mg PO DAILY 08/16/20 03/12/24 History Warfarin [Coumadin] 2 mg PO DAILY 30 Days #30 tab 09/09/20 03/12/24 Rx Folic Acid/Vit B Complex and C 1 tab PO DIRECTED 03/10/24 03/12/24 History [Yari-Arin Tablet] Iron Infusion 1 dose IV Q7D 03/10/24 03/12/24 History Midodrine [ProAmatine] 5 mg PO TID PRN 03/10/24 03/10/24 History Potassium Chloride 10 meq PO HS 03/10/24 03/12/24 History Allergies Allergy/AdvReac Type Severity Reaction Status Date / Time No Known Allergies Allergy Verified 03/10/24 11:27 Physical Exam Vitals: Vital Signs Temp Pulse Pulse Resp BP BP Pulse Ox 03/13/24 07:00 90 14 128/62 95 03/13/24 06:00 84 13 139/66 96 03/13/24 05:00 78 26 H 136/69 93 L 03/13/24 04:00 98.4 F 76 21 154/75 95 03/13/24 03:00 90 20 152/69 92 L 03/13/24 02:00 100 28 H 136/73 98 03/13/24 01:00 85 17 144/89 94 L 03/13/24 00:11 80 27 H 96 03/13/24 00:00 97.7 F 83 16 143/59 98 03/12/24 23:00 76 18 151/61 99 03/12/24 22:00 74 23 157/56 99 03/12/24 21:00 71 12 138/57 100 03/12/24 20:00 97.6 F 75 20 128/64 94 L 03/12/24 19:53 18 03/12/24 15:55 97.3 F L 98 16 144/80 93 L Intake and Output 03/12/24 03/13/24 03/13/24 22:59 06:59 14:59 Intake Total 330 100 Output Total 722 0 300 Balance -392 100 -300 Intake: IV 330 100 ceFAZolin 1,000 mg In 100 Sodium Chloride 0.9% 50 ml @ 100 mls/hr IVPB Q6H [facility] Rx#:[id number] Output: Drainage 300 Medial Chest 300 Urine 722 0 0 Other: Weight 91.5 kg 94.3 kg Results - Lab Results Most recent lab results Calcium 8.8 mg/dL (8.4-10.2) 03/13/24 04:00 03/13/24 04:00 03/13/24 04:00 Assessment and Plan Plan: Assessment: 1. End-stage renal disease maintained on home hemodialysis. 2. Pericardial effusion status post pericardiocentesis March 12, 2024. 3. Peripheral arterial disease with interventions in the past. 4. Anemia of chronic kidney disease. 5. Chronic kidney disease mineral bone disease maintained on Renvela. Plan: Hemodialysis today. Potential discharge after dialysis today. Thank you for the consultation. I will continue to follow the patient with you during his hospital stay.
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
[2024-03-13 11:48] LABS: Amylase, Fluid Source Pericardial Fluid; Amylase,Body Fluid 52 U/L; Glucose, Body Fluid 93 mg/dL; Total Protein, Body Fluid >3600 mg/dL
[2024-03-13 14:02] LABS: Appearance,BF Bloody (Clear)
[2024-03-13 18:15] LABS: Hepatitis B Surface Antigen Nonreactive (Nonreactive)
[2024-03-13 18:26] LABS: Hepatitis B Surface AB- Quant 3.5 mIU/mL
[2024-03-13 18:43] VITALS: BP 145/92; PULSE 92; RESP 27; TEMP 98.5
--- NOTE | 2024-03-13 19:18 | P.DS ---
Providers Date of admission: 03/12/24 19:34 Attending physician: Ravi Mena Consults: 03/12/24 19:37 Consult Physician Routine Consulting Provider: Leonel Aragon Consult Reason/Comments: dialysis Do you want consulting provider notified?: Yes, Notify in am 03/12/24 19:40 Consult Physician Routine Consulting Provider: Primitivo Jordan Consult Reason/Comments: pericardial drain, pleuro pericardial effusion Do you want consulting provider notified?: Already Contacted Primary care physician: Fide [facility] Course: Patient is doing well. This morning we removed his pericardial drain. Overnight he had drained about 300+ cc of serous fluid with a sanguinous tinge Vitals have been stable Denies any chest discomfort does not appear to be short of breath denies shortness of breath On examination blood pressure 140/64 mmHg pulse rate is in the 80s and 90s with IVCD Afebrile Breath sounds are reduced bilaterally heart sounds are soft Impression Large pericardial effusion status post percutaneous pericardial drainage 730 cc of serous fluid removed in the EP lab Additional drainage of 300+ cc of serous fluid overnight Pericardial drain removed today Subsequently patient underwent dialysis His blood pressure stable Electrolytes are normal sodium and potassium are normal Creatinine is stable at 4.2 Hemoglobin is stable at 10.1 Plan discharge home today Resume warfarin starting tomorrow Continue carvedilol Continue Demadex Continue atorvastatin Use midodrine only if blood pressures less than 80 mmHg and minimize its use Follow-up next week Follow-up Holter monitor Follow-up 2D echo, limited Plan - Discharge Summary Discharge Rx Participant: No New Discharge Prescriptions: Continue Atorvastatin [Lipitor] 40 mg PO DAILY allopurinoL [Zyloprim] 100 mg PO DAILY carvediloL [Coreg*] 12.5 mg PO AC-BID 30 Days #60 tab Torsemide [Demadex] 5 mg PO Q48H Sevelamer Carbonate 800 mg PO DAILY Warfarin [Coumadin] 2 mg PO DAILY 30 Days #30 tab Midodrine [ProAmatine] 5 mg PO TID PRN PRN Reason: Hypotension Potassium Chloride 10 meq PO HS Folic Acid/Vit B Complex and C [Yari-Arin Tablet] 1 tab PO DIRECTED Iron Infusion 1 dose IV Q7D Discharge Medication List Atorvastatin [Lipitor] 40 mg PO DAILY 05/31/16 [History] allopurinoL [Zyloprim] 100 mg PO DAILY 12/20/16 [History] carvediloL [Coreg*] 12.5 mg PO AC-BID 30 Days #60 tab 03/18/19 [Rx] Torsemide [Demadex] 5 mg PO Q48H 06/14/20 [History] Sevelamer Carbonate 800 mg PO DAILY 08/16/20 [History] Warfarin [Coumadin] 2 mg PO DAILY 30 Days #30 tab 09/09/20 [Rx] Folic Acid/Vit B Complex and C [Yari-Arin Tablet] 1 tab PO DIRECTED 03/10/24 [History] Iron Infusion 1 dose IV Q7D 03/10/24 [History] Midodrine [ProAmatine] 5 mg PO TID PRN 03/10/24 [History] Potassium Chloride 10 meq PO HS 03/10/24 [History] Follow up Appointment(s)/Referral(s): Ravi Mena MD [STAFF PHYSICIAN] - 03/20/24 10:00 am Patient Instructions/Handouts: Pericardial Effusion (DC)
== END 2024-03-13 19:30 | disposition home or self-care (01) | DRG 314 ==
LOC: CATHEP 15:28 → 2SICU 19:24 → CATHEP 19:34
PROVIDERS: ADMIT Internal Medicine Clinical Cardiac Electrophysiology; ATTEND Internal Medicine Clinical Cardiac Electrophysiology
PROC: 0W9D30Z Drainage of Pericardial Cavity with Drainage Device, Percutaneous Approach (ICD-10-PCS; principal; 2024-03-12 18:45)
PROC: 5A1D70Z Performance of Urinary Filtration, Intermittent, Less than 6 Hours Per Day (ICD-10-PCS; 2024-03-13)
DX: I31.39 Other pericardial effusion (noninflammatory) (principal); N18.6 End stage renal disease; I12.0 Hypertensive chronic kidney disease with stage 5 chronic kidney disease or end stage renal disease; J90 Pleural effusion, not elsewhere classified; I48.19 Other persistent atrial fibrillation; Q23.1 Congenital insufficiency of aortic valve; D63.1 Anemia in chronic kidney disease; I73.9 Peripheral vascular disease, unspecified; M89.8X8 Other specified disorders of bone, other site; Z79.01 Long term (current) use of anticoagulants; E78.5 Hyperlipidemia, unspecified; K21.9 Gastro-esophageal reflux disease without esophagitis; Z99.2 Dependence on renal dialysis; Z87.891 Personal history of nicotine dependence; I45.10 Unspecified right bundle-branch block; Z82.49 Family history of ischemic heart disease and other diseases of the circulatory system; Z99.3 Dependence on wheelchair; I65.29 Occlusion and stenosis of unspecified carotid artery; Z80.3 Family history of malignant neoplasm of breast; Z79.899 Other long term (current) drug therapy
CPT/HCPCS: 71045; 80048; 82150; 82945; 83615; 84157; 85025; 85027; 85610; 86706; 86850; 86900; 86901; 87070; 87205; 87340; 88108; 88305; 89050; 90935

== ENCOUNTER → 2024-05-16 | Outpatient (CLI) | payer MEDICARE ==
--- NOTE | 2024-06-12 21:29 | MR ---
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 IV Contrast: cc 9 cc Gadavist FINDINGS: Reproductive: Prostate: Unremarkable. Seminal vesicle's: Unremarkable. Testes: Unremarkable. The Glans of the penis demonstrates a irregular mass at the glands measuring 49 x 27 x 39 mm Bladder: Unremarkable. Bowel: Unremarkable as visualized. Peritoneum: A small amount of free fluid in the pelvis. Lymph nodes: No evidence of adenopathy. Vasculature: Unremarkable. Musculoskeletal: Bone marrow signal is within normal signal intensity. Abdominal wall/soft tissues: Unremarkable. IMPRESSION: Enhancing soft tissue mass at the glans measuring 49 x 27 x 39 mm. No lymphadenopathy identified.
== END | disposition home or self-care (01) ==
LOC: RADMRIMAIN 14:30
PROVIDERS: ATTEND Urology
DX: C60.9 Malignant neoplasm of penis, unspecified (principal)
CPT/HCPCS: 72197; A9585

== ENCOUNTER → 2024-06-23 | Outpatient (CLI) | payer MEDICARE ==
[2024-06-23 17:09] LABS: Basophils # (A) 0.03 X 10*3/uL (0.00-0.10); Basophils % (A) 0.4 %; Eosinophils # (A) 0.13 X 10*3/uL (0.04-0.35); Eosinophils % (A) 1.8 %; HCT 37.1 % (39.6-50.0); HGB 11.5 g/dL (13.0-17.0); Lymphocytes # (A) 0.38 X 10*3/uL (0.90-5.00); Lymphocytes % (A) 5.3 %; MCH 31.7 pg (27.0-32.0); MCV 102.2 FL (80.0-97.0); Mean Platelet Volume 9.4 FL (9.5-12.2); Monocytes # (A) 0.71 X 10*3/uL (0.20-1.00); Monocytes % (A) 9.8 %; NRBC Per 100 WBC 0 X 10*3/uL (0.00-0.01); Neutrophils # (A) 5.95 X 10*3/uL (1.80-7.70); Neutrophils % (A) 82.4 %; Platelet Count 225 X 10*3/uL (140-440); RBC 3.63 X 10*6/uL (4.40-5.60); RDW 14.6 % (11.5-14.5); WBC 7.22 X 10*3/uL (4.50-10.00)
[2024-06-23 19:08] LABS: BUN/Creat Ratio 8.78 Ratio (12.00-20.00); Calcium 8.9 mg/dL (8.7-10.3); Carbon Dioxide 25.6 mmol/L (21.6-31.8); Chloride 96 mmol/L (96-109); Glucose 97 mg/dL (70-110); Potassium 4.5 mmol/L (3.5-5.5); Sodium 134 mmol/L (135-145)
== END | disposition home or self-care (01) ==
LOC: LABWHC1 12:41
PROVIDERS: ATTEND Urology
DX: C60.9 Malignant neoplasm of penis, unspecified
CPT/HCPCS: 36415; 80048; 85025

== ENCOUNTER 2024-06-30 10:35 | Day surgery (SDC) | payer MEDICARE ==
[2024-06-22 14:20] VITALS: BMI 31.6
--- NOTE | 2024-06-25 09:45 | P.HPIHPCON ---
History of Present Illness H&P Date: 06/25/24 Chief Complaint: Penile mass This is a 79-year-old male with a history of a distal penile mass, an MRI confirmed to be confined to the glans. 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 He is having pain and bleeding secondary to the mass. He is on end-stage renal disease on hemodialysis and makes minimal amount of urine. Discussed with him the option of a distal penectomy. Aware the risk which includes but not limited to bleeding, infection, development of urethral stricture. Discussed also potential of needing additional treatments. Discussed with him given his multiple comorbidities he is at a higher risk of medical complication. He understood all the risk and agreed to proceed Consent for Procedure: I have explained the operation/procedure to the patient, including the risks, benefits, side effects, alternative therapies (including not receiving the proposed treatment or service), the likelihood of the patient achieving his/her goals, and potential recuperation problems for the procedure/sedation/analgesia, as well as any blood products, if indicated. I also explained to the patient the risks, benefits and side effects of the alternatives, as well as the risks related to not receiving the proposed procedure, care, treatment, or services. Past Medical History Past Medical History: Atrial Fibrillation, Blood Disorder, Cancer, COPD, Dial ysis, Eye Disorder, Hearing Disorder / Deafness, Hyperlipidemia, Hypertension, Renal Disease, Vascular Disorder Additional Past Medical History / Comment(s): PVD. ESRD-hemodialysis 4 days a week,. ANEMIA.pleural effusion; Thoracentesis done @ [facility] in January2024 Pericardocentesis [email or web address] ECHO 05/2024. Wears 2L nc at home continously. History of Any Multi-Drug Resistant Organisms: None Reported Past Surgical History: Tonsillectomy Additional Past Surgical History / Comment(s): Angiogram.thorancentesis angio plasties. ILIAC STENTSx4. LEFT UPPER arm shunt non fucntioning now. has hemodialysis line rt upper chest. Cyst removal from back a few yrs ago at [facility]. Pericardiocentesis 03/2024. Thoracentesis 01/2024 Past Anesthesia/Blood Transfusion Reactions: No Reported Reaction Past Psychological History: No Psychological Hx Reported Additional Psychological History / Comment(s): Pt resides with his spouse. He is wheelchair bound Smoking Status: Former smoker Past Alcohol Use History: None Reported Additional Past Alcohol Use History / Comment(s): Pt started smoking in 1965 and quit in 2014. Past Drug Use History: None Reported - Past Family History Mother Family Medical History: Cancer, Congestive Heart Failure (CHF) Additional Family Medical History / Comment(s): Mother was a breast cancer survivor. She also had lung cancer. Father Family Medical History: Hypertension, Myocardial Infarction (ME), Vascular Disorder Additional Family Medical History / Comment(s): Father 2 weeks after a ME at the age of 81 yrs. He also had vascular disease. Sister(s) Family Medical History: Diabetes Mellitus Medications and Allergies Home Medications Medication Instructions Recorded Confirmed Type allopurinoL [Zyloprim] 100 mg PO DAILY 12/20/16 06/22/24 History Torsemide [Demadex] 40 mg PO DAILY 06/14/20 06/22/24 History Sevelamer Carbonate 800 mg PO DAILY 08/16/20 06/22/24 History Warfarin [Coumadin] 2 mg PO DAILY 30 Days #30 tab 09/09/20 06/22/24 Rx Folic Acid/Vit B Complex and C 1 tab PO DIRECTED 03/10/24 06/22/24 History [Yari-Arin Tablet] Midodrine [ProAmatine] 5 mg PO DIRECTED PRN 03/10/24 06/22/24 History Potassium Chloride 10 meq PO HS 03/10/24 06/22/24 History Atorvastatin [Lipitor] 40 mg PO DAILY 06/22/24 06/22/24 History Heparin Sodium,Porcine [Heparin 4,000 unit IV DIRECTED 06/22/24 06/22/24 History Sodium] Isosorbide Dinitrate [Isordil] 30 mg PO BID 06/22/24 06/22/24 History Methoxy Peg-Epoetin Beta [Mircera] 150 mg INJ DIRECTED 06/22/24 06/22/24 History carvediloL [Coreg*] 6.25 mg PO BID 06/22/24 06/22/24 History Allergies Allergy/AdvReac Type Severity Reaction Status Date / Time No Known Allergies Allergy Verified 06/22/24 13:56 Surgical - Exam - General no distress, no pain - Eyes normal ocular movement - ENT normal nares, normal mucosa - Respiratory normal expansion, normal respiratory effort - Abdomen Abdomen: soft, non tender - Psychiatric oriented to time, oriented to person, oriented to place Assessment and Plan Assessment: OR for distal penectomy
[~2024-06-30 10:35] MED LIST changes: +HYDROmorphone 0.5 MG/0.5 ML SYRINGE IVP PRN; +LACTATED RINGERS 1,000 ML IV SCH; -SODIUM CHLORIDE 0.9% 500 ML 500 ML in EMPTY BAG 1 BAG IV PRN
[2024-06-30 11:47] LABS: Basophils % (A) 0 %; Eosinophils # (A) 0.1 k/uL (0-0.7); Eosinophils % (A) 2 %; HGB 11.5 gm/dL (13.0-17.5); Hypochromasia Slight; Lymphocytes # (A) 0.4 k/uL (1.0-4.8); Lymphocytes % (A) 7 %; MCH 32.4 pg (25.0-35.0); MCV 101.3 fL (80.0-100.0); Macrocytosis Slight; Monocytes # (A) 0.4 k/uL (0-1.0); Monocytes % (A) 7 %; Neutrophils # (A) 4.9 k/uL (1.3-7.7); Neutrophils % (A) 81 %; Platelet Count 251 k/uL (150-450); RBC 3.55 m/uL (4.30-5.90)
[2024-06-30] MEDS ORDERED: SODIUM CHLORIDE 0.9% 1,000 ML IV SCH (12:00)
[2024-06-30 12:02] LABS: ALT 23 U/L (4-49); AST 28 U/L (17-59); African American GFR (CKD) 17 (>60 ml/min/1.73 sqM); Albumin 3.5 g/dL (3.5-5.0); Alkaline Phosphatase 126 U/L (38-126); Blood Urea Nitrogen 35 mg/dL (9-20); Calcium 9.3 mg/dL (8.4-10.2); Carbon Dioxide 33 mmol/L (22-30); Chloride 92 mmol/L (98-107); Glucose 100 mg/dL (74-99); Non-African American GFR(CKD) 14 (>60 ml/min/1.73 sqM); Total Bilirubin 0.8 mg/dL (0.2-1.3); Total Protein 7.2 g/dL (6.3-8.2)
[2024-06-30 12:08] LABS: INR 1.1 (<1.2); Partial Thromboplastin Time 32.6 sec (22.0-30.0); Prothrombin Time 11.6 sec (10.0-12.5)
[2024-06-30] MEDS: ONDANSETRON 4 MG/2 ML VIAL IVP PRN (12:18)
[2024-06-30] MEDS ORDERED: DEXAMETHASONE SOD PHOSPHATE 4 MG/ML 1 ML VIAL IM STA (12:18)
[2024-06-30 12:26] LABS: Anion Gap 7 mmol/L; Potassium 3.6 mmol/L (3.5-5.1); Sodium 132 mmol/L (137-145)
[2024-06-30] MEDS: IV FLUID CONTINUATION 1,000 ML IV ONE ×2 (12:30→14:17)
[2024-06-30] MEDS ORDERED: MIDAZOLAM 2 MG/2 ML VIAL ONE (12:48)
[2024-06-30] MEDS ORDERED: PHENYLEPHRINE 10 MG/ML VIAL ONE (12:48)
[2024-06-30] MEDS ORDERED: fentaNYL (PF) 50 MCG/ML 2 ML AMP ONE (12:48)
[2024-06-30] MEDS: BUPIVACAINE (PF) 0.5% 30 ML VIAL SQ ONE ×2 (13:45)
--- NOTE | 2024-06-30 14:25 | P.OP ---
Date of Procedure: 06/30/24 Preoperative Diagnosis: Penile mass Postoperative Diagnosis: Same Procedure(s) Performed: Distal penectomy Implants: None Anesthesia: NAYELI Surgeon: Joey Smith Estimated Blood Loss (ml): 50 Pathology: other (Penis, with penile mass) Condition: stable Disposition: PACU Indications for Procedure: This is a 79-year-old male with a history of a distal penile mass, an MRI confirmed to be confined to the glans. 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 He is having pain and bleeding secondary to the mass. He is on end-stage renal disease on hemodialysis and makes minimal amount of urine. Discussed with him the option of a distal penectomy. Aware the risk which includes but not limited to bleeding, infection, development of urethral stricture. Discussed also potential of needing additional treatments. Discussed with him given his multiple comorbidities he is at a higher risk of medical complication. He understood all the risk and agreed to proceed Description of Procedure: Patient brought to the operating room, spinal anesthetic was initiated, he was prepped and draped in sterile fashion placed in a supine position. Next a sterile glove was wrapped around the penis and the glans. Of note the distal penile anatomy was completely distorted I was unable to visualize the urethral meatus or clearly identify the glans. The mass was fungating in nature a Next a circumferential incision was made along the penile skin approximately 1 cm away from the edge of the tumor. Next cautery was used to dissect the dartos fascia down to the corporal bodies and the urethra. Next the neurovascular bundle was identified and this was tied using 2-0 silk ties. Next a tourniquet was placed around the penis. Next a the corporal bodies were incised and they were ligated using 3-0 Vicryl. Next the urethra was further dissected, and at this point the urethra was divided. The penis and the mass was sent to pathology. Next the penile skin was further mobilized, points of bleeding was controlled with cautery, the penile skin was used to close over the close over the corporal bodies. Next the edges of the urethra were identified, and a 16 Macedonian Ibarra was placed with return of clear urine. The edge of the urethra was reapproximated to the skin using 4-0 Monocryl in interrupted fashion fashion going circumferentially around the urethra ensuring mucosal bite was up attained with each stitch. At this point a penile block was performed using half percent Marcaine. The patient was awakened from anesthesia and taken to recovery in stable condition
[2024-06-30 14:29] VITALS: TEMP 96.8
[2024-06-30 15:56] VITALS: RESP 16
[2024-06-30 16:43] VITALS: BP 128/76; PULSE 76
== END 2024-06-30 17:11 | disposition home or self-care (01) ==
LOC: OR 10:35
PROVIDERS: ATTEND Urology
DX: C60.9 Malignant neoplasm of penis, unspecified
CPT/HCPCS: 80053; 85025; 85610; 85730; 88309; 88341; 88342

== ENCOUNTER 2024-07-14 15:05 | Inpatient (IN) | payer MEDICARE ==
--- NOTE | 2024-07-14 15:34 | ED ---
General Adult HPI - General Chief complaint: Weakness Stated complaint: Weakness Time Seen by Provider: 07/14/24 15:15 Source: patient, EMS, RN notes reviewed Mode of arrival: EMS Limitations: no limitations - History of Present Illness Initial comments: Patient is a 79-year-old male presenting to the emergency department with concerns for several complaints. Patient has had decreased urinary output for the past 5 days since his catheter was removed. Patient has also had less bowel movements. Patient admits to not eating much food. Patient had 1 egg and a couple bites of fish yesterday. Patient does have history of COPD. Patient does feel somewhat short of breath. Patient is also a renal dialysis patient and does home hemodialysis. No abdominal pain. - Related Data Home Medications Medication Instructions Recorded Confirmed allopurinoL [Zyloprim] 100 mg PO DAILY 12/20/16 07/14/24 Sevelamer Carbonate 800 mg PO TID-W/MEALS 08/16/20 07/14/24 Folic Acid/Vit B Complex and C 0.8 mg PO DAILY 03/10/24 07/14/24 [Yari-Arin Tablet] Midodrine [ProAmatine] 5 mg PO TID PRN 03/10/24 07/14/24 Potassium Chloride 10 meq PO W/SUPPER 03/10/24 07/14/24 Atorvastatin [Lipitor] 40 mg PO DAILY 06/22/24 07/14/24 Heparin Sodium,Porcine [Heparin 4,000 unit IV DIRECTED 06/22/24 07/14/24 Sodium] Sevelamer [Renvela] 800 mg PO DIRECTED PRN 07/14/24 07/14/24 Torsemide [Soaanz] 20 mg PO BID-W/MEALS 07/14/24 07/14/24 Warfarin [Coumadin] 2 mg PO DIRECTED 07/14/24 07/14/24 carvediloL [Coreg] 6.25 - 12.5 mg PO BID-W/MEALS 07/14/24 07/14/24 Allergies Allergy/AdvReac Type Severity Reaction Status Date / Time No Known Allergies Allergy Verified 07/14/24 17:56 Review of Systems ROS Statement: Those systems with pertinent positive or pertinent negative responses have been documented in the HPI. ROS Other: All systems not noted in ROS Statement are negative. Constitutional: Denies: fever Eyes: Denies: eye pain ENT: Denies: ear pain Respiratory: Reports: as per HPI, dyspnea Cardiovascular: Denies: chest pain Endocrine: Reports: fatigue Gastrointestinal: Reports: as per HPI. Denies: abdominal pain Genitourinary: Reports: as per HPI Past Medical History Past Medical History: Atrial Fibrillation, Blood Disorder, Cancer, COPD, Dialysis, Eye Disorder, Hearing Disorder / Deafness, Hyperlipidemia, Hypertension, Renal Disease, Vascular Disorder Additional Past Medical History / Comment(s): PVD. ESRD-hemodialysis 4 days a week,. ANEMIA.pleurel effusion; Thoracentesis done @ [facility] in January2024 Pericardalcentesis 03/2024@[facility] ECHO 05/2024. see dr Mena's [facility] & P. Wears 2L nc at home continously. History of Any Multi-Drug Resistant Organisms: None Reported Past Surgical History: Tonsillectomy Additional Past Surgical History / Comment(s): Angiogram.thorancentesis angio plasties. ILIAC STENTSx4. LEFT UPPER arm shunt non fucntioning now. has hemodyalsis line rt upper chest. Cyst removal from back a few yrs ago at [facility]. Percardialcentesis 03/2024. Thoracentesis 01/2024 Past Anesthesia/Blood Transfusion Reactions: No Reported Reaction Past Psychological History: No Psychological Hx Reported Smoking Status: Former smoker Past Alcohol Use History: None Reported Past Drug Use History: None Reported - Past Family History Mother Family Medical History: Cancer, Congestive Heart Failure (CHF) Additional Family Medical History / Comment(s): Mother was a breast cancer survivor. She also had lung cancer. Father Family Medical History: Hypertension, Myocardial Infarction (CO), Vascular Disorder Additional Family Medical History / Comment(s): Father 2 weeks after a CO at the age of 81 yrs. He also had vascular disease. Sister(s) Family Medical History: Diabetes Mellitus General Exam Limitations: no limitations General appearance: alert, in no apparent distress Head exam: Present: normocephalic Eye exam: Present: normal appearance Neck exam: Present: normal inspection Respiratory exam: Present: decreased breath sounds Cardiovascular Exam: Present: regular rate, normal rhythm GI/Abdominal exam: Present: soft. Absent: tenderness exam: Present: other (Penile resection) Extremities exam: Present: normal inspection Neurological exam: Present: alert Psychiatric exam: Present: normal affect, normal mood Skin exam: Present: normal color Course Vital Signs 07/14/24 07/14/24 07/14/24 15:13 16:24 16:32 Temperature 97.0 F L Pulse Rate 72 67 65 Respiratory 18 Rate Blood Pressure 131/60 O2 Sat by Pulse 97 Oximetry EKG Findings - EKG Results: EKG: interpreted by RO (Left axis. Right bundle branch block. Nonspecific T waves) EKG shows: atrial fibrillation Medical Decision Making - Medical Decision Making Was pt. sent in by a medical professional or institution (, PA, [employer], urgent care, hospital, or alf...) When possible be specific @ -No Did you speak to anyone other than the patient for history (EMS, parent, family, police, friend...)? What history was obtained from this source @ - arrives and provides significant history including chief complaint is dyspnea as well as patient has history of fluid need to be removed from both his heart and lungs Did you review nursing and triage notes (agree or disagree)? Why? @ -I reviewed and agree with nursing and triage notes Were old charts reviewed (outside hosp., previous admission, EMS record, old EKG, old radiological studies, urgent care reports/EKG's, alf records)? Report findings @ -Previous chest x-rays reviewed Differential Diagnosis (chest pain, altered mental status, abdominal pain women, abdominal pain men, vaginal bleeding, weakness, fever, dyspnea, syncope, headache, dizziness, GI bleed, back pain, seizure, CVA, palpatations, mental h ealth, musculoskeletal)? @ -Differential Dyspnea: Coronary syndrome, arrhythmia, tamponade, asthma, COPD, pulmonary embolism, pneumonia, pneumothorax, pulmonary effusion, anaphylaxis, diabetic ketoacidosis, flailed chest, pulmonary contusion, diaphragmatic rupture, anemia, neuromuscular, this is not meant to be an all-inclusive list. EKG interpreted by me (3pts min.). @ -As above X-rays interpreted by me (1pt min.). @ -Chest x-ray shows pulmonary edema and pleural effusions CT interpreted by me (1pt min.). @ -None done U/S interpreted by me (1pt. min.). @ -None done What testing was considered but not performed or refused? (CT, X-rays, U/S, labs)? Why? @ -None What meds were considered but not given or refused? Why? @ -None Did you discuss the management of the patient with other professionals (professionals i.e. , PA, [employer], lab, RT, psych nurse, medical social worker, sorter pricer, teacher, commissioned police officer, case manager specialist)? Give summary @ -Case discussed with Dr. Coyne who will admit covering Dr. Gardner Was smoking cessation discussed for >3mins.? @ -No Was critical care preformed (if so, how long)? @ -No Were there social determinants of health that impacted care today? How? (Nikki elessness, low income, unemployed, alcoholism, drug addiction, transportation, low edu. Level, literacy, decrease access to med. care, [facility], rehab)? @ -No Was there de-escalation of care discussed even if they declined (Discuss DNR or withdrawal of care, Hospice)? DNR status @ -No What co-morbidities impacted this encounter? (DM, HTN, Smoking, COPD, CAD, Cancer, CVA, ARF, Chemo, Hep., AIDS, mental health diagnosis, sleep apnea, morbid obesity)? @ -History of renal failure Was patient admitted / discharged? Hospital course, mention meds given and route, prescriptions, significant lab abnormalities, going to OR and other pertinent info. @ -Patient presents with dyspnea and some concerns for not urinating and not defecating. Chest x-ray concerning for fluid overload. Patient will be adm itted with consults. Admission orders written. Undiagnosed new problem with uncertain prognosis? @ -No Drug Therapy requiring intensive monitoring for toxicity (Heparin, Nitro, Insulin, Cardizem)? @ -No Were any procedures done? @ -No Diagnosis/symptom? @ -Pleural effusion, pulmonary edema Acute, or Chronic, or Acute on Chronic? @ -Acute, acute Uncomplicated (without systemic symptoms) or Complicated (systemic symptoms)? @ -Default Side effects of treatment? @ -No Exacerbation, Progression, or Severe Exacerbation? @ -No Poses a threat to life or bodily function? How? (Chest pain, USA, CO, pneumonia, PE, COPD, DKA, ARF, appy, cholecystitis, CVA, Diverticulitis, Homicidal, Suicidal, threat to staff... and all critical care pts) @ -Threat to pulmonary and respiratory function - Lab Data Result diagrams: 07/14/24 17:10 07/14/24 17:10 Lab Results 07/14/24 07/14/24 07/14/24 Range/Units 17:10 17:10 17:10 WBC 6.8 (3.8-10.6) k/uL RBC 3.58 L (4.30-5.90) m/uL Hgb 11.4 L (13.0-17.5) gm/dL Hct 36.6 L (39.0-53.0) % MCV 102.4 H (80.0-100.0) fL MCH 31.9 (25.0-35.0) pg MCHC 31.2 (31.0-37.0) g/dL RDW 14.9 (11.5-15.5) % Plt Count 183 (150-450) k/uL MPV 8.5 Neutrophils % 90 % Lymphocytes % 3 % Monocytes % 5 % Eosinophils % 1 % Basophils % 0 % Neutrophils # 6.1 (1.3-7.7) k/uL Lymphocytes # 0.2 L (1.0-4.8) k/uL Monocytes # 0.3 (0-1.0) k/uL Eosinophils # 0.1 (0-0.7) k/uL Basophils # 0.0 (0-0.2) k/uL Hypochromasia Slight Macrocytosis Slight PT 12.1 (10.0-12.5) sec INR 1.1 (<1.2) APTT 25.5 (22.0-30.0) sec Sodium 130 L (137-145) mmol/L Potassium 3.6 (3.5-5.1) mmol/L Chloride 93 L (98-107) mmol/L Carbon Dioxide 29 (22-30) mmol/L Anion Gap 8 mmol/L BUN 24 H (9-20) mg/dL Creatinine 2.34 H (0.66-1.25) mg/dL Est GFR (CKD-EPI)AfAm 30 (>60 ml/min/1.73 sqM) Est GFR (CKD-EPI)NonAf 26 (>60 ml/min/1.73 sqM) Glucose 122 H (74-99) mg/dL Plasma Lactic Acid Ankit (0.7-2.0) mmol/L Calcium 8.5 (8.4-10.2) mg/dL Magnesium 1.9 (1.6-2.3) mg/dL Total Bilirubin 0.6 (0.2-1.3) mg/dL AST 33 (17-59) U/L ALT 21 (4-49) U/L Alkaline Phosphatase 117 (38-126) U/L Troponin I (0.000-0.034) ng/mL NT-Pro-B Natriuret Pep 45763 pg/mL Total Protein 7.0 (6.3-8.2) g/dL Albumin 3.5 (3.5-5.0) g/dL 07/14/24 07/14/24 Range/Units 17:10 17:10 WBC (3.8-10.6) k/uL RBC (4.30-5.90) m/uL Hgb (13.0-17.5) gm/dL Hct (39.0-53.0) % MCV (80.0-100.0) fL MCH (25.0-35.0) pg MCHC (31.0-37.0) g/dL RDW (11.5-15.5) % Plt Count (150-450) k/uL MPV Neutrophils % % Lymphocytes % % Monocytes % % Eosinophils % % Basophils % % Neutrophils # (1.3-7.7) k/uL Lymphocytes # (1.0-4.8) k/uL Monocytes # (0-1.0) k/uL Eosinophils # (0-0.7) k/uL Basophils # (0-0.2) k/uL Hypochromasia Macrocytosis PT (10.0-12.5) sec INR (<1.2) APTT (22.0-30.0) sec Sodium (137-145) mmol/L Potassium (3.5-5.1) mmol/L Chloride (98-107) mmol/L Carbon Dioxide (22-30) mmol/L Anion Gap mmol/L BUN (9-20) mg/dL Creatinine (0.66-1.25) mg/dL Est GFR (CKD-EPI)AfAm (>60 ml/min/1.73 sqM) Est GFR (CKD-EPI)NonAf (>60 ml/min/1.73 sqM) Glucose (74-99) mg/dL Plasma Lactic Acid Ankit 1.7 (0.7-2.0) mmol/L Calcium (8.4-10.2) mg/dL Magnesium (1.6-2.3) mg/dL Total Bilirubin (0.2-1.3) mg/dL AST (17-59) U/L ALT (4-49) U/L Alkaline Phosphatase (38-126) U/L Troponin I <0.012 (0.000-0.034) ng/mL NT-Pro-B Natriuret Pep pg/mL Total Protein (6.3-8.2) g/dL Albumin (3.5-5.0) g/dL Disposition Clinical Impression: Pulmonary edema, Pleural effusion Disposition: ADMITTED IP TO THIS HOSP Is patient prescribed a controlled substance at d/c from ED?: No Referrals: Fide Faith MD [Primary Care Provider] - 1-2 days Time of Disposition: 18:56
[2024-07-14] MEDS: IPRATROPIUM-ALBUTEROL 3 ML NEB INHALATION STA (16:24)
[2024-07-14 17:38] LABS: Basophils % (A) 0 %; Eosinophils # (A) 0.1 k/uL (0-0.7); Eosinophils % (A) 1 %; HCT 36.6 % (39.0-53.0); HGB 11.4 gm/dL (13.0-17.5); Hypochromasia Slight; Lymphocytes # (A) 0.2 k/uL (1.0-4.8); Lymphocytes % (A) 3 %; MCH 31.9 pg (25.0-35.0); MCHC 31.2 g/dL (31.0-37.0); MCV 102.4 fL (80.0-100.0); Macrocytosis Slight; Mean Platelet Volume 8.5; Monocytes # (A) 0.3 k/uL (0-1.0); Monocytes % (A) 5 %; Neutrophils # (A) 6.1 k/uL (1.3-7.7); Neutrophils % (A) 90 %; Platelet Count 183 k/uL (150-450); RBC 3.58 m/uL (4.30-5.90); RDW 14.9 % (11.5-15.5); WBC 6.8 k/uL (3.8-10.6)
[2024-07-14 17:44] LABS: INR 1.1 (<1.2); Partial Thromboplastin Time 25.5 sec (22.0-30.0); Prothrombin Time 12.1 sec (10.0-12.5)
--- NOTE | 2024-07-14 17:56 | XR ---
EXAMINATION TYPE: XR chest 2V, XR abdomen 1V DATE OF EXAM: 07/14/2024 COMPARISON: Chest 03/12/2024 and 06/23/2024 HISTORY: 79-year-old male shortness of breath, difficulty in breathing and constipation FINDINGS: Chest: Right-sided double lumen hemodialysis catheter tips within the right atrium. Heart margins are obscur ed by adjacent pleural parenchymal opacities extending up to the midlung levels. Upper lungs show int erstitial prominence. Lateral view shows pleural effusions after the mid chest. ABDOMEN: Iliac vessel stents are demonstrated. Nonobstructive bowel gas pattern. No significant stool burden. Scattered air within the colon. IMPRESSION: 1. Chest: Moderate bilateral pleural effusions with adjacent atelectasis and/or consolidation. Possib le underlying pulmonary vascular congestion. 2. Abdomen: Nonobstructive bowel gas pattern. No significant stool burden. Iliac vessel stents are pr esent. [facility], , 07/14/2024 5:53 PM
[2024-07-14 18:11] LABS: ALT 21 U/L (4-49); AST 33 U/L (17-59); African American GFR (CKD) 30 (>60 ml/min/1.73 sqM); Albumin 3.5 g/dL (3.5-5.0); Alkaline Phosphatase 117 U/L (38-126); Anion Gap 8 mmol/L; Blood Urea Nitrogen 24 mg/dL (9-20); Calcium 8.5 mg/dL (8.4-10.2); Carbon Dioxide 29 mmol/L (22-30); Chloride 93 mmol/L (98-107); Glucose 122 mg/dL (74-99); Magnesium 1.9 mg/dL (1.6-2.3); Non-African American GFR(CKD) 26 (>60 ml/min/1.73 sqM); Potassium 3.6 mmol/L (3.5-5.1); Sodium 130 mmol/L (137-145); Total Bilirubin 0.6 mg/dL (0.2-1.3)
[2024-07-14 18:18] LABS: NT-Pro-B-Type Natriuretic Pept 25600 pg/mL
[2024-07-14] MEDS ORDERED: SEVELAMER 800 MG TAB PO PRN (18:51)
[2024-07-14] MEDS ORDERED: MIDODRINE 5 MG TAB PO PRN (18:51)
[2024-07-14] MEDS ORDERED: NALOXONE 0.4 MG/ML 1 ML VIAL IV PRN (18:56)
[2024-07-14] MEDS: WARFARIN 2 MG TAB PO SCH (19:41)
[2024-07-14] MEDS: FUROSEMIDE 10 MG/ML 4 ML VIAL IV STA (19:52)
[2024-07-14] MEDS: WARFARIN 5 MG TAB PO ONE (19:56)
[2024-07-14] MEDS ORDERED: LORazepam 2 MG/ML INJ IV PRN (21:32)
--- NOTE | 2024-07-15 01:32 | P.CNPUL ---
History of Present Illness Consult date: 07/15/24 Requesting physician: Subhash Dukes Reason for consult: dyspnea Chief complaint: Shortness of breath History of present illness: Patient is a 79-year-old male with past medical significant for end-stage renal disease maintained on hemodialysis, left pleural effusion status postthoracentesis, pericardiocentesis, atrial fibrillation, PVD, COPD, home O2 dependence, penile cancer status Penectomy. Over the last 2 weeks,, the patient has been progressively more short of breath. Also, reports generalized weakness, reduced urination. He does have end-stage renal disease and undergoes home hemodialysis. Recently his left arm fistula has stopped working. He does have a right chest permacath. His established group reservations coordinator is Dr. Aragon. Denies missing any hemodialysis treatments. Denies infectious URI-like symptoms such as rhinorrhea, postnasal drip, sinus pressure, sore throat. Denies sick contacts. Does have a chronic cough with occasional yellow sputum production. Denies fevers. Denies any chest pain, worsening lower extremity swelling. Does endorse orthopnea. Sleeps in a chair at home. He is chronically oxygen dependent on 2 L/min nasal cannula while at home. Chest x-ra y done on admission consistent with pulmonary edema and fluid overload. There are moderate bilateral pleural effusions with associated atelectasis. A left basilar opacity cannot be excluded. Patient does have history of left-sided thoracentesis done on 01/14/2024. Fluid was technically an exudate with elevated fluid protein greater than 3.6 g. LDH 77. Cytologically negative for malignant cells. Microbiology was negative. Also, has had a previous pericardiocentesis on 03/12/2024.. Abdominal x-ray showing nonobstructive bowel gas pattern. No significant stool burden. Iliac vessel stents. CBC: WBC count 6.8, hemoglobin 11.4, hematocrit 36.6, platelets 183. CMP: Sodium 130, potassiu m 3.6, chloride 93, serum bicarb 29, BUN 24, creatinine 2.34, glucose 122. Troponin less than 0.012. NT proBNP significantly elevated at 25,600. Patient currently maintained on torsemide 20 mg twice daily. I am evaluating this patient on the cardiac stepdown unit. He is currently in bed in a high-Fowlers position. Has some conversational dyspnea, speaking in 2-3 word phrases. Tachypneic. SpO2 is reading 97% on his chronic 2 L/min nasal cannula. SPO2 97%. Afebrile. Remaining vital signs are stable. Review of Systems Constitutional: Reports fatigue, Reports poor appetite, Denies chills, Denies fever, Denies weight gain, Denies weight loss Ears, nose, mouth and throat: Denies headache, Denies nasal congestion, Denies n mando discharge, Denies post-nasal drip, Denies sinus pain, Denies sinus pressure, Denies sore throat Cardiovascular: Reports irregular heart beat, Reports orthopnea, Denies chest pain, Denies leg edema, Denies palpitations, Denies paroxysmal nocturnal dyspnea Respiratory: Reports as per HPI (Strain to take) Gastrointestinal: Reports change in bowel habits, Reports constipation, Reports loss of appetite (Give her some some Ativan and then can we get it as a possible to get her sitter), Denies abdominal pain, Denies diarrhea, Denies nausea, Denies vomiting Genitourinary: Denies dysuria, Denies genital pain, Denies hematuria, Denies urinary frequency Musculoskeletal: Denies limitation of motion ( at all already in process) Integumentary: Denies rash (You) Neurological: Denies change in mentation (Should be), Denies headaches, Denies seizures, Denies visual changes (We swabbed her nose and Clare brought she having fevers) Psychiatric: Denies anxiety, Denies depression Past Medical History Past Medical History: Atrial Fibrillation, Blood Disorder, Cancer, COPD, Dialysis, Eye Disorder, Hearing Disorder / Deafness, Hyperlipidemia, Hypertension, Renal Disease, Vascular Disorder Additional Past Medical History / Comment(s): PVD. ESRD-hemodialysis 4 days a week,. ANEMIA.pleurel effusion; Thoracentesis done @ [facility] in January2024 Pericardalcentesis [email or web address] ECHO 05/2024. see dr [facility] Wears 2L nc at home continously. History of Any Multi-Drug Resistant Organisms: None Reported Past Surgical History: Tonsillectomy Additional Past Surgical History / Comment(s): Angiogram.thorancentesis angio plasties. ILIAC STENTSx4. LEFT UPPER arm shunt non fucntioning now. has hemodyalsis line rt upper chest. Cyst removal from back a few yrs ago at [facility]. Percardialcentesis 03/2024. Thoracentesis 01/2024 Past Anesthesia/Blood Transfusion Reactions: No Reported Reaction Past Psychological History: No Psychological Hx Reported Additional Psychological History / Comment(s): Pt resides with his spouse. He is wheelchair bound Smoking Status: Former smoker Past Alcohol Use History: None Reported Additional Past Alcohol Use History / Comment(s): Pt started smoking in 1964 and quit in 2014. Past Drug Use History: None Reported - Past Family History Mother Family Medical History: Cancer, Congestive Heart Failure (CHF) Additional Family Medical History / Comment(s): Mother was a breast cancer survivor. She also had lung cancer. Father Family Medical History: Hypertension, Myocardial Infarction ([place]), Vascular Disorder Additional Family Medical History / Comment(s): Father 2 weeks after a [place] at the age of 81 yrs. He also had vascular disease. Sister(s) Family Medical History: Diabetes Mellitus Medications and Allergies Home Medications Medication Instructions Recorded Confirmed Type allopurinoL [Zyloprim] 100 mg PO DAILY 12/20/16 07/14/24 History Sevelamer Carbonate 800 mg PO TID-W/MEALS 08/16/20 07/14/24 History Folic Acid/Vit B Complex and C 0.8 mg PO DAILY 03/10/24 07/14/24 History [Yari-Arin Tablet] Midodrine [ProAmatine] 5 mg PO TID PRN 03/10/24 07/14/24 History Potassium Chloride 10 meq PO W/SUPPER 03/10/24 07/14/24 History Atorvastatin [Lipitor] 40 mg PO DAILY 06/22/24 07/14/24 History Heparin Sodium,Porcine [Heparin 4,000 unit IV DIRECTED 06/22/24 07/14/24 History Sodium] Sevelamer [Renvela] 800 mg PO DIRECTED PRN 07/14/24 07/14/24 History Torsemide [Soaanz] 20 mg PO BID-W/MEALS 07/14/24 07/14/24 History Warfarin [Coumadin] 2 mg PO DIRECTED 07/14/24 07/14/24 History carvediloL [Coreg] 6.25 - 12.5 mg PO BID-W/MEALS 07/14/24 07/14/24 History Allergies Allergy/AdvReac Type Severity Reaction Status Date / Time No Known Allergies Allergy Verified 07/14/24 17:56 Physical Exam Vitals: Vital Signs Temp Pulse Pulse Resp BP BP Pulse Ox 07/14/24 21:40 97.3 F L 76 20 159/72 96 07/14/24 21:15 68 18 155/52 99 07/14/24 19:43 69 16 146/78 99 07/14/24 17:16 60 16 142/76 98 07/14/24 16:32 65 07/14/24 16:24 67 07/14/24 15:13 97.0 F L 72 18 131/60 97 Intake and Output 07/14/24 07/14/24 07/15/24 14:59 22:59 06:59 Intake Total 0 Balance 0 Intake: Oral 0 Other: # Voids 0 Weight 90.718 kg GENERAL EXAM: Drowsy, 79-year-old male morbidly obese and disheveled, on 3 L/min nasal cannula, comfortable in no apparent distress. HEAD: Normocephalic and atraumatic EYES: Normal reaction of pupils, equal size. NOSE: Clear with pink turbinates. THROAT: No erythema or exudates. NECK: No masses, no JVD. CHEST: No chest wall deformity. Right chest permacath LUNGS: Equal air entry with diminished bibasilar lung sounds and scattered inspiratory crackles.. On 2 L/min nasal cannula. Conversational dyspnea, speaking in 2-3 word phrases. No accessory muscle use. CVS: S1 and S2 normal with no soft systolic grade 2 murmur, irregular rhythm. No extra heart sounds ABDOMEN: No hepatosplenomegaly, active bowel sounds, no guarding or rigidity. SPINE: No scoliosis or deformity SKIN: Penectomy, small amount of slough adherent, no purulent drainage. Bilateral groin erythema and maceration CENTRAL NERVOUS SYSTEM: No focal deficits, tone is normal in all 4 extremities. EXTREMITIES: There is no peripheral edema, clubbing, or cyanosis. Peripheral pulses are intact. Results - Laboratory Findings CBC and BMP: 07/14/24 17:10 07/14/24 17:10 PT/INR, D-dimer PT 12.1 sec (10.0-12.5) 07/14/24 17:10 INR 1.1 (<1.2) 07/14/24 17:10 Abnormal lab findings: Abnormal Labs 07/14/24 07/14/24 17:10 17:10 RBC 3.58 L Hgb 11.4 L Hct 36.6 L MCV 102.4 H Lymphocytes # 0.2 L Sodium 130 L Chloride 93 L BUN 24 H Creatinine 2.34 H Glucose 122 H - Diagnostic Findings Chest x-ray: image reviewed Assessment and Plan Assessment: Pulmonary edema, fluid overload, and moderate sized bilateral pleural effusions Acute dyspnea, secondary to above Chronic hypoxemic respiratory failure, normally maintained on 2 L/min nasal cannula History of left-sided pleural effusion status/post thoracentesis on 01/14/2024. Fluid technically was an exudate based on lights criteria. No cytologic malignant cells. Microbiology was negative. History of pericardiocentesis on 03/12/2024 End-stage renal disease, maintained on home hemodialysis, denies missing any treatments. Hypervolemic hyponatremia History of HPV/penile cancer status post penectomy Chronic obstructive pulmonary disease, stable Paroxysmal atrial fibrillation with controlled ventricular response, anticoagulated on Coumadin History of peripheral vascular disease with previous bilateral iliac stents Obesity, with a BMI of 32.3 kg/m Plan: Patient's medications, labs, chest x-ray reviewed Continue supplemental oxygen to maintain oxygen saturation of 92% or greater. Currently on 2 L/min nasal cannula, which is what he wears at home Patient will likely require emergent hemodialysis. Nephrology consulted. In the meantime, patient is receiving diuretics in the form of torsemide 20 mg twice daily. Also, received a one time dose of lasix 40 mg IVP in the ED. Patient reportedly not anuric. Obtain chest ultrasound to evaluate size of pleural effusions and possibility of repeat thoracentesis. Consider obtaining transthoracic echocardiogram, if recent study not available Cardiology consulted Reportedly, missed doses of coumadin at home; INR subtherapeutic 1.1. Continue to hold, until final recommendation on thoracentesis. GI prophylaxis: Protonix We will continue to follow, additional recommendations forthcoming I have personally seen and examined the patient, performed the documentation and the assessment and plan as written. Number of minutes spent on the visit:20 Time with Patient: Greater than 30
[2024-07-15] MEDS: SEVELAMER 800 MG TAB PO SCH (06:37)
[2024-07-15] MEDS: TORSEMIDE 20 MG TAB PO SCH (06:37)
[2024-07-15 07:09] LABS: ALT 22 U/L (4-49); AST 30 U/L (17-59); African American GFR (CKD) 22 (>60 ml/min/1.73 sqM); Albumin 3.4 g/dL (3.5-5.0); Alkaline Phosphatase 126 U/L (38-126); Anion Gap 8 mmol/L; Blood Urea Nitrogen 31 mg/dL (9-20); Calcium 8.7 mg/dL (8.4-10.2); Carbon Dioxide 30 mmol/L (22-30); Chloride 92 mmol/L (98-107); Glucose 112 mg/dL (74-99); Non-African American GFR(CKD) 19 (>60 ml/min/1.73 sqM); Potassium 3.9 mmol/L (3.5-5.1); Sodium 130 mmol/L (137-145); Total Bilirubin 0.5 mg/dL (0.2-1.3); Total Protein 6.9 g/dL (6.3-8.2)
[2024-07-15 07:14] LABS: Basophils % (A) 0 %; Eosinophils % (A) 0 %; HCT 36.4 % (39.0-53.0); HGB 11.5 gm/dL (13.0-17.5); Hypochromasia Slight; Lymphocytes # (A) 0.3 k/uL (1.0-4.8); Lymphocytes % (A) 3 %; MCH 32.1 pg (25.0-35.0); MCHC 31.6 g/dL (31.0-37.0); MCV 101.6 fL (80.0-100.0); Macrocytosis Slight; Mean Platelet Volume 8.7; Monocytes # (A) 0.4 k/uL (0-1.0); Monocytes % (A) 5 %; Neutrophils % (A) 91 %; Platelet Count 175 k/uL (150-450); RBC 3.59 m/uL (4.30-5.90); WBC 8.9 k/uL (3.8-10.6)
[2024-07-15] MEDS: TORSEMIDE 20 MG TAB PO ONE (08:30)
[2024-07-15] MEDS: PANTOPRAZOLE 40 MG/10 ML VIAL IVP SCH (08:30)
[2024-07-15] MEDS: ATORVASTATIN 40 MG TAB PO SCH (08:30)
[2024-07-15] MEDS: allopurinoL 100 MG TAB PO SCH (08:30)
[2024-07-15 09:04] LABS: INR 1.4 (<1.2); Prothrombin Time 14.5 sec (10.0-12.5)
--- NOTE | 2024-07-15 09:08 | US ---
EXAMINATION TYPE: US chest DATE OF EXAM: 07/15/2024 COMPARISON: NONE CLINICAL INDICATION: Male, 79 years old with history of bilateral pleural effusions; bilat effusions TECHNIQUE: Grayscale imaging of the chest. Targeted ultrasound of the posterior lower bilateral elvi thoraces FINDINGS: EXAM MEASUREMENTS: Right Pleural Effusion pocket size: 10.3 cm Right skin surface to fluid distance: 2.7 cm Left Pleural Effusion pocket size: 5.7 cm Left skin surface to fluid distance: 2.4 cm Right side marked for possible thoracentesis outside the dept. Left side marked for possible thoracentesis outside the dept. Pulmonologists are able to review the images in the patient?s EMR. IMPRESSIONS: Moderate right and [id number] left pleural effusions with adjacent atelectasis. [facility], , 07/15/2024 9:06 AM
--- NOTE | 2024-07-15 10:29 | P.NPCON ---
History of Present Illness - Reason for Consult end stage renal disease - History of Present Illness Reason for consultation: End-stage renal disease History of present illness: Patient is a 79-year-old male seen in renal consultation for end-stage renal disease. He is maintained on home hemodialysis. Has a permacath. Last hemodialysis was on Saturday, July 13, 2024. Patient came to the hospital due to worsening shortness of breath and weakness over the last few days. Patient is currently sleeping and hard to awaken. present at bedside. He makes minimal urine. He is currently on 2 L nasal cannula which she wears at home as well. Patient has history of pleural effusions requiring thoracentesis. Imaging this admission shows bilateral pleural effusions. Pulmonology has been consulted. He will also undergo hemodialysis today. Hemodynamically stable. Denies use of nonsteroidals. No history of diabetes or coronary artery disease. also states that he was constipated but did have a bowel movement last night. Vital signs are stable. General: No acute distress. HEENT: Head exam is unremarkable. On nasal cannula. LUNGS: No audible rhonchi or wheezes. HEART: Rate and Rhythm are regular. ABDOMEN: Mild distention noted. EXTREMITITES: Trace edema. Past Medical History Past Medical History: Atrial Fibrillation, Blood Disorder, Cancer, COPD, Dialysis, Eye Disorder, Hearing Disorder / Deafness, Hyperlipidemia, Hypertension, Renal Disease, Vascular Disorder Additional Past Medical History / Comment(s): PVD. ESRD-hemodialysis 4 days a week,. ANEMIA.pleurel effusion; Thoracentesis done @ [facility] in January2024 Pericardalcentesis [email or web address] ECHO 05/2024. see dr [facility]. Wears 2L nc at home continously. History of Any Multi-Drug Resistant Organisms: None Reported Past Surgical History: Tonsillectomy Additional Past Surgical History / Comment(s): Angiogram.thorancentesis angio plasties. ILIAC STENTSx4. LEFT UPPER arm shunt non fucntioning now. has hemodyalsis line rt upper chest. Cyst removal from back a few yrs ago at [facility]. Percardialcentesis 03/2024. Thoracentesis 01/2024 Past Anesthesia/Blood Transfusion Reactions: No Reported Reaction Past Psychological History: No Psychological Hx Reported Additional Psychological History / Comment(s): Pt resides with his spouse. He is wheelchair bound Smoking Status: Former smoker Past Alcohol Use History: None Reported Additional Past Alcohol Use History / Comment(s): Pt started smoking in 1965 and quit in 2014. Past Drug Use History: None Reported - Past Family History Mother Family Medical History: Cancer, Congestive Heart Failure (CHF) Additional Family Medical History / Comment(s): Mother was a breast cancer survivor. She also had lung cancer. Father Family Medical History: Hypertension, Myocardial Infarction ([place]), Vascular Disorder Additional Family Medical History / Comment(s): Father 2 weeks after a [place] at the age of 81 yrs. He also had vascular disease. Sister(s) Family Medical History: Diabetes Mellitus Medications and Allergies Home Medications Medication Instructions Recorded Confirmed Type allopurinoL [Zyloprim] 100 mg PO DAILY 12/20/16 07/14/24 History Sevelamer Carbonate 800 mg PO TID-W/MEALS 08/16/20 07/14/24 History Folic Acid/Vit B Complex and C 0.8 mg PO DAILY 03/10/24 07/14/24 History [Yari-Arin Tablet] Midodrine [ProAmatine] 5 mg PO TID PRN 03/10/24 07/14/24 History Potassium Chloride 10 meq PO W/SUPPER 03/10/24 07/14/24 History Atorvastatin [Lipitor] 40 mg PO DAILY 06/22/24 07/14/24 History Heparin Sodium,Porcine [Heparin 4,000 unit IV DIRECTED 06/22/24 07/14/24 History Sodium] Sevelamer [Renvela] 800 mg PO DIRECTED PRN 07/14/24 07/14/24 History Torsemide [Soaanz] 20 mg PO BID-W/MEALS 07/14/24 07/14/24 History Warfarin [Coumadin] 2 mg PO DIRECTED 07/14/24 07/14/24 History carvediloL [Coreg] 6.25 - 12.5 mg PO BID-W/MEALS 07/14/24 07/14/24 History Allergies Allergy/AdvReac Type Severity Reaction Status Date / Time No Known Allergies Allergy Verified 07/14/24 17:56 Physical Exam Vitals: Vital Signs Temp Pulse Pulse Resp BP BP Pulse Ox 07/15/24 08:26 97.3 F L 72 18 130/55 98 07/15/24 04:00 64 16 155/62 96 07/15/24 02:00 63 18 07/15/24 00:00 63 18 153/68 96 07/14/24 21:40 97.3 F L 76 20 159/72 96 07/14/24 21:15 68 18 155/52 99 07/14/24 19:43 69 16 146/78 99 07/14/24 17:16 60 16 142/76 98 07/14/24 16:32 65 07/14/24 16:24 67 07/14/24 15:13 97.0 F L 72 18 131/60 97 Intake and Output 07/14/24 07/15/24 07/15/24 22:59 06:59 14:59 Intake Total 0 10 Balance 0 10 Intake: IV 10 Invasive Line 2 10 Oral 0 Other: Voiding Method Diaper # Voids 0 1 # Bowel Movements 1 Weight 90.718 kg 92.5 kg Results - Lab Results Most recent lab results Calcium 8.7 mg/dL (8.4-10.2) 07/15/24 06:25 Magnesium 2.0 mg/dL (1.6-2.3) 07/15/24 06:25 07/15/24 06:25 07/15/24 06:25 Assessment and Plan Plan: Assessment: 1. End-stage renal disease maintained on home hemodialysis via permacath. 2. Volume overload. 3. Peripheral vascular disease with iliac stents. 4. Hypertension with chronic kidney disease. Stable. 5. Chronic kidney disease mineral bone disease maintained on Renvela. 6. Hypervolemic hyponatremia. Plan: Hemodialysis today. Potential thoracentesis this admission. Thank you for the consultation. I will continue to follow the patient with you during his hospital stay.
[2024-07-15] MEDS: FOLIC ACID-VIT B COMPLEX-VIT C 1 CAP PO SCH (11:41)
[2024-07-15] MEDS ORDERED: ZINC OXIDE PASTE (Z-GUARD) 1 APPLIC TOPICAL PRN (12:05)
--- NOTE | 2024-07-15 12:53 | P.HPIM ---
History of Present Illness H&P Date: 07/15/24 Mainor Fierro is a 79-year-old male patient of Dr. Neri who presented with concerns of increased shortness of breath. Patient has an extensive medical history including end-stage renal disease maintained on hemodialysis, atrial fibrillation, recent diagnosis of penile cancer, previous history of pericardiocentesis and thoracentesis, renal disease, hypertension, hyperlipidemia and home O2 2 L. Chest x-ray completed showing moderate bilateral pleural effusions with adjacent atelectasis and/or consolidation possible underlying pulmonary vascular congestion abdomen showing nonobstructive bowel gas pattern no significant stool burden iliac vessel stents are present. Lab work revealing INR 1.1, creatinine 2.34 bun 24, BNP 25,600 and troponin negative at this time patient will be admitted pulmonary and cardiology services consulted. Nephrology consulted for hemodialysis. Family also requesting urology consult due to recent procedure. Possible plans for thoracocentesis. 2D echocardiogram ordered. Plans for hemodialysis today per nephrology. At this time patient is resting comfortably in bed. Patient denies chest pain or shortness of breath. Patient denies nausea vomiting or diarrhea. Patient denies any urinary burning or frequency. Current vital signs temp 97.3, heart rate 72, respiratory rate 18, blood pressure 130/55 with a pulse ox of 98% on 2 L Review of Systems Please refer to HPI otherwise unremarkable Past Medical History Past Medical History: Atrial Fibrillation, Blood Disorder, Cancer, COPD, Dialysis, Eye Disorder, Hearing Disorder / Deafness, Hyperlipidemia, Hypertension, Renal Disease, Vascular Disorder Additional Past Medical History / Comment(s): PVD. ESRD-hemodialysis 4 days a week,. ANEMIA.pleurel effusion; Thoracentesis done @ [facility] in January2024 Pe ricardalcentesis [email or web address] ECHO 05/2024. see dr Mena[facility]. Wears 2L nc at home continously. History of Any Multi-Drug Resistant Organisms: None Reported Past Surgical History: Tonsillectomy Additional Past Surgical History / Comment(s): Angiogram.thorancentesis angio plasties. ILIAC STENTSx4. LEFT UPPER arm shunt non fucntioning now. has hemodyalsis line rt upper chest. Cyst removal from back a few yrs ago at [facility]. Percardialcentesis 03/2024. Thoracentesis 01/2024 Past Anesthesia/Blood Transfusion Reactions: No Reported Reaction Past Psychological History: No Psychological Hx Reported Additional Psychological History / Comment(s): Pt resides with his spouse. He is wheelchair bound Smoking Status: Former smoker Past Alcohol Use History: None Reported Additional Past Alcohol Use History / Comment(s): Pt started smoking in 1964 and quit in 2014. Past Drug Use History: None Reported - Past Family History Mother Family Medical History: Cancer, Congestive Heart Failure (CHF) Additional Family Medical History / Comment(s): Mother was a breast cancer survivor. She also had lung cancer. Father Family Medical History: Hypertension, Myocardial Infarction ([place]), Vascular Disorder Additional Family Medical History / Comment(s): Father 2 weeks after a [place] at the age of 81 yrs. He also had vascular disease. Sister(s) Family Medical History: Diabetes Mellitus Medications and Allergies Home Medications Medication Instructions Recorded Confirmed Type allopurinoL [Zyloprim] 100 mg PO DAILY 12/20/16 07/14/24 History Sevelamer Carbonate 800 mg PO TID-W/MEALS 08/16/20 07/14/24 History Folic Acid/Vit B Complex and C 0.8 mg PO DAILY 03/10/24 07/14/24 History [Yari-Arin Tablet] Midodrine [ProAmatine] 5 mg PO TID PRN 03/10/24 07/14/24 History Potassium Chloride 10 meq PO W/SUPPER 03/10/24 07/14/24 History Atorvastatin [Lipitor] 40 mg PO DAILY 06/22/24 07/14/24 History Heparin Sodium,Porcine [Heparin 4,000 unit IV DIRECTED 06/22/24 07/14/24 History Sodium] Sevelamer [Renvela] 800 mg PO DIRECTED PRN 07/14/24 07/14/24 History Torsemide [Soaanz] 20 mg PO BID-W/MEALS 07/14/24 07/14/24 History Warfarin [Coumadin] 2 mg PO DIRECTED 07/14/24 07/14/24 History carvediloL [Coreg] 6.25 - 12.5 mg PO BID-W/MEALS 07/14/24 07/14/24 History Allergies Allergy/AdvReac Type Severity Reaction Status Date / Time No Known Allergies Allergy Verified 07/14/24 17:56 Physical Exam Vitals: Vital Signs Temp Pulse Pulse Resp BP BP Pulse Ox 07/15/24 11:36 62 16 121/45 100 07/15/24 08:26 97.3 F L 72 18 130/55 98 07/15/24 04:00 64 16 155/62 96 07/15/24 02:00 63 18 07/15/24 00:00 63 18 153/68 96 07/14/24 21:40 97.3 F L 76 20 159/72 96 07/14/24 21:15 68 18 155/52 99 07/14/24 19:43 69 16 146/78 99 07/14/24 17:16 60 16 142/76 98 07/14/24 16:32 65 07/14/24 16:24 67 07/14/24 15:13 97.0 F L 72 18 131/60 97 Intake and Output 07/14/24 07/15/24 07/15/24 22:59 06:59 14:59 Intake Total 0 10 Balance 0 10 Intake: IV 10 Invasive Line 2 10 Oral 0 Other: Voiding Method Diaper # Voids 0 1 # Bowel Movements 1 Weight 90.718 kg 92.5 kg Head normocephalic Neck supple Lungs diminished bilaterally Heart irregular rate known atrial fibrillation Abdomen is soft rounded Extremities no edema Neuro alert and orientated to 3 Results CBC & Chem 7: 07/15/24 06:25 07/15/24 06:25 Labs: Abnormal Lab Results - Last 24 Hours (Table) 07/14/24 07/14/24 07/15/24 Range/Units 17:10 17:10 06:25 RBC 3.58 L 3.59 L (4.30-5.90) m/uL Hgb 11.4 L 11.5 L (13.0-17.5) gm/dL Hct 36.6 L 36.4 L (39.0-53.0) % MCV 102.4 H 101.6 H (80.0-100.0) fL Neutrophils # 8.0 H (1.3-7.7) k/uL Lymphocytes # 0.2 L 0.3 L (1.0-4.8) k/uL PT (10.0-12.5) sec INR (<1.2) Sodium 130 L (137-145) mmol/L Chloride 93 L (98-107) mmol/L BUN 24 H (9-20) mg/dL Creatinine 2.34 H (0.66-1.25) mg/dL Glucose 122 H (74-99) mg/dL Albumin (3.5-5.0) g/dL 07/15/24 07/15/24 Range/Units 06:25 08:37 RBC (4.30-5.90) m/uL Hgb (13.0-17.5) gm/dL Hct (39.0-53.0) % MCV (80.0-100.0) fL Neutrophils # (1.3-7.7) k/uL Lymphocytes # (1.0-4.8) k/uL PT 14.5 H (10.0-12.5) sec INR 1.4 H (<1.2) Sodium 130 L (137-145) mmol/L Chloride 92 L (98-107) mmol/L BUN 31 H (9-20) mg/dL Creatinine 2.99 H (0.66-1.25) mg/dL Glucose 112 H (74-99) mg/dL Albumin 3.4 L (3.5-5.0) g/dL Thrombosis Risk Factor Assmnt - Choose All That Apply Any of the Below Risk Factors Present?: Yes Each Factor Represents 1 point: Abnormal pulmonary function (COPD), History of prior major surgery (<1month), Medical pt on bed rest, Obesity (BMI >25), Swollen legs (current) Other Risk Factors: Yes Each Risk Factor Represents 2 Points: Patient confined to bed Each Risk Factor Represents 3 Points: Age 75 years or older Thrombosis Risk Factor Assessment Total Risk Factor Score: 10 Thrombosis Risk Factor Assessment Level: High Risk Assessment and Plan Assessment: 1. Increase shortness of breath secondary to increased pulmonary edema and pleural effusions 2. End-stage renal disease maintained on hemodialysis 3. History of left-sided pleural effusions postthoracentesis in January 2024 4. History of pericardiocentesis in March 2024 5. History of penile cancer status post penectomy 6. Chronic hypoxic respiratory failure maintained on home 2 L 7. History of paroxysmal atrial fibrillation maintained on Coumadin for anticoagulation 8. History of peripheral vascular disease with previous stents DVT prophylaxis Coumadin GI prophylax Protonix Pulmonary, nephrology, cardiology and urology services consulted Possible plans for thoracentesis 2D echo ordered Repeat labs ordered Time with Patient: Greater than 30 (Greater than 60% of the total time spent in counseling and coordination of care)
[2024-07-15] MEDS: WARFARIN 3 MG TAB PO ONE (15:09)
[2024-07-15 16:09] LABS: Hepatitis B Surface Antigen Nonreactive (Nonreactive)
[2024-07-15 16:45] LABS: Hepatitis B Surface AB- Quant 3.5 mIU/mL
[2024-07-15] MEDS: POTASSIUM CHLORIDE ER 10 MEQ TAB.ER.PRT PO SCH (19:43)
--- NOTE | 2024-07-15 22:01 | P.GSCN ---
History of Present Illness Consult date: 07/15/24 Reason for Consult: Penile squamous cell carcinoma Requesting physician: Marisel Coyne History of present illness: The patient is a 79-year-old white male who presented with a penile mass. He underwent a distal penectomy by Dr. Smith on June 30, 2024. 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 The cancer was well-differentiated and invasive into the corpus spongiosum. Patient has recovered well from surgery. He is now admitted with a primary symptom of dyspnea. Per his , he is on dialysis and is oliguric. Review of Systems - Respiratory Reports dyspnea - Genitourinary Reports as per HPI Past Medical History Past Medical History: Atrial Fibrillation, Blood Disorder, Cancer, COPD, Dialysis, Eye Disorder, Hearing Disorder / Deafness, Hyperlipidemia, Hypertension, Renal Disease, Vascular Disorder Additional Past Medical History / Comment(s): PVD. ESRD-hemodialysis 4 days a week,. ANEMIA.pleurel effusion; Thoracentesis done @ [facility] in January2024 Pericardalcentesis [email or web address] ECHO 05/2024. see dr [facility]ena[facility]. Wears 2L nc at home continously. History of Any Multi-Drug Resistant Organisms: None Reported Past Surgical History: Tonsillectomy Additional Past Surgical History / Comment(s): Angiogram.thorancentesis angio plasties. ILIAC STENTSx4. LEFT UPPER arm shunt non fucntioning now. has hemodyalsis line rt upper chest. Cyst removal from back a few yrs ago at [facility]. Percardialcentesis 03/2024. Thoracentesis 01/2024 Past Anesthesia/Blood Transfusion Reactions: No Reported Reaction Past Psychological History: No Psychological Hx Reported Additional Psychological History / Comment(s): Pt resides with his spouse. He is wheelchair bound Smoking Status: Former smoker Past Alcohol Use History: None Reported Additional Past Alcohol Use History / Comment(s): Pt started smoking in 1965 and quit in 2014. Past Drug Use History: None Reported - Past Family History Mother Family Medical History: Cancer, Congestive Heart Failure (CHF) Additional Family Medical History / Comment(s): Mother was a breast cancer survivor. She also had lung cancer. Father Family Medical History: Hypertension, Myocardial Infarction ([place]), Vascular Disorder Additional Family Medical History / Comment(s): Father 2 weeks after a [place] at the age of 81 yrs. He also had vascular disease. Sister(s) Family Medical History: Diabetes Mellitus Medications and Allergies Home Medications Medication Instructions Recorded Confirmed Type allopurinoL [Zyloprim] 100 mg PO DAILY 12/20/16 07/14/24 History Sevelamer Carbonate 800 mg PO TID-W/MEALS 08/16/20 07/14/24 History Folic Acid/Vit B Complex and C 0.8 mg PO DAILY 03/10/24 07/14/24 History [Yari-Arin Tablet] Midodrine [ProAmatine] 5 mg PO TID PRN 03/10/24 07/14/24 History Potassium Chloride 10 meq PO W/SUPPER 03/10/24 07/14/24 History Atorvastatin [Lipitor] 40 mg PO DAILY 06/22/24 07/14/24 History Heparin Sodium,Porcine [Heparin 4,000 unit IV DIRECTED 06/22/24 07/14/24 History Sodium] Sevelamer [Renvela] 800 mg PO DIRECTED PRN 07/14/24 07/14/24 History Torsemide [Soaanz] 20 mg PO BID-W/MEALS 07/14/24 07/14/24 History Warfarin [Coumadin] 2 mg PO DIRECTED 07/14/24 07/14/24 History carvediloL [Coreg] 6.25 - 12.5 mg PO BID-W/MEALS 07/14/24 07/14/24 History Allergies Allergy/AdvReac Type Severity Reaction Status Date / Time No Known Allergies Allergy Verified 07/14/24 17:56 Surgical - Exam Vital Signs Temp Pulse Resp BP Pulse Ox 97.0 F L 72 18 131/60 97 07/14/24 15:13 07/14/24 15:13 07/14/24 15:13 07/14/24 15:13 07/14/24 15:13 - General well developed, well nourished, no distress - Genitourinary s/p Partial penectomy. Incision intact and healing well. No cellulitis or drainage. Results - Labs 07/15/24 06:25 07/15/24 06:25 Abnormal Lab Results - Last 24 Hours (Table) 07/15/24 07/15/24 07/15/24 Range/Units 06:25 06:25 08:37 RBC 3.59 L (4.30-5.90) m/uL Hgb 11.5 L (13.0-17.5) gm/dL Hct 36.4 L (39.0-53.0) % MCV 101.6 H (80.0-100.0) fL Neutrophils # 8.0 H (1.3-7.7) k/uL Lymphocytes # 0.3 L (1.0-4.8) k/uL PT 14.5 H (10.0-12.5) sec INR 1.4 H (<1.2) Sodium 130 L (137-145) mmol/L Chloride 92 L (98-107) mmol/L BUN 31 H (9-20) mg/dL Creatinine 2.99 H (0.66-1.25) mg/dL Glucose 112 H (74-99) mg/dL Albumin 3.4 L (3.5-5.0) g/dL Diabetes panel 07/15/24 Range/Units 06:25 Sodium 130 L (137-145) mmol/L Potassium 3.9 (3.5-5.1) mmol/L Chloride 92 L (98-107) mmol/L Carbon Dioxide 30 (22-30) mmol/L BUN 31 H (9-20) mg/dL Creatinine 2.99 H (0.66-1.25) mg/dL Glucose 112 H (74-99) mg/dL Calcium 8.7 (8.4-10.2) mg/dL AST 30 (17-59) U/L ALT 22 (4-49) U/L Alkaline Phosphatase 126 (38-126) U/L Total Protein 6.9 (6.3-8.2) g/dL Albumin 3.4 L (3.5-5.0) g/dL Calcium panel 07/15/24 Range/Units 06:25 Calcium 8.7 (8.4-10.2) mg/dL Albumin 3.4 L (3.5-5.0) g/dL Pituitary panel 07/15/24 Range/Units 06:25 Sodium 130 L (137-145) mmol/L Potassium 3.9 (3.5-5.1) mmol/L Chloride 92 L (98-107) mmol/L Carbon Dioxide 30 (22-30) mmol/L BUN 31 H (9-20) mg/dL Creatinine 2.99 H (0.66-1.25) mg/dL Glucose 112 H (74-99) mg/dL Calcium 8.7 (8.4-10.2) mg/dL Adrenal panel 07/15/24 Range/Units 06:25 Sodium 130 L (137-145) mmol/L Potassium 3.9 (3.5-5.1) mmol/L Chloride 92 L (98-107) mmol/L Carbon Dioxide 30 (22-30) mmol/L BUN 31 H (9-20) mg/dL Creatinine 2.99 H (0.66-1.25) mg/dL Glucose 112 H (74-99) mg/dL Calcium 8.7 (8.4-10.2) mg/dL Total Bilirubin 0.5 (0.2-1.3) mg/dL AST 30 (17-59) U/L ALT 22 (4-49) U/L Alkaline Phosphatase 126 (38-126) U/L Total Protein 6.9 (6.3-8.2) g/dL Albumin 3.4 L (3.5-5.0) g/dL Assessment and Plan (1) Malignant neoplasm glans penis Current Visit: Yes Status: Acute Code(s): C60.1 - MALIGNANT NEOPLASM OF GLANS PENIS SNOMED Code(s): 360269276 Plan: The patient and his were reassured that his incision is healing adequately. Please notify me if I can be of any further assistance.
--- NOTE | 2024-07-16 00:48 | P.CRDCN ---
History of Present Illness Consult date: 07/15/24 History of present illness: HISTORY OF PRESENTING ILLNESS 79-year-old with PMH of persistent atrial fibrillation, ESRD on hemodialysis, penile cancer status post recent penectomy. In March because of volume overload he had pleural and pericardial effusion for which he required pericardiocentesis and thoracentesis. This time he presented to the hospital because of worsening shortness of breath and generalized weakness. He denies having any active chest pain chest pressure. Denies any palpitations lightheadedness dizziness or passing out spells ECG shows slow atrial fibrillation with right bundle branch block Chest x-ray shows small to moderate right-sided pleural effusion REVIEW OF SYSTEMS 14 point review of system is negative except what is mentioned above in HPI. PHYSICAL EXAMINATION Vital signs reviewed. Head: Normocephalic. Eyes: Sclerae nonicteric. Neck: Brisk carotid upstroke, mildly elevated jugular venous distention. Right chest permacath in place Lungs: Diminished air entry bilateral lower lung marroquin. Mild crackles audible in left lower base. Diminished air entry in right lower lung base Heart: Irregularly irregular pulse, S1-S2 audible, mild systolic murmur audible Abdomen: Soft nontender, positive bowel sounds. Extremities: 1-2+ pitting edema lower extremity Neuro: Alert, oritented, no focal deficits. Detailed neuro exam was not performed. ASSESSMENT Mild HFpEF exacerbation Moderate pleural effusion, right side Acute on chronic hypoxic respiratory failure with respiratory distress Generalized weakness, due to above ESRD on hemodialysis via permacath. Occluded left upper extremity AV fistula History of pericardiocentesis in March 2024 History of penile cancer status post penectomy. Persistent atrial fibrillation, with slow ventricular response on Coumadin Right bundle branch block Peripheral vascular disease PLAN Continue supportive care. Patient appears volume overloaded, recommend dialysis and fluid removal as per nephrology team. He was midodrine only as needed. Patient's blood pressure and heart rate is not low. Patient is low resting heart rate therefore is not on any beta-ramin. Obtain limited echocardiogram to make sure there is no pericardial effusion Momo Dai MD, FACC, RPVI Thank you for allowing [facility] to participate in this patient's care. Feel free to reach out in case of any followup questions. Past Medical History Past Medical History: Atrial Fibrillation, Blood Disorder, Cancer, COPD, Dialysis, Eye Disorder, Hearing Disorder / Deafness, Hyperlipidemia, Hypertension, Renal Disease, Vascular Disorder Additional Past Medical History / Comment(s): PVD. ESRD-hemodialysis 4 days a w algaaciq,. ANEMIA.pleurel effusion; Thoracentesis done @ [facility] in January2024 Pericardalcentesis [email or web address] ECHO 05/2024. see dr [facility]ena[facility]. Wears 2L nc at home continously. History of Any Multi-Drug Resistant Organisms: None Reported Past Surgical History: Tonsillectomy Additional Past Surgical History / Comment(s): Angiogram.thorancentesis angio plasties. ILIAC STENTSx4. LEFT UPPER arm shunt non fucntioning now. has hemodyalsis line rt upper chest. Cyst removal from back a few yrs ago at [facility]. Percardialcentesis 03/2024. Thoracentesis 01/2024 Past Anesthesia/Blood Transfusion Reactions: No Reported Reaction Past Psychological History: No Psychological Hx Reported Additional Psychological History / Comment(s): Pt resides with his spouse. He is wheelchair bound Smoking Status: Former smoker Past Alcohol Use History: None Reported Additional Past Alcohol Use History / Comment(s): Pt started smoking in 1964 and quit in 2014. Past Drug Use History: None Reported - Past Family History Mother Family Medical History: Cancer, Congestive Heart Failure (CHF) Additional Family Medical History / Comment(s): Mother was a breast cancer survivor. She also had lung cancer. Father Family Medical History: Hypertension, Myocardial Infarction ([place]), Vascular Disorder Additional Family Medical History / Comment(s): Father 2 weeks after a [place] at the age of 81 yrs. He also had vascular disease. Sister(s) Family Medical History: Diabetes Mellitus Medications and Allergies Home Medications Medication Instructions Recorded Confirmed Type allopurinoL [Zyloprim] 100 mg PO DAILY 12/20/16 07/14/24 History Sevelamer Carbonate 800 mg PO TID-W/MEALS 08/16/20 07/14/24 History Folic Acid/Vit B Complex and C 0.8 mg PO DAILY 03/10/24 07/14/24 History [Yari-Arin Tablet] Midodrine [ProAmatine] 5 mg PO TID PRN 03/10/24 07/14/24 History Potassium Chloride 10 meq PO W/SUPPER 03/10/24 07/14/24 History Atorvastatin [Lipitor] 40 mg PO DAILY 06/22/24 07/14/24 History Heparin Sodium,Porcine [Heparin 4,000 unit IV DIRECTED 06/22/24 07/14/24 History Sodium] Sevelamer [Renvela] 800 mg PO DIRECTED PRN 07/14/24 07/14/24 History Torsemide [Soaanz] 20 mg PO BID-W/MEALS 07/14/24 07/14/24 History Warfarin [Coumadin] 2 mg PO DIRECTED 07/14/24 07/14/24 History carvediloL [Coreg] 6.25 - 12.5 mg PO BID-W/MEALS 07/14/24 07/14/24 History Allergies Allergy/AdvReac Type Severity Reaction Status Date / Time No Known Allergies Allergy Verified 07/14/24 17:56 Physical Exam Vitals: Vital Signs Temp Pulse Resp BP Pulse Ox 07/15/24 23:48 97.4 F L 96 20 134/60 96 07/15/24 19:30 97.1 F L 67 13 135/60 98 07/15/24 19:01 96.9 F L 88 18 126/75 07/15/24 18:08 96.9 F L 07/15/24 16:25 96.1 F L 71 15 154/84 97 07/15/24 11:36 62 16 121/45 100 07/15/24 08:26 97.3 F L 72 18 130/55 98 07/15/24 04:00 64 16 155/62 96 07/15/24 02:00 63 18 Intake and Output 07/15/24 07/15/24 07/16/24 14:59 22:59 06:59 Intake Total 10 400 Output Total 5600 Balance 10 -5200 Intake: IV 10 Invasive Line 2 10 Hemodialysis 400 Output: Hemodialysis 3000 Hemodialysis Net Amount 2600 Other: Voiding Method Diaper Diaper # Voids 0 # Bowel Movements 1 Results 07/15/24 06:25 07/15/24 06:25 Cardiac Enzymes 07/15/24 Range/Units 06:25 AST 30 (17-59) U/L Coagulation 07/15/24 Range/Units 08:37 PT 14.5 H (10.0-12.5) sec CBC 07/15/24 Range/Units 06:25 WBC 8.9 (3.8-10.6) k/uL RBC 3.59 L (4.30-5.90) m/uL Hgb 11.5 L (13.0-17.5) gm/dL Hct 36.4 L (39.0-53.0) % Plt Count 175 (150-450) k/uL Comprehensive Metabolic Panel 07/15/24 Range/Units 06:25 Sodium 130 L (137-145) mmol/L Potassium 3.9 (3.5-5.1) mmol/L Chloride 92 L (98-107) mmol/L Carbon Dioxide 30 (22-30) mmol/L BUN 31 H (9-20) mg/dL Creatinine 2.99 H (0.66-1.25) mg/dL Glucose 112 H (74-99) mg/dL Calcium 8.7 (8.4-10.2) mg/dL AST 30 (17-59) U/L ALT 22 (4-49) U/L Alkaline Phosphatase 126 (38-126) U/L Total Protein 6.9 (6.3-8.2) g/dL Albumin 3.4 L (3.5-5.0) g/dL Current Medications Generic Name Dose Route Start Last Admin Trade Name Freq PRN Reason Stop Dose Admin Hydrocodone Bitart/Acetaminophen 1 each 07/15/24 18:07 Hydrocodone/Apap 10-325mg 1 Each Tab PO Q6HR PRN Pain Allopurinol 100 mg 07/15/24 09:00 07/15/24 08:30 Allopurinol 100 Mg Tab PO 100 mg DAILY LAILA Administration Atorvastatin Calcium 40 mg 07/15/24 09:00 07/15/24 08:30 Atorvastatin 40 Mg Tab PO 40 mg DAILY LAILA Administration Midodrine 5 mg 07/14/24 18:51 Midodrine 5 Mg Tab PO TID PRN Blood Pressure - Low Miscellaneous Information 0 each 07/14/24 19:05 Warfarin Per Pharmacy MISCELLANE DIRECTED PRN PHARMACY DOSING WARFARIN Multivit/Ca Carb/B Cmplx/FA/Prenat 1 each 07/15/24 09:00 07/15/24 11:41 Folic Acid-Vit B Complex-Vit C 1 Cap PO 1 each DAILY LAILA Administration Naloxone HCl 0.2 mg 07/14/24 18:56 Naloxone 0.4 Mg/Ml 1 Ml Vial IV Q2M PRN Opioid Reversal Pantoprazole Sodium 40 mg 07/15/24 09:00 07/15/24 08:30 Pantoprazole 40 Mg/10 Ml Vial IVP 40 mg DAILY LAILA Administration Petrolatum 1 applic 07/15/24 12:05 Zinc Oxide Paste (Z-Guard) 1 Applic TOPICAL Q2HR PRN Wound Healing Protocol Potassium Chloride 10 meq 07/15/24 17:30 07/15/24 19:43 Potassium Chloride Er 10 Meq Tab.Er.Prt PO 10 meq W/SUPPER LAILA Administration Sevelamer Carbonate 800 mg 07/15/24 07:30 07/15/24 19:49 Sevelamer 800 Mg Tab PO Not Given TID-W/MEALS LAILA Sevelamer Carbonate 800 mg 07/14/24 18:51 Sevelamer 800 Mg Tab PO TID PRN SNACKS Torsemide 20 mg 07/15/24 07:30 07/15/24 19:43 Torsemide 20 Mg Tab PO 20 mg BID-W/MEALS LAILA Administration Intake and Output 07/15/24 07/15/24 07/16/24 14:59 22:59 06:59 Intake Total 10 400 Output Total 5600 Balance 10 -5200 Intake: IV 10 Invasive Line 2 10 Hemodialysis 400 Output: Hemodialysis 3000 Hemodialysis Net Amount 2600 Other: Voiding Method Diaper Diaper # Voids 0 # Bowel Movements 1 07/15/24 06:25 07/15/24 06:25
[2024-07-16 06:47] LABS: Basophils % (A) 0 %; Eosinophils % (A) 0 %; HCT 40.5 % (39.0-53.0); Hypochromasia Marked; Lymphocytes # (A) 0.3 k/uL (1.0-4.8); Lymphocytes % (A) 3 %; MCH 31.2 pg (25.0-35.0); MCHC 29.6 g/dL (31.0-37.0); MCV 105.5 fL (80.0-100.0); Macrocytosis Moderate; Mean Platelet Volume 8.7; Monocytes # (A) 0.4 k/uL (0-1.0); Monocytes % (A) 4 %; Neutrophils # (A) 9.1 k/uL (1.3-7.7); Neutrophils % (A) 92 %; Platelet Count 197 k/uL (150-450); RBC 3.84 m/uL (4.30-5.90); RDW 14.6 % (11.5-15.5); WBC 9.9 k/uL (3.8-10.6)
--- NOTE | 2024-07-16 06:59 | CA ---
Transthoracic Echo Report Name: Mainor Fierro Age: 79 Gender: M : 1945 Exam Date: 07/15/2024 14:25 Exam Location: [facility] Ht (in): 66 Wt (lb): 203 Ordering Physician: Momo Dai MD ([id number]) Attending/Referring Phys: Tool And Die Technician Nraa Kan RDCS Procedure CPT: Indications: pericardial effusion Cardiac Hx: Technical Quality: Contrast 1: Total Dose (mL): Contrast 2: Total Dose (mL): MEASUREMENTS (Male / Female) Normal Values FINDINGS Left Ventricle Limited study, left ventricular ejection fraction is estimated at 50-55 %. Right Ventricle Right Atrium Left Atrium Mitral Valve Aortic Valve Tricuspid Valve Pulmonic Valve Pericardium Small pericardial effusion. Aorta CONCLUSIONS Limited echo. Left Ventricular systolic function borderline normal Small pericardial effusion was noted Previewed by: Dr. Shanna Salter MD (Electronically Signed) Final Date: 16 July 2024 06:58
[2024-07-16 07:04] LABS: INR 1.5 (<1.2); Prothrombin Time 15.8 sec (10.0-12.5)
[2024-07-16 07:48] LABS: ALT 23 U/L (4-49); AST 29 U/L (17-59); African American GFR (CKD) 25 (>60 ml/min/1.73 sqM); Albumin 3.5 g/dL (3.5-5.0); Alkaline Phosphatase 131 U/L (38-126); Anion Gap 8 mmol/L; Blood Urea Nitrogen 23 mg/dL (9-20); Calcium 8.6 mg/dL (8.4-10.2); Carbon Dioxide 30 mmol/L (22-30); Chloride 96 mmol/L (98-107); Glucose 97 mg/dL (74-99); Non-African American GFR(CKD) 22 (>60 ml/min/1.73 sqM); Potassium 4.2 mmol/L (3.5-5.1); Sodium 134 mmol/L (137-145); Total Bilirubin 0.6 mg/dL (0.2-1.3); Total Protein 7.1 g/dL (6.3-8.2)
--- NOTE | 2024-07-16 10:20 | P.PN ---
Subjective Patient is seen in follow-up for end-stage renal disease. He is maintained on home hemodialysis. Tolerated 2.5 L ultrafiltration yesterday. Hemodynamically stable. Still quite lethargic. present at bedside. Vital signs are stable. General: No acute distress. HEENT: Head exam is unremarkable. On nasal cannula. LUNGS: No audible rhonchi or wheezes. HEART: Rate and Rhythm are regular. ABDOMEN: Nontender. EXTREMITITES: No edema. Objective - Vital Signs Vital signs: Vital Signs Temp 98.3 F 07/16/24 04:00 Pulse 94 07/16/24 04:00 Resp 19 07/16/24 04:00 BP 130/58 07/16/24 04:00 Pulse Ox 93 L 07/16/24 04:00 FiO2 Intake & Output 07/15/24 07/16/24 07/16/24 18:59 06:59 18:59 Intake Total 10 500 Output Total 5600 Balance 10 -5100 Weight 90.5 kg Intake: IV 10 Invasive Line 2 10 Oral 100 Hemodialysis 400 Output: Hemodialysis 3000 Hemodialysis Net Amount 2600 Other: Voiding Method Diaper Diaper # Voids 0 1 # Bowel Movements 1 - Labs CBC & Chem 7: 07/16/24 06:24 07/16/24 06:24 Labs: Abnormal Lab Results - Last 24 Hours (Table) 07/16/24 07/16/24 07/16/24 Range/Units 06:24 06:24 06:24 RBC 3.84 L (4.30-5.90) m/uL Hgb 12.0 L (13.0-17.5) gm/dL MCV 105.5 H (80.0-100.0) fL MCHC 29.6 L (31.0-37.0) g/dL Neutrophils # 9.1 H (1.3-7.7) k/uL Lymphocytes # 0.3 L (1.0-4.8) k/uL PT 15.8 H (10.0-12.5) sec INR 1.5 H (<1.2) Sodium 134 L (137-145) mmol/L Chloride 96 L (98-107) mmol/L BUN 23 H (9-20) mg/dL Creatinine 2.70 H (0.66-1.25) mg/dL Alkaline Phosphatase 131 H (38-126) U/L Assessment and Plan Plan: Assessment: 1. End-stage renal disease maintained on home hemodialysis via permacath. 2. Volume overload. Better with ultrafiltration. 3. Peripheral vascular disease with iliac stents. 4. Hypertension with chronic kidney disease. Stable. 5. Chronic kidney disease mineral bone disease maintained on Renvela. 6. Hypervolemic hyponatremia. Improved postdialysis. 7. Penile mass status post distal penectomy June 2024. 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 Plan: Hemodialysis tomorrow. Preserved EF with small pericardial effusion noted on echocardiogram.
[2024-07-16 11:09] VITALS: BMI 32.2
[2024-07-16] MEDS: HYDROcodone/APAP 10-325MG 1 EACH TAB PO PRN (11:26)
[2024-07-16] MEDS: WARFARIN 2 MG TAB PO ONE (11:26)
[2024-07-16 12:00] LABS: Allen Test Performed? Yes
[2024-07-16 12:01] LABS: ABG Base Excess -0.8 mmol/L; ABG HCO3 31 mmol/L (21-25); ABG Oxygen Saturation 86.5 % (94-97); ABG TCO2 34 mmol/L (19-24)
[2024-07-16 12:14] LABS: ABG PCO2 98 mmHg (35-45); ABG PH 7.11 (7.35-7.45); ABG PO2 57 mmHg (83-108)
--- NOTE | 2024-07-16 13:20 | P.PN ---
Subjective Progress Note Date: 07/16/24 Principal diagnosis: HPI: [This patient has multiple comorbid conditions including volume overload requiring hemodialysis with which she has improved a lot. He has persistent atrial fibrillation. He has had pleural effusions. He also had previous pericardiocentesis in the past. He was brought in because of lethargy and volume overload improved with hemodialysis but lethargy persists although there is some modest improvement. No chest pain or shortness of breath prognosis remains guarded.]. PHYSICIAL EXAM: [Patient is slightly lethargic. Does respond to questions. He has normal vital signs elevated JVD. He has a permacath in the right side. S1- S2 with a regular and rhythm short systolic murmur audible lungs reveal diminished air entry on both bases abdomen is soft lower extremities reveal edema Central nervous system reveals lethargy but no focal deficits.]. IMPRESSION: 1. [Atrial fibrillation persistent]. 2. [Volume overload s/p dialysis]. 3. [Pleural effusions]. 4. [Underlies weakness]. 5. []. RECOMMENDATIONS: [Continue current therapy including dialysis and use midodrine as needed. Rate control is fairly decent.]. Objective - Vital Signs Vital signs: Vital Signs Temp 98 F 07/16/24 12:00 Pulse 88 07/16/24 12:00 Resp 16 07/16/24 12:00 BP 102/55 07/16/24 12:00 Pulse Ox 100 07/16/24 12:00 FiO2 50 07/16/24 12:15 Intake & Output 07/15/24 07/16/24 07/16/24 18:59 06:59 18:59 Intake Total 10 500 Output Total 5600 Balance 10 -5100 Weight 90.5 kg 90.5 kg Intake: IV 10 Invasive Line 2 10 Oral 100 Hemodialysis 400 Output: Hemodialysis 3000 Hemodialysis Net Amount 2600 Other: Voiding Method Diaper Diaper Diaper # Voids 0 1 # Bowel Movements 1 - Labs CBC & Chem 7: 07/16/24 06:24 07/16/24 06:24 Labs: Abnormal Lab Results - Last 24 Hours (Table) 07/16/24 07/16/24 07/16/24 Range/Units 06:24 06:24 06:24 RBC 3.84 L (4.30-5.90) m/uL Hgb 12.0 L (13.0-17.5) gm/dL MCV 105.5 H (80.0-100.0) fL MCHC 29.6 L (31.0-37.0) g/dL Neutrophils # 9.1 H (1.3-7.7) k/uL Lymphocytes # 0.3 L (1.0-4.8) k/uL PT 15.8 H (10.0-12.5) sec INR 1.5 H (<1.2) ABG pH (7.35-7.45) ABG pCO2 (35-45) mmHg ABG pO2 (83-108) mmHg ABG HCO3 (21-25) mmol/L ABG Total CO2 (19-24) mmol/L ABG O2 Saturation (94-97) % Hemoglobin (13.0-17.5) gm/dL Sodium 134 L (137-145) mmol/L Chloride 96 L (98-107) mmol/L BUN 23 H (9-20) mg/dL Creatinine 2.70 H (0.66-1.25) mg/dL Alkaline Phosphatase 131 H (38-126) U/L 07/16/24 Range/Units 11:57 RBC (4.30-5.90) m/uL Hgb (13.0-17.5) gm/dL MCV (80.0-100.0) fL MCHC (31.0-37.0) g/dL Neutrophils # (1.3-7.7) k/uL Lymphocytes # (1.0-4.8) k/uL PT (10.0-12.5) sec INR (<1.2) ABG pH 7.11 L* (7.35-7.45) ABG pCO2 98 H* (35-45) mmHg ABG pO2 57 L* (83-108) mmHg ABG HCO3 31 H (21-25) mmol/L ABG Total CO2 34 H (19-24) mmol/L ABG O2 Saturation 86.5 L (94-97) % Hemoglobin 12.1 L (13.0-17.5) gm/dL Sodium (137-145) mmol/L Chloride (98-107) mmol/L BUN (9-20) mg/dL Creatinine (0.66-1.25) mg/dL Alkaline Phosphatase (38-126) U/L
--- NOTE | 2024-07-16 13:21 | P.PN ---
Subjective Progress Note Date: 07/16/24 Principal diagnosis: Pleural effusion. Patient is a 79-year-old male with past medical significant for end-stage renal disease maintained on hemodialysis, left pleural effusion status postthoracentesis, pericardiocentesis, atrial fibrillation, PVD, COPD, home O2 dependence, penile cancer status Penectomy. Over the last 2 weeks,, the patient has been progressively more short of breath. Also, reports generalized weakness, reduced urination. He does have end-stage renal disease and undergoes home hemodialysis. Recently his left arm fistula has stopped working. He does have a right chest permacath. 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 Denies missing any hemodialysis treatments. Denies infectious URI-like symptoms such as rhinorrhea, postnasal drip, sinus pressure, sore throat. Denies sick contacts. Does have a chronic cough with occasional yellow sputum production. Denies fevers. Denies any chest pain, worsening lower extremity swelling. Does endorse orthopnea. Sleeps in a chair at home. He is chronically oxygen dependent on 2 L/min nasal cannula while at home. Chest x- ray done on admission consistent with pulmonary edema and fluid overload. There are moderate bilateral pleural effusions with associated atelectasis. A left basilar opacity cannot be excluded. Patient does have history of left-sided thoracentesis done on 01/14/2024. Fluid was technically an exudate with elevated fluid protein greater than 3.6 g. LDH 77. Cytologically negative for malignant cells. Microbiology was negative. Also, has had a previous pericardiocentesis on 03/12/2024.. Abdominal x-ray showing nonobstructive bowel gas pattern. No significant stool burden. Iliac vessel stents. CBC: WBC count 6.8, hemoglobin 11.4, hematocrit 36.6, platelets 183. CMP: Sodium 130, potassium 3.6, chloride 93, serum bicarb 29, BUN 24, creatinine 2.34, glucose 122. Troponin less than 0.012. NT proBNP significantly elevated at 25,600. Patient currently maintained on torsemide 20 mg twice daily. I am evaluating this patient on the cardiac stepdown unit. He is currently in bed in a high- Fowlers position. Has some conversational dyspnea, speaking in 2-3 word phrases. Tachypneic. SpO2 is reading 97% on his chronic 2 L/min nasal cannula. SPO2 97%. Afebrile. Remaining vital signs are stable. Progress note dated July 16, 2024. 79-year-old male who is seen in room 376. The patient is quite lethargic. Apparently the patient recently received some narcotic. At this time, the patient is not a candidate for thoracentesis. I do not believe he will be able to sit still, and be cooperative. The patient continues on oxygen at 3 L. We will check a chest x-ray in the morning. Is not receiving any IV fluids. The patient did have hemodialysis yesterday, July 15. Current labs are good white count 9.9, hemoglobin 12, hematocrit 40.5, and a platelet count of 197,000. PT 15.8 with an INR of 1.5. Blood gases show pO2 of 57, pCO2 of 98, and a pH of 7.11. BiPAP was recommended. Sodium 134, potassium 4.2, chloride 96, CO2 30, BUN 23, and creatinine 2.70. Objective - Vital Signs Vital signs: Vital Signs Temp 98 F 07/16/24 12:00 Pulse 88 07/16/24 12:00 Resp 16 07/16/24 12:00 BP 102/55 07/16/24 12:00 Pulse Ox 100 07/16/24 12:00 FiO2 50 07/16/24 12:15 Intake & Output 07/15/24 07/16/24 07/16/24 18:59 06:59 18:59 Intake Total 10 500 Output Total 5600 Balance 10 -5100 Weight 90.5 kg 90.5 kg Intake: IV 10 Invasive Line 2 10 Oral 100 Hemodialysis 400 Output: Hemodialysis 3000 Hemodialysis Net Amount 2600 Other: Voiding Method Diaper Diaper Diaper # Voids 0 1 # Bowel Movements 1 - Exam No acute distress, very lethargic, and somnolent. Currently on 3 L. HEENT examination is grossly unremarkable. Mucous membranes are moist. No oral lesions. Neck supple. Full range of motion. No adenopathy thyromegaly or neck vein distention. Cardiovascular examination reveals an irregular rhythm and and rate. S1-S2 normal. No S3 or S4. A soft systolic murmur is noted. Lungs reveal bibasilar crackles. No wheezes or rhonchi. Breath sounds equal. Dullness at the bases on percussion. Abdomen soft bowel sounds are heard. No masses or tenderness. Extremities are intact. No cyanosis clubbing or edema. Skin is without rash or lesion. Neurologic examination is brief but nonfocal. - Labs CBC & Chem 7: 07/16/24 06:24 07/16/24 06:24 Labs: Abnormal Lab Results - Last 24 Hours (Table) 07/16/24 07/16/24 07/16/24 Range/Units 06:24 06:24 06:24 RBC 3.84 L (4.30-5.90) m/uL Hgb 12.0 L (13.0-17.5) gm/dL MCV 105.5 H (80.0-100.0) fL MCHC 29.6 L (31.0-37.0) g/dL Neutrophils # 9.1 H (1.3-7.7) k/uL Lymphocytes # 0.3 L (1.0-4.8) k/uL PT 15.8 H (10.0-12.5) sec INR 1.5 H (<1.2) ABG pH (7.35-7.45) ABG pCO2 (35-45) mmHg ABG pO2 (83-108) mmHg ABG HCO3 (21-25) mmol/L ABG Total CO2 (19-24) mmol/L ABG O2 Saturation (94-97) % Hemoglobin (13.0-17.5) gm/dL Sodium 134 L (137-145) mmol/L Chloride 96 L (98-107) mmol/L BUN 23 H (9-20) mg/dL Creatinine 2.70 H (0.66-1.25) mg/dL Alkaline Phosphatase 131 H (38-126) U/L 07/16/24 Range/Units 11:57 RBC (4.30-5.90) m/uL Hgb (13.0-17.5) gm/dL MCV (80.0-100.0) fL MCHC (31.0-37.0) g/dL Neutrophils # (1.3-7.7) k/uL Lymphocytes # (1.0-4.8) k/uL PT (10.0-12.5) sec INR (<1.2) ABG pH 7.11 L* (7.35-7.45) ABG pCO2 98 H* (35-45) mmHg ABG pO2 57 L* (83-108) mmHg ABG HCO3 31 H (21-25) mmol/L ABG Total CO2 34 H (19-24) mmol/L ABG O2 Saturation 86.5 L (94-97) % Hemoglobin 12.1 L (13.0-17.5) gm/dL Sodium (137-145) mmol/L Chloride (98-107) mmol/L BUN (9-20) mg/dL Creatinine (0.66-1.25) mg/dL Alkaline Phosphatase (38-126) U/L Assessment and Plan Assessment: Pulmonary edema, with moderate sized bilateral pleural effusions. Acute dyspnea, secondary to above. Chronic hypoxemic respiratory failure, normally maintained on 2 L/min nasal cannula. History of left-sided pleural effusion status/post thoracentesis on 01/14/2024. History of pericardiocentesis on 03/12/2024. End-stage renal disease, maintained on home hemodialysis. Hypervolemic hyponatremia. History of HPV/penile cancer status post penectomy. Chronic obstructive pulmonary disease, stable. Paroxysmal atrial fibrillation with controlled ventricular response. History of peripheral vascular disease with previous bilateral iliac stents. Obesity, with a BMI of 32.3 kg/m. Plan: Plan dated July 16, 2024. The patient was found to be very lethargic and somnolent. We have asked that t he nurses discontinue all narcotics. The patient will have a chest x-ray in the morning. Will make a decision about whether or not to do thoracentesis on this patient. The patient will need to be much more cooperative than he was today. Labs, x-rays, and medications are reviewed. Prognosis is guarded. Time with Patient: Less than 30
--- NOTE | 2024-07-16 14:43 | P.PN ---
Subjective Progress Note Date: 07/16/24 Mainor Fierro is a 79-year-old male patient of Dr. Neri who presented with concerns of increased shortness of breath. Patient has an extensive medical history including end-stage renal disease maintained on hemodialysis, atrial fibrillation, recent diagnosis of penile cancer, previous history of pe ricardiocentesis and thoracentesis, renal disease, hypertension, hyperlipidemia and home O2 2 L. Chest x-ray completed showing moderate bilateral pleural effusions with adjacent atelectasis and/or consolidation possible underlying pulmonary vascular congestion abdomen showing nonobstructive bowel gas pattern no significant stool burden iliac vessel stents are present. Lab work revealing INR 1.1, creatinine 2.34 bun 24, BNP 25,600 and troponin negative at this time patient will be admitted pulmonary and cardiology services consulted. Nephrology consulted for hemodialysis. Family also requesting urology consult due to recent procedure. Possible plans for thoracocentesis. 2D echocardiogram ordered. Plans for hemodialysis today per nephrology. At this time patient is resting comfortably in bed. Patient denies chest pain or shortness of breath. Patient denies nausea vomiting or diarrhea. Patient denies any urinary burning or frequency. Current vital signs temp 97.3, heart rate 72, respiratory rate 18, blood pressure 130/55 with a pulse ox of 98% on 2 L On 07/16/2024 patient was seen and examined on the medical floor he is alert and oriented x 3 in no apparent distress, he reports some improvement in his shortness of breath, otherwise he denies any complaints there is no fever or chills no headache or dizziness no chest pain no shortness of breath no cough no nausea or vomiting no abdominal pain no diarrhea no urinary symptoms, he is followed by nephrology and receiving hemodialysis, will continue to follow closely. Objective - Vital Signs Vital signs: Vital Signs Temp 98 F 07/16/24 12:00 Pulse 88 07/16/24 12:00 Resp 16 07/16/24 12:00 BP 102/55 07/16/24 12:00 Pulse Ox 100 07/16/24 12:00 FiO2 50 07/16/24 12:15 Intake & Output 07/15/24 07/16/24 07/16/24 18:59 06:59 18:59 Intake Total 10 500 Output Total 5600 Balance 10 -5100 Weight 90.5 kg 90.5 kg Intake: IV 10 Invasive Line 2 10 Oral 100 Hemodialysis 400 Output: Hemodialysis 3000 Hemodialysis Net Amount 2600 Other: Voiding Method Diaper Diaper Diaper # Voids 0 1 # Bowel Movements 1 - Exam In general patient is alert and oriented x 3 in no distress HEENT head normocephalic and atraumatic Neck is supple no JVD no goiter no lymphadenopathy no carotid bruit Chest examination reveals a scattered crackles bilaterally no wheezing Cardiac exam irreveals regular heart sounds S1 and S2 no gallops no murmurs Abdomen is soft nontender no organomegaly with normal bowel sounds Extremity exam reveals no edema no cyanosis or clubbing Neurological examination reveals no gross focal deficits - Labs CBC & Chem 7: 07/16/24 06:24 07/16/24 06:24 Labs: Abnormal Lab Results - Last 24 Hours (Table) 07/16/24 07/16/24 07/16/24 Range/Units 06:24 06:24 06:24 RBC 3.84 L (4.30-5.90) m/uL Hgb 12.0 L (13.0-17.5) gm/dL MCV 105.5 H (80.0-100.0) fL MCHC 29.6 L (31.0-37.0) g/dL Neutrophils # 9.1 H (1.3-7.7) k/uL Lymphocytes # 0.3 L (1.0-4.8) k/uL PT 15.8 H (10.0-12.5) sec INR 1.5 H (<1.2) ABG pH (7.35-7.45) ABG pCO2 (35-45) mmHg ABG pO2 (83-108) mmHg ABG HCO3 (21-25) mmol/L ABG Total CO2 (19-24) mmol/L ABG O2 Saturation (94-97) % Hemoglobin (13.0-17.5) gm/dL Sodium 134 L (137-145) mmol/L Chloride 96 L (98-107) mmol/L BUN 23 H (9-20) mg/dL Creatinine 2.70 H (0.66-1.25) mg/dL Alkaline Phosphatase 131 H (38-126) U/L 07/16/24 Range/Units 11:57 RBC (4.30-5.90) m/uL Hgb (13.0-17.5) gm/dL MCV (80.0-100.0) fL MCHC (31.0-37.0) g/dL Neutrophils # (1.3-7.7) k/uL Lymphocytes # (1.0-4.8) k/uL PT (10.0-12.5) sec INR (<1.2) ABG pH 7.11 L* (7.35-7.45) ABG pCO2 98 H* (35-45) mmHg ABG pO2 57 L* (83-108) mmHg ABG HCO3 31 H (21-25) mmol/L ABG Total CO2 34 H (19-24) mmol/L ABG O2 Saturation 86.5 L (94-97) % Hemoglobin 12.1 L (13.0-17.5) gm/dL Sodium (137-145) mmol/L Chloride (98-107) mmol/L BUN (9-20) mg/dL Creatinine (0.66-1.25) mg/dL Alkaline Phosphatase (38-126) U/L Assessment and Plan Assessment: 1. Increase shortness of breath secondary to increased pulmonary edema and pleural effusions 2. End-stage renal disease maintained on hemodialysis 3. History of left-sided pleural effusions postthoracentesis in January 2024 4. History of pericardiocentesis in March 2024 5. History of penile cancer status post penectomy 6. Chronic hypoxic respiratory failure maintained on home 2 L 7. History of paroxysmal atrial fibrillation maintained on Coumadin for anticoagulation 8. History of peripheral vascular disease with previous stents DVT prophylaxis Coumadin GI prophylax Protonix Pulmonary, nephrology, cardiology and urology services consulted Possible plans for thoracentesis 2D echo ordered Repeat labs ordered
[2024-07-16] MEDS ORDERED: HEPARIN SODIUM,PORCINE 10,000 UNIT/ML 1 ML VIAL IV PRN (14:45)
[2024-07-17 06:58] LABS: Glucose,Whole Blood 68 mg/dL (70-110)
[2024-07-17] MEDS: DEXTROSE 50% SYRINGE 50 ML IVP STA (06:59)
[2024-07-17 07:11] LABS: Glucose,Whole Blood 118 mg/dL (70-110)
[2024-07-17 07:14] LABS: ABG Oxygen Saturation 91.2 % (94-97); ABG PO2 70 mmHg (83-108); Allen Test Performed? Yes
[2024-07-17 07:17] LABS: ABG PCO2 >98 mmHg (35-45); ABG PH 7.07 (7.35-7.45)
[2024-07-17 07:27] LABS: INR 2.4 (<1.2); Prothrombin Time 23.4 sec (10.0-12.5)
[2024-07-17 07:35] LABS: Glucose,Whole Blood 115 mg/dL (70-110)
[2024-07-17 08:00] LABS: Basophils % (A) 0 %; Eosinophils # (A) 0.1 k/uL (0-0.7); Eosinophils % (A) 1 %; HCT 39.4 % (39.0-53.0); HGB 11.8 gm/dL (13.0-17.5); Hypochromasia Marked; Lymphocytes # (A) 0.3 k/uL (1.0-4.8); Lymphocytes % (A) 2 %; MCH 31.8 pg (25.0-35.0); MCV 106.1 fL (80.0-100.0); Macrocytosis Moderate; Mean Platelet Volume 7.9; Monocytes # (A) 0.6 k/uL (0-1.0); Monocytes % (A) 5 %; Neutrophils # (A) 10.3 k/uL (1.3-7.7); Neutrophils % (A) 91 %; Platelet Count 178 k/uL (150-450); RBC 3.71 m/uL (4.30-5.90); RDW 14.4 % (11.5-15.5); WBC 11.3 k/uL (3.8-10.6)
--- NOTE | 2024-07-17 08:04 | XR ---
EXAMINATION TYPE: XR chest 1V portable DATE OF EXAM: 07/17/2024 HISTORY: Shortness of breath. COMPARISON: 07/14/2024 TECHNIQUE: Single view of the chest is submitted. FINDINGS: Demonstrated are scattered senescent parenchymal change. Large bore central venous line unchanged. Pulmonary venous congestion with patchy basilar opacities a nd pleural effusions. The heart is stable. Hilar and mediastinal structures are within normal limits. Degenerative changes are seen of the dorsal spine. IMPRESSION: 1. Stable chest [facility] Nadege Morel, , 07/17/2024 8:01 AM
[2024-07-17 08:29] LABS: African American GFR (CKD) 15 (>60 ml/min/1.73 sqM); Anion Gap 10 mmol/L; Blood Urea Nitrogen 41 mg/dL (9-20); Calcium 8.6 mg/dL (8.4-10.2); Carbon Dioxide 27 mmol/L (22-30); Chloride 97 mmol/L (98-107); Glucose 108 mg/dL (74-99); Non-African American GFR(CKD) 13 (>60 ml/min/1.73 sqM); Potassium 4.5 mmol/L (3.5-5.1); Sodium 134 mmol/L (137-145)
--- NOTE | 2024-07-17 08:48 | P.PN ---
Subjective Progress Note Date: 07/17/24 Principal diagnosis: This patient has multiple comorbid conditions. He is on hemodialysis. He has chronic persistent atrial fibrillation on Coumadin. Last night or early this morning he developed worsening lethargy was not arousable. He has developed hypercapnic hypoxic respiratory failure was moved to the ICU placed on a BiPAP. He is also going to have dialysis as well. This gentleman's atrial fibrillation rate is well-controlled. He is on Coumadin INR today is 2.4. Cardiac isidro we will continue current medical regimen. Physical exam revealed that vitals are stable. He is not on any pressors at this time. JVD is evident S1-S2 with irregularity and rhythm short systolic murmur lungs reveal diminished air entry abdomen is soft lower extremities reveal diminished pulses trace edema Central nervous system reveals that patient is lethargic and cannot do a proper examination. I am recommending that we continue BiPAP hemodialysis and hold Coumadin today. No other suggestions. Prognosis remains guarded. Objective - Vital Signs Vital signs: Vital Signs Temp 97.4 F L 07/17/24 07:37 Pulse 69 07/17/24 07:37 Resp 29 H 07/17/24 07:37 BP 108/48 07/17/24 07:37 Pulse Ox 96 07/17/24 07:37 FiO2 40 07/17/24 08:32 Intake & Output 07/16/24 07/17/24 07/17/24 18:59 06:59 18:59 Weight 90.5 kg 92.5 kg Other: Voiding Method Diaper # Voids 0 - Labs CBC & Chem 7: 07/17/24 07:41 07/17/24 07:41 Labs: Abnormal Lab Results - Last 24 Hours (Table) 07/16/24 07/17/24 07/17/24 Range/Units 11:57 06:16 06:56 WBC (3.8-10.6) k/uL RBC (4.30-5.90) m/uL Hgb (13.0-17.5) gm/dL MCV (80.0-100.0) fL MCHC (31.0-37.0) g/dL Neutrophils # (1.3-7.7) k/uL Lymphocytes # (1.0-4.8) k/uL PT 23.4 H (10.0-12.5) sec INR 2.4 H (<1.2) ABG pH 7.11 L* (7.35-7.45) ABG pCO2 98 H* (35-45) mmHg ABG pO2 57 L* (83-108) mmHg ABG HCO3 31 H (21-25) mmol/L ABG Total CO2 34 H (19-24) mmol/L ABG O2 Saturation 86.5 L (94-97) % Hemoglobin 12.1 L (13.0-17.5) gm/dL Sodium (137-145) mmol/L Chloride (98-107) mmol/L BUN (9-20) mg/dL Creatinine (0.66-1.25) mg/dL Glucose (74-99) mg/dL POC Glucose (mg/dL) 68 L (70-110) mg/dL 07/17/24 07/17/24 07/17/24 Range/Units 07:11 07:11 07:30 WBC (3.8-10.6) k/uL RBC (4.30-5.90) m/uL Hgb (13.0-17.5) gm/dL MCV (80.0-100.0) fL MCHC (31.0-37.0) g/dL Neutrophils # (1.3-7.7) k/uL Lymphocytes # (1.0-4.8) k/uL PT (10.0-12.5) sec INR (<1.2) ABG pH 7.07 L* (7.35-7.45) ABG pCO2 >98 H* (35-45) mmHg ABG pO2 70 L (83-108) mmHg ABG HCO3 (21-25) mmol/L ABG Total CO2 (19-24) mmol/L ABG O2 Saturation 91.2 L (94-97) % Hemoglobin 11.5 L (13.0-17.5) gm/dL Sodium (137-145) mmol/L Chloride (98-107) mmol/L BUN (9-20) mg/dL Creatinine (0.66-1.25) mg/dL Glucose (74-99) mg/dL POC Glucose (mg/dL) 118 H 115 H (70-110) mg/dL 07/17/24 07/17/24 Range/Units 07:41 07:41 WBC 11.3 H (3.8-10.6) k/uL RBC 3.71 L (4.30-5.90) m/uL Hgb 11.8 L (13.0-17.5) gm/dL MCV 106.1 H (80.0-100.0) fL MCHC 30.0 L (31.0-37.0) g/dL Neutrophils # 10.3 H (1.3-7.7) k/uL Lymphocytes # 0.3 L (1.0-4.8) k/uL PT (10.0-12.5) sec INR (<1.2) ABG pH (7.35-7.45) ABG pCO2 (35-45) mmHg ABG pO2 (83-108) mmHg ABG HCO3 (21-25) mmol/L ABG Total CO2 (19-24) mmol/L ABG O2 Saturation (94-97) % Hemoglobin (13.0-17.5) gm/dL Sodium 134 L (137-145) mmol/L Chloride 97 L (98-107) mmol/L BUN 41 H (9-20) mg/dL Creatinine 4.21 H (0.66-1.25) mg/dL Glucose 108 H (74-99) mg/dL POC Glucose (mg/dL) (70-110) mg/dL
--- NOTE | 2024-07-17 09:39 | P.PN ---
Subjective Progress Note Date: 07/17/24 Mainor Fierro is a 79-year-old male patient of Dr. Neri who presented with concerns of increased shortness of breath. Patient has an extensive medical history including end-stage renal disease maintained on hemodialysis, atrial fibrillation, recent diagnosis of penile cancer, previous history of jabari cardiocentesis and thoracentesis, renal disease, hypertension, hyperlipidemia and home O2 2 L. Chest x-ray completed showing moderate bilateral pleural effusions with adjacent atelectasis and/or consolidation possible underlying pulmonary vascular congestion abdomen showing nonobstructive bowel gas pattern no significant stool burden iliac vessel stents are present. Lab work revealing INR 1.1, creatinine 2.34 bun 24, BNP 25,600 and troponin negative at this time patient will be admitted pulmonary and cardiology services consulted. Nephrology consulted for hemodialysis. Family also requesting urology consult due to recent procedure. Possible plans for thoracocentesis. 2D echocardiogram ordered. Plans for hemodialysis today per nephrology. At this time patient is resting comfortably in bed. Patient denies chest pain or shortness of breath. Patient denies nausea vomiting or diarrhea. Patient denies any urinary burning or frequency. Current vital signs temp 97.3, heart rate 72, respiratory rate 18, blood pressure 130/55 with a pulse ox of 98% on 2 L On 07/16/2024 patient was seen and examined on the medical floor he is alert and oriented x 3 in no apparent distress, he reports some improvement in his shortness of breath, otherwise he denies any complaints there is no fever or chills no headache or dizziness no chest pain no shortness of breath no cough no nausea or vomiting no abdominal pain no diarrhea no urinary symptoms, he is followed by nephrology and receiving hemodialysis, will continue to follow closely. On 07/17/2024 patient was moved to the intensive care unit due to diminishing respiratory status and altered mental status changes patient noted to have significant elevated CO2 on ABG elevated CO2. Patient was placed on BiPAP. At this time patient is resting comfortably in bed with BiPAP. Plans for hemodialysis today. Patient was made a DNR per . Critical care, nephrology and cardiology services are following. Current vital signs temp 97.4, heart 69, respiratory rate 16, blood pressure 104/79 with a pulse ox of 96% on BiPAP. ABGs this morning pH 7.07, CO2 greater than 98, pO2 70 and sodium bicarb 31. . Objective - Vital Signs Vital signs: Vital Signs Temp 97.4 F L 07/17/24 07:37 Pulse 80 07/17/24 09:00 Resp 16 07/17/24 09:00 BP 104/79 07/17/24 09:00 Pulse Ox 96 07/17/24 09:00 FiO2 40 07/17/24 09:00 Intake & Output 07/16/24 07/17/24 07/17/24 18:59 06:59 18:59 Weight 90.5 kg 92.5 kg Other: Voiding Method Diaper # Voids 0 - Exam In general patient is alert and oriented x 3 in no distress HEENT head normocephalic and atraumatic Neck is supple no JVD no goiter no lymphadenopathy no carotid bruit Chest examination reveals a scattered crackles bilaterally no wheezing Cardiac exam irreveals regular heart sounds S1 and S2 no gallops no murmurs Abdomen is soft nontender no organomegaly with normal bowel sounds Extremity exam reveals no edema no cyanosis or clubbing - Labs CBC & Chem 7: 07/17/24 07:41 07/17/24 07:41 Labs: Abnormal Lab Results - Last 24 Hours (Table) 07/16/24 07/17/24 07/17/24 Range/Units 11:57 06:16 06:56 WBC (3.8-10.6) k/uL RBC (4.30-5.90) m/uL Hgb (13.0-17.5) gm/dL MCV (80.0-100.0) fL MCHC (31.0-37.0) g/dL Neutrophils # (1.3-7.7) k/uL Lymphocytes # (1.0-4.8) k/uL PT 23.4 H (10.0-12.5) sec INR 2.4 H (<1.2) ABG pH 7.11 L* (7.35-7.45) ABG pCO2 98 H* (35-45) mmHg ABG pO2 57 L* (83-108) mmHg ABG HCO3 31 H (21-25) mmol/L ABG Total CO2 34 H (19-24) mmol/L ABG O2 Saturation 86.5 L (94-97) % Hemoglobin 12.1 L (13.0-17.5) gm/dL Sodium (137-145) mmol/L Chloride (98-107) mmol/L BUN (9-20) mg/dL Creatinine (0.66-1.25) mg/dL Glucose (74-99) mg/dL POC Glucose (mg/dL) 68 L (70-110) mg/dL 07/17/24 07/17/24 07/17/24 Range/Units 07:11 07:11 07:30 WBC (3.8-10.6) k/uL RBC (4.30-5.90) m/uL Hgb (13.0-17.5) gm/dL MCV (80.0-100.0) fL MCHC (31.0-37.0) g/dL Neutrophils # (1.3-7.7) k/uL Lymphocytes # (1.0-4.8) k/uL PT (10.0-12.5) sec INR (<1.2) ABG pH 7.07 L* (7.35-7.45) ABG pCO2 >98 H* (35-45) mmHg ABG pO2 70 L (83-108) mmHg ABG HCO3 (21-25) mmol/L ABG Total CO2 (19-24) mmol/L ABG O2 Saturation 91.2 L (94-97) % Hemoglobin 11.5 L (13.0-17.5) gm/dL Sodium (137-145) mmol/L Chloride (98-107) mmol/L BUN (9-20) mg/dL Creatinine (0.66-1.25) mg/dL Glucose (74-99) mg/dL POC Glucose (mg/dL) 118 H 115 H (70-110) mg/dL 07/17/24 07/17/24 Range/Units 07:41 07:41 WBC 11.3 H (3.8-10.6) k/uL RBC 3.71 L (4.30-5.90) m/uL Hgb 11.8 L (13.0-17.5) gm/dL MCV 106.1 H (80.0-100.0) fL MCHC 30.0 L (31.0-37.0) g/dL Neutrophils # 10.3 H (1.3-7.7) k/uL Lymphocytes # 0.3 L (1.0-4.8) k/uL PT (10.0-12.5) sec INR (<1.2) ABG pH (7.35-7.45) ABG pCO2 (35-45) mmHg ABG pO2 (83-108) mmHg ABG HCO3 (21-25) mmol/L ABG Total CO2 (19-24) mmol/L ABG O2 Saturation (94-97) % Hemoglobin (13.0-17.5) gm/dL Sodium 134 L (137-145) mmol/L Chloride 97 L (98-107) mmol/L BUN 41 H (9-20) mg/dL Creatinine 4.21 H (0.66-1.25) mg/dL Glucose 108 H (74-99) mg/dL POC Glucose (mg/dL) (70-110) mg/dL Assessment and Plan Assessment: 1. Increase shortness of breath secondary to increased pulmonary edema and pleural effusions 2. End-stage renal disease maintained on hemodialysis 3. History of left-sided pleural effusions postthoracentesis in January 2024 4. History of pericardiocentesis in March 2024 5. History of penile cancer status post penectomy 6. Chronic hypoxic respiratory failure maintained on home 2 L 7. History of paroxysmal atrial fibrillation maintained on Coumadin for anticoagulation 8. History of peripheral vascular disease with previous stents DVT prophylaxis Coumadin GI prophylax Protonix Patient has been moved to the intensive care unit started on BiPAP Pulmonary, nephrology, cardiology and urology services consulted Prognosis remains guarded Patient has been made a DNR
--- NOTE | 2024-07-17 09:47 | P.PN ---
Subjective Patient is seen in follow-up for end-stage renal disease. He is maintained on home hemodialysis. Transferred to the ICU due to worsening respiratory status. Currently on BiPAP. present at bedside. Vital signs are stable. General: No acute distress. HEENT: Head exam is unremarkable. On BiPAP. LUNGS: No audible rhonchi or wheezes. HEART: Rate and Rhythm are regular. ABDOMEN: Nontender. EXTREMITITES: No edema. Objective - Vital Signs Vital signs: Vital Signs Temp 97.4 F L 07/17/24 07:37 Pulse 80 07/17/24 09:00 Resp 16 07/17/24 09:00 BP 104/79 07/17/24 09:00 Pulse Ox 96 07/17/24 09:00 FiO2 40 07/17/24 09:00 Intake & Output 07/16/24 07/17/24 07/17/24 18:59 06:59 18:59 Weight 90.5 kg 92.5 kg Other: Voiding Method Diaper # Voids 0 - Labs CBC & Chem 7: 07/17/24 07:41 07/17/24 07:41 Labs: Abnormal Lab Results - Last 24 Hours (Table) 07/16/24 07/17/24 07/17/24 Range/Units 11:57 06:16 06:56 WBC (3.8-10.6) k/uL RBC (4.30-5.90) m/uL Hgb (13.0-17.5) gm/dL MCV (80.0-100.0) fL MCHC (31.0-37.0) g/dL Neutrophils # (1.3-7.7) k/uL Lymphocytes # (1.0-4.8) k/uL PT 23.4 H (10.0-12.5) sec INR 2.4 H (<1.2) ABG pH 7.11 L* (7.35-7.45) ABG pCO2 98 H* (35-45) mmHg ABG pO2 57 L* (83-108) mmHg ABG HCO3 31 H (21-25) mmol/L ABG Total CO2 34 H (19-24) mmol/L ABG O2 Saturation 86.5 L (94-97) % Hemoglobin 12.1 L (13.0-17.5) gm/dL Sodium (137-145) mmol/L Chloride (98-107) mmol/L BUN (9-20) mg/dL Creatinine (0.66-1.25) mg/dL Glucose (74-99) mg/dL POC Glucose (mg/dL) 68 L (70-110) mg/dL 07/17/24 07/17/24 07/17/24 Range/Units 07:11 07:11 07:30 WBC (3.8-10.6) k/uL RBC (4.30-5.90) m/uL Hgb (13.0-17.5) gm/dL MCV (80.0-100.0) fL MCHC (31.0-37.0) g/dL Neutrophils # (1.3-7.7) k/uL Lymphocytes # (1.0-4.8) k/uL PT (10.0-12.5) sec INR (<1.2) ABG pH 7.07 L* (7.35-7.45) ABG pCO2 >98 H* (35-45) mmHg ABG pO2 70 L (83-108) mmHg ABG HCO3 (21-25) mmol/L ABG Total CO2 (19-24) mmol/L ABG O2 Saturation 91.2 L (94-97) % Hemoglobin 11.5 L (13.0-17.5) gm/dL Sodium (137-145) mmol/L Chloride (98-107) mmol/L BUN (9-20) mg/dL Creatinine (0.66-1.25) mg/dL Glucose (74-99) mg/dL POC Glucose (mg/dL) 118 H 115 H (70-110) mg/dL 07/17/24 07/17/24 Range/Units 07:41 07:41 WBC 11.3 H (3.8-10.6) k/uL RBC 3.71 L (4.30-5.90) m/uL Hgb 11.8 L (13.0-17.5) gm/dL MCV 106.1 H (80.0-100.0) fL MCHC 30.0 L (31.0-37.0) g/dL Neutrophils # 10.3 H (1.3-7.7) k/uL Lymphocytes # 0.3 L (1.0-4.8) k/uL PT (10.0-12.5) sec INR (<1.2) ABG pH (7.35-7.45) ABG pCO2 (35-45) mmHg ABG pO2 (83-108) mmHg ABG HCO3 (21-25) mmol/L ABG Total CO2 (19-24) mmol/L ABG O2 Saturation (94-97) % Hemoglobin (13.0-17.5) gm/dL Sodium 134 L (137-145) mmol/L Chloride 97 L (98-107) mmol/L BUN 41 H (9-20) mg/dL Creatinine 4.21 H (0.66-1.25) mg/dL Glucose 108 H (74-99) mg/dL POC Glucose (mg/dL) (70-110) mg/dL Assessment and Plan Plan: Assessment: 1. End-stage renal disease maintained on home hemodialysis via permacath. 2. Volume overload. 3. Peripheral vascular disease with iliac stents. 4. Hypertension with chronic kidney disease. Stable. 5. Chronic kidney disease mineral bone disease maintained on Renvela. 6. Hypervolemic hyponatremia. Improved postdialysis. 7. Penile mass status post distal penectomy June 2024. 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 8. Acute on chronic hypercapnic respiratory failure with additional metabolic acidosis. Plan: Hemodialysis today. Challenge ultrafiltration. May need another treatment tomorrow depending on his respiratory status. May benefit from thoracentesis. Preserved EF with small pericardial effusion noted on echocardiogram. Patient now DNR.
--- NOTE | 2024-07-17 09:54 | P.PN ---
Subjective Progress Note Date: 07/17/24 Principal diagnosis: Pleural effusion. Patient is a 79-year-old male with past medical significant for end-stage renal disease maintained on hemodialysis, left pleural effusion status postthoracentesis, pericardiocentesis, atrial fibrillation, PVD, COPD, home O2 dependence, penile cancer status Penectomy. Over the last 2 weeks,, the patient has been progressively more short of breath. Also, reports generalized weakness, reduced urination. He does have end-stage renal disease and undergoes home hemodialysis. Recently his left arm fistula has stopped working. He does have a right chest permacath. His established director payer is Dr. Aragon. Denies missing any hemodialysis treatments. Denies infectious URI-like symptoms such as rhinorrhea, postnasal drip, sinus pressure, sore throat. Denies sick contacts. Does have a chronic cough with occasional yellow sputum production. Denies fevers. Denies any chest pain, worsening lower extremity swelling. Does endorse orthopnea. Sleeps in a chair at home. He is chronically oxygen dependent on 2 L/min nasal cannula while at home. Chest x- ray done on admission consistent with pulmonary edema and fluid overload. There are moderate bilateral pleural effusions with associated atelectasis. A left basilar opacity cannot be excluded. Patient does have history of left-sided thoracentesis done on 01/14/2024. Fluid was technically an exudate with elevated fluid protein greater than 3.6 g. LDH 77. Cytologically negative for malignant cells. Microbiology was negative. Also, has had a previous pericardiocentesis on 03/12/2024.. Abdominal x-ray showing nonobstructive bowel gas pattern. No significant stool burden. Iliac vessel stents. CBC: WBC count 6.8, hemoglobin 11.4, hematocrit 36.6, platelets 183. CMP: Sodium 130, potassium 3.6, chloride 93, serum bicarb 29, BUN 24, creatinine 2.34, glucose 122. Troponin less than 0.012. NT proBNP significantly elevated at 25,600. Patient currently maintained on torsemide 20 mg twice daily. I am evaluating this patient on the cardiac stepdown unit. He is currently in bed in a high- Fowlers position. Has some conversational dyspnea, speaking in 2-3 word phrases. Tachypneic. SpO2 is reading 97% on his chronic 2 L/min nasal cannula. SPO2 97%. Afebrile. Remaining vital signs are stable. Progress note dated July 16, 2024. 79-year-old male who is seen in room 376. The patient is quite lethargic. Apparently the patient recently received some narcotic. At this time, the patient is not a candidate for thoracentesis. I do not believe he will be able to sit still, and be cooperative. The patient continues on oxygen at 3 L. We will check a chest x-ray in the morning. Is not receiving any IV fluids. The patient did have hemodialysis yesterday, July 15. Current labs are good white count 9.9, hemoglobin 12, hematocrit 40.5, and a platelet count of 197,000. PT 15.8 with an INR of 1.5. Blood gases show pO2 of 57, pCO2 of 98, and a pH of 7.11. BiPAP was recommended. Sodium 134, potassium 4.2, chloride 96, CO2 30, BUN 23, and creatinine 2.70. Progress note dated July 17, 2024. A rapid response was called on this patient this morning, as the patient was very obtunded. The patient was transferred down to the intensive care unit, room 257. We saw him in the ICU. He was placed on BiPAP, with settings of 16/5, and 50%. He was not receiving any IV fluids. His most recent blood gases show pO2 of 70, pCO2 of 98, and a pH of 7.07. His BiPAP settings at that time were 12/5. Subsequent to this, his made the patient a DO NOT RESUSCITATE. White count of 11.3, hemoglobin 11.8, macro 39.4, platelet count is 178,000. Sodium 134, potassium 4.5, chlorides 97, CO2 27, BUN 41, creatinine 4.21. Glucose is 115. Calcium 8.6. A chest x-ray today shows no major changes from previous x-rays. Objective - Vital Signs Vital signs: Vital Signs Temp 97.4 F L 07/17/24 07:37 Pulse 80 07/17/24 09:00 Resp 16 07/17/24 09:00 BP 104/79 07/17/24 09:00 Pulse Ox 96 07/17/24 09:00 FiO2 40 07/17/24 09:00 Intake & Output 07/16/24 07/17/24 07/17/24 18:59 06:59 18:59 Weight 90.5 kg 92.5 kg Other: Voiding Method Diaper # Voids 0 - Exam Obtunded, very lethargic, and somnolent. Currently on BiPAP. HEENT examination is grossly unremarkable. Neck supple. Full range of motion. No adenopathy thyromegaly or neck vein distention. Cardiovascular examination reveals an irregular rhythm and and rate. S1-S2 normal. No S3 or S4. A soft systolic murmur is noted. Sounds are distant. Lungs reveal bibasilar crackles. No wheezes or rhonchi. Breath sounds equal. Dullness at the bases on percussion. Abdomen soft bowel sounds are heard. No masses or tenderness. Extremities are intact. No cyanosis clubbing or edema. Skin is without rash or lesion. Neurologic examination is difficult to assess. - Labs CBC & Chem 7: 07/17/24 07:41 07/17/24 07:41 Labs: Abnormal Lab Results - Last 24 Hours (Table) 07/16/24 07/17/24 07/17/24 Range/Units 11:57 06:16 06:56 WBC (3.8-10.6) k/uL RBC (4.30-5.90) m/uL Hgb (13.0-17.5) gm/dL MCV (80.0-100.0) fL MCHC (31.0-37.0) g/dL Neutrophils # (1.3-7.7) k/uL Lymphocytes # (1.0-4.8) k/uL PT 23.4 H (10.0-12.5) sec INR 2.4 H (<1.2) ABG pH 7.11 L* (7.35-7.45) ABG pCO2 98 H* (35-45) mmHg ABG pO2 57 L* (83-108) mmHg ABG HCO3 31 H (21-25) mmol/L ABG Total CO2 34 H (19-24) mmol/L ABG O2 Saturation 86.5 L (94-97) % Hemoglobin 12.1 L (13.0-17.5) gm/dL Sodium (137-145) mmol/L Chloride (98-107) mmol/L BUN (9-20) mg/dL Creatinine (0.66-1.25) mg/dL Glucose (74-99) mg/dL POC Glucose (mg/dL) 68 L (70-110) mg/dL 07/17/24 07/17/24 07/17/24 Range/Units 07:11 07:11 07:30 WBC (3.8-10.6) k/uL RBC (4.30-5.90) m/uL Hgb (13.0-17.5) gm/dL MCV (80.0-100.0) fL MCHC (31.0-37.0) g/dL Neutrophils # (1.3-7.7) k/uL Lymphocytes # (1.0-4.8) k/uL PT (10.0-12.5) sec INR (<1.2) ABG pH 7.07 L* (7.35-7.45) ABG pCO2 >98 H* (35-45) mmHg ABG pO2 70 L (83-108) mmHg ABG HCO3 (21-25) mmol/L ABG Total CO2 (19-24) mmol/L ABG O2 Saturation 91.2 L (94-97) % Hemoglobin 11.5 L (13.0-17.5) gm/dL Sodium (137-145) mmol/L Chloride (98-107) mmol/L BUN (9-20) mg/dL Creatinine (0.66-1.25) mg/dL Glucose (74-99) mg/dL POC Glucose (mg/dL) 118 H 115 H (70-110) mg/dL 07/17/24 07/17/24 Range/Units 07:41 07:41 WBC 11.3 H (3.8-10.6) k/uL RBC 3.71 L (4.30-5.90) m/uL Hgb 11.8 L (13.0-17.5) gm/dL MCV 106.1 H (80.0-100.0) fL MCHC 30.0 L (31.0-37.0) g/dL Neutrophils # 10.3 H (1.3-7.7) k/uL Lymphocytes # 0.3 L (1.0-4.8) k/uL PT (10.0-12.5) sec INR (<1.2) ABG pH (7.35-7.45) ABG pCO2 (35-45) mmHg ABG pO2 (83-108) mmHg ABG HCO3 (21-25) mmol/L ABG Total CO2 (19-24) mmol/L ABG O2 Saturation (94-97) % Hemoglobin (13.0-17.5) gm/dL Sodium 134 L (137-145) mmol/L Chloride 97 L (98-107) mmol/L BUN 41 H (9-20) mg/dL Creatinine 4.21 H (0.66-1.25) mg/dL Glucose 108 H (74-99) mg/dL POC Glucose (mg/dL) (70-110) mg/dL Assessment and Plan Assessment: Pulmonary edema, with moderate sized bilateral pleural effusions. Acute mental status changes, likely on the basis of hypercarbia, and metabolic encephalopathy. Chronic hypoxemic respiratory failure, normally maintained on 2 L/min nasal cannula. History of left-sided pleural effusion status/post thoracentesis on 01/14/2024. History of pericardiocentesis on 03/12/2024. End-stage renal disease, maintained on home hemodialysis. Hypervolemic hyponatremia. History of HPV/penile cancer status post penectomy. Chronic obstructive pulmonary disease, stable. Paroxysmal atrial fibrillation with controlled ventricular response. History of peripheral vascular disease with previous bilateral iliac stents. Obesity, with a BMI of 32.3 kg/m. Plan: Plan dated July 16, 2024. The patient was found to be very lethargic and somnolent. We have asked that the nurses discontinue all narcotics. The patient will have a chest x-ray in the morning. Will make a decision about whether or not to do thoracentesis on this patient. The patient will need to be much more cooperative than he was today. Labs, x-rays, and medications are reviewed. Prognosis is guarded. Plan dated July 17, 2024. The patient was transferred down to the intensive care unit, as a full code patient. Shortly thereafter, apparently there was conversations with the , who made the patient a DO NOT RESUSCITATE patient. The patient is seen in the intensive care unit, room 257. The patient is poorly responsive/unresponsive. BiPAP is in place. Settings are 16/5 and 50%. The patient is not receiving any IV fluids. Arterial blood gases, before transfer, showed a pO2 of 70, pCO2 of 98, and a pH of 7.07. His blood gases are consistent with acute on chronic hypercapnic respiratory failure. Overall prognosis remains poor. No thoracentesis at this time. Time with Patient: Greater than 30
[2024-07-17] MEDS: NOREPINEPHRINE 4 MG in SODIUM CHLORIDE 0.9% 250 ML IV SCH (11:24)
[2024-07-17] MEDS: WARFARIN 0.5 MG TAB PO ONE (11:25)
[2024-07-17 13:14] VITALS: TEMP 97.1
[2024-07-17] MEDS ORDERED: ONDANSETRON 4 MG/2 ML VIAL IVP PRN (16:01)
[2024-07-17] MEDS ORDERED: DRY MOUTH SPRAY 44.3 SPRAY/44.3 ML SPRAY MUCOUS MEM PRN (16:01)
[2024-07-17] MEDS ORDERED: MORPHINE SULFATE 2 MG/ML SYRINGE IV PRN (16:01)
[2024-07-17 16:22] VITALS: BP 70/51; PULSE 0; RESP 0
--- NOTE | 2024-08-05 09:17 | P.DS ---
Providers Date of admission: 07/14/24 18:58 Expected date of discharge: 07/17/24 Attending physician: Marisel Coyne Consults: 07/14/24 18:56 Consult Physician Urgent Consulting Provider: Primitivo Jordan Consult Reason/Comments: pleural effusions Do you want consulting provider notified?: Yes Consult Physician Urgent Consulting Provider: Momo Dai Consult Reason/Comments: pulm edema Do you want consulting provider notified?: Yes 07/14/24 18:58 Consult Physician Urgent Consulting Provider: Leonel Aragon Consult Reason/Comments: pulm edema,dialysis pt Do you want consulting provider notified?: Yes 07/15/24 10:35 Consult Physician Routine Consulting Provider: Edi Barros Consult Reason/Comments: recent surgery Do you want consulting provider notified?: Yes Primary care physician: Fide Faith Hospital Course: Discharge Diagnosis patient 07/17/2024 1. Increase shortness of breath secondary to increased pulmonary edema and pleural effusions 2. End-stage renal disease maintained on hemodialysis 3. History of left-sided pleural effusions postthoracentesis in January 2024 4. History of pericardiocentesis in March 2024 5. History of penile cancer status post penectomy 6. Chronic hypoxic respiratory failure maintained on home 2 L 7. History of paroxysmal atrial fibrillation maintained on Coumadin for ant icoagulation 8. History of peripheral vascular disease with previous stents Hospital course Mainor Fierro is a 79-year-old male patient of Dr. Neri who presented with concerns of increased shortness of breath. Patient has an extensive medical history including end-stage renal disease maintained on hemodialysis, atrial fibrillation, recent diagnosis of penile cancer, previous history of pericardiocentesis and thoracentesis, renal disease, hypertension, hyperlipidemia and home O2 2 L. Chest x-ray completed showing moderate bilateral pleural effusions with adjacent atelectasis and/or consolidation possible underlying pulmonary vascular congestion abdomen showing nonobstructive bowel gas pattern no significant stool burden iliac vessel stents are present. Lab work revealing INR 1.1, creatinine 2.34 bun 24, BNP 25,600 and troponin negative at this time patient will be admitted pulmonary and cardiology services consulted. Nephrology consulted for hemodialysis. Family also requesting urology consult due to recent procedure. Possible plans for thoracocentesis. 2D echocardiogram ordered. Plans for hemodialysis today per nephrology. At this time patient is resting comfortably in bed. Patient denies chest pain or shortness of breath. Patient denies nausea vomiting or diarrhea. Patient denies any urinary burning or frequency. Current vital signs temp 97.3, heart rate 72, respiratory rate 18, blood pressure 130/55 with a pulse ox of 98% on 2 L On 07/16/2024 patient was seen and examined on the medical floor he is alert and oriented x 3 in no apparent distress, he reports some improvement in his shortness of breath, otherwise he denies any complaints there is no fever or chills no headache or dizziness no chest pain no shortness of breath no cough no nausea or vomiting no abdominal pain no diarrhea no urinary symptoms, he is followed by nephrology and receiving hemodialysis, will continue to follow closely. On 07/17/2024 patient was moved to the intensive care unit due to diminishing respiratory status and altered mental status changes patient noted to have significant elevated CO2 on ABG elevated CO2. Patient was placed on BiPAP. At this time patient is resting comfortably in bed with BiPAP. Plans for hemodialysis today. Patient was made a DNR per . Critical care, nephrology and cardiology services are following. Current vital signs temp 97.4, heart 69, respiratory rate 16, blood pressure 104/79 with a pulse ox of 96% on BiPAP. ABGs this morning pH 7.07, CO2 greater than 98, pO2 70 and sodium bicarb 31. according to records patient 07/17/2024 at 1625 patient was a DO NOT RESUSCITATE Plan - Discharge Summary Discharge Rx Participant: No New Discharge Prescriptions: No Action allopurinoL [Zyloprim] 100 mg PO DAILY Sevelamer Carbonate 800 mg PO TID-W/MEALS Atorvastatin [Lipitor] 40 mg PO DAILY Torsemide [Soaanz] 20 mg PO BID-W/MEALS Warfarin [Coumadin] 2 mg PO DIRECTED Sevelamer [Renvela] 800 mg PO DIRECTED PRN PRN Reason: SNACKS Midodrine [ProAmatine] 5 mg PO TID PRN PRN Reason: Blood Pressure - Low Potassium Chloride 10 meq PO W/SUPPER Folic Acid/Vit B Complex and C [Yari-Arin Tablet] 0.8 mg PO DAILY Heparin Sodium,Porcine [Heparin Sodium] 4,000 unit IV DIRECTED carvediloL [Coreg] 6.25 - 12.5 mg PO BID-W/MEALS Discharge Medication List allopurinoL [Zyloprim] 100 mg PO DAILY 12/20/16 [History] Sevelamer Carbonate 800 mg PO TID-W/MEALS 08/16/20 [History] Folic Acid/Vit B Complex and C [Yari-Arin Tablet] 0.8 mg PO DAILY 03/10/24 [History] Midodrine [ProAmatine] 5 mg PO TID PRN 03/10/24 [History] Potassium Chloride 10 meq PO W/SUPPER 03/10/24 [History] Atorvastatin [Lipitor] 40 mg PO DAILY 06/22/24 [History] Heparin Sodium,Porcine [Heparin Sodium] 4,000 unit IV DIRECTED 06/22/24 [History] Sevelamer [Renvela] 800 mg PO DIRECTED PRN 07/14/24 [History] Torsemide [Soaanz] 20 mg PO BID-W/MEALS 07/14/24 [History] Warfarin [Coumadin] 2 mg PO DIRECTED 07/14/24 [History] carvediloL [Coreg] 6.25 - 12.5 mg PO BID-W/MEALS 07/14/24 [History] Follow up Appointment(s)/Referral(s): Fide Faith MD [Primary Care Provider] - 1-2 days Residential Home[facility] [NON-STAFF] - Activity/Diet/Wound Care/Special Instructions: Discharge/Stand Alone Forms: Who Do I Call?, Personal Pasting Machine Operator Discharge Disposition: - Preliminary Cause of Preliminary Cause of : chronic hypercapnic respiratory failure
== END 2024-07-17 18:56 | disposition expired | DRG 291 ==
LOC: EC 15:05 → 3SCARD 18:58 → 2SICU 07-17 07:22
PROVIDERS: ADMIT Internal Medicine; ATTEND Internal Medicine
PROC: 5A1D70Z Performance of Urinary Filtration, Intermittent, Less than 6 Hours Per Day (ICD-10-PCS; 2024-07-15)
PROC: 5A09457 Assistance with Respiratory Ventilation, 24-96 Consecutive Hours, Continuous Positive Airway Pressure (ICD-10-PCS; principal; 2024-07-16)
PROC: 3E033XZ Introduction of Vasopressor into Peripheral Vein, Percutaneous Approach (ICD-10-PCS; 2024-07-17)
DX: I13.2 Hypertensive heart and chronic kidney disease with heart failure and with stage 5 chronic kidney disease, or end stage renal disease (principal); G93.41 Metabolic encephalopathy; I50.33 Acute on chronic diastolic (congestive) heart failure; J96.21 Acute and chronic respiratory failure with hypoxia; J96.22 Acute and chronic respiratory failure with hypercapnia; N18.6 End stage renal disease; E87.1 Hypo-osmolality and hyponatremia; E87.20 Acidosis, unspecified; I48.19 Other persistent atrial fibrillation; I73.9 Peripheral vascular disease, unspecified; I45.10 Unspecified right bundle-branch block; M89.8X9 Other specified disorders of bone, unspecified site; H91.90 Unspecified hearing loss, unspecified ear; J44.9 Chronic obstructive pulmonary disease, unspecified; Z66 Do not resuscitate; Z51.5 Encounter for palliative care; E78.5 Hyperlipidemia, unspecified; E66.9 Obesity, unspecified; Z68.32 Body mass index [BMI] 32.0-32.9, adult; Z95.5 Presence of coronary angioplasty implant and graft; Z99.81 Dependence on supplemental oxygen; Z99.3 Dependence on wheelchair; Z99.2 Dependence on renal dialysis; Z87.891 Personal history of nicotine dependence; Z79.899 Other long term (current) drug therapy; Z85.49 Personal history of malignant neoplasm of other male genital organs
CPT/HCPCS: 36415; 36600; 51798; 71045; 71046; 74018; 76604; 80048; 80053; 82805; 83605; 83735; 83880; 84145; 84484; 85025; 85610; 85730; 86706; 87340; 90935; 93005; 93308; 94640; 94660; 96374; 99285